=== PATIENT | female | born 1945 | race Caucasian/White ===

== ENCOUNTER 2016-12-17 12:01 | Inpatient (IN) | payer MEDICARE ==
[2016-12-17 13:01] LABS: Hematocrit 44.3 % (36.0-47.0); Red Blood Cell (RBC) Count 4.57 mill/uL (4.20-5.40); White Blood Cell (WBC) Count 23.6 thou/uL (4.8-10.8)
--- NOTE | 2016-12-17 13:13 | RAD ---
AP VIEW CHEST: HISTORY: Chest pain. FINDINGS: AP view chest was obtained on 12/17/16. AP view chest demonstrates cardiomegaly noted. There is blunting of the left costophrenic angle com patible with a left-sided pleural effusion. There may be some component of left lower lobe consolid ation as well. The right lung is well aerated. Calcification of the aorta is seen. IMPRESSION: Cardiomegaly and left-sided pleural effusion. POS: H
[2016-12-17 13:22] LABS: Band 1 % (5-11); Neutrophil 93 % (42-75)
[2016-12-17 13:28] LABS: Troponin I Less than 0.010 ng/mL (< 0.028)
[2016-12-17] MEDS ORDERED: Piperacillin/Tazobactam 3.375 GM VIAL ONE (13:33)
[2016-12-17] MEDS ORDERED: Sodium Chloride 0.9% 100 ML ONE ×2 (13:34→14:05)
[2016-12-17] MEDS ORDERED: Diltiazem HCl 125 MG, Admixture Fee 1 EACH in Sodium Chloride 0.9% 100 ML SLOW IVP SCH (15:00)
[2016-12-17] MEDS ORDERED: Ondansetron HCl/PF 4 MG/2 ML Vial IVP PRN (15:41)
[2016-12-17] MEDS ORDERED: Ondansetron ODT 4 MG TAB SL PRN (15:41)
[2016-12-17 15:56] LABS: Troponin I Less than 0.010 ng/mL (< 0.028)
[2016-12-17] MEDS ORDERED: Acetaminophen 325 MG TAB PO PRN (18:09)
[2016-12-17 18:40] LABS: Hematocrit 43.6 % (36.0-47.0)
[2016-12-17 18:57] LABS: Troponin I 0.016 ng/mL (< 0.028)
--- NOTE | 2016-12-17 19:08 | HP ---
PRIMARY CARE PROVIDER: None. CHIEF COMPLAINT: Shortness of breath. HISTORY OF PRESENT ILLNESS: Ms. Max is a pleasant 71-year-old lady who was seen at [facility] on 12/17/2016 following transfer from [facility] in [place]. She reports that over the last 6 weeks, she has had flu-like symptoms with cough and occasional feve r. She reports feeling miserable. She was started on steroids and Z-LEO. She finished the steroid s last week. However, she continued to have cough. She also reports shortness of breath that has b een going on for several days. Shortness of breath is worse with exertion. She denies orthopnea or paroxysmal nocturnal dyspnea. At 11:00 p.m. last night, she started coughing, and was unable to stop coughing. She sat in her bed . She did not sleep well. She also reports that she has had left-sided chest pain a few weeks ago, sharp, nonradiating, 9/10, worse with coughing. She went to the emergency room because of ongoing cough and shortness of breath. There, she was fou nd to be in atrial fibrillation with rapid ventricular response. She was transferred to this facili for further management. REVIEW OF SYSTEMS: The following complete review of systems was negative, unless otherwise mentione d in the HPI or below: Constitutional: Weight loss or gain, sense of well-being, ability to conduct usual activities, exer cise tolerance. Skin/Breast: Rash, itching, changes in hair growth or loss, nail changes, breast lumps, tenderness, swelling, nipple discharge. Eyes: Vision, double vision, tearing, blind spots, pain. ENT/Mouth: Headaches (location, time of onset, duration, precipitating factors), vertigo, lighthead edness, injury. Vision, double vision, tearing, blind spots, pain, nose bleeding, colds, obstruction , discharge, dental difficulties, gingival bleeding, dentures, neck stiffness, pain, tenderness, mas ses in thyroid or other areas. Cardiovascular: Precordial pain, substernal distress, palpitations, syncope, dyspnea on exertion, o rthopnea, nocturnal paroxysmal dyspnea, edema, cyanosis, hypertension, heart murmurs, varicosities, phlebitis, claudication. Respiratory: Pain, shortness of breath, wheezing, stridor, cough, hemoptysis, fever or night sweats . Gastrointestinal: Poor appetite, dysphagia, indigestion, abdominal pain, heartburn, eructation, bernice sea, vomiting, hematemesis, jaundice, constipation, or diarrhea, abnormal stools (mukesh-colored, jillian y, bloody, greasy, foul smelling), flatulence, hemorrhoids, recent changes in bowel habits. Genitourinary: Urgency, frequency, dysuria, nocturia, hematuria, polyuria, oliguria, unusual (or ch hseldon in) color of urine, stones, hesitancy, change in size of stream, dribbling, acute retention or incontinence, libido, potency. Musculoskeletal: Pain, swelling, redness or heat of muscles or joints, limitation, of motion, muscu lar weakness, atrophy, cramps. Neurologic/Psychiatric: Convulsions, paralyses, tremor, incoordination, paresthesias, difficulties with memory of speech, sensory or motor disturbances, or muscular coordination (ataxia, tremor), emo tional problems, anxiety, depression, previous psychiatric care, unusual perceptions, hallucinations . Allergy/Immunologic: Skin rash, anemia, bleeding tendency, polydipsia, polyuria, intolerance to hea t or cold. PAST MEDICAL HISTORY: Significant for hypertension and gastroesophageal reflux disease. Cerebrovas cular accident in the past. PAST SURGICAL HISTORY: None. FAMILY HISTORY: Significant for myocardial infarction in her father. SOCIAL HISTORY: She smokes 1 pack of cigarettes a day. She drinks 5-6 alcoholic drinks a day. ALLERGIES: No known drug allergies. CURRENT MEDICATIONS: Protonix 40 mg daily. She also reports that she has been started on losartan/ hydrochlorothiazide, but does not remember the dose. PHYSICAL EXAMINATION: GENERAL: Ms. Max is awake and alert, not in acute distress. VITAL SIGNS: Blood pressure is 120/68, pulse is 110. She is breathing at rate of 21 and saturating 94% on 2 liters of oxygen. She is afebrile. EYES: No scleral icterus. No conjunctival pallor. ENT: Moist mucosal membranes, no oropharyngeal erythema or exudates. NECK: Supple, nontender, normal range of movement, trachea is midline. RESPIRATORY: Accessory muscles of breathing are mildly active. Chest wall movements are symmetric bilaterally. LUNGS: Clear to auscultation without wheeze, rhonchus or crepitations. CARDIOVASCULAR: S1 and S2 are heard, irregular and tachycardic. Peripheral pulses palpable. No pe ricardial rub, no carotid bruit. ABDOMEN: Soft, nontender, bowel sounds heard, no hepatomegaly, no splenomegaly. NEUROLOGIC: Cranial nerves II-XII are intact. Deep tendon reflexes are 2+. MUSCULOSKELETAL: Power is 5/5 in all 4 extremities, normal range of movement at all major extremity joints. She has lower extremity edema. PSYCHIATRIC: Normal mood, normal affect, the patient is oriented to time, place and person. LYMPHATIC: No cervical lymphadenopathy. SKIN: No rashes or subcutaneous nodules. LABS AND INVESTIGATIONS: Mr. Max's labs and investigations were reviewed. I reviewed her ches t x-ray, which does not show any pulmonary infiltrates. She does have a small left-sided pleural ef fusion. I also reviewed her electrocardiogram, which shows atrial fibrillation with rapid ventricul ar response. Laboratory investigations show leukocytosis with 23,600 white cells, of which 93% are neutrophils. Hemoglobin and platelet count are normal. Troponin I is less than 0.010 twice. Creat inine is 0.6. Alkaline phosphatase is 67. Total bilirubin is 1.9. BNP is 363. D-dimer is elevate d at 995. Sodium is decreased at 125. ASSESSMENT AND PLAN: Mr. Max is a pleasant 71-year-old lady who was seen at [facility] on 12/17/2016. Her problem list includes: 1. Atrial fibrillation with rapid ventricular response. Ms. Max is presenting with atrial fib rillation with rapid ventricular response, newly diagnosed. Given her history of hypertension, stro ke, and age, she is at high risk for stroke. I had a lengthy discussion with her regarding her DIANE S2 score and the need for anticoagulation. She is agreeable for anticoagulation. I also had a disc ussion regarding warfarin versus normal oral anticoagulant agents. She is leaning towards warfarin, mostly because of financial reasons. I will admit her to the hospital for further management, cont inue her heparin drip and consult Cardiology Service. We will also request 2D echocardiogram. We w ill continue Cardizem drip. 2. Abnormal liver function tests: Etiology unclear, could be secondary to alcohol use. We will re check liver function test. 3. Hyponatremia: The patient appears to be asymptomatic. We will recheck. 4. History of stroke: The patient has light perception only in the right eye with the sequel of th e stroke. Appears to be stable. 5. Hypertension: Clarify home medications and resume them, monitor vital signs and titrate antihyp ertensives as needed. 6. Gastroesophageal reflux disease. Continue Protonix. 7. Sepsis: Suspected, based on presentation. A clear source of infection is not evident at this t virgilio. We will obtain cultures and continue Zosyn, which has already been started. LEVEL OF RISK: High. LEVEL OF COMPLEXITY: High.
[2016-12-17 20:00] LABS: Anion Gap 15 mmol/L (10-20); BUN (Urea Nitrogen) 12 mg/dL (9.8-20.1); Calc. Creatinine Clearance 59 mL/min (70-130); Calcium 9.2 mg/dL (7.8-10.44); Carbon Dioxide 22 mmol/L (23-31); Chloride 99 mmol/L (98-107); Estimated GFR-MDRD 82
[2016-12-17] MEDS: Piperacillin/Tazobactam 4.5 GM in Sodium Chloride 0.9% 100 ML IVPB SCH (22:15)
[2016-12-17] MEDS: Nicotine 21 MG PATCH TD SCH (22:15)
[2016-12-17] MEDS: Heparin 10,000 UNITS/ 10 ML VIAL SLOW IVP SCH (22:17)
[2016-12-17] MEDS: Heparin 25,000 units/D5W 500 ML IVPB SCH (22:17)
[2016-12-18 01:06] LABS: Bilirubin Negative (Negative); Blood, Urine Large (Negative); Glucose, Urine (Dipstick) Negative (Negative); Ketone, Urine Negative (Negative); Nitrite Negative (Negative); Protein, Urine (Dipstick) Trace mg/dL (Neg-Trace); Urobilinogen 0.2 mg/dL (0.2-1.0)
[2016-12-18 01:08] LABS: Bacteria/HPF None Seen HPF (None Seen); Hyaline Casts/LPF 0-3 HYALINE CAST LPF (0-3 Hyaline); RBC/HPF 21-50 HPF (0-3); Squamous Epithelial 0-3 HPF (0-3)
[2016-12-18 01:22] LABS: Potassium, Urine 86.8 mmol/L
[2016-12-18] MEDS: Piperacillin/Tazobactam 4.5 GM in Sodium Chloride 0.9% 100 ML IVPB SCH ×3 (05:21→21:41)
[2016-12-18 05:45] LABS: Hematocrit 42.7 % (36.0-47.0); Mean Platelet Volume 7.2 fL (7.4-10.4); White Blood Cell (WBC) Count 23.5 thou/uL (4.8-10.8)
[2016-12-18 05:46] LABS: Neutrophil 88 % (42-75)
[2016-12-18 06:00] LABS: Anion Gap 12 mmol/L (10-20); BUN (Urea Nitrogen) 19 mg/dL (9.8-20.1); Calc. Creatinine Clearance 58 mL/min (70-130); Calcium 9.2 mg/dL (7.8-10.44); Carbon Dioxide 24 mmol/L (23-31); Chloride 101 mmol/L (98-107); Estimated GFR-MDRD 81
[2016-12-18 06:04] LABS: ALT (SGPT) 43 U/L (8-55); AST (SGOT) 27 U/L (5-34); Alkaline Phosphatase 50 U/L (40-150); Bilirubin, Direct 0.5 mg/dL (0.1-0.3); Bilirubin, Total 1.1 mg/dL (0.2-1.2); Protein, Total 6.1 g/dL (6.0-8.3)
[2016-12-18] MEDS: Heparin 10,000 UNITS/ 10 ML VIAL SLOW IVP SCH ×3 (06:19→21:04)
--- NOTE | 2016-12-18 11:51 | PDOC.PN ---
- Subjective Encounter Start Date: 12/18/16 Encounter Start Time: 09:00 Pt seen for followup re: atrial fibrillation. denies chest pain, Shortness of breath is better. No paplitations, fevers. cough+ - Objective Resuscitation Status: Resuscitation Status FULL:Full Resuscitation MAR Reviewed: Yes Vital Signs & Weight: Vital Signs (12 hours) Temp Pulse Resp BP Pulse Ox 12/18/16 07:30 98.2 F 132 H 18 123/79 96 12/18/16 04:00 98.1 F 99 18 133/78 93 L 12/18/16 00:00 108 H 18 154/84 H Weight Weight 112 lb I&O: 12/17/16 12/18/16 12/19/16 06:59 06:59 06:59 Intake Total 910 Output Total 925 Balance -15 Result Diagrams: 12/18/16 05:12 12/18/16 05:12 EKG Reviewed by me: Yes (Tele: chayito rizzo) Phys Exam - Physical Examination Constitutional: NAD HEENT: moist MMs, sclera anicteric, oral pharynx no lesions R blindness Neck: supple, full ROM Respiratory: no wheezing, no rales, no rhonchi, clear to auscultation bilateral Cardiovascular: no rub, irregular Gastrointestinal: soft, non-tender, no distention, positive bowel sounds Musculoskeletal: no edema, pulses present Neurological: non-focal, normal sensation, moves all 4 limbs R blindness Lymphatic: no nodes Psychiatric: normal affect, A&O x 3 Skin: no rash, normal turgor, cap refill <2 seconds Dx/Plan (1) Atrial fibrillation Code(s): I48.91 - UNSPECIFIED ATRIAL FIBRILLATION Status: Acute (2) Sepsis Code(s): A41.9 - SEPSIS, UNSPECIFIED ORGANISM Status: Suspected (3) HTN (hypertension) Code(s): I10 - ESSENTIAL (PRIMARY) HYPERTENSION Status: Chronic (4) GERD (gastroesophageal reflux disease) Code(s): K21.9 - GASTRO-ESOPHAGEAL REFLUX DISEASE WITHOUT ESOPHAGITIS Status: Chronic (5) Tobacco abuse Code(s): Z72.0 - TOBACCO USE Status: Chronic (6) Alcohol dependence, daily use Code(s): F10.20 - ALCOHOL DEPENDENCE, UNCOMPLICATED Status: Chronic - Plan continue antibiotics, PT/OT, out of bed/ambulate, DVT proph w/heparin * . Continue cardizem drip. Sepsis suspected due to leucocytosis and tachycardia. Pt is afebrile. Continue antibiotics, await cultures. Continue NRT, ASE protocol. Monitor vital signs, titrate antihypertensives as needed. Review of Systems - Review of Systems Constitutional: negative: Fever, Chills, Sweats, Weakness, Malaise Respiratory: Cough, SOB with Excertion, Sputum. negative: Dry, Shortness of Breath, Hemoptysis, Pleuritic Pain, Wheezing Cardiovascular: negative: Chest Pain, Palpitations, Orthopnea, Paroxysmal Noc. Dyspnea, Edema, Light Headedness Gastrointestinal: negative: Nausea, Vomiting, Abdominal Pain, Diarrhea, Constipation, Melena, Hematochezia Genitourinary: negative: Dysuria, Frequency, Incontinence, Hematuria, Retention - Medications/Allergies Allergies/Adverse Reactions: Allergies Allergy/AdvReac Type Severity Reaction Status Date / Time No Known Allergies Allergy Verified 12/17/16 16:00 Medications: Current Medications Acetaminophen (Tylenol) 650 mg PO Q4H PRN PRN Reason: Headache/Fever or Pain Heparin Sodium (Porcine) (Heparin 1,000 Units/Ml (10 Ml)) 0 units SLOW IVP ASDIR [facility] PRN Reason: Protocol Last Admin: 12/18/16 06:19 Dose: 3,024 unit Heparin Sodium/Dextrose (Heparin 25,000 Units/D5w 500 Ml) 500 mls @ 0 mls/hr IVPB INF [facility]IL[facility]; Per Protocol PRN Reason: Protocol Last Admin: 12/17/16 22:17 Dose: 500 mls Diltiazem HCl 125 mg/ Sodium (Chloride) 125 mls @ 10 mls/hr IVPB INF [facility]IL[facility] PRN Reason: Protocol Last Admin: 12/18/16 05:21 Dose: 125 mls Piperacillin Sod/Tazobactam (Sod 4.5 gm/ Sodium Chloride) 100 mls @ 200 mls/hr IVPB Q8HR [facility] Last Admin: 12/18/16 05:21 Dose: 100 mls Nicotine (Nicoderm Patch) 21 mg TD Q24HR [facility] Last Admin: 12/17/16 22:15 Dose: 21 mg Pantoprazole Sodium (Protonix) 40 mg PO DAILY [facility] Last Admin: 12/18/16 08:40 Dose: 40 mg Sodium Chloride (Flush - Normal Saline) 10 ml IVF PRN PRN PRN Reason: Saline Flush Sodium Chloride (Flush - Normal Saline) 10 ml IVF Q12HR [facility] Last Admin: 12/18/16 08:40 Dose: Not Given
[2016-12-18] MEDS ORDERED: Digoxin 0.5 MG/2 ML AMP SLOW IVP SCH (12:15)
[2016-12-18 14:31] LABS: Prothrombin Time 14.6 SEC (12.0-14.7)
[2016-12-18] MEDS ORDERED: Warfarin Sodium 10 MG TAB PO SCH ×2 (17:00)
[2016-12-18] MEDS: Digoxin 0.5 MG/2 ML AMP SLOW IVP SCH (19:46)
--- NOTE | 2016-12-18 20:39 | CON ---
DATE OF CONSULTATION: 12/18/2016 INDICATION FOR CONSULTATION: A 71-year-old female with atrial fibrillation with rapid ventricular r esponse. HISTORY OF PRESENT ILLNESS: This is a very unfortunate 71-year-old female who has not been seen by physicians very much. She does not have a primary doctor. She only goes to the doctor when she has symptoms emergently. She has had flu-like symptoms for quite some time with a cough and some fever . 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 Since that time, she had been doing relatively well. She would like to work. She w orks in a tobacco shop. She has had no chest pain until just recently when she started having a cou gh and then she developed some chest pain a couple of days ago without any radiation. She then noti preet she was having somewhat of a fast heart rate, but previous to that she had not noticed her heart rate has been fast and she was not having any pain. She, unfortunately, smokes a pack a day and dr jacobsen 6 pack a day and has done so for many years. She presented to the outside facility on and was told that she still had some residual from a viral illness and was told to just wait it out . I believe she was given a Z-Paramjit and some steroids and was sent home and then she noticed the foll owing day on Monday, she was unable to breathe and became more and more short of breath and then pre sented to the emergency room and was then transferred here for further evaluation and treatment afte r she was found to have atrial fibrillation with rapid ventricular response. Unfortunately, her EKG did not show any acute ST-segment changes at that time. She did have the episode of chest pain; ho wever, we need to keep that in mind. She also had no evidence of myocardial infarction. The cardia c enzymes were unremarkable. At this time, she is on the telemetry floor. She is on IV diltiazem a s well as Zosyn for an elevated white blood cell count. It is possible she has pneumonia, but the h eart rate is still rapid. She does not know of any history of having atrial fibrillation in the [facility] t, but it is quite possible that when she suffered the small CVA back in July that she also was havin g atrial fibrillation at that time. She has not been evaluated she said for a rapid heart rate or a ny irregular rhythms as she does not visit with physicians. PAST MEDICAL HISTORY: Positive for hypertension, gastroesophageal reflux. 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 She has also had no significant operations or illn esses otherwise that we are aware of. FAMILY HISTORY: She and her father did have a myocardial infarction. SOCIAL HISTORY: She smoked a pack a day for 60 years. She drinks at least six pack of beer every d ay. 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 She lives with her son. ALLERGIES: None. MEDICATIONS PRIOR TO ADMISSION: She said that she had been started on losartan/hydrochlorothiazide but had not yet filled a prescription until yesterday. She also was on some Protonix for reflux. I n the emergency room, she was given diltiazem and Zosyn. Her medications at this time include the d iltiazem IV as well as heparin IV. She is on a NicoDerm patch and Zosyn. REVIEW OF SYSTEMS: She complains of the right eye visual loss. She has had no significant weight l oss or weight gain. She has always been thin statured. Pulmonary: She complains of shortness of b reath and coughing recently. She continues to smoke. Cardiovascular: She did have one episode of chest discomfort and has had some lower extremity edema which also prompted her to visit the physici an at an outpatient center. She denied any previous myocardial infarctions. She denied any palpita tions. Despite having a rapid heart rate, she is unaware of the rapid heart rate. Gastrointestinal : She had no complaints of nausea, vomiting, or diarrhea. Genitourinary: No complaints such as dysuria, polyuria, or hematuria. Musculoskeletal: She does complain of some claudication type sym ptoms in the right lower extremity, otherwise she had no complaints until she had a recent edema. N eurologic: No history of seizures or syncope, one episode of the right eye loss of vision as noted above. PHYSICAL EXAMINATION: GENERAL: Reveals an elderly fragile female who retook tobacco. VITAL SIGNS: Her blood pressure is 123/79, heart rate is in the 120s to 130s, respiratory rate is 1 3. She is afebrile. HEENT: Shows the head to be normocephalic and atraumatic. Carotid pulses are present. I cannot he ar any significant bruits. LUNGS: Her chest has diffuse coarse rhonchi noted bilaterally. There are decreased breath sounds i n the left base. She actually has decreased breath sounds throughout due to her COPD most likely. CARDIOVASCULAR: She has an irregular rapid heart rate. She had no gross murmurs at this time, but does have a systolic murmur over the entire precordium, most likely due to mitral valve regurgitatio n and maybe some aortic valve sclerosis. She also has a murmur at the lower sternal border, most li matilde compatible with some tricuspid valve regurgitation. ABDOMEN: Soft and nontender. It is unremarkable. EXTREMITIES: Show no clubbing, cyanosis, or edema at this time. I could not palpate pedal pulses. The right popliteal pulse is also not palpable. I could palpate some mild left popliteal pulse. F emoral pulses are present. She has bilateral femoral bruits. NEUROLOGIC: She appears to be intact. SKIN: Warm and dry at this time. LABORATORY DATA AND X-RAY FINDINGS: Negative for myocardial infarction. Her LDH is 85. Her WBC wa s 23.5. Creatinine is 0.71, blood sugar was 148 and earlier was 205. Her EKG shows atrial fibrilla tion with rapid ventricular response, but no acute ST-segment changes fortunately. Her chest x-ray shows a left pleural effusion with some cardiomegaly. She did have a CT angiogram in the outside [facility], which showed no evidence of pulmonary emboli. She did have a left lower lobe nodule of 1 cm and she also had coronary atherosclerosis as well as small bilateral pleural effusions noted on the CT angiogram. IMPRESSION: 1. Atrial fibrillation with rapid ventricular response. We will need to slow down the heart rate. She already has some problems associated with a tachycardia apparently with some congestive heart f ailure symptoms. This may be due to the rapid heart rate or she may have right heart failure also f rom her most likely underlying chronic obstructive pulmonary disease. We need to control the heart rate and also we need to start anticoagulation. At this time, she is on heparin. We will need to sw itch over to Coumadin most likely and we will need to have her protime INR checked on a routine basi s. We are uncertain of the etiology of the atrial fibrillation whether this is due to her underlyin g chronic obstructive pulmonary disease or pneumonia versus underlying coronary artery disease or ot her etiologies. She was at some point in time will need to undergo a stress test to rule out eviden ce of underlying ischemia. She had an echocardiogram performed earlier today. We will need to revi ew the results of that. 2. Tobacco abuse. She is strongly being encouraged to stop smoking altogether. She has smoked a p ack a day for over 60 years. 3. Most likely chronic obstructive pulmonary disease. She may need to have a pulmonary consultatio n for further evaluation certainly in view of the left pulmonary nodule. 4. Left lower lobe pulmonary nodule. She will need to have a repeat CT scan or possibly pulmonary consultation for further evaluation. 5. History of hypertension. She has not been taking her medications. We will need to start medica tions and she will need to maintain these medications. 6. History of fatigue, which may be associated with the atrial fibrillation as well as her possible underlying coronary artery disease. 7. Bilateral pleural effusions, left greater than the right. This may be due to congestive heart f ailure symptoms. She will need diuresis and once this has improved, we will give her some IV Lasix and see whether or not the effusion may decrease. 8. History of alcohol use. She will need to be strongly encouraged to stop drinking certainly in v iew of the fact that she is going to need to be on oral anticoagulations. At this time, the main go al is to control the heart rate with atrial fibrillation with rapid ventricular response and decreas e the risk of further embolic phenomenon associated with her atrial fibrillation. Highly suspicious that the embolic event that caused her to have right eye blindness was most likely due to atrial fi brillation which occurred back in July and this problem has not been addressed. Also of note, she do es have some abnormal liver function studies which are most likely associated with her alcohol use. 9. History of cerebrovascular accident in the past only with a right eye and again most likely asso ciated with the atrial fibrillation which she was unaware of. We will be more than happy to follow this patient with you. She will need further evaluation. We w ill review the echocardiogram as soon as this becomes available.
[2016-12-18] MEDS: Nicotine 21 MG PATCH TD SCH (21:41)
[2016-12-19] MEDS: Digoxin 0.5 MG/2 ML AMP SLOW IVP SCH (01:04)
[2016-12-19 03:29] LABS: Anion Gap 11 mmol/L (10-20); BUN (Urea Nitrogen) 17 mg/dL (9.8-20.1); Calc. Creatinine Clearance 62 mL/min (70-130); Calcium 8.4 mg/dL (7.8-10.44); Carbon Dioxide 23 mmol/L (23-31); Chloride 104 mmol/L (98-107); Estimated GFR-MDRD 87
[2016-12-19 03:52] LABS: Band 3 % (5-11); Hematocrit 40.3 % (36.0-47.0); Metamyelocyte 1 % (0-0); Neutrophil 80 % (42-75); Red Blood Cell (RBC) Count 4.14 mill/uL (4.20-5.40); White Blood Cell (WBC) Count 22.9 thou/uL (4.8-10.8)
[2016-12-19] MEDS: Heparin 25,000 units/D5W 500 ML IVPB SCH (05:02)
[2016-12-19] MEDS: Piperacillin/Tazobactam 4.5 GM in Sodium Chloride 0.9% 100 ML IVPB SCH ×3 (05:03→20:53)
[2016-12-19] MEDS: Digoxin 0.125 MG TAB PO SCH (08:43)
[2016-12-19] MEDS: Heparin 10,000 UNITS/ 10 ML VIAL SLOW IVP SCH ×2 (10:36→17:21)
--- NOTE | 2016-12-19 10:49 | PDOC.PN ---
- Subjective Encounter Start Date: 12/19/16 Encounter Start Time: 07:40 Pt seen for followup re: atrial fibrillation. Reports feeling better. Cough better. No chest pain. No palpitations. SOBOE+. - Objective Resuscitation Status: Resuscitation Status FULL:Full Resuscitation MAR Reviewed: Yes Vital Signs & Weight: Vital Signs (12 hours) Temp Pulse Resp BP Pulse Ox 12/19/16 08:43 80 12/19/16 07:00 96.3 F L 81 14 139/66 93 L 12/19/16 04:00 99.4 F 61 20 142/65 H 93 L 12/19/16 01:04 72 Weight Weight 111 lb 12.8 oz I&O: 12/18/16 12/19/16 12/20/16 06:59 06:59 06:59 Intake Total 910 2147.2 Output Total 925 2024 Balance -15 122.2 Result Diagrams: 12/19/16 02:57 12/19/16 02:57 EKG Reviewed by me: Yes (Tele: chaytio rizzo) Phys Exam - Physical Examination Constitutional: NAD HEENT: moist MMs, oral pharynx no lesions Neck: supple Respiratory: no wheezing, no rales, no rhonchi, clear to auscultation bilateral Cardiovascular: no rub, irregular S1, S2, irregular rhythm, regular rate Gastrointestinal: soft, non-tender, no distention, positive bowel sounds Musculoskeletal: pulses present Neurological: non-focal, moves all 4 limbs Lymphatic: no nodes Psychiatric: normal affect Skin: no rash, normal turgor, cap refill <2 seconds Dx/Plan (1) Atrial fibrillation Code(s): I48.91 - UNSPECIFIED ATRIAL FIBRILLATION Status: Acute (2) Sepsis Code(s): A41.9 - SEPSIS, UNSPECIFIED ORGANISM Status: Suspected (3) HTN (hypertension) Code(s): I10 - ESSENTIAL (PRIMARY) HYPERTENSION Status: Chronic (4) GERD (gastroesophageal reflux disease) Code(s): K21.9 - GASTRO-ESOPHAGEAL REFLUX DISEASE WITHOUT ESOPHAGITIS Status: Chronic (5) Tobacco abuse Code(s): Z72.0 - TOBACCO USE Status: Chronic (6) Alcohol dependence, daily use Code(s): F10.20 - ALCOHOL DEPENDENCE, UNCOMPLICATED Status: Chronic - Plan continue antibiotics, PT/OT, out of bed/ambulate * . Continue cardizem drip. All cultures negative so far, unclear whether this is true sepsis. Continue IV Zosyn. Consult pulmonology re; lung nodule, ? COPD. Start warfarin (pt's preference after discussing with cardiology service). Review of Systems - Review of Systems Constitutional: negative: Fever, Chills, Sweats, Weakness, Malaise Respiratory: Cough, SOB with Excertion. negative: Dry, Shortness of Breath, Hemoptysis, Pleuritic Pain, Sputum, Wheezing Cardiovascular: negative: Chest Pain, Palpitations, Orthopnea, Paroxysmal Noc. Dyspnea, Edema, Light Headedness Gastrointestinal: negative: Nausea, Vomiting, Abdominal Pain, Diarrhea, Constipation, Melena, Hematochezia Genitourinary: negative: Dysuria, Frequency, Incontinence, Hematuria, Retention - Medications/Allergies Allergies/Adverse Reactions: Allergies Allergy/AdvReac Type Severity Reaction Status Date / Time No Known Allergies Allergy Verified 12/17/16 16:00 Medications: Current Medications Acetaminophen (Tylenol) 650 mg PO Q4H PRN PRN Reason: Headache/Fever or Pain Digoxin (Lanoxin) 0.125 mg PO QAM [facility] Last Admin: 12/19/16 08:43 Dose: 0.125 mg Heparin Sodium (Porcine) (Heparin 1,000 Units/Ml (10 Ml)) 0 units SLOW IVP ASDIR [facility] PRN Reason: Protocol Last Admin: 12/19/16 10:36 Dose: 1,512 unit Heparin Sodium/Dextrose (Heparin 25,000 Units/D5w 500 Ml) 500 mls @ 0 mls/hr IVPB INF [facility]; Per Protocol PRN Reason: Protocol Last Admin: 12/19/16 05:02 Dose: 500 mls Diltiazem HCl 125 mg/ Sodium (Chloride) 125 mls @ 10 mls/hr IVPB INF [facility] PRN Reason: Protocol Last Admin: 12/19/16 08:47 Dose: 125 mls Piperacillin Sod/Tazobactam (Sod 4.5 gm/ Sodium Chloride) 100 mls @ 200 mls/hr IVPB Q8HR [facility] Last Admin: 12/19/16 05:03 Dose: 100 mls Nicotine (Nicoderm Patch) 21 mg TD Q24HR [facility] Last Admin: 12/18/16 21:41 Dose: 21 mg Pantoprazole Sodium (Protonix) 40 mg PO DAILY [facility] Last Admin: 12/19/16 08:45 Dose: 40 mg Sodium Chloride (Flush - Normal Saline) 10 ml IVF PRN PRN PRN Reason: Saline Flush Sodium Chloride (Flush - Normal Saline) 10 ml IVF Q12HR [facility] Last Admin: 12/19/16 08:56 Dose: Not Given Warfarin Sodium (Coumadin) 5 mg PO 1700 [facility]
--- NOTE | 2016-12-19 10:54 | PDOC.CTH ---
<Mariola Velarde - Last Filed: 12/19/16 10:58> Cardiology Progress Note - Subjective The pt was seen and examined. No overnight events. No cardiac complaints. She is still on 2LNC with intermittent cough. Rt eye blind - Objective Vital Signs Temp Pulse Resp BP Pulse Ox 12/19/16 08:43 80 12/19/16 07:00 96.3 F L 81 14 139/66 93 L 12/19/16 04:00 99.4 F 61 20 142/65 H 93 L 12/19/16 01:04 72 Weight 111 lb 12.8 oz 12/18/16 12/19/16 12/20/16 06:59 06:59 06:59 Intake Total 910 2147.2 Output Total 925 5 Balance -15 122.2 - Physical Examination General/Neuro: alert & oriented x3 Neck: no JVD present Lungs: other: (very coase and diminished at bases) Heart: other: (irregular) Abdomen: soft Extremities: other: (1+ pitting edema in LLE) - Telemetry Telemetry Rhythm: Afib 80-90s - Labs Result Diagrams: 12/19/16 02:57 12/19/16 02:57 Troponin/CKMB CK-MB (CK-2) 1.7 ng/mL (0-6.6) 12/17/16 12:50 Troponin I 0.016 ng/mL (< 0.028) 12/17/16 17:59 - Assessment/Plan 1. Atrial fibrillation with RVR - Rate controlled with Diltiazem 10mg/h and Digoxin 0.125mg PO daily; on Heparin IV and Coumadin; cont. monitor on tele 2. Sepsis - On IV antibiotics; managed by PCP 3. HTN - stable with current medication 4. Tobacco Abuse - smoking cessation education given to the pt and her son 5. ETOH abuse - Strongly recommend to stop drinking to the pt and family 6. GERD - On Protonix MAR reviewed *Pulmonary service consult was ordered by PCP * Her VS at home (She has had cold for 1 month) BP HR 11/12 222/107 86 / 165/87 79 11/16 177/82 126 11/20 186/104 77 11/23 175/104 126 Review of Systems - Review of Systems Constitutional: reports: no symptoms reported EENTM: reports: no symptoms reported Respiratory: reports: cough, shortness of breath Cardiac (ROS): reports: no symptoms reported ABD/GI: reports: no symptoms reported : reports: no symptoms reported Musculoskeletal: reports: no symptoms reported Skin: reports: no symptoms reported Neurological: reports: no symptoms reported <Angela Dickerson Javon - Last Filed: 12/19/16 12:43> Cardiology Progress Note - Objective Vital Signs Temp Pulse Resp BP Pulse Ox 12/19/16 08:43 80 12/19/16 07:00 96.3 F L 81 14 139/66 93 L 12/19/16 04:00 99.4 F 61 20 142/65 H 93 L 12/19/16 01:04 72 Weight 111 lb 12.8 oz 12/18/16 12/19/16 12/20/16 06:59 06:59 06:59 Intake Total 910 2147.2 Output Total 925 2024 Balance -15 122.2 - Labs Result Diagrams: 12/19/16 02:57 12/19/16 02:57 Troponin/CKMB CK-MB (CK-2) 1.7 ng/mL (0-6.6) 12/17/16 12:50 Troponin I 0.016 ng/mL (< 0.028) 12/17/16 17:59 - Assessment/Plan Pt. seen and evaluated. I agree with the A/P by the STEEL PLATE PRINTER. She feels better but the HR is still elevated at times. We will continue diltiazem and digoxin as well as coumadin.I doubt she will be a candidate for betablockers.In the future we can discuss possible cardioversion after she has been therapeutic on coumadin for 4-6 weeks. (INR 2.0-3.0) The lung disease may be the cause of the a-fib. but it will be advisable to do a stress test in the future to rule out ischemia/CAD. The elevated WBC is concerning.
[2016-12-19] MEDS ORDERED: predniSONE 20 MG TAB PO SCH (14:15)
--- NOTE | 2016-12-19 14:35 | CON ---
DATE OF CONSULTATION: 12/19/2016 SERVICE: Pulmonary Medicine. REASON FOR CONSULTATION: Pulmonary nodule and COPD. HISTORY OF PRESENT ILLNESS: The patient is a 71-year-old white female with past medical history significant for [id number] history of smoking who presented to the hospital with atrial fibrillation with a rapid rate. On the chest x-ray, she had hyperexpanded lung mar. She had a CT of the chest from the outside hospital demonstrating a small pulmonary nodule. Prior to 3 weeks ago, she did not have dyspnea that limited her activity. 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 She does have a history of excessive alcohol and tobacco abuse. She denies having any hemoptysis. Her weight is roughly stable and she has not been experiencing any night sweats. PAST MEDICAL HISTORY: 1. Tobacco abuse. 2. Alcohol abuse. 3. Gastroesophageal reflux disease. 4. Hypertension. 5. History of CVA. PAST SURGICAL HISTORY: None. FAMILY HISTORY: Noncontributory. SOCIAL HISTORY: She has a [id number] history of smoking and was up until recently, she was smoking 1.5 packs on a daily basis. She drinks 6 beers every single night and even more on the weekends. She denies any illicit drugs. She is not exposed to any chemicals, dust asbestos or tuberculosis, otherwise. ALLERGIES: No known drug allergies. MEDICATIONS: List of her inpatient medications was reviewed. A couple of small updates were made at this time. REVIEW OF SYSTEMS: General, head, ears, eyes, nose, throat, cardiovascular, respiratory, GI, , musculoskeletal, neurologic and skin is negative except as mentioned in the HPI. PHYSICAL EXAMINATION: VITAL SIGNS: Afebrile with T-max of 99.4, pulse 80, blood pressure 139/66, respirations 14, saturation 93% on 2 liters nasal cannula. GENERAL: Patient is awake, alert, in no apparent distress. LUNGS: Decent air entry. There is slightly prolonged expiratory phase. Rhonchi are present in the left base. There are minimal crackles present. HEART: Normal rate. Irregular. ABDOMEN: Soft, nontender, nondistended, bowel sounds positive. MUSCULOSKELETAL: No cyanosis or clubbing. There is trace pitting in the bilateral lower extremities. GENITOURINARY: Gonzalez catheter in place. NEUROLOGIC: Grossly nonfocal. LABORATORY DATA: WBC 22.9, hemoglobin 13.5, platelets 252,000. Neutrophil count is down trending to 83%. INR 1.1. Basic metabolic profile is otherwise unremarkable. Sodium is upward trending. Direct bilirubin is 0.5. Liver function studies are otherwise unremarkable. Troponin is negative. Urinalysis is unremarkable except for a little bit of hematuria. Blood cultures x2 and urine culture negative to date. IMAGIN. Echocardiogram demonstrates a normal ejection fraction with likely diastolic dysfunction, trivial, mitral, and aortic valve abnormalities. 2. Chest x-ray demonstrates chronic appearing interstitial changes in the bilateral lung mar, minimally hyperexpanded lungs, left-sided pleural effusion which is likely fairly small. Cardiomegaly. 3. CTA of the chest demonstrates no evidence of pulmonary embolism. She does, however, have a very small pulmonary nodule that will need to be followed in the outpatient setting. This is in the setting of findings consistent with overt volume overload. ASSESSMENT: 1. Chronic obstructive pulmonary disease with acute exacerbation. 2. Acute hypoxic respiratory failure. 3. Atrial fibrillation with rapid ventricular response. 4. Pulmonary nodule. 5. Pleural effusion, bilateral on CT. PLAN: We will continue to diurese the patient to euvolemia. If the white count fails to drop, ultrasound of the chest will be performed to look to see if there is a fluid collection there. If there is, thoracentesis will be considered on the larger effusion. We will continue watching for signs of withdrawal. In the outpatient setting, the patient will certainly need to have a repeat CT scan in roughly 3 months to make certain this nodule remains stable. I will schedule some DuoNebs and initiate the patient on 5 days of p.o. steroids. Pulmonary will continue to follow while the patient remains inhouse. [facility]
[2016-12-19] MEDS ORDERED: Warfarin Sodium 5 MG TAB PO SCH (17:00)
[2016-12-19 17:01] LABS: Hematocrit 44.3 % (36.0-47.0)
[2016-12-19] MEDS: Nicotine 21 MG PATCH TD SCH (20:52)
[2016-12-20] MEDS: Heparin 25,000 units/D5W 500 ML IVPB SCH (03:16)
[2016-12-20] MEDS: Piperacillin/Tazobactam 4.5 GM in Sodium Chloride 0.9% 100 ML IVPB SCH ×3 (05:49→21:42)
[2016-12-20 05:59] LABS: #Neutrophils 12.5 thou/uL (1.40-6.50); %Basophils 0.1 % (0.0-1.0); %Eosinophils 0.1 % (0.0-10.0); %Lymphocytes 6.7 % (21.0-51.0); %Monocytes 6.7 % (0.0-10.0); Hematocrit 44.3 % (36.0-47.0); Mean Platelet Volume 6.8 fL (7.4-10.4); Prothrombin Time 19.4 SEC (12.0-14.7); Red Blood Cell (RBC) Count 4.54 mill/uL (4.20-5.40); White Blood Cell (WBC) Count 14.5 thou/uL (4.8-10.8)
[2016-12-20 06:22] LABS: Anion Gap 10 mmol/L (10-20); BUN (Urea Nitrogen) 12 mg/dL (9.8-20.1); Calc. Creatinine Clearance 66 mL/min (70-130); Carbon Dioxide 27 mmol/L (23-31); Chloride 103 mmol/L (98-107); Estimated GFR-MDRD Greater than 90
[2016-12-20] MEDS: predniSONE 20 MG TAB PO SCH (09:40)
[2016-12-20] MEDS: Digoxin 0.125 MG TAB PO SCH (09:40)
--- NOTE | 2016-12-20 12:07 | PDOC.CTH ---
Cardiology Progress Note - Subjective The pt was seen and examined. No overnight events. No cardiac complaints. She breaths better after breathing treatment and PO steroids. - Objective Vital Signs Temp Pulse Resp BP Pulse Ox 12/20/16 09:40 84 12/20/16 08:10 98.2 F 87 18 135/70 94 L 12/20/16 06:55 75 16 95 12/20/16 04:15 97.6 F 73 16 132/77 96 12/20/16 00:15 82 16 94 L Weight 112 lb 4.8 oz 12/19/16 12/20/16 12/21/16 06:59 06:59 06:59 Intake Total 2147.2 1769.2 Output Total 2024 2975 Balance 122.2 -1205.8 - Physical Examination General/Neuro: alert & oriented x3 Neck: no JVD present Lungs: other: Heart: other: (Irregular) Extremities: other: (No edemas) - Telemetry Telemetry Rhythm: Afib - Labs Result Diagrams: 12/20/16 05:33 12/20/16 05:33 Troponin/CKMB CK-MB (CK-2) 1.7 ng/mL (0-6.6) 12/17/16 12:50 Troponin I 0.016 ng/mL (< 0.028) 12/17/16 17:59 - Assessment/Plan 1. Atrial fibrillation with RVR - Rate controlled; Diltiazem and Digoxin 0.125mg PO daily; Diltiazem was changed from IV to PO 240mg daily; cont.Heparin IV until her INR level > 2.0; Coumadin dosage managed by pharmacy; cont. monitor on tele 2. COPD exacerbation - stable with Duonebs and PO steroid; managed by film recordist 3. Sepsis - On IV antibiotics; managed by PCP 4. HTN - stable with current medication 5. Tobacco Abuse - smoking cessation education given to the pt and her son 6. ETOH abuse - Strongly recommend to stop drinking to the pt and family 7. GERD - On Protonix MAR reviewed *Possible stress test as outpt and Cardioversion as outpt within 4-6 wks when her INR within therapeutic range (2.0-3.0) *Per Dr Brooks, possible U/S in her Lt lung for re-evaluation of a nodule in her Lt chest if her WBC cont. increasing. Review of Systems - Review of Systems Constitutional: reports: no symptoms reported EENTM: reports: no symptoms reported Respiratory: reports: see HPI Cardiac (ROS): reports: no symptoms reported ABD/GI: reports: no symptoms reported
--- NOTE | 2016-12-20 13:34 | PDOC.PN ---
- Subjective Encounter Start Date: 12/20/16 Encounter Start Time: 08:00 Pt seen for followup re: atrial fibrillation. - Objective Resuscitation Status: Resuscitation Status FULL:Full Resuscitation MAR Reviewed: Yes Vital Signs & Weight: Vital Signs (12 hours) Temp Pulse Resp BP Pulse Ox 12/20/16 09:40 84 12/20/16 08:20 98.2 F 84 18 12/20/16 08:10 98.2 F 87 18 135/70 94 L 12/20/16 06:55 75 16 95 12/20/16 04:15 97.6 F 73 16 132/77 96 Weight Weight 112 lb 4.8 oz I&O: 12/19/16 12/20/16 12/21/16 06:59 06:59 06:59 Intake Total 2147.2 1769.2 Output Total 2024 2975 Balance 122.2 -1205.8 Result Diagrams: 12/20/16 05:33 12/20/16 05:33 EKG Reviewed by me: Yes (Tele: chayito rizzo) Phys Exam - Physical Examination Constitutional: NAD HEENT: moist MMs, oral pharynx no lesions Neck: supple Respiratory: no wheezing, no rales, no rhonchi, clear to auscultation bilateral Cardiovascular: no rub, irregular Gastrointestinal: soft, non-tender, positive bowel sounds Musculoskeletal: no edema, pulses present Neurological: moves all 4 limbs Lymphatic: no nodes Psychiatric: normal affect, A&O x 3 Skin: no rash, cap refill <2 seconds Dx/Plan (1) Atrial fibrillation Code(s): I48.91 - UNSPECIFIED ATRIAL FIBRILLATION Status: Acute (2) Sepsis Code(s): A41.9 - SEPSIS, UNSPECIFIED ORGANISM Status: Suspected (3) HTN (hypertension) Code(s): I10 - ESSENTIAL (PRIMARY) HYPERTENSION Status: Chronic (4) GERD (gastroesophageal reflux disease) Code(s): K21.9 - GASTRO-ESOPHAGEAL REFLUX DISEASE WITHOUT ESOPHAGITIS Status: Chronic (5) Tobacco abuse Code(s): Z72.0 - TOBACCO USE Status: Chronic (6) Alcohol dependence, daily use Code(s): F10.20 - ALCOHOL DEPENDENCE, UNCOMPLICATED Status: Chronic - Plan continue antibiotics, PT/OT, out of bed/ambulate * . Continue oral cardizem. Continue IV Zosyn, await cultures. Continue bronchodilators, steroids. Warfarin dosing per pharmacy. Review of Systems - Review of Systems Constitutional: negative: Fever, Chills, Sweats, Weakness, Malaise Respiratory: negative: Cough, Dry, Shortness of Breath, Hemoptysis, SOB with Excertion, Pleuritic Pain, Sputum, Wheezing Cardiovascular: negative: Chest Pain, Palpitations, Orthopnea, Paroxysmal Noc. Dyspnea, Edema, Light Headedness Gastrointestinal: negative: Nausea, Vomiting, Abdominal Pain, Diarrhea, Constipation, Melena, Hematochezia Genitourinary: negative: Dysuria, Frequency, Incontinence, Hematuria, Retention - Medications/Allergies Allergies/Adverse Reactions: Allergies Allergy/AdvReac Type Severity Reaction Status Date / Time No Known Allergies Allergy Verified 12/17/16 16:00 Medications: Current Medications Acetaminophen (Tylenol) 650 mg PO Q4H PRN PRN Reason: Headache/Fever or Pain Albuterol/Ipratropium (Duoneb) 3 ml NEB [id number] [facility] Last Admin: 12/20/16 06:55 Dose: 3 ml Digoxin (Lanoxin) 0.125 mg PO QAM [facility] Last Admin: 12/20/16 09:40 Dose: 0.125 mg Diltiazem HCl (Cardizem Cd) 240 mg PO DAILY [facility] Heparin Sodium (Porcine) (Heparin 1,000 Units/Ml (10 Ml)) 0 units SLOW IVP ASDIR [facility] PRN Reason: Protocol Last Admin: 12/19/16 17:21 Dose: 1,512 unit Heparin Sodium/Dextrose (Heparin 25,000 Units/D5w 500 Ml) 500 mls @ 0 mls/hr IVPB INF [facility]; Per Protocol PRN Reason: Protocol Last Admin: 12/20/16 03:16 Dose: 500 mls Diltiazem HCl 125 mg/ Sodium (Chloride) 125 mls @ 10 mls/hr IVPB INF [facility] PRN Reason: Protocol Stop: 12/20/16 14:00 Last Admin: 12/19/16 20:53 Dose: 125 mls Piperacillin Sod/Tazobactam (Sod 4.5 gm/ Sodium Chloride) 100 mls @ 200 mls/hr IVPB Q8HR [facility] Last Admin: 12/20/16 05:49 Dose: 100 mls Miscellaneous Medication (Pharmacy To Dose) 0 each PO [facility] PRN PRN Reason: Pharmacy to Dose WARFARIN Nicotine (Nicoderm Patch) 21 mg TD Q24HR [facility] Last Admin: 12/19/16 20:52 Dose: 21 mg Pantoprazole Sodium (Protonix) 40 mg PO DAILY [facility] Last Admin: 12/20/16 09:39 Dose: 40 mg Prednisone (Prednisone) 40 mg PO [facility] Stop: 12/23/16 08:01 Last Admin: 12/20/16 09:40 Dose: 40 mg Sodium Chloride (Flush - Normal Saline) 10 ml IVF PRN PRN PRN Reason: Saline Flush Sodium Chloride (Flush - Normal Saline) 10 ml IVF Q12HR [facility] Last Admin: 12/20/16 09:42 Dose: Not Given Warfarin Sodium (Coumadin) 7.5 mg PO 1700 [facility]
[2016-12-20] MEDS ORDERED: Furosemide 20 MG/2 ML VIAL SLOW IVP SCH (16:45)
--- NOTE | 2016-12-20 16:48 | PRG ---
DATE OF SERVICE: 12/20/2016 SERVICE: Pulmonary Medicine. INTERVAL HISTORY: Overnight, the patient had a fantastic response to steroids and nebulized medicat ion. She slept wonderful. She has no more coughing. Otherwise, she has no complaints of fevers, c hills, nausea or vomiting. She got up and walked around and had a little bit of dyspnea with exerti on, but this is also improved. PHYSICAL EXAMINATION: VITAL SIGNS: Afebrile, pulse 94, blood pressure 150/74, respirations 16, saturation 96% on half lit er nasal cannula. HEENT: Normocephalic, atraumatic. Sclerae are white, conjunctivae pink. Oral and nasal mucosa is moist without lesions. LUNGS: Decent air entry. This is much improved compared to yesterday. There is slightly prolonged expiratory phase. I do appreciate some expiratory wheezing, but a little less dramatic today. Fin e crackles are appreciated in the bibasilar region. HEART: Normal rate, regular. ABDOMEN: Soft, nontender, nondistended, bowel sounds positive. MUSCULOSKELETAL: No cyanosis or clubbing. No pitting in the bilateral lower extremities. NEUROLOGIC: Grossly nonfocal. LABORATORY DATA: WBC 14.5 and down trending, hemoglobin 14.1, platelets 280,000. Basic metabolic p rofile is completely unremarkable. Blood cultures x2 and urine cultures negative to date. ASSESSMENT: 1. Acute hypoxic respiratory failure, stable/improving. 2. Chronic obstructive pulmonary disease with acute exacerbation. 3. Atrial fibrillation with rapid ventricular response. 4. Pulmonary nodule. 5. Pleural effusion. PLAN: The patient had dramatic improvement to initiating therapy directed at underlying lung diseas e/COPD exacerbation. If she continues to make this clinical headway, she can be considered for disc harge from the hospital. Ultimately, I would like to repeat a chest x-ray in roughly 2 weeks and if the effusion persists, thoracentesis will be considered at that time in the outpatient setting. Ul timately, we will need repeat CT scan in 6 months to make certain the nodule remains stable. Pulmon feli or Critical Care will continue to follow. Steroids can be discontinued after a total duration o f 5 days. On discharge from the hospital, I would like to send her out on p.r.n. nebulized medicati on. She will require both the nebulizer and the medicines.
[2016-12-20] MEDS: Warfarin Sodium 7.5 MG TAB PO SCH (17:18)
[2016-12-20] MEDS: Nicotine 21 MG PATCH TD SCH (21:42)
[2016-12-21] MEDS: Heparin 25,000 units/D5W 500 ML IVPB SCH ×2 (00:06→22:09)
[2016-12-21 05:23] LABS: Prothrombin Time 22.5 SEC (12.0-14.7)
[2016-12-21 05:24] LABS: PTT 103.5 SEC (22.9-36.1)
[2016-12-21] MEDS: Piperacillin/Tazobactam 4.5 GM in Sodium Chloride 0.9% 100 ML IVPB SCH ×3 (05:37→21:11)
[2016-12-21] MEDS: predniSONE 20 MG TAB PO SCH (08:35)
[2016-12-21] MEDS: Digoxin 0.125 MG TAB PO SCH (08:35)
--- NOTE | 2016-12-21 10:13 | PDOC.CTH ---
<Mariola Velarde - Last Filed: 12/21/16 10:11> Cardiology Progress Note - Subjective The pt was seen and examined. No overnight events. No cardiac complaints. She stated she could sleep well last night due to her breathing treatments. She has been up to chair and walked with PTs today - Objective Vital Signs Temp Pulse Resp BP Pulse Ox 12/21/16 08:37 98.3 F 115 H 20 166/88 H 95 12/21/16 08:35 115 H 12/21/16 06:33 79 16 95 12/21/16 04:20 93 L 12/21/16 04:00 97.9 F 78 18 164/90 H 93 L 12/21/16 00:40 76 16 93 L 12/21/16 00:05 94 L 12/21/16 00:00 97.8 F 87 18 155/83 H 94 L Weight 107 lb 12.8 oz 12/20/16 12/21/16 12/22/16 06:59 06:59 06:59 Intake Total 1769.2 2219.2 Output Total 2975 1980 Balance -1205.8 239.2 - Physical Examination General/Neuro: alert & oriented x3 Neck: no JVD present Lungs: other: (coase and diminished at bases) Heart: other: (Irregular) Abdomen: soft Extremities: other: (No edemas) - Telemetry Telemetry Rhythm: Afib 110-120s - Labs Result Diagrams: 12/20/16 05:33 12/20/16 05:33 Troponin/CKMB CK-MB (CK-2) 1.7 ng/mL (0-6.6) 12/17/16 12:50 Troponin I 0.016 ng/mL (< 0.028) 12/17/16 17:59 - Assessment/Plan 1. Atrial fibrillation with RVR - HR today has been 110-140s. Diltiazem was increased to 360mg from 240mg daily by PCP; with Digoxin 0.125mg PO daily; cont.Heparin IV until her INR level > 2.0; Coumadin dosage managed by pharmacy; cont. monitor on tele 2. COPD exacerbation - stable with RA and Duonebs and PO steroid; managed by technology teacher 3. Sepsis - On IV antibiotics; managed by PCP 4. HTN - Start Lisinopril 10mg daily for her BP and grade I diastolic dysfunction; cont. monitor 5. Tobacco Abuse - smoking cessation education given to the pt and her son 6. ETOH abuse - Strongly recommend to stop drinking to the pt and family 7. GERD - On Protonix MAR reviewed *Possible stress test as outpt and Cardioversion as outpt within 4-6 wks when her INR within therapeutic range (2.0-3.0) *CXR within 2wks and CT @ chest within 6 month as outpt, according to technology teacher. Review of Systems - Review of Systems Constitutional: reports: no symptoms reported EENTM: reports: no symptoms reported Respiratory: reports: see HPI Cardiac (ROS): reports: no symptoms reported ABD/GI: reports: no symptoms reported : reports: no symptoms reported Musculoskeletal: reports: no symptoms reported <Angela Dickerson - Last Filed: 12/21/16 22:02> Cardiology Progress Note - Objective Vital Signs Temp Pulse Resp BP Pulse Ox 12/21/16 18:42 109 H 18 94 L 12/21/16 16:49 97.9 F 95 16 134/78 93 L 12/21/16 13:37 98.7 F 78 16 149/86 H 98 Weight 107 lb 12.8 oz 12/20/16 12/21/16 12/22/16 06:59 06:59 06:59 Intake Total 1769.2 2219.2 959 Output Total 2975 1980 1999 Balance -1205.8 239.2 -1041 - Labs Result Diagrams: 12/21/16 18:31 12/20/16 05:33 Troponin/CKMB CK-MB (CK-2) 1.7 ng/mL (0-6.6) 12/17/16 12:50 Troponin I 0.016 ng/mL (< 0.028) 12/17/16 17:59 - Assessment/Plan The pt. was seen and eval. by me. She is feeling much better. The HR is still elevated at times with the continued Afib. The dilt. has been increased. If we are unable to control the HR with dilt. and digoxin, we may need to see if she can tolerat a low dose of betablockers. She may eventually need an EP consultation. I agree with the A/P by the EXECUTIVE DIRECTOR OF MARKETING.
--- NOTE | 2016-12-21 10:23 | PDOC.PN ---
- Subjective Encounter Start Date: 12/21/16 Encounter Start Time: 07:40 Pt seen for followup re: atrial fibrillation. Denies chest pain, shortness of breath, fevers or chills. - Objective Resuscitation Status: Resuscitation Status FULL:Full Resuscitation MAR Reviewed: Yes Vital Signs & Weight: Vital Signs (12 hours) Temp Pulse Resp BP Pulse Ox 12/21/16 08:37 98.3 F 115 H 20 166/88 H 95 12/21/16 08:35 115 H 12/21/16 06:33 79 16 95 12/21/16 04:20 93 L 12/21/16 04:00 97.9 F 78 18 164/90 H 93 L 12/21/16 00:40 76 16 93 L 12/21/16 00:05 94 L 12/21/16 00:00 97.8 F 87 18 155/83 H 94 L Weight Weight 107 lb 12.8 oz I&O: 12/20/16 12/21/16 12/22/16 06:59 06:59 06:59 Intake Total 1769.2 2219.2 Output Total 2975 1980 Balance -1205.8 239.2 Result Diagrams: 12/20/16 05:33 12/20/16 05:33 EKG Reviewed by me: Yes (Tele: chayito rizzo) Phys Exam - Physical Examination Constitutional: NAD HEENT: moist MMs Neck: supple Respiratory: clear to auscultation bilateral Cardiovascular: irregular Gastrointestinal: soft, non-tender Musculoskeletal: pulses present Neurological: moves all 4 limbs Psychiatric: normal affect Dx/Plan (1) Atrial fibrillation Code(s): I48.91 - UNSPECIFIED ATRIAL FIBRILLATION Status: Acute (2) Sepsis Code(s): A41.9 - SEPSIS, UNSPECIFIED ORGANISM Status: Suspected (3) HTN (hypertension) Code(s): I10 - ESSENTIAL (PRIMARY) HYPERTENSION Status: Chronic (4) GERD (gastroesophageal reflux disease) Code(s): K21.9 - GASTRO-ESOPHAGEAL REFLUX DISEASE WITHOUT ESOPHAGITIS Status: Chronic (5) Tobacco abuse Code(s): Z72.0 - TOBACCO USE Status: Chronic (6) Alcohol dependence, daily use Code(s): F10.20 - ALCOHOL DEPENDENCE, UNCOMPLICATED Status: Chronic - Plan PT/OT, out of bed/ambulate * . Pt clinically improving. Heart rate still high, increase Cardizem dose. Gram variable navin on blood culture, await speciation. INR 1.9 today. Likely home 1-2 days. Review of Systems - Review of Systems Constitutional: negative: Fever, Chills, Sweats, Weakness, Malaise Respiratory: Cough, SOB with Excertion. negative: Dry, Shortness of Breath, Hemoptysis, Pleuritic Pain, Sputum, Wheezing Cardiovascular: negative: Chest Pain, Palpitations, Orthopnea, Paroxysmal Noc. Dyspnea, Edema, Light Headedness Gastrointestinal: negative: Nausea, Vomiting, Abdominal Pain, Diarrhea, Constipation, Melena, Hematochezia - Medications/Allergies Allergies/Adverse Reactions: Allergies Allergy/AdvReac Type Severity Reaction Status Date / Time No Known Allergies Allergy Verified 12/17/16 16:00 Medications: Current Medications Acetaminophen (Tylenol) 650 mg PO Q4H PRN PRN Reason: Headache/Fever or Pain Albuterol/Ipratropium (Duoneb) 3 ml NEB [id number] [facility] Last Admin: 12/21/16 06:33 Dose: 3 ml Digoxin (Lanoxin) 0.125 mg PO QAM [facility] Last Admin: 12/21/16 08:35 Dose: 0.125 mg Diltiazem HCl (Cardizem Cd) 120 mg PO ONE [facility] Stop: 12/21/16 11:00 Diltiazem HCl (Cardizem Cd) 360 mg PO DAILY [facility] Heparin Sodium (Porcine) (Heparin 1,000 Units/Ml (10 Ml)) 0 units SLOW IVP [facility]IR [facility] PRN Reason: Protocol Last Admin: 12/19/16 17:21 Dose: 1,512 unit Heparin Sodium/Dextrose (Heparin 25,000 Units/D5w 500 Ml) 500 mls @ 0 mls/hr IVPB INF [facility]; Per Protocol PRN Reason: Protocol Last Admin: 12/21/16 00:06 Dose: 500 mls Piperacillin Sod/Tazobactam (Sod 4.5 gm/ Sodium Chloride) 100 mls @ 200 mls/hr IVPB Q8HR [facility] Last Admin: 12/21/16 05:37 Dose: 100 mls Lisinopril (Zestril) 10 mg PO DAILY [facility] Miscellaneous Medication (Pharmacy To Dose) 0 each PO ASDIR PRN PRN Reason: Pharmacy to Dose [facility]IN Nicotine (Nicoderm Patch) 21 mg TD Q24HR [facility] Last Admin: 12/20/16 21:42 Dose: 21 mg Pantoprazole Sodium (Protonix) 40 mg PO DAILY [facility] Last Admin: 12/21/16 08:35 Dose: 40 mg Prednisone (Prednisone) 40 mg PO QA[facility] Stop: 12/23/16 08:01 Last Admin: 12/21/16 08:35 Dose: 40 mg Sodium Chloride (Flush - Normal Saline) 10 ml IVF PRN PRN PRN Reason: Saline Flush Sodium Chloride (Flush - Normal Saline) 10 ml IVF Q12HR [facility] Last Admin: 12/21/16 08:36 Dose: Not Given Warfarin Sodium (Coumadin) 7.5 mg PO 1700 [facility] Last Admin: 12/20/16 17:18 Dose: 7.5 mg
[2016-12-21] MEDS ORDERED: Furosemide 20 MG/2 ML VIAL SLOW IVP SCH (12:15)
--- NOTE | 2016-12-21 12:35 | PRG ---
DATE OF SERVICE: 12/21/2016 SERVICE: Pulmonary Medicine. INTERVAL HISTORY: The patient is doing great from a respiratory standpoint. That being said, her h eart rate is little elevated today. She remains in atrial fibrillation. She denies any current maame rtness of breath, chest pain, nausea, vomiting or diarrhea. She is not having any withdrawal featur es associated with the alcohol cessation. PHYSICAL EXAMINATION: VITAL SIGNS: Afebrile, pulse 115, blood pressure 166/88, respirations 20, saturation 95% on room ai r. GENERAL: Patient is awake, alert, in no apparent distress. LUNGS: Excellent air entry with no prolonged expiratory phase, wheezing, rhonchi, or crackles. HEART: Normal rate, regular. ABDOMEN: Soft, nontender, nondistended. Bowel sounds positive. MUSCULOSKELETAL: No cyanosis or clubbing. No pitting in the bilateral lower extremities. NEUROLOGIC: Grossly nonfocal. LABORATORY DATA: A 1 out of 2 blood cultures is growing gram variable navin. Urine cultures negative to date. ASSESSMENT: 1. Acute hypoxic respiratory failure, resolved. 2. Chronic obstructive pulmonary disease with acute exacerbation. 3. Atrial fibrillation with rapid ventricular response. 4. Acute on chronic diastolic heart failure. 5. Pulmonary nodule. 6. Pleural effusion. PLAN: The patient can return to clinic with me in 2-3 weeks in the outpatient setting with a pre-cl inic chest x-ray. We will arrange for her outpatient CT scan, which I would like to do in roughly 3 months for this pulmonary nodule. It is likely associated with water, but it does have very nodula r appearance to it and it is in the middle of an airway. As such, I do believe that continued follo wup is indicated. I will provide her with one dose of Lasix today. Steroids will be discontinued a fter a total duration of 5 days. From a purely respiratory perspective, she will not require any ad ditional antibiotics.
[2016-12-21] MEDS: Warfarin Sodium 7.5 MG TAB PO SCH (16:23)
[2016-12-21 18:45] LABS: Hematocrit 47.6 % (36.0-47.0)
[2016-12-21] MEDS: Nicotine 21 MG PATCH TD SCH (21:11)
[2016-12-22 05:08] LABS: Prothrombin Time 26.9 SEC (12.0-14.7)
[2016-12-22 05:24] LABS: PTT 143.8 SEC (22.9-36.1)
[2016-12-22] MEDS: Piperacillin/Tazobactam 4.5 GM in Sodium Chloride 0.9% 100 ML IVPB SCH ×3 (05:39→21:45)
[2016-12-22] MEDS: Digoxin 0.125 MG TAB PO SCH (08:17)
[2016-12-22] MEDS: Lisinopril 10 MG TAB PO SCH (08:18)
[2016-12-22] MEDS: predniSONE 20 MG TAB PO SCH (08:18)
[2016-12-22] MEDS ORDERED: Diltiazem HCl CD 300 mg Capsule PO SCH (09:00)
[2016-12-22] MEDS ORDERED: Digoxin 0.5 MG/2 ML AMP SLOW IVP SCH (09:15)
--- NOTE | 2016-12-22 11:01 | PDOC.PN ---
- Subjective Encounter Start Date: 12/22/16 Encounter Start Time: 09:40 Pt seen for followup re: afib with rvr. Denies chest pain, shortness of breath , fevers or chills. No nausea or vomiting. Occ cough. Dyspnea better. - Objective Resuscitation Status: Resuscitation Status FULL:Full Resuscitation MAR Reviewed: Yes Vital Signs & Weight: Vital Signs (12 hours) Temp Pulse Resp BP Pulse Ox 12/22/16 09:12 95 12/22/16 08:17 95 12/22/16 08:15 96.8 F L 95 16 97 12/22/16 08:12 96.8 F L 95 16 150/94 H 97 12/22/16 08:03 94 L 12/22/16 08:01 117 H 16 94 L 12/22/16 04:00 98.5 F 117 H 18 167/101 H 95 12/22/16 00:31 101 H 16 94 L Weight Weight 99 lb 1.6 oz I&O: 12/21/16 12/22/16 12/23/16 06:59 06:59 06:59 Intake Total 2219.2 1199 Output Total 1980 2875 Balance 239.2 -1676 Result Diagrams: 12/21/16 18:31 12/20/16 05:33 EKG Reviewed by me: Yes (Tele: chayito rizzo with rvr) Phys Exam - Physical Examination Constitutional: NAD HEENT: moist MMs Neck: supple Respiratory: no wheezing, no rales, no rhonchi, clear to auscultation bilateral S1, S2, tachy, irregular Gastrointestinal: soft Musculoskeletal: pulses present Neurological: moves all 4 limbs Psychiatric: normal affect Dx/Plan (1) Atrial fibrillation with RVR Code(s): I48.91 - UNSPECIFIED ATRIAL FIBRILLATION Status: Acute (2) Sepsis Code(s): A41.9 - SEPSIS, UNSPECIFIED ORGANISM Status: Suspected (3) HTN (hypertension) Code(s): I10 - ESSENTIAL (PRIMARY) HYPERTENSION Status: Chronic (4) GERD (gastroesophageal reflux disease) Code(s): K21.9 - GASTRO-ESOPHAGEAL REFLUX DISEASE WITHOUT ESOPHAGITIS Status: Chronic (5) Tobacco abuse Code(s): Z72.0 - TOBACCO USE Status: Chronic (6) Alcohol dependence, daily use Code(s): F10.20 - ALCOHOL DEPENDENCE, UNCOMPLICATED Status: Chronic - Plan continue antibiotics * . Pt to receive digoxin for a. fib with RVR. Blood cultures growing Corynebacterium, ? contaminant. Continue IV Zosyn for now, consult ID. Leucocytosis improving. Continue steroids, bronchodilators. Review of Systems - Review of Systems Constitutional: negative: Fever, Chills, Sweats, Weakness, Malaise Respiratory: Cough, SOB with Excertion. negative: Dry, Shortness of Breath, Hemoptysis, Pleuritic Pain, Sputum, Wheezing Cardiovascular: negative: Chest Pain, Palpitations, Orthopnea, Paroxysmal Noc. Dyspnea, Edema, Light Headedness - Medications/Allergies Allergies/Adverse Reactions: Allergies Allergy/AdvReac Type Severity Reaction Status Date / Time No Known Allergies Allergy Verified 12/17/16 16:00 Medications: Current Medications Acetaminophen (Tylenol) 650 mg PO Q4H PRN PRN Reason: Headache/Fever or Pain Albuterol/Ipratropium (Duoneb) 3 ml NEB E8UT-DS [facility] Last Admin: 12/22/16 08:01 Dose: 3 ml [facility]oxin (Lan[facility]) [facility] Last Admin: 12/22/16 08:17 Dose: 0.125 mg Diltiazem HCl (Cardizem Cd) 360 mg PO DAILY [facility] Last Admin: 12/22/16 08:17 Dose: 360 mg Piperacillin Sod/Tazobactam (Sod 4.5 gm/ Sodium Chloride) 100 mls @ 200 mls/hr IVPB Q8HR [facility] Last Admin: 12/22/16 05:39 Dose: 100 mls Lisinopril (Zestril) 10 mg PO DAILY [facility] Last Admin: 12/22/16 08:18 Dose: 10 mg Miscellaneous Medication (Pharmacy To Dose) 0 each PO ASDIR PRN PRN Reason: Pharmacy to Dose WARFARIN Nicotine (Nicoderm Patch) 21 mg TD Q24HR [facility] Last Admin: 12/21/16 21:11 Dose: 21 mg Pantoprazole Sodium (Protonix) 40 mg PO DAILY [facility] Last Admin: 12/22/16 08:18 Dose: 40 mg Prednisone (Prednisone) 40 mg PO QA[facility] Stop: 12/23/16 08:01 Last Admin: 12/22/16 08:18 Dose: 40 mg Sodium Chloride (Flush - Normal Saline) 10 ml IVF PRN PRN PRN Reason: Saline Flush Sodium Chloride (Flush - Normal Saline) 10 ml IVF Q12HR [facility] Last Admin: 12/22/16 08:17 Dose: 10 ml Warfarin Sodium (Coumadin) 6 mg PO 1700 [facility]
--- NOTE | 2016-12-22 13:49 | PDOC.CTH ---
<Mariola Velarde - Last Filed: 12/22/16 13:49> Cardiology Progress Note - Subjective The pt was seen and examined. No overnight events. No cardiac complaints. She was asymptomatic while her HR was Afib with RVR HR 140-200s. - Objective Vital Signs Temp Pulse Resp BP Pulse Ox 12/22/16 13:40 78 16 12/22/16 11:45 98.2 F 101 H 18 132/83 96 12/22/16 09:12 95 12/22/16 08:17 95 12/22/16 08:15 96.8 F L 95 16 97 12/22/16 08:12 96.8 F L 95 16 150/94 H 97 12/22/16 08:03 94 L 12/22/16 08:01 117 H 16 94 L 12/22/16 04:00 98.5 F 117 H 18 167/101 H 95 Weight 99 lb 1.6 oz 12/21/16 12/22/16 12/23/16 06:59 06:59 06:59 Intake Total 2219.2 1199 Output Total 1980 2875 Balance 239.2 -1676 - Physical Examination General/Neuro: alert & oriented x3 Neck: no JVD present Lungs: CTA Heart: other: (Irregular) Abdomen: soft Extremities: other: (No edema) - Telemetry Telemetry Rhythm: Afib 90s - Labs Result Diagrams: 12/21/16 18:31 12/20/16 05:33 Troponin/CKMB CK-MB (CK-2) 1.7 ng/mL (0-6.6) 12/17/16 12:50 Troponin I 0.016 ng/mL (< 0.028) 12/17/16 17:59 - Assessment/Plan 1. Atrial fibrillation with RVR - HR in this AM was 140s - 200s with Diltiazem 360mg PO and Digoxin 0.125mg PO daily; HR down to 90s after Digoxin 0.25mg IV x1 given; stopped Heparin IV since INR level > 2.0 today; Coumadin dosage managed by pharmacy; cont. monitor on tele; EP consult was ordered 2. COPD exacerbation - stable with RA and Duonebs and PO steroid; managed by enforcement officer 3. Sepsis - On IV antibiotics; managed by PCP 4. HTN - Stable with current medication; cont. monitor 5. Tobacco Abuse - on Nicotin patch; managed by PCP 6. ETOH abuse - She stated she does not have any craving for drinking 7. GERD - On Protonix MAR reviewed *EP consult for recurrent Afib with RVR today *Blood cultures growing Corynebacterium, contaminant. Continue IV Zosyn for now , consult ID. *Possible stress test as outpt and Cardioversion as outpt within 4-6 wks when her INR within therapeutic range (2.0-3.0) *CXR within 2wks and CT @ chest within 6 month as outpt, according to enforcement officer. Review of Systems - Review of Systems Constitutional: reports: no symptoms reported EENTM: reports: no symptoms reported Respiratory: reports: SOB with excertion Cardiac (ROS): reports: no symptoms reported ABD/GI: reports: no symptoms reported : reports: no symptoms reported Musculoskeletal: reports: no symptoms reported <Angela Dickerson - Last Filed: 12/22/16 17:27> Cardiology Progress Note - Objective Vital Signs Temp Pulse Resp BP Pulse Ox 12/22/16 16:35 98.4 F 88 18 127/73 93 L 12/22/16 13:40 78 16 12/22/16 11:45 98.2 F 101 H 18 132/83 96 12/22/16 09:12 95 12/22/16 08:17 95 12/22/16 08:15 96.8 F L 95 16 97 12/22/16 08:12 96.8 F L 95 16 150/94 H 97 12/22/16 08:03 94 L 12/22/16 08:01 117 H 16 94 L Weight 99 lb 1.6 oz 12/21/16 12/22/16 12/23/16 06:59 06:59 06:59 Intake Total 2219.2 1199 Output Total 1980 2875 Balance 239.2 -1676 - Labs Result Diagrams: 12/21/16 18:31 12/20/16 05:33 Troponin/CKMB CK-MB (CK-2) 1.7 ng/mL (0-6.6) 12/17/16 12:50 Troponin I 0.016 ng/mL (< 0.028) 12/17/16 17:59 - Assessment/Plan Pt. seen and eval. Case discussed with EP. Plan for GABRIEL and Cardioversion in AM. Hopefully the HR will stabalize if NSR can be maintained. If no thrombus in the TIFFANY then cardiovert and start antiarhythmics. I agree otherwise with the A/ P by the STAFF ELECTRICAL ENGINEER. Gabriel procedure and risks discussed with the pt.
[2016-12-22] MEDS: Warfarin Sodium 3 MG TAB PO SCH (18:07)
--- NOTE | 2016-12-22 18:32 | PRG ---
DATE OF SERVICE: 12/22/2016 SERVICE: Pulmonary Medicine. INTERVAL HISTORY: The patient is doing fine from a respiratory standpoint. She denies any signific ant shortness of breath. Her dyspnea on exertion continues to improve. Otherwise, there has been n o change in her condition. Her heart rate continues to spike overnight and she ran anywhere between rate of 140 to 200. She was actually asymptomatic this entire time. She is better controlled this morning after another dose of digoxin. PHYSICAL EXAMINATION: VITAL SIGNS: Afebrile, pulse 78, blood pressure 132/83, respirations 18, saturation 96% on 2 liters nasal cannula. GENERAL: Patient is awake, alert, in no apparent distress. LUNGS: Decent air entry without prolonged expiratory phase, wheezing, rhonchi or crackles. HEART: Normal rate and regular. ABDOMEN: Soft, nontender, nondistended. Bowel sounds positive. MUSCULOSKELETAL: No cyanosis or clubbing. No pitting in the bilateral lower extremities. NEUROLOGIC: Grossly nonfocal. LABORATORY DATA: Last night hemoglobin was drawn, it was 15.3. INR 2.4 this a.m. Basic metabolic profile is essentially unremarkable from the , but we do not have labs since then. Blood cultur e is growing Corynebacterium in one of two likely representing contamination. Urine culture is nega tive. ASSESSMENT: 1. Acute hypoxic respiratory failure, resolved. 2. Chronic obstructive pulmonary disease with acute exacerbation. 3. Atrial fibrillation with rapid ventricular response. 4. Acute on chronic diastolic heart failure. 5. Pulmonary nodule. 6. Pleural effusion, bilateral. PLAN: We will continue her steroids, nebulized medications. Antibiotics corrected at lung issues. Any antibiotics on board can be discontinued after a total duration of 5 days if directed at lung i ssues to complete treatment for COPD exacerbation. Pulmonary will continue to follow along for the time being. EP consultation is currently pending.
[2016-12-22] MEDS: Nicotine 21 MG PATCH TD SCH (21:45)
[2016-12-23 05:23] LABS: Prothrombin Time 27.6 SEC (12.0-14.7)
[2016-12-23] MEDS: Piperacillin/Tazobactam 4.5 GM in Sodium Chloride 0.9% 100 ML IVPB SCH ×2 (05:39→13:26)
--- NOTE | 2016-12-23 06:29 | CON ---
DATE OF CONSULTATION: 12/22/2016 REFERRING PHYSICIAN: Sophy Dickerson M.D. I am seeing Ms. Max at our [facility] telemetry floor as an electrophysiology consulta nt for the following problems: 1. Newly found atrial fibrillation with rapid rates. 2. Acute congestive heart failure exacerbation with mild cardiomyopathy. A. LVEF 40-45% on an echocardiogram on 12/18/2016. B. Etiology is unclear, possibly rate related cardiomyopathy could be a possibility. C. Severe mitral regurgitation present, moderately enlarged right atrial size is noted. Severe tr icuspid regurgitation noted. 3. Pulmonary disease. A. Possibly smoking-induced COPD. B. Small pulmonary nodule in CT scan recently found. 4. Prior history of cerebrovascular accident. 5. History of gastroesophageal reflux disease. 6. History of ETOH abuse. 7. Coronary artery risk factors. A. Hypertension. B. History of smoking. ALLERGIES: None noted. MEDICATIONS AT HOME: Included pantoprazole. Currently, patient is on Zosyn, diltiazem IV p.r.n., d igoxin loaded, initiated on warfarin, pantoprazole, prednisone, diltiazem p.o. CD increased to 360 m g a day, lisinopril 10 mg a day. SUBJECTIVE: Ms. Max was admitted first to the [place] ER and then to our facility with progr essive dyspnea and signs of fluid overload with PND, lower extremity edema, orthopnea were noted. S he was found to be atrial fibrillation with rapid rates, which she was not aware of or had the diagn osis from before. She was found to be hyponatremic. Her blood pressure was markedly elevated. She was started also on steroids, Z-LEO as an outpatient and finished her steriods a week before. She had a cough, which was a very initial symptom. She did not have any phlegm or blood with coughing. Since in the hospital, she is improving in symptoms, her dyspnea is somewhat better. She has no PND , orthopnea. She has been diuresed sufficiently. The heart rate is still suboptimally controlled, especially when she is moving around trying to go to restroom, her heart rates, she was up to near 2 00 range, but at rest, her heart rates are reasonably controlled. She denies any chest pains, no recurrent fever, chills or cough. No stroke-like symptoms. No neuro logical deficits. At this time, she has no bleeding despite with continued warfarin and previously heparin for anticoagulation. REVIEW OF SYSTEMS: Rest of 12-point review of system is unremarkable. PAST MEDICAL HISTORY: As above. She has no prior history of heart disease or heart attacks, but ag ain she carries a history of stroke. SOCIAL HISTORY: Patient is a smoker with 60 pack per year smoking, does drink alcohol, a 6-pack reagan ry day. She lives with her son. Denies drug use. OBJECTIVE DATA: VITAL SIGNS: Blood pressure is 132/83, heart rate of 101, respirations 18, temperature 98.2 degrees Fahrenheit. GENERAL: This is an elderly woman, who appears to be older than her stated age and appears also fra il and slightly cachectic. She is alert and oriented x3, no apparent distress. NECK: Supple. Jugular veins are not distended, but hepatojugular reflux is positive. CHEST: Coarse, no crackles. No dullness at the bases, some hyperexpansion of the lung mar are n oted. HEART: Sounds are irregularly irregular. S1 and S2 are variable, 1/6 holosystolic murmur is heard. The PMI is not displaced. ABDOMEN: Benign. Bowel sounds positive. EXTREMITIES: Lower extremities without edema, clubbing or cyanosis. Pulses are adequate. NEUROLOGIC: The patient is nonfocal. MUSCULOSKELETAL: No joint swelling or deformities. SKIN: Without rash. DATABASE: The EKG is reviewed, reveals atrial fibrillation with rapid rates on presentation with mo re controlled rates on telemetry are seen later. Her limited EKG shows no significant ST-T changes or repolarization pattern is noted initially. Telemetry strips reviewed reveals true atrial fibrill ation, although coarse fibrillatory waves are noted. Rates are reasonably controlled under 100 at r est but goes over 190 with exertion today. LABORATORY DATA: White cell count on the 10th was 14.5, hemoglobin 14.1, platelet count is 280. Th e white cell counts are decreasing from the initial 23.6. INR today is 2.4. The PTT is over therap eutic range since the heparin is off. Sodium 136, potassium 3.8, BUN is 12, creatinine 0.63. AST and ALT is 27 and 43. Total cholesterol 135, HDL 38. The x-ray on presentation shows cardiomegaly with left-sided pleural effusion. ASSESSMENT AND PLAN: Ms. Max is a pleasant 71-year-old woman with prior history of stroke, als o likely subclinical COPD due to smoking, who presented with signs of fluid overload and also had be en found to have a newly found atrial fibrillation with rapid rates as well as mildly reduced LV sys tolic function. 1. We have discussed the potential treatment options for her atrial fibrillation. Currently rate c ontrolling strategy is ensued. She might need further increases on the dosage of her diltiazem. On the other hand, continuing digoxin is also reasonable. 2. The alternative to this is a possibly TEVIN-guided cardioversion, hence she is clinically more sta bilizing, this might be a reasonable consideration to do tomorrow. I did explain the procedure to da post, pros and cons about it and we might schedule her for tomorrow. 3. If recurrent atrial fibrillation seen subsequently, she may be considered for antiarrhythmic age nts. The exact antiarrhythmic agents might be somewhat limited choices, hence her pulmonary disease and also a history of presenting congestive heart failure. If no significant bronchospasm present, we could consider using sotalol alternatively, Tikosyn is also an option. Finally, Multaq is also a consideration with paying close attention to any worsening heart failure symptoms could be made. She is likely to be a poor candidate for amiodarone therapy. 4. Long-term ablation options also a consideration. In the meantime, pulmonary evaluation need to be done, especially in view of her pulmonary nodule and continue anticoagulation. We will need to b e ensued. For now, continue Coumadin, although could consider switching her to newer oral anticoagu lants, especially if INR control will be limited in view of her history of ETOH intake. We will discuss with Dr. Dickerson. Thank you for allowing me to participate in the care of this patient.
[2016-12-23] MEDS: Digoxin 0.125 MG TAB PO SCH (08:29)
[2016-12-23] MEDS: Lisinopril 10 MG TAB PO SCH (08:31)
[2016-12-23] MEDS ORDERED: Diprivan 40 ML ONE (11:19)
[2016-12-23] MEDS ORDERED: Propofol 200 MG/20 ML VIAL ONE (11:38)
--- NOTE | 2016-12-23 12:14 | PRG ---
DATE OF SERVICE: 12/23/2016 SERVICE: Pulmonary Medicine INTERVAL HISTORY: The patient is doing fine from a cardiovascular and respiratory standpoint this m orning. She denies any current fevers, chills, nausea, vomiting or chest discomfort. Otherwise, elvira jaquez is in her usual state of health. She does not have significant dyspnea with exertion any longer. There were no overnight events. PHYSICAL EXAMINATION: VITAL SIGNS: Afebrile, pulse 94, blood pressure 169/80, respirations 16, saturation 96% on room air . GENERAL: The patient is awake, alert, in no apparent distress. LUNGS: Decreased air entry with prolonged expiratory phase. There is no wheezing today. The crack les are no longer present. HEART: Normal rate, regular. ABDOMEN: Soft, nontender, nondistended, bowel sounds positive. MUSCULOSKELETAL: No cyanosis or clubbing. No pitting in the bilateral lower extremities. NEUROLOGIC: Grossly nonfocal. LABORATORY DATA: Hemoglobin 15.3. One out of 2 blood cultures is growing Corynebacterium. Urine c ulture negative. ASSESSMENT: 1. Acute hypoxic respiratory failure, resolved. 2. Chronic obstructive pulmonary disease with acute exacerbation. 3. Atrial fibrillation with rapid ventricular response. 4. Acute on chronic diastolic heart failure. 5. Pulmonary nodule. 6. Pleural effusion, bilateral. PLAN: Her steroids will be continued for a total duration of 5 days. Antibiotics directed at lung issues can be discontinued after 5 days. I would like for her to follow up with me in the outpatien t setting, so that we can clarify the severity of her underlying lung disease and consider her for l vladislav-acting therapy. On discharge from the hospital, she should be sent home on p.flakito Burnette. She will also need a nebulizer. I believe she is going down for a cardioversion today. I will continu leonid to follow while she remains in house for the time being.
[2016-12-23] MEDS ORDERED: Ondansetron HCl/PF 4 MG/2 ML Vial IVP PRN (12:19)
[2016-12-23] MEDS: predniSONE 20 MG TAB PO SCH (13:26)
--- NOTE | 2016-12-23 13:41 | PDOC.PN ---
- Subjective Encounter Start Date: 12/23/16 Encounter Start Time: 07:20 Pt seen for followup re: atrial fibrillation. denies chest pain, shortness of breath, fevers or chills. No nausea or vomiting. - Objective Resuscitation Status: Resuscitation Status FULL:Full Resuscitation MAR Reviewed: Yes Vital Signs & Weight: Vital Signs (12 hours) Temp Pulse Resp BP BP Pulse Ox 12/23/16 08:31 169/80 H 12/23/16 08:29 94 12/23/16 07:39 96 12/23/16 07:36 85 16 96 12/23/16 07:14 98.2 F 94 16 169/80 H 91 L 12/23/16 04:00 98.0 F 71 16 158/78 H 96 Weight Weight 98 lb 8 oz I&O: 12/22/16 12/23/16 12/24/16 06:59 06:59 06:59 Intake Total 1199 940 Output Total 2875 1275 Balance -7026 -335 Result Diagrams: 12/21/16 18:31 12/20/16 05:33 EKG Reviewed by me: Yes (Tele: chayito rizzo) Phys Exam - Physical Examination Constitutional: NAD HEENT: moist MMs Neck: supple Respiratory: no wheezing, no rales, no rhonchi, clear to auscultation bilateral Cardiovascular: irregular Gastrointestinal: soft Neurological: moves all 4 limbs Psychiatric: normal affect Dx/Plan (1) Atrial fibrillation with RVR Code(s): I48.91 - UNSPECIFIED ATRIAL FIBRILLATION Status: Acute (2) HTN (hypertension) Code(s): I10 - ESSENTIAL (PRIMARY) HYPERTENSION Status: Chronic (3) GERD (gastroesophageal reflux disease) Code(s): K21.9 - GASTRO-ESOPHAGEAL REFLUX DISEASE WITHOUT ESOPHAGITIS Status: Chronic (4) Tobacco abuse Code(s): Z72.0 - TOBACCO USE Status: Chronic (5) Alcohol dependence, daily use Code(s): F10.20 - ALCOHOL DEPENDENCE, UNCOMPLICATED Status: Chronic (6) Sepsis Code(s): A41.9 - SEPSIS, UNSPECIFIED ORGANISM Status: Resolved - Plan * . Pt going for cardioversion today. Discontinue antibiotics and observe, 1/2 blood cultures positive for corynebacterium, likely a contaminant. Leucocytosis likely due to steroids. Likely home 1-2 days. Continue nicotine patch. Review of Systems - Review of Systems Constitutional: negative: Fever, Chills, Sweats, Weakness, Malaise Respiratory: negative: Cough, Dry, Shortness of Breath, Hemoptysis, SOB with Excertion, Pleuritic Pain, Sputum, Wheezing Cardiovascular: negative: Chest Pain, Palpitations, Orthopnea, Paroxysmal Noc. Dyspnea, Edema, Light Headedness Gastrointestinal: negative: Nausea, Vomiting, Abdominal Pain, Diarrhea, Constipation, Melena, Hematochezia - Medications/Allergies Allergies/Adverse Reactions: Allergies Allergy/AdvReac Type Severity Reaction Status Date / Time No Known Allergies Allergy Verified 12/17/16 16:00 Medications: Current Medications Acetaminophen (Tylenol) 650 mg PO Q4H PRN PRN Reason: Headache/Fever or Pain Albuterol/Ipratropium (Duoneb) 3 ml NEB [id number] [facility] Last Admin: 12/23/16 07:36 Dose: 3 ml Digoxin (Lanoxin) 0.125 mg PO QAM [facility] Last Admin: 12/23/16 08:29 Dose: 0.125 mg Diltiazem HCl (Cardizem Cd) 360 mg PO DAILY [facility] Last Admin: 12/23/16 08:30 Dose: 360 mg Fentanyl (Pacu-Sublimaze) 50 mcg SLOW IVP Q10MIN PRN PRN Reason: Moderate to Severe Pain (6-10) Stop: 12/23/16 15:19 Lisinopril (Zestril) 10 mg PO DAILY [facility] Last Admin: 12/23/16 08:31 Dose: 10 mg Miscellaneous Medication (Pharmacy To Dose) 0 each PO ASDIR PRN PRN Reason: Pharmacy to Dose WARFARIN Nicotine (Nicoderm Patch) 21 mg TD Q24HR [facility] Last Admin: 12/22/16 21:45 Dose: 21 mg Ondansetron HCl (Pacu-Zofran) 4 mg IVP ONE PRN PRN Reason: Nausea/Vomiting Stop: 12/23/16 15:19 Pantoprazole Sodium (Protonix) 40 mg PO DAILY [facility] Last Admin: 12/23/16 08:31 Dose: 40 mg Sodium Chloride (Flush - Normal Saline) 10 ml IVF PRN PRN PRN Reason: Saline Flush Sodium Chloride (Flush - Normal Saline) 10 ml IVF Q12HR [facility] Last Admin: 12/23/16 08:32 Dose: 10 ml Warfarin Sodium (Coumadin) 6 mg PO 1700 [facility] Last Admin: 12/22/16 18:07 Dose: 6 mg
--- NOTE | 2016-12-23 13:50 | PDOC.CTH ---
Cardiology Progress Note - Subjective Pt. underwent TEVIN/Cardioversion this AM. She is maintaining NSR. If she remains stable she can be d/c'd in AM. Continue diltiazem,digoxin,warfarin. I will se her back in the office in 2-4 weeks. She should call [phone] for an appointment with Mariola martinez [facility]. - Objective Vital Signs Temp Pulse Resp BP BP Pulse Ox 12/23/16 08:31 169/80 H 12/23/16 08:29 94 12/23/16 07:39 96 12/23/16 07:36 85 16 96 12/23/16 07:14 98.2 F 94 16 169/80 H 91 L 12/23/16 04:00 98.0 F 71 16 158/78 H 96 Weight 98 lb 8 oz 12/22/16 12/23/16 12/24/16 06:59 06:59 06:59 Intake Total 1199 940 Output Total 2875 1275 Balance -0696 -335 - Physical Examination General/Neuro: alert & oriented x3 Lungs: CTA Heart: PMI normal Abdomen: no HSM - Labs Result Diagrams: 12/21/16 18:31 12/20/16 05:33 Troponin/CKMB CK-MB (CK-2) 1.7 ng/mL (0-6.6) 12/17/16 12:50 Troponin I 0.016 ng/mL (< 0.028) 12/17/16 17:59 - Assessment/Plan 1. Afib. with RVR. Converted back to NSR. Plan for d/c in AM and continue present meds. If the BP is low then decrease the dose of diltiazem. 2. COPD, dilated RA. 3. Hx. of tobacco abuse. Advised to stop. 4. Hx. of ETOH abuse.
--- NOTE | 2016-12-23 15:08 | ECHO ---
PROCEDURE NOTE: Date: 12/23/16 PROCEDURE: Transesophageal echocardiogram. INDICATION FOR PROCEDURE: 71-year-old female with atrial fibrillation with rapid ventricular response, who has been treated by medical management, but has continued to have difficulty in controlling the heart rate. She was adv ised to undergo TEVIN and possible cardioversion. DESCRIPTION OF PROCEDURE: The patient was taken to the recovery area, where she underwent short acting propofol. The transesop hageal probe was easily passed down the distal esophagus. This showed no evidence of left atrial or left atrial appendage thrombus. She have smoke formation in both the left atrium and left atrial miri endage. She underwent the procedure without difficulties or complications. The full dictated echocar diogram report will be on the echo reading machine. She had a normal ejection fraction. She had mild to moderate mitral valve regurgitation, moderate to severe tricuspid valve regurgitation, and sever e dilatation of the right atrium. The left atrium was at the upper limits of normal. The left ventr icular size was normal. The right ventricular size also was normal. With using one attempt at 250 j oules, the patient underwent successful cardioversion of her atrial fibrillation back to normal sinu s rhythm with a heart rate in the 70s. She had no complications or difficulties encountered during t he procedure. She will continue present medications for now.
--- NOTE | 2016-12-23 15:23 | PRG ---
DATE OF SERVICE: 12/23/2016 ELECTROPHYSIOLOGY FOLLOWUP NOTE SUBJECTIVE: Ms. Max is status post TEVIN guided cardioversion. She seems to be doing well now i n sinus rhythm. She continues on diltiazem, digoxin, and the warfarin which seems to be therapeutic at this time. OBJECTIVE: VITAL SIGNS: Blood pressure is 169/80, heart rate 94, respirations 12. The patient is afebrile and weighs 98 pounds. GENERAL: Alert and oriented woman in no apparent distress. NECK: Supple. Jugular veins not distended. CHEST: Coarse without crackles. CARDIOVASCULAR: Heart sounds are regular to rate and rhythm. No murmur or gallop. ABDOMEN: Benign. Bowel sounds positive. EXTREMITIES: Lower extremities without edema, clubbing or cyanosis. LABORATORY DATA: Today, hemoglobin 15.3, INR 2.5. ASSESSMENT AND PLAN: Mrs. Max is a pleasant 71-year-old female with history of smoking, hypert ension, and some excessive beer consumption, who presenting with symptoms and signs of heart failure , newly found to have reduced LVEF 40-45% in the setting of AFib RVR. PLAN: Our plan is at this point: 1. As I discussed with Dr. Dickerson, this lady is very reasonable to be restored to sinus rhythm. Hope fully with optimizing her volume status, blood pressure, and parameters, she will maintain sinus rhy thm. If though recurrent atrial fibrillation is seen, she might need to be considered for antiarrhy thmic medications, which could include sotalol versus Tikosyn depending on the bronchospastic compon ent of her pulmonary disease and possibly Multaq could be considered; although, she recently had CHF therapy and might be somewhat suboptimal. She likely a poor candidate for amiodarone. 2. Also after clinical stabilization, she could be considered for pulmonary venous isolation proced ure, although appears to somewhat frail and somewhat suboptimal candidate for that. Also she recent ly had been found to have a pulmonary nodule which will be followed by Pulmonology as an outpatient. 3. Continue digoxin, diltiazem and warfarin. Target INR 2-3 and also monitor LVEF and also ETOH an d smoking cessation is strongly advised. I discussed with the patient and I have to see her back in the office as an outpatient, but she also see Dr. Dickerson in 2-4 weeks as planned.
[2016-12-23] MEDS: Warfarin Sodium 3 MG TAB PO SCH (17:50)
[2016-12-23 18:46] LABS: Hematocrit 47.6 % (36.0-47.0)
[2016-12-23] MEDS ORDERED: Diltiazem HCl 125 MG, Admixture Fee 1 EACH in Sodium Chloride 0.9% 100 ML SLOW IVP SCH (19:45)
[2016-12-23] MEDS: Nicotine 21 MG PATCH TD SCH (21:22)
[2016-12-24 06:08] LABS: Prothrombin Time 27.9 SEC (12.0-14.7)
[2016-12-24] MEDS ORDERED: Diltiazem HCl 125 MG, Admixture Fee 1 EACH in Sodium Chloride 0.9% 100 ML SLOW IVP SCH (09:28)
[2016-12-24] MEDS: Digoxin 0.125 MG TAB PO SCH (09:50)
[2016-12-24] MEDS: Lisinopril 10 MG TAB PO SCH (09:51)
--- NOTE | 2016-12-24 12:30 | PDOC.PN ---
- Subjective Encounter Start Date: 12/24/16 Encounter Start Time: 12:28 Patient seen and examined. had afib this am. on cardizem drip no f/c no n/v - Objective Resuscitation Status: Resuscitation Status FULL:Full Resuscitation MAR Reviewed: Yes Vital Signs & Weight: Vital Signs (12 hours) Temp Pulse Resp BP BP Pulse Ox 12/24/16 11:24 97.8 F 84 16 147/75 H 94 L 12/24/16 09:51 140/67 12/24/16 09:50 78 12/24/16 08:00 98.5 F 78 20 155/73 H 12/24/16 07:20 96 12/24/16 07:19 75 12 12/24/16 04:00 98.2 F 84 18 135/65 94 L Weight Weight 100 lb 11.2 oz I&O: 12/23/16 12/24/16 12/25/16 06:59 06:59 06:59 Intake Total 940 966 Output Total 1275 700 Balance -335 266 Result Diagrams: 12/23/16 18:35 12/20/16 05:33 Phys Exam - Physical Examination Constitutional: NAD HEENT: PERRLA Neck: no JVD Respiratory: no rales Cardiovascular: irregular Gastrointestinal: non-tender Musculoskeletal: pulses present Neurological: normal sensation Psychiatric: A&O x 3 Dx/Plan (1) Atrial fibrillation Code(s): I48.91 - UNSPECIFIED ATRIAL FIBRILLATION Status: Acute (2) Malnutrition Code(s): E46 - UNSPECIFIED PROTEIN-CALORIE MALNUTRITION Status: Acute (3) Alcohol dependence, daily use Code(s): F10.20 - ALCOHOL DEPENDENCE, UNCOMPLICATED Status: Chronic (4) GERD (gastroesophageal reflux disease) Code(s): K21.9 - GASTRO-ESOPHAGEAL REFLUX DISEASE WITHOUT ESOPHAGITIS Status: Chronic (5) HTN (hypertension) Code(s): I10 - ESSENTIAL (PRIMARY) HYPERTENSION Status: Chronic (6) Tobacco abuse Code(s): Z72.0 - TOBACCO USE Status: Chronic - Plan * 1. Afib. with RVR. Converted to NSR on 12/23. now in afib- on cardizem drip.f/ u card plan. * copd 3. Hx. of tobacco abuse. Advised to stop. 4. Hx. of ETOH abuse.
[2016-12-24] MEDS ORDERED: Albuterol Sulfate 2.5 mg/3 ml Neb NEB PRN (14:11)
--- NOTE | 2016-12-24 16:03 | PRG ---
DATE OF SERVICE: 12/24/2016 SERVICE: Pulmonary Medicine. INTERVAL HISTORY: The patient is doing outstanding from a respiratory standpoint. She went back in to atrial fibrillation after cardioversion yesterday. As such, she is a little bit frustrated. Felipe t being said, she is hoping to go home very shortly. If at all possible, she would like to do the r est of this investigation in the outpatient setting. I emphasized with her, but suggested that she needs to follow the recommendations of Cardiology Group. PHYSICAL EXAMINATION: VITAL SIGNS: Afebrile, pulse 84, blood pressure 147/75, respirations 16, saturation 94% on room air . GENERAL: The patient is awake and alert, in no apparent distress. LUNGS: Decreased air entry with prolonged expiratory phase, but I do not appreciate wheezing, rhonc hi, or crackles today. HEART: Normal rate, regular. ABDOMEN: Soft, nontender, nondistended. Bowel sounds positive. MUSCULOSKELETAL: No cyanosis or clubbing. No pitting in the bilateral lower extremities. NEUROLOGIC: Grossly nonfocal. ASSESSMENT: 1. Acute hypoxic respiratory failure, resolved. 2. Chronic obstructive pulmonary disease with acute exacerbation. 3. Atrial fibrillation with rapid ventricular response. 4. Acute on chronic diastolic heart failure. 5. Pulmonary nodule. 6. Pleural effusion, bilateral. PLAN: I will repeat a 2 view chest x-ray in the morning. From a purely respiratory perspective, th e patient is stable for transition out of the hospital, provided a good plan is in place for her arr hythmia. I will decrease her nebulized medications to 3 times daily. She will follow up with me in clinic in the outpatient setting. On discharge from the hospital, I would like for her to go out w mitchell mello nebulizer, as well as chema Burnette.
[2016-12-24] MEDS: Warfarin Sodium 3 MG TAB PO SCH (17:07)
--- NOTE | 2016-12-24 21:32 | CON ---
DATE OF CONSULTATION: 12/24/2016 REASON FOR CONSULTATION: Bacteremia. HISTORY OF PRESENT ILLNESS: A 71-year-old patient who has had this first admission to [facility] on 12/17/2016. The patient has history of hypertension, chronic smoking, prior CVA and then developed cough, occasional fever and general malaise. She was initially given corticosteroids and Z-LEO, although she continued with cough for the past few weeks. Some dyspnea which was worse with exertion, but no orthopnea or PND. She developed some left- sided chest pain which was atypical seemingly pleuritic. There is no sputum production and eventually she got tired of the symptom and went to emergency room and there she was found to have atrial fibrillation with RVR and she was admitted to [facility]. Initial findings included pressure 120/68, pulse 110 , respiratory rate of 21, O2 sat 94%. There is no jugular vein distention. Lung examination is somehow not described here in the initial physical exam. Chest x-ray did not show any pulmonary infiltrates. There was a small left- sided pleural effusion. EKG with atrial fibrillation and RVR. White cell count was elevated at 23,000 with predominance of mature neutrophils. Creatinine was normal. The patient had a concern of possible bacterial infection and cultures submitted from the blood, and 1 out of 2 with corynebacterium species. The patient had a TEVIN and then cardioversion, the TEVIN showed EF which was normal, mild MR and [id number] tricuspid regurgitation. REVIEW OF SYSTEMS: Currently, the patient is feeling much better. She denies headaches, cough has subsided. No chest pain, no sputum production, no abdominal pain or diarrhea, no genitourinary symptoms, no bleeding, no joint symptoms. PAST MEDICAL HISTORY: Hypertension, chronic smoking, prior CVA. PAST SURGICAL HISTORY: Negative. FAMILY HISTORY: Coronary artery disease. SOCIAL HISTORY: Works at [employer] close to her home town. Active smoker to the date of admission. Drinks 5-6 alcoholic beverages per day. ALLERGIES: None. CURRENT MEDICATIONS: DuoNeb, Lanoxin, Cardizem, lisinopril, and warfarin. PHYSICAL EXAMINATION: GENERAL: Thin elderly female in no distress. VITAL SIGNS: T-max 98.9 to 99.1, blood pressure 120/61, pulse of 75, respirations 18, O2 sat 93-94%. SKIN: With small area of pressure injury to the left gluteal region, stage 1- 2. Peripheral IV access. No Gonzalez catheter. No lymphadenopathy. HEENT: Ocular movements are conjugate. Sclerae are white. Pupils are equal. Oral cavity with quite a few missing teeth. The remainder ones with marked gum resorption and decay. Moist mucosa, no lesions. NECK: Supple. No jugular venous distention, no thyromegaly. LUNGS: With symmetric air entry. No crackles or wheezing. HEART: S1, S2, without murmurs. No S3 or S4. ABDOMEN: Soft, not distended or tender. No ascites. No bladder distention. Osteoarthrosis in knees and ankles. Pulses 1+ in dorsalis pedis. NEUROLOGIC: Strength in all 4 extremities is preserved. Plantar responses are flexor. No clonus. Cognitive function appears to be intact. LABORATORY DATA: White cell count is down to 14.5, hemoglobin 14, platelets 280 with 86% neutrophils. INR 2.5. Sodium 136, creatinine 0.63. Urinalysis with large blood and WBC count 4-6, reports the echocardiogram as noted above and chest x-ray from admission with cardiomegaly and left-sided pleural effusion. No BNP was done. ASSESSMENT: 1. Chronic smoking, prior cerebrovascular accident. 2. Cardiomyopathy with atrial fibrillation and rapid ventricular response. 3. Neutrophilia likely due to the hyperadrenergic state from cardiomyopathy and atrial fibrillation and rapid ventricular response. 4. Cough, probably secondary to the pulmonary renal consequences of the atrial fibrillation and RVR and increased left ventricular and diastolic pressures. 5. Corynebacterium bacteremia, likely secondary to contamination of the sample rather than true bacteremia. DISCUSSION: The patient probably had decompensation related to her underlying cardiomyopathy, probably has some element of ischemic cardiomyopathy and developed this arrhythmia secondary to consequences of that plus hypertensive cardiomyopathy. I do not recommend treatment for the bacteremia. MTDD
[2016-12-24] MEDS: Metoprolol Tartrate 25 MG TAB PO SCH (21:58)
[2016-12-24] MEDS: Nicotine 21 MG PATCH TD SCH (21:58)
[2016-12-24] MEDS ORDERED: Lidocaine 2% Viscous Solution 10 ML, Aluminum & Magnesium Hydroxide 30 ML SSW SCH ×2 (23:45)
[2016-12-25 06:24] LABS: Prothrombin Time 28.9 SEC (12.0-14.7)
[2016-12-25] MEDS: Metoprolol Tartrate 25 MG TAB PO SCH ×2 (08:11→20:31)
[2016-12-25] MEDS: Digoxin 0.125 MG TAB PO SCH (08:11)
[2016-12-25] MEDS: Lisinopril 10 MG TAB PO SCH (08:13)
--- NOTE | 2016-12-25 10:50 | PDOC.PN ---
- Subjective Encounter Start Date: 12/25/16 Encounter Start Time: 10:48 still having episodes of afib with rvr no cp no sob no f/c no n/v - Objective Resuscitation Status: Resuscitation Status FULL:Full Resuscitation MAR Reviewed: Yes Vital Signs & Weight: Vital Signs (12 hours) Temp Pulse Resp BP BP Pulse Ox 12/25/16 08:13 136/81 12/25/16 08:11 140 H 12/25/16 07:25 98 F 93 16 100 12/25/16 07:21 98 F 93 16 136/81 100 12/25/16 07:15 101 H 12 12/25/16 04:00 97.9 F 71 16 148/81 H 95 12/25/16 00:00 62 16 113/66 Weight Weight 96 lb 6.4 oz I&O: 12/24/16 12/25/16 12/26/16 06:59 06:59 06:59 Intake Total 966 920 Output Total 700 1100 Balance 266 -180 Result Diagrams: 12/23/16 18:35 12/20/16 05:33 Phys Exam - Physical Examination Constitutional: NAD Neck: no JVD Respiratory: no rales Cardiovascular: no significant murmur, irregular Gastrointestinal: non-tender Musculoskeletal: pulses present Neurological: moves all 4 limbs Psychiatric: A&O x 3 Dx/Plan (1) Atrial fibrillation Code(s): I48.91 - UNSPECIFIED ATRIAL FIBRILLATION Status: Acute (2) Malnutrition Code(s): E46 - UNSPECIFIED PROTEIN-CALORIE MALNUTRITION Status: Acute (3) Alcohol dependence, daily use Code(s): F10.20 - ALCOHOL DEPENDENCE, UNCOMPLICATED Status: Chronic (4) GERD (gastroesophageal reflux disease) Code(s): K21.9 - GASTRO-ESOPHAGEAL REFLUX DISEASE WITHOUT ESOPHAGITIS Status: Chronic (5) HTN (hypertension) Code(s): I10 - ESSENTIAL (PRIMARY) HYPERTENSION Status: Chronic (6) Tobacco abuse Code(s): Z72.0 - TOBACCO USE Status: Chronic - Plan * cont current medications * f/u card recommendations
--- NOTE | 2016-12-25 16:13 | PRG ---
DATE OF SERVICE: 12/25/2016 SERVICE: Pulmonary Medicine. INTERVAL HISTORY: The patient is breathing wonderfully. She denies any current fevers, chills, bernice sea or vomiting. Her cough is resolved. She has been able to get up and down the hallway with walk ing without difficulty. Otherwise, there has been no interval change to her condition. She reports no overnight events. PHYSICAL EXAMINATION: VITAL SIGNS: Afebrile, pulse 85, blood pressure 130/82, respirations 18, saturation 95% on room air . GENERAL: Patient is awake and alert, in no apparent distress. LUNGS: Decent air entry, which is greatly improved compared to the first time I met her. There is a prolonged expiratory phase, but no longer appreciate any crackles, wheezing or rhonchi. HEART: Normal rate, regular. ABDOMEN: Soft, nontender, nondistended, bowel sounds positive. MUSCULOSKELETAL: No cyanosis or clubbing. No pitting in the bilateral lower extremities. NEUROLOGIC: Grossly nonfocal. LABORATORY DATA: Magnesium 1.9. ASSESSMENT: 1. Acute hypoxic respiratory failure, resolved. 2. Chronic obstructive pulmonary disease with acute exacerbation. 3. Atrial fibrillation with rapid ventricular response, currently rate controlled. 4. Fidki-ls-ekxlwuw diastolic heart failure. 5. Pulmonary nodule. 6. Pleural effusion, bilateral. PLAN: From a purely respiratory perspective, the patient is stable for transition out of the hospit al. I will repeat a chest x-ray in the morning to verify the effusions are smaller. She will follo w up with me in the outpatient setting, so that we can consider initiating her on long-acting therap y. Please discharge within nebulizers as well as pkeven Burnette.
[2016-12-25] MEDS: Warfarin Sodium 3 MG TAB PO SCH (16:53)
[2016-12-25] MEDS: Nicotine 21 MG PATCH TD SCH (20:31)
[2016-12-25] MEDS: Metoprolol Tartrate 50 MG TAB PO SCH (20:31)
[2016-12-26 05:57] LABS: #Basophils 0.1 thou/uL (0.0-0.2); #Eosinphils 0.2 thou/uL (0.0-0.7); #Lymphocytes 1.7 thou/uL (1.20-3.40); #Monocytes 1.1 thou/uL (0.11-0.59); #Neutrophils 8.8 thou/uL (1.40-6.50); %Basophils 0.5 % (0.0-1.0); %Lymphocytes 14.4 % (21.0-51.0); %Monocytes 9.5 % (0.0-10.0); Hematocrit 49.8 % (36.0-47.0); Mean Platelet Volume 6.3 fL (7.4-10.4); Red Blood Cell (RBC) Count 5.08 mill/uL (4.20-5.40); White Blood Cell (WBC) Count 11.9 thou/uL (4.8-10.8)
[2016-12-26 06:03] LABS: Prothrombin Time 29.9 SEC (12.0-14.7)
[2016-12-26 06:26] LABS: Anion Gap 9 mmol/L (10-20); BUN (Urea Nitrogen) 20 mg/dL (9.8-20.1); Calc. Creatinine Clearance 45 mL/min (70-130); Calcium 9.2 mg/dL (7.8-10.44); Carbon Dioxide 31 mmol/L (23-31); Chloride 103 mmol/L (98-107); Estimated GFR-MDRD 71; Phosphorus 2.8 mg/dL (2.3-4.7)
[2016-12-26] MEDS: Metoprolol Tartrate 50 MG TAB PO SCH ×2 (07:53→22:32)
[2016-12-26] MEDS: Lisinopril 10 MG TAB PO SCH (10:00)
[2016-12-26] MEDS: Digoxin 0.125 MG TAB PO SCH (10:00)
[2016-12-26] MEDS: Metoprolol Tartrate 25 MG TAB PO SCH (10:10)
[2016-12-26] MEDS ORDERED: Sotalol HCl 80 MG TAB PO SCH (11:15)
--- NOTE | 2016-12-26 12:42 | PDOC.CTH ---
<Mariola Velarde - Last Filed: 12/26/16 12:43> Cardiology Progress Note - Subjective The pt was seen and examined. No overnight events. No cardiac complaints. She would like to discuss with Doctors about Cardioversion vs Ablation procedure. - Objective Vital Signs Temp Pulse Resp BP BP Pulse Ox 12/26/16 11:32 98.3 F 88 18 165/70 H 96 12/26/16 10:00 93 133/70 12/26/16 07:48 98.5 F 95 17 145/97 H 95 12/26/16 06:42 87 16 96 12/26/16 04:00 98.3 F 66 16 136/78 97 Weight 96 lb 9.6 oz 12/25/16 12/26/16 12/27/16 06:59 06:59 06:59 Intake Total 920 780 Output Total 1100 800 Balance -180 -20 - Physical Examination General/Neuro: alert & oriented x3 Neck: no JVD present Lungs: CTA (diminished at bases) Heart: other: (Irregular) Abdomen: soft Extremities: other: (No edeams) - Telemetry Telemetry Rhythm: Afib with HR 90s - Labs Result Diagrams: 12/26/16 05:46 12/26/16 05:46 Troponin/CKMB CK-MB (CK-2) 1.7 ng/mL (0-6.6) 12/17/16 12:50 Troponin I 0.016 ng/mL (< 0.028) 12/17/16 17:59 - Assessment/Plan 1. Atrial fibrillation with RVR - s/p cardioversion on 12/23/16; remained SR for 6 hrs before converted backed to Afib. Rete well controlled with Diltiazem 360mg PO, Digoxin 0.125mg PO, Metoprolol 50mg BID, and Sotalol 80mg BID; Coumadin dosage managed by pharmacy; cont. monitor on tele; managed by EP 2. COPD exacerbation - stable with RA and Duonebs and PO steroid; managed by receiving specialist 3. Sepsis - resolved 4. HTN - Stable with current medication; cont. monitor 5. Tobacco Abuse - on Nicotin patch; managed by PCP 6. ETOH abuse - She stated she does not have any craving for drinking 7. GERD - On Protonix MAR reviewed * possible another cardioversion within 2-3 days with Sotalol Review of Systems - Review of Systems Constitutional: reports: no symptoms reported EENTM: reports: no symptoms reported Respiratory: reports: no symptoms reported Cardiac (ROS): reports: no symptoms reported ABD/GI: reports: no symptoms reported : reports: no symptoms reported Musculoskeletal: reports: no symptoms reported Skin: reports: no symptoms reported <Angela Dickerson - Last Filed: 12/26/16 16:19> Cardiology Progress Note - Objective Vital Signs Temp Pulse Resp BP BP Pulse Ox 12/26/16 15:35 98.1 F 56 L 16 118/67 95 12/26/16 13:00 67 16 98 12/26/16 12:15 76 137/70 12/26/16 11:32 98.3 F 88 18 165/70 H 96 12/26/16 10:00 93 133/70 12/26/16 08:00 98.5 F 95 17 12/26/16 07:48 98.5 F 95 17 145/97 H 95 12/26/16 06:42 87 16 96 Weight 96 lb 9.6 oz 12/25/16 12/26/16 12/27/16 06:59 06:59 06:59 Intake Total 920 780 Output Total 1100 800 Balance -180 -20 - Labs Result Diagrams: 12/26/16 05:46 12/26/16 05:46 Troponin/CKMB CK-MB (CK-2) 1.7 ng/mL (0-6.6) 12/17/16 12:50 Troponin I 0.016 ng/mL (< 0.028) 12/17/16 17:59 - Assessment/Plan Pt. seen and eval. I agree with the A/P by the HOME DAY CARE PROVIDER. I spoke with her about repeat cardioversion but she prefers not to do that and proceed with ablation. her pulm. status is much better symptomatically.
--- NOTE | 2016-12-26 13:45 | PRG ---
DATE OF SERVICE: 12/26/2016 SUBJECTIVE: Ms. Max is doing pretty well. She has minimal palpitations. Of note, she underwe nt cardioversion on Monday and before the end of the day, she converted back to atrial fibrillation. Now her rates are better controlled and they are reinstituted diltiazem, digoxin, metoprolol. OBJECTIVE DATA: VITAL SIGNS: Blood pressure is 165/70, heart rate 88, respirations 18, temperature 98.3 degrees Fah renheit. GENERAL: Alert and oriented woman in no apparent distress. NECK: Supple. Jugular veins not distended. CHEST: Coarse, no crackles. CARDIOVASCULAR: Heart sounds are irregularly irregular. S1, S2, variable. No murmur or gallop. ABDOMEN: Benign. Bowel sounds positive. EXTREMITIES: Lower extremities without edema, clubbing or cyanosis. DATABASE: EKGs reviewed reveals sinus rhythm. No significant ST-T changes. LABORATORY DATA: INR is 2.7 today. Electrolytes in good range. BUN 20, creatinine 0.8, potassium 3.6. White count 11.9, hemoglobin 15.7. ASSESSMENT: Ms. Max is a 71-year-old woman who presented with symptoms of heart failure as wel l as newly found atrial fibrillation with rapid rates. She received corticosteroids and Z-LEO and e ventually her symptoms improved with rate control and underwent cardioversion on Monday, but she had early recurrences of atrial fibrillation within that day. She also had some corynebacterium bacteremia which was likely a false positive as per ID consult. N ow she seems to be doing fairly well. PLAN: I discussed the potential treatment options. Hence she failed a simple cardioversion, I thin k an additional rhythm medication might be reasonable. Hence she does not have major bronchospastic component, I would like to add sotalol. We likely will hold the metoprolol, although she might be considered for cardioversion for tomorrow. Hence, she is therapeutic, and INR are negative in the 5 0s, I am considering her low risk for potential thromboembolism. We will discuss with Dr. Dickerson.
--- NOTE | 2016-12-26 14:41 | PRG ---
DATE OF SERVICE: 12/26/2016 SERVICE: Pulmonary Medicine. INTERVAL HISTORY: The patient is doing fantastic from respiratory standpoint. She is hoping to go home today. She is waiting to hear from Cardiology before that decision is made; however. She jamil ins in atrial fibrillation, but her rate is under much better control with p.o. medications. PHYSICAL EXAMINATION: VITAL SIGNS: Afebrile, pulse 88, blood pressure 165/70, respirations 18, saturation 96% on room air . GENERAL: Patient is awake, alert, in no apparent distress. LUNGS: Regular. Normal rate. ABDOMEN: Soft, nontender, and nondistended. Bowel sounds positive. MUSCULOSKELETAL: No cyanosis or clubbing. No pitting in the bilateral lower extremities. NEUROLOGIC: Grossly nonfocal. LABORATORY DATA: WBC 11.9 and down trending, hemoglobin 15.7, and platelets 311,000. INR 2.7 and s table. Basic metabolic profile, magnesium, and phosphorus are all unremarkable. One out of two blo od cultures is growing a contaminant. Urine culture is negative to date. ASSESSMENT: 1. Acute hypoxic respiratory failure, resolved. 2. Chronic obstructive pulmonary disease with acute exacerbation. 3. Atrial fibrillation with rapid ventricular rate, currently rate controlled. 4. Acute on chronic diastolic heart failure. 5. Pulmonary nodule. 6. Pleural effusion. PLAN: The patient is stable for transition out to the hospital from a lung perspective. She is cur rently rate controlled on her atrial fibrillation. She will certainly need close followup in the ou tpatient setting with Cardiology. I would like her to see me in 2-3 weeks in the outpatient setting , so that we can set up a followup CT scan for this nodule. My suspicion is fluid related, but cert ainly requires close followup as the differential include less likely cancer. On discharge, yolanda valentine sending her home on p.r.n. DuoNebs with nebulizer. Will consider for long-acting therapy in the o utpatient setting.
--- NOTE | 2016-12-26 16:29 | PDOC.PN ---
- Subjective Encounter Start Date: 12/26/16 Encounter Start Time: 16:27 Patient seen and examined. No new complaints. No overnight events - Objective Resuscitation Status: Resuscitation Status FULL:Full Resuscitation MAR Reviewed: Yes Vital Signs & Weight: Vital Signs (12 hours) Temp Pulse Resp BP BP Pulse Ox 12/26/16 15:35 98.1 F 56 L 16 118/67 95 12/26/16 13:00 67 16 98 12/26/16 12:15 76 137/70 12/26/16 11:32 98.3 F 88 18 165/70 H 96 12/26/16 10:00 93 133/70 12/26/16 08:00 98.5 F 95 17 12/26/16 07:48 98.5 F 95 17 145/97 H 95 12/26/16 06:42 87 16 96 Weight Weight 96 lb 9.6 oz I&O: 12/25/16 12/26/16 12/27/16 06:59 06:59 06:59 Intake Total 920 780 Output Total 1100 800 Balance -180 -20 Result Diagrams: 12/26/16 05:46 12/26/16 05:46 Phys Exam - Physical Examination Constitutional: NAD HEENT: PERRLA Neck: no nodes Respiratory: no wheezing Cardiovascular: irregular Gastrointestinal: non-tender Musculoskeletal: pulses present Neurological: moves all 4 limbs Psychiatric: A&O x 3 Dx/Plan (1) Atrial fibrillation Code(s): I48.91 - UNSPECIFIED ATRIAL FIBRILLATION Status: Acute (2) Malnutrition Code(s): E46 - UNSPECIFIED PROTEIN-CALORIE MALNUTRITION Status: Acute (3) Alcohol dependence, daily use Code(s): F10.20 - ALCOHOL DEPENDENCE, UNCOMPLICATED Status: Chronic (4) GERD (gastroesophageal reflux disease) Code(s): K21.9 - GASTRO-ESOPHAGEAL REFLUX DISEASE WITHOUT ESOPHAGITIS Status: Chronic (5) HTN (hypertension) Code(s): I10 - ESSENTIAL (PRIMARY) HYPERTENSION Status: Chronic (6) Tobacco abuse Code(s): Z72.0 - TOBACCO USE Status: Chronic - Plan * .1. Atrial fibrillation with RVR - s/p cardioversion on 12/23/16; remained SR for 6 hrs before converted backed to Afib. Rete well controlled with Diltiazem 360mg PO, Digoxin 0.125mg PO, Metoprolol 50mg BID, and Sotalol 80mg BID; Coumadin dosage managed by pharmacy; cont. monitor on tele; managed by EP * pulm input appreciated * case mx to arrange for neb
[2016-12-26] MEDS: Warfarin Sodium 3 MG TAB PO SCH (16:59)
[2016-12-26] MEDS: Sotalol HCl 80 MG TAB PO SCH (22:31)
[2016-12-26] MEDS: Nicotine 21 MG PATCH TD SCH (22:31)
[2016-12-27 06:28] LABS: Prothrombin Time 29.8 SEC (12.0-14.7)
[2016-12-27] MEDS: Sotalol HCl 80 MG TAB PO SCH ×2 (10:59→21:44)
[2016-12-27] MEDS: Digoxin 0.125 MG TAB PO SCH (11:01)
[2016-12-27] MEDS: Lisinopril 10 MG TAB PO SCH (11:01)
[2016-12-27] MEDS: Metoprolol Tartrate 50 MG TAB PO SCH ×2 (11:01→21:44)
--- NOTE | 2016-12-27 11:10 | PDOC.PN ---
- Subjective Encounter Start Date: 12/27/16 Encounter Start Time: 11:09 Patient seen and examined. No new complaints. No overnight events wants to go home to take care of some work - Objective Resuscitation Status: Resuscitation Status FULL:Full Resuscitation MAR Reviewed: Yes Vital Signs & Weight: Vital Signs (12 hours) Temp Pulse Resp BP BP Pulse Ox 12/27/16 11:01 78 134/88 12/27/16 10:59 78 134/88 12/27/16 08:00 98.2 F 78 20 134/88 96 12/27/16 06:52 70 14 12/27/16 04:00 97.2 F L 82 18 137/77 96 12/27/16 00:00 85 16 118/75 Weight Weight 94 lb 1.6 oz I&O: 12/26/16 12/27/16 12/28/16 06:59 06:59 06:59 Intake Total 780 1210 Output Total 800 1130 Balance -20 80 Result Diagrams: 12/26/16 05:46 12/26/16 05:46 Phys Exam - Physical Examination Constitutional: NAD HEENT: PERRLA Neck: no JVD Respiratory: no rales Cardiovascular: irregular Gastrointestinal: non-tender Musculoskeletal: pulses present Neurological: moves all 4 limbs Psychiatric: A&O x 3 Dx/Plan (1) Atrial fibrillation Code(s): I48.91 - UNSPECIFIED ATRIAL FIBRILLATION Status: Acute (2) Malnutrition Code(s): E46 - UNSPECIFIED PROTEIN-CALORIE MALNUTRITION Status: Acute (3) Alcohol dependence, daily use Code(s): F10.20 - ALCOHOL DEPENDENCE, UNCOMPLICATED Status: Chronic (4) GERD (gastroesophageal reflux disease) Code(s): K21.9 - GASTRO-ESOPHAGEAL REFLUX DISEASE WITHOUT ESOPHAGITIS Status: Chronic (5) HTN (hypertension) Code(s): I10 - ESSENTIAL (PRIMARY) HYPERTENSION Status: Chronic (6) Tobacco abuse Code(s): Z72.0 - TOBACCO USE Status: Chronic - Plan * start sotalol. stop metoprolol * f/u dr servin plan
--- NOTE | 2016-12-27 16:28 | PDOC.CTH ---
Cardiology Progress Note - Subjective Pt. seen and evaluated. No new complaints. I explained to her that it was best to proceed with repeat cardioversion in AM. Caroline is agreeable. - Objective Vital Signs Temp Pulse Resp BP BP Pulse Ox 12/27/16 12:00 96.6 F L 70 16 128/76 12/27/16 11:01 78 134/88 12/27/16 10:59 78 134/88 12/27/16 08:00 98.2 F 78 20 134/88 96 12/27/16 06:52 70 14 Weight 94 lb 1.6 oz 12/26/16 12/27/16 12/28/16 06:59 06:59 06:59 Intake Total 780 1210 Output Total 800 1130 Balance -20 80 - Physical Examination General/Neuro: alert & oriented x3 Neck: carotid US brisk Lungs: CTA Other PE findings: irreg. - Labs Result Diagrams: 12/26/16 05:46 12/26/16 05:46 Troponin/CKMB CK-MB (CK-2) 1.7 ng/mL (0-6.6) 12/17/16 12:50 Troponin I 0.016 ng/mL (< 0.028) 12/17/16 17:59 - Assessment/Plan 1. Atrial fibrillation with RVR - s/p cardioversion on 12/23/16; remained SR for 6 hrs before converted backed to Afib. Rate well controlled with Diltiazem 360mg PO, Digoxin 0.125mg PO, Metoprolol 50mg BID, and Sotalol 80mg BID; Coumadin dosage managed by pharmacy; cont. monitor on tele; Plan for cardioversion in AM. 2. COPD exacerbation - stable with RA and Duonebs and PO steroid; managed by plisse machine operator 3. Sepsis - resolved 4. HTN - Stable with current medication; cont. monitor 5. Tobacco Abuse - on Nicotin patch; managed by PCP 6. ETOH abuse - She stated she does not have any craving for drinking 7. GERD - On Protonix MAR reviewed Review of Systems - Review of Systems Respiratory: reports: no symptoms reported Cardiac (ROS): reports: no symptoms reported ABD/GI: reports: no symptoms reported Musculoskeletal: reports: no symptoms reported Neurological: reports: no symptoms reported
[2016-12-27] MEDS: Warfarin Sodium 3 MG TAB PO SCH (17:18)
--- NOTE | 2016-12-27 20:43 | PRG ---
DATE OF SERVICE: 12/27/2016 ELECTROPHYSIOLOGY FOLLOWUP REPORT SUBJECTIVE: Ms. Max seems to be doing well today. She would like to review the cardioversion because of personal issues. OBJECTIVE DATA: VITAL SIGNS: Blood pressure is 134/88, heart rate 78, respirations 20, temperature 98.2 degrees Fah renheit. GENERAL: Alert and oriented woman, in no apparent distress. NECK: Supple. Jugular vein is not distended. CHEST: Coarse without crackles. CARDIOVASCULAR: Heart sounds are irregularly irregular. S1, S2, variable. No murmur or gallop. DATABASE: EKGs reviewed, reveals atrial fibrillation, rates have controlled at 70 beats per minute with QTC is 411. LABORATORY DATA: No new labs. ASSESSMENT AND PLAN: Ms. Max is a pleasant 71-year-old woman with a history of persistent atri al fibrillation presentation along with the new onset of mostly diastolic acute on chronic heart carroll lure. She underwent a cardioversion V and had early recurrence on the same day of atrial fibrillati on, now she is on sotalol loading. PLAN: 1. Continue sotalol loading. 2. Cardioversion in the morning. 3. Continue oral anticoagulation with elevated INRs currently. 4. Consider long-term procedure if recurrent atrial fibrillation seen on sotalol. These issues were discussed in detail with the patient and the son. Again, we did discuss potential chance for recurrence on sotalol. Arrhythmia risks were discussed and also pros and cons about the future ablation procedure were detailed in as well. All questions were answered.
[2016-12-27] MEDS: Nicotine 21 MG PATCH TD SCH (21:44)
[2016-12-28 06:51] LABS: Prothrombin Time 31.3 SEC (12.0-14.7)
[2016-12-28] MEDS ORDERED: Diprivan 20 ML ONE (07:48)
[2016-12-28] MEDS ORDERED: Propofol 200 MG/20 ML VIAL ONE (08:15)
[2016-12-28] MEDS: Digoxin 0.125 MG TAB PO SCH (09:45)
[2016-12-28] MEDS: Sotalol HCl 80 MG TAB PO SCH ×3 (09:46→22:27)
[2016-12-28] MEDS: Lisinopril 10 MG TAB PO SCH (09:48)
--- NOTE | 2016-12-28 09:58 | PRG ---
DATE OF SERVICE: 12/27/2016 SERVICE: Pulmonary Medicine. INTERVAL HISTORY: The patient is doing outstanding from cardiovascular and respiratory standpoint. She has no specific complaints of fevers, chills, nausea, vomiting or chest discomfort. She would like me to decrease her nebulized medications twice daily. I think this is perfectly reasonable as she has absolutely no shortness of breath at this time. Her heart rate is still misbehaving and the doctors wanted to reattempt cardioversion. The patient is hoping to go home as soon as possible. PHYSICAL EXAMINATION: VITAL SIGNS: Afebrile, pulse 88, blood pressure 165/70, respirations 18, and saturation 96% on room air. GENERAL: The patient is awake, alert, in no apparent distress. LUNGS: Decent air entry. There is a prolonged expiratory phase. I do not appreciate wheezing or r honchi. Minimal crackles are present. HEART: Normal rate. Irregular. ABDOMEN: Soft, nontender, and nondistended. Bowel sounds positive. MUSCULOSKELETAL: No cyanosis or clubbing. No pitting in the bilateral lower extremities. NEUROLOGIC: Grossly nonfocal. ASSESSMENT: 1. Acute hypoxic respiratory failure, resolved. 2. Chronic obstructive pulmonary disease with acute exacerbation. 3. Atrial fibrillation with rapid ventricular response, currently rate controlled. 4. Acute on chronic diastolic heart failure. 5. Pulmonary nodule. 6. Pleural effusion, resolving. PLAN: The patient is doing outstanding from a respiratory standpoint. She has essentially returned to her usual state of health. Cardioversion is once again being planned for tomorrow. Pulmonary o r Critical Care will continue to follow while she remains inhouse. Ultimately on discharge, I would like to see her in clinic in 2-3 weeks, so that we can consider her for long-acting therapy for her COPD, and setup repeat CT scan to follow up this pulmonary nodule. I will continue to follow while she remains inhouse.
--- NOTE | 2016-12-28 11:18 | OP ---
DATE OF PROCEDURE: 12/28/2016 INDICATION FOR PROCEDURE: A 71-year-old female with persistent atrial fibrillation. She has underg one one attempt already at electrical cardioversion after a transesophageal echocardiogram was perfo rmed. However, she was not on an antiarrhythmic medications at that time. Since that time, she has been placed on arrhythmia medications for at least 4 days now and it was again suggested that she u ndergo an attempt at electrocardioversion. If she were unsuccessful, then further intervention may be indicated such as ablation, but at this time will try to cardiovert this patient. We tried to cardiovert the patient and also will continue medical management. She was taken to the recovery area where she underwent short acting propofol and using one attempt at 250 joules she was successfully converted back to normal sinus rhythm with heart rate in the 50s without complications or difficulties.
[2016-12-28 12:22] VITALS: BMI 16.6
--- NOTE | 2016-12-28 13:03 | PDOC.PN ---
- Subjective Encounter Start Date: 12/28/16 Encounter Start Time: 13:01 got cardioverted today no n/v no f/c - Objective Resuscitation Status: Resuscitation Status FULL:Full Resuscitation MAR Reviewed: Yes Vital Signs & Weight: Vital Signs (12 hours) Temp Pulse Resp BP BP Pulse Ox 12/28/16 11:55 98.3 F 60 16 118/60 97 12/28/16 11:26 58 L 146/70 H 12/28/16 09:48 146/70 H 12/28/16 09:45 50 L 12/28/16 04:00 98.2 F 59 L 18 138/84 95 Weight Admit Weight 111 lb 2 oz Weight 93 lb 12.8 oz I&O: 12/27/16 12/28/16 12/29/16 06:59 06:59 06:59 Intake Total 1210 790 Output Total 1130 750 Balance 80 40 Result Diagrams: 12/26/16 05:46 12/26/16 05:46 Phys Exam - Physical Examination Constitutional: NAD HEENT: PERRLA Neck: no JVD Respiratory: no wheezing Cardiovascular: RRR, no significant murmur Gastrointestinal: non-tender Musculoskeletal: pulses present Neurological: normal sensation Psychiatric: A&O x 3 Dx/Plan (1) Atrial fibrillation Code(s): I48.91 - UNSPECIFIED ATRIAL FIBRILLATION Status: Acute (2) Malnutrition Code(s): E46 - UNSPECIFIED PROTEIN-CALORIE MALNUTRITION Status: Acute (3) Alcohol dependence, daily use Code(s): F10.20 - ALCOHOL DEPENDENCE, UNCOMPLICATED Status: Chronic (4) GERD (gastroesophageal reflux disease) Code(s): K21.9 - GASTRO-ESOPHAGEAL REFLUX DISEASE WITHOUT ESOPHAGITIS Status: Chronic (5) HTN (hypertension) Code(s): I10 - ESSENTIAL (PRIMARY) HYPERTENSION Status: Chronic (6) Tobacco abuse Code(s): Z72.0 - TOBACCO USE Status: Chronic - Plan * monitor rhythm * f/y card plan * possible d/c in am
--- NOTE | 2016-12-28 14:46 | EKG ---
Test Reason : PREOP CARDIOVERSION Blood Pressure : / mmHG Vent. Rate : 054 BPM Atrial Rate : 159 BPM P-R Int : 000 ms QRS Dur : 090 ms QT Int : 426 ms P-R-T Axes : 000 075 028 degrees QTc Int : 403 ms Atrial fibrillation with slow ventricular response Nonspecific ST abnormality Abnormal ECG Confirmed by LOWELL HATFIELD ([id number]) on 12/28/2016 2:45:46 PM Referred By: FLORINA Confirmed By:LOWELL HATFIELD
--- NOTE | 2016-12-28 14:47 | EKG ---
Test Reason : POST CARDIOVERSION Blood Pressure : / mmHG Vent. Rate : 052 BPM Atrial Rate : 052 BPM P-R Int : 144 ms QRS Dur : 084 ms QT Int : 438 ms P-R-T Axes : 042 080 043 degrees QTc Int : 407 ms Sinus bradycardia Otherwise normal ECG Confirmed by LOWELL HATFIELD ([id number]) on 12/28/2016 2:47:39 PM Referred By: EAMON Confirmed By:LOWELL HATFIELD
[2016-12-28] MEDS ORDERED: Warfarin Sodium 5 MG TAB PO SCH ×2 (17:00)
[2016-12-28] MEDS: Warfarin Sodium 2 MG TAB PO SCH (17:33)
--- NOTE | 2016-12-28 19:23 | PRG ---
DATE OF SERVICE: 12/28/2016 SERVICE: Pulmonary Medicine. INTERVAL HISTORY: The patient is doing great from a cardiovascular and respiratory standpoint. She is hoping to go home tomorrow morning. She got cardioverted this morning, actually still remains i n sinus rhythm. Otherwise, there has been no interval change to her condition. She is breathing fa ntastic. PHYSICAL EXAMINATION: VITAL SIGNS: Afebrile, pulse 60, blood pressure of 118/60, respirations 16, saturation 97% on room air. GENERAL: Patient is awake, alert, in no apparent distress. LUNGS: Excellent air entry today. There is much less prolonged expiratory phase. Minimal crackles are present. I do not appreciate wheezing or rhonchi present. HEART: Normal rate, regular. ABDOMEN: Soft, nontender, nondistended. Bowel sounds positive. MUSCULOSKELETAL: No cyanosis or clubbing. No pitting in the bilateral lower extremities. NEUROLOGIC: Grossly nonfocal. ASSESSMENT: 1. Acute hypoxic respiratory failure, resolved. 2. Chronic obstructive pulmonary disease with acute exacerbation. 3. Atrial fibrillation with rapid ventricular response, currently normal sinus rhythm. 4. Acute on chronic diastolic heart failure. 5. Pulmonary nodule. 6. Pleural effusion, resolving. PLAN: From a purely respiratory perspective, she is stable for transition out of the hospital. Hop efully, if she remains in sinus rhythm tomorrow, she can be discharged. She jokingly has told me th at she is planning home leaving AMA because she feels like a prisoner. That being said, she does un derstand the medical necessity for her to be in the hospital. I will see her in 2 to 3 weeks in the outpatient setting to investigate her severity of COPD and consider setting her up with long-acting therapy. At that time, we will set up a repeat CT of the chest in roughly 3-6 months to make certa in this pulmonary nodule remains stable.
--- NOTE | 2016-12-28 20:24 | PRG ---
DATE OF SERVICE: 12/28/2016 ELECTROPHYSIOLOGY FOLLOWUP NOTE SUBJECTIVE: Ms. Max seems to be doing well after cardioversion. OBJECTIVE DATA: VITAL SIGNS: Blood pressure is 146/70, heart rate 58, respirations 12. The patient is afebrile. GENERAL: A 71-year-old woman in no apparent distress. NECK: Supple. Jugular veins not distended. HEART: Sounds are regular to rate and rhythm, 1/6 holosystolic murmur heard. ABDOMEN: Benign. Bowel sounds positive. EXTREMITIES: Lower extremities without edema, clubbing, or cyanosis. DATABASE: EKG reveals atrial fibrillation this morning. QTC not markedly prolonged. Telemetry str ips reveal no ventricular arrhythmias. Continued atrial fibrillation up until the cardioversion, af ter which sinus rhythm is seen. LABORATORY DATA: White cell count is 11.9, hemoglobin 15.7, platelet count is 311. INR 2.9. Sodiu m 139, potassium 3.6, BUN is 20, creatinine is 0.8. ASSESSMENT AND PLAN: Ms. Max is a 71-year-old woman with a history of atrial fibrillation with recurrence after a simple cardioversion, now she is on sotalol, so she is doing better, tolerating it well and maintaining sinus rhythm. PLAN: Continue sotalol for suppressive therapy and anticoagulation. Consider pulmonary venous isol ation procedure if atrial fibrillation continues to recur.
[2016-12-28] MEDS: Nicotine 21 MG PATCH TD SCH (22:29)
[2016-12-29] MEDS ORDERED: Silver Sulfadiazine 1% Cream 50 GM TUBE TP PRN (01:45)
[2016-12-29 05:34] LABS: Prothrombin Time 31.6 SEC (12.0-14.7)
[2016-12-29 05:58] LABS: Anion Gap 10 mmol/L (10-20); BUN (Urea Nitrogen) 23 mg/dL (9.8-20.1); Calc. Creatinine Clearance 49 mL/min (70-130); Calcium 8.8 mg/dL (7.8-10.44); Carbon Dioxide 30 mmol/L (23-31); Chloride 104 mmol/L (98-107); Estimated GFR-MDRD 81
[2016-12-29] MEDS: Sotalol HCl 80 MG TAB PO SCH ×2 (10:21→17:33)
[2016-12-29] MEDS: Lisinopril 10 MG TAB PO SCH (10:21)
--- NOTE | 2016-12-29 11:58 | PDOC.PN ---
- Subjective Encounter Start Date: 12/29/16 Encounter Start Time: 11:58 Patient seen and examined. No new complaints. No overnight events - Objective Resuscitation Status: Resuscitation Status FULL:Full Resuscitation MAR Reviewed: Yes Vital Signs & Weight: Vital Signs (12 hours) Temp Pulse Resp BP BP Pulse Ox 12/29/16 10:21 64 119/79 12/29/16 10:15 97.9 F 64 18 119/79 95 12/29/16 06:13 61 14 95 12/29/16 04:00 99.0 F 58 L 16 136/65 95 Weight Admit Weight 111 lb 2 oz Weight 96 lb 6.4 oz I&O: 12/28/16 12/29/16 12/30/16 06:59 06:59 06:59 Intake Total 790 1160 Output Total 750 1250 Balance 40 -90 Result Diagrams: 12/26/16 05:46 12/29/16 04:12 Phys Exam - Physical Examination Constitutional: NAD HEENT: PERRLA Neck: no JVD Respiratory: no rales Cardiovascular: no significant murmur Gastrointestinal: non-tender Musculoskeletal: pulses present Neurological: moves all 4 limbs Psychiatric: A&O x 3 Dx/Plan (1) Atrial fibrillation Code(s): I48.91 - UNSPECIFIED ATRIAL FIBRILLATION Status: Acute (2) Malnutrition Code(s): E46 - UNSPECIFIED PROTEIN-CALORIE MALNUTRITION Status: Acute (3) Alcohol dependence, daily use Code(s): F10.20 - ALCOHOL DEPENDENCE, UNCOMPLICATED Status: Chronic (4) GERD (gastroesophageal reflux disease) Code(s): K21.9 - GASTRO-ESOPHAGEAL REFLUX DISEASE WITHOUT ESOPHAGITIS Status: Chronic (5) HTN (hypertension) Code(s): I10 - ESSENTIAL (PRIMARY) HYPERTENSION Status: Chronic (6) Tobacco abuse Code(s): Z72.0 - TOBACCO USE Status: Chronic - Plan * doing well * d/c if ok with card
--- NOTE | 2016-12-29 14:06 | PRG ---
DATE OF SERVICE: 12/29/2016 REFERRING PHYSICIAN: Dr. Dickerson SUBJECTIVE: Ms. Max seems to be doing great today. OBJECTIVE: VITAL SIGNS: Blood pressure is 136/65, heart rate 58, respirations 16, temperature 99 degrees Fahre nheit. GENERAL: Reveals an alert and oriented woman in no apparent distress. NECK: Supple. Jugular veins not distended. CHEST: Coarse without crackles. CARDIOVASCULAR: Heart sounds are regular rate and rhythm. No murmur or gallop. ABDOMEN: Benign. Bowel sounds positive. EXTREMITIES: Lower extremities without edema, clubbing or cyanosis. DATABASE: EKGs reviewed revealing sinus rhythm. No significant QT prolonging. ASSESSMENT AND PLAN: Ms. Max is a 71-year-old woman with history of chronic obstructive pulmon feli disease, smoking, some ETOH abuse who had paroxysms of atrial fibrillation. She failed cardiov ersion, but not maintaining sinus rhythm after sotalol loading and a repeat cardioversion. So far no noted. QT is reasonable on 80 mg of sotalol. We adjusted her blood pressure medica tion and took her off of diltiazem and digoxin for now. This could be resumed if repeated atrial fi brillation is seen. She is therapeutic on Coumadin. PLAN: Discharge home and follow up in 2-4 weeks. If the patient stabilizes, but recurrent atrial f ibrillation seen consider ablation procedure.
--- NOTE | 2016-12-29 14:39 | PRG ---
DATE OF SERVICE: 12/29/2016 SERVICE: Pulmonary Medicine. INTERVAL HISTORY: The patient is doing really quite well from cardiovascular and respiratory standp oint. She remains in sinus rhythm. Her breathing is at baseline. She denies any current fevers, c hills, nausea, vomiting or chest discomfort. PHYSICAL EXAMINATION: VITAL SIGNS: Afebrile, pulse 66, blood pressure 151/70, respirations 23, saturation 94% on room air . GENERAL: The patient is awake and alert, in no apparent distress. LUNGS: Excellent air entry with no prolonged expiratory phase, wheezing, rhonchi or crackles. HEART: Normal rate, regular. ABDOMEN: Soft, nontender, nondistended, bowel sounds are positive. MUSCULOSKELETAL: No cyanosis or clubbing. No pitting in the bilateral lower extremities. NEUROLOGIC: Grossly nonfocal. LABORATORY DATA: WBC 11.9, hemoglobin 15.7, platelets 311,000. INR 2.9. Basic metabolic profile i s unremarkable. Blood culture is negative x1 and growing a contaminant in the other. Urine culture negative. ASSESSMENT: 1. Acute hypoxic respiratory failure, resolved. 2. Chronic obstructive pulmonary disease with acute exacerbation any longer. 3. Atrial fibrillation with rapid ventricular response, currently normal sinus rhythm. 4. Acute on chronic diastolic heart failure. 5. Pulmonary nodule. 6. Pleural effusion, resolving. PLAN: From a purely respiratory perspective, the patient remains stable for discharge from the hosp ital. Pulmonary Critical Care will continue to follow if she remains in house. Hopefully, she johnie l be going home today. I would like to see her in the outpatient setting in 2-3 weeks to set up the followup CT scan and consider for long-acting therapy for chronic obstructive pulmonary disease.
--- NOTE | 2016-12-29 14:54 | PDOC.CTH ---
<Mariola Velarde - Last Filed: 12/29/16 14:52> Cardiology Progress Note - Subjective The pt was seen and examined. No overnight events. No cardiac complaints. Since Cardioversion yesterday, she has not had fluttering or palpitation. - Objective Vital Signs Temp Pulse Resp BP BP Pulse Ox 12/29/16 11:55 98.9 F 66 23 H 151/70 H 94 L 12/29/16 10:21 64 119/79 12/29/16 10:15 97.9 F 64 18 119/79 95 12/29/16 10:00 97.9 F 64 18 95 12/29/16 06:13 61 14 95 12/29/16 04:00 99.0 F 58 L 16 136/65 95 Admit Weight 111 lb 2 oz Weight 96 lb 6.4 oz 12/28/16 12/29/16 12/30/16 06:59 06:59 06:59 Intake Total 790 1160 Output Total 750 1250 Balance 40 -90 - Physical Examination General/Neuro: alert & oriented x3 Neck: no JVD present Lungs: CTA Heart: RRR Abdomen: soft Extremities: other: (No edema) - Telemetry Telemetry Rhythm: SR 60s - Labs Result Diagrams: 12/26/16 05:46 12/29/16 04:12 Troponin/CKMB CK-MB (CK-2) 1.7 ng/mL (0-6.6) 12/17/16 12:50 Troponin I 0.016 ng/mL (< 0.028) 12/17/16 17:59 - Assessment/Plan 1. Atrial fibrillation with RVR - s/p cardioversion on 12/23/16 and 12/28/16; Converted back to SR yesterday; remained Rate well controlled with Diltiazem 180mg PO, Digoxin 0.125mg PO, and Sotalol 80mg BID; Coumadin dosage managed by pharmacy 2. COPD exacerbation - stable with RA and Duonebs and PO steroid; managed by sales representative [employer] 3. Sepsis - resolved 4. HTN - Stable with current medication; cont. monitor 5. Tobacco Abuse - on Nicotin patch; managed by PCP 6. ETOH abuse - She stated she does not have any craving for drinking 7. GERD - On Protonix MAR reviewed *From Cardiac standpoint, the pt is stable to d/c. The pt would like to find Hospital Pharmacist near her home. Instructed to f/u with her Hospital Pharmacist within 2wks with ECG. Thank you very much for cardiology consult request Review of Systems - Review of Systems Constitutional: reports: no symptoms reported EENTM: reports: no symptoms reported Respiratory: reports: no symptoms reported Cardiac (ROS): reports: no symptoms reported ABD/GI: reports: no symptoms reported : reports: no symptoms reported Musculoskeletal: reports: no symptoms reported Skin: reports: no symptoms reported <Angela Dickerson - Last Filed: 12/29/16 18:18> Cardiology Progress Note - Objective Vital Signs Temp Pulse Resp BP BP Pulse Ox 12/29/16 17:33 64 128/62 12/29/16 15:31 98.6 F 64 17 135/64 94 L 12/29/16 11:55 98.9 F 66 23 H 151/70 H 94 L 12/29/16 10:21 64 119/79 12/29/16 10:15 97.9 F 64 18 119/79 95 12/29/16 10:00 97.9 F 64 18 95 Admit Weight 111 lb 2 oz Weight 96 lb 6.4 oz 12/28/16 12/29/16 12/30/16 06:59 06:59 06:59 Intake Total 790 1160 Output Total 750 1250 Balance 40 -90 - Labs Result Diagrams: 12/26/16 05:46 12/29/16 04:12 Troponin/CKMB CK-MB (CK-2) 1.7 ng/mL (0-6.6) 12/17/16 12:50 Troponin I 0.016 ng/mL (< 0.028) 12/17/16 17:59 - Assessment/Plan Pt. seen and eval. by me. I agree with the A\P by the CAR LOT ATTENDANT. Will see in 2-4 weeks in the office.
[2016-12-29 16:00] VITALS: TEMP 98.6
[2016-12-29] MEDS: Warfarin Sodium 2 MG TAB PO SCH (17:33)
[2016-12-29 17:35] VITALS: BP 128/62
--- NOTE | 2016-12-30 06:33 | DIS ---
DATE OF ADMISSION: 12/17/2016 DATE OF DISCHARGE: 12/29/2016 DIAGNOSES ON ADMISSION: Atrial fibrillation with rapid ventricular response, abnormal liver functio n test, hyponatremia, history of stroke, hypertension, gastroesophageal reflux disease. DIAGNOSES ON DISCHARGE: Atrial fibrillation with rapid ventricular response, status post conversion on 12/23/2016, which failed and also on 12/28/2016, which was successful, converted back to sinus r hythm, right now on diltiazem 180 mg p.o. daily, sotalol 80 mg p.o. daily, lisinopril 10 mg p.o. nubia ly, warfarin 4 mg p.o. daily, neb treatments. Also, the patient has chronic obstructive pulmonary d isease exacerbation which has resolved. Bacteremia secondary to Corynebacterium, which did not misael ron any antibiotic therapy as per Dr. Sweet. Hypertension, tobacco abuse, alcohol abuse, gastroeso phageal reflux disease. The patient's echocardiogram showed ejection fraction of 60%. BRIEF HOSPITAL COURSE: This is a 71-year-old pleasant lady who was apparently in her usual state of health, came into the hospital with shortness of breath. Please refer to the admitting physician's H\T\P for further details. The patient was found to be in atrial fibrillation. Cardiology was con sulted. She was put on medications to control that. The patient also was put on Coumadin. The pat arturo also had some COPD exacerbation for which Pulmonary was consulted and she was put on medication s for that with neb treatments. She improved with this treatment. The patient was also evaluated b y Health Outcomes Liaison, Dr. Dickerson who consulted Dr. Cheney who actually did a cardioversion as mentioned before on 12/23/2016, which was unsuccessful. They put her on sotalol and diltiazem which controlled the rate, but because she went back into atrial fibrillation, she was kept in the hospital and again on 12/28/2016, she was cardioverted again. The patient stayed in sinus, is doing much better right now . COPD exacerbation has resolved. Dr. Sweet was consulted for Corynebacterium bacteremia which she thought it was contamination and did not need any antibiotic therapy. Hypertension was stable and well controlled. Tobacco abuse, alcohol abuse, she was counseled. Right now, the patient is medica lly stable to be discharged with outpatient followup with Cardiology, Pulmonary, and PCP. She under stands the importance of stopping smoking and alcoholism and alcohol use. The patient is asked to c ome back to the emergency room in case the symptoms return. Total time for this discharge took 35 minutes.
--- NOTE | 2017-01-02 13:16 | EKG ---
Test Reason : Blood Pressure : / mmHG Vent. Rate : 059 BPM Atrial Rate : 059 BPM P-R Int : 140 ms QRS Dur : 082 ms QT Int : 400 ms P-R-T Axes : 051 089 067 degrees QTc Int : 396 ms Sinus bradycardia Nonspecific ST abnormality Abnormal ECG Confirmed by LOWELL HATFIELD ([id number]) on 01/02/2017 1:16:29 PM Referred By: FLORINA Confirmed By:LOWELL HATFIELD
== END 2016-12-29 17:57 | disposition home or self-care (01) | DRG 308 ==
LOC: ERS 12:01 → 2NO 15:34
PROVIDERS: ADMIT Internal Medicine; ATTEND Internal Medicine
PROC: 5A2204Z Restoration of Cardiac Rhythm, Single (ICD-10-PCS; principal; 2016-12-23)
PROC: B24BZZ4 Ultrasonography of Heart with Aorta, Transesophageal (ICD-10-PCS; 2016-12-23)
PROC: 5A2204Z Restoration of Cardiac Rhythm, Single (ICD-10-PCS; 2016-12-28)
DX: I48.1 Persistent atrial fibrillation (principal); J96.01 Acute respiratory failure with hypoxia; I50.33 Acute on chronic diastolic (congestive) heart failure; E46 Unspecified protein-calorie malnutrition; R78.81 Bacteremia; E87.1 Hypo-osmolality and hyponatremia; J44.1 Chronic obstructive pulmonary disease with (acute) exacerbation; Z68.1 Body mass index [BMI] 19.9 or less, adult; K21.9 Gastro-esophageal reflux disease without esophagitis; F17.210 Nicotine dependence, cigarettes, uncomplicated; R91.1 Solitary pulmonary nodule; I11.0 Hypertensive heart disease with heart failure; F10.20 Alcohol dependence, uncomplicated; I42.9 Cardiomyopathy, unspecified; I08.1 Rheumatic disorders of both mitral and tricuspid valves; H54.40 Blindness, one eye, unspecified eye; I69.398 Other sequelae of cerebral infarction
CPT/HCPCS: 36415; 71010; 80048; 80061; 80069; 80076; 81003; 81015; 82436; 82553; 82570; 83735; 84133; 84300; 84443; 84484; 85014; 85018; 85025; 85049; 85610; 85730; 87040; 87086; 92960; 93005; 93010; 93306; 93312; 94640; 96365; 96374; A4216; J1160; J1644; J1940; J2543; J2704; J7050; J7506; J7620

== ENCOUNTER 2017-02-02 13:03 | Inpatient (IN) | payer MEDICARE ==
[2017-02-02 13:52] LABS: #Basophils 0.1 thou/uL (0.0-0.2); #Eosinphils 0.1 thou/uL (0.0-0.7); #Lymphocytes 1.6 thou/uL (1.20-3.40); #Neutrophils 11.8 thou/uL (1.40-6.50); %Basophils 0.4 % (0.0-1.0); %Eosinophils 0.7 % (0.0-10.0); %Lymphocytes 10.8 % (21.0-51.0); %Monocytes 6.7 % (0.0-10.0); Hematocrit 47.5 % (36.0-47.0); Mean Platelet Volume 6.4 fL (7.4-10.4); Red Blood Cell (RBC) Count 4.94 mill/uL (4.20-5.40); White Blood Cell (WBC) Count 14.5 thou/uL (4.8-10.8)
[2017-02-02 14:02] LABS: PTT 23.4 SEC (22.9-36.1); Prothrombin Time 15.1 SEC (12.0-14.7)
[2017-02-02 14:10] LABS: ALT (SGPT) 14 U/L (8-55); AST (SGOT) 18 U/L (5-34); Alkaline Phosphatase 76 U/L (40-150); Anion Gap 18 mmol/L (10-20); BUN (Urea Nitrogen) 10 mg/dL (9.8-20.1); Bilirubin, Total 0.9 mg/dL (0.2-1.2); CK (CPK) 90 U/L (29-168); Calc. Creatinine Clearance 0 mL/min (70-130); Calcium 9.3 mg/dL (7.8-10.44); Carbon Dioxide 18 mmol/L (23-31); Chloride 104 mmol/L (98-107); Estimated GFR-MDRD Greater than 90; Globulin 3.2 g/dL (2.4-3.5); Protein, Total 7.1 g/dL (6.0-8.3)
[2017-02-02 14:11] LABS: Digoxin 0.29 ng/mL (0.8-2.0)
[2017-02-02 14:14] LABS: Troponin I 0.167 ng/mL (< 0.028)
[2017-02-02] MEDS ORDERED: Diltiazem HCl 125 MG, Admixture Fee 1 EACH in Sodium Chloride 0.9% 100 ML SLOW IVP SCH (14:30)
--- NOTE | 2017-02-02 14:30 | CT ---
NONCONTRAST CT HEAD: Date: 02/02/17 HISTORY: Altered mental status. 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 Patient now presents with facial droop and right arm weakness, as well as aphasia. COMPARISON: None available. FINDINGS: There is loss of the mann-white differentiation in the region of the insular cortex with decreased at tenuation in this region and extending into the left basal ganglia, most consistent with an acute cor tical infarction distribution of the left middle cerebral artery. There is increased density in the l eft MCA compared to the right suggesting thrombus within the left middle cerebral artery. There is a low density focus in the genu of the right internal capsule likely related to a remote lac unar infarction. There is mild cerebral and cerebellar volume loss. No intraparenchymal or extra-axial hemorrhage is p resent. Ventricular system is normal in size, shape, and position. Visualized paranasal sinuses and mastoid air cells are clear. Calvarial structures are intact. IMPRESSION: 1. Acute infarction in the distribution of the left middle cerebral artery. 2. Hyperdense left middle cerebral artery suggesting thrombus in the left middle cerebral artery. 3. Remote lacunar infarction genu right internal capsule. 4. Cerebral volume loss. Above findings discussed with Dr. Dooley in the emergency department on 02/02/17 at 1337 hours. CODE CR. POS: FATOU
[2017-02-02] MEDS ORDERED: Aspirin 300 MG Suppository ONE (14:39)
--- NOTE | 2017-02-02 15:11 | CT ---
CT ANGIOGRAM HEAD WITH IV CONTRAST CT ANGIOGRAM NECK WITH IV CONTRAST CT PERFUSION STUDY: Date: 02/02/17 HISTORY: Left MCA distribution infarction in a patient with right arm weakness and aphasia, as well as facial droop. FINDINGS: CT ANGIOGRAM NECK: There are atherosclerotic vascular calcifications present. There is a normal arrangement of the great vessels at the aortic arch which are patent. The bilateral subclavian arteries, as well as bilateral common carotid arteries are patent. There are atherosclerotic calcifications and plaque seen in the proximal bilateral internal carotid arteries, but there is less than 50% maximal stenosis in the bila teral internal carotid arteries according to NASCET criteria. The bilateral vertebral arteries are pa tent, and the left vertebral artery is dominant. Emphysematous changes are seen within the upper lobes bilaterally. There is a spiculated pulmonary nodule in the right upper lobe with suggestion of central area of cav itation. This measures 1.3 cm. No additional pulmonary nodule or mass is seen in the visualized upper lobes. Degenerative changes are seen in the spine. There is asymmetry seen in the region of the posterior oropharynx, as well as nasopharynx, but this i s probably related to slight patient rotation and asymmetry of the tissues. No discrete mass can be d elineated. CT ANGIOGRAM BRAIN: There is occlusion of the M1 segment of the left middle cerebral artery which correlates with the are a of decreased density in the distribution of the left middle cerebral artery suggesting a moderately large area of infarction in the distribution of the left middle cerebral artery. The distal bilateral vertebral arteries are patent with small caliber of the distal right vertebral a rtery likely related to normal variant. The bilateral posterior cerebral arteries are patent. The rig ht middle cerebral artery, as well as bilateral anterior cerebral arteries are patent. No aneurysm is seen within the limitations of the technique of this examination. 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 No addition al lytic or sclerotic osseous lesions are appreciated. CT PERFUSION STUDY: There is an area of decreased blood volume, as well as blood flow in the distribution of the left mid dle cerebral artery. However, there is a larger area of decreased mean transit time. Findings are mo st consistent with an area of completed infarction in the distribution of the left middle cerebral ar matty with a penumbra seen primarily at the periphery, although the penumbra is relatively large in si ze. IMPRESSION: 1. Findings consistent with an area of complete infarction in the distribution of the left middle ce rebral artery, in addition to an area of penumbra primarily at the periphery of the completed infarct ion. 2. Occlusion of the M1 segment of the left middle cerebral artery. 3. Atherosclerotic irregularity involving the bilateral internal carotid arteries, but the degree of narrowing is less than 50% according to NASCET criteria. 4. Bilateral vertebral arteries are patent with left vertebral artery dominant. 5. 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 6. Spiculated nodular density in the right lung apex. There is a central area of cavitation. This co uld be related to infectious process given area of cavitation, but neoplastic process cannot be exclu ded. Above findings discussed with Dr. Dooley in the emergency department on 02/02/17 at 1424 hours. CODE CR. POS: FATOU
[2017-02-02] MEDS ORDERED: Digoxin 0.5 MG/2 ML AMP ONE (15:14)
--- NOTE | 2017-02-02 15:42 | RAD ---
PORTABLE AP CHEST: Date: 02-02-17 History: Right sided weakness, CVA. Comparison: 12-17-16 FINDINGS: Cardiac silhouette is magnified by projection but is unchanged in size. Parenchymal opacity seen at t he left lung base with associated left pleural effusion has resolved. The hazy density at the right l abel base has also resolved. Lungs are overall clear on today's examination. Vascular calcification is seen in the thoracic aorta. There is osteopenia. There is contrast seen within the left renal collec ting system related to recent contrasted study. The nodular density seen in the right upper lobe on r ecent CT angiogram of the neck is not well seen on this exam, but there is a headlight adjuster lead obs curing this region. There is a gas density overlying the left upper quadrant and probably represents a loop of bowel in the left upper quadrant. IMPRESSION: 1. No acute cardiopulmonary process. 2. The pulmonary nodule in the right upper lobe seen on recent CT angiogram of the neck is not deline ated on this exam but is probably obscured by overlying headlight adjuster lead in the right upper lobe. 3. Osteopenia. POS: FATOU
[2017-02-02] MEDS ORDERED: Sodium Chloride 0.65% Nasal 44 ML BOT EA NARE PRN (15:44)
[2017-02-02] MEDS ORDERED: hydrALAZINE 20 MG/ML VIAL SLOW IVP PRN (15:44)
[2017-02-02] MEDS ORDERED: Senokot 8.6 MG TAB PO PRN (15:44)
[2017-02-02] MEDS ORDERED: Ondansetron ODT 4 MG TAB PO PRN (15:44)
[2017-02-02] MEDS ORDERED: Chloraseptic Spray 180 ml Bottle PO PRN (15:44)
[2017-02-02] MEDS ORDERED: Mag-Al 1200 mg/1200 mg/30 ML UDCUP PO PRN (15:44)
[2017-02-02] MEDS ORDERED: Bisacodyl 10 MG SUPP PR PRN (15:44)
[2017-02-02] MEDS ORDERED: cefTRIAXone\\ROCEPHIN 1 GM in Sodium Chloride 0.9% 100 ML IVPB SCH (15:44)
[2017-02-02] MEDS ORDERED: Milk Of Magnesia 30 ML UDCUP PO PRN (15:44)
[2017-02-02] MEDS ORDERED: Acetaminophen 325 MG TAB PO PRN (15:44)
[2017-02-02] MEDS ORDERED: Eucerin (Mineral Oil/Petrolatum,White) 30 gm Jar TOP PRN (15:44)
[2017-02-02] MEDS ORDERED: Acetaminophen 650 MG Suppository PR PRN (15:44)
[2017-02-02] MEDS ORDERED: Artificial Tear Sol 15 ML BOT EA EYE PRN (15:44)
[2017-02-02] MEDS ORDERED: Ondansetron HCl/PF 4 MG/2 ML Vial IVP PRN (15:44)
--- NOTE | 2017-02-02 15:58 | HP ---
PRIMARY CARE PHYSICIAN: City call admission. The patient's primary care physician in [facility] REASON FOR ADMISSION: Acute cerebrovascular accident, atrial fibrillation with rapid ventricular res ponse. HISTORY OF PRESENT ILLNESS: A 71-year-old female who was recently admitted in our hospital on 2016. During that admission, patient was treated for atrial fibrillation with rapid ventricular resp onse. She required cardioversion and she was discharged home on 12/29/2016 with Cardizem CD, sotalol , and anticoagulation with warfarin. The patient lives by herself. [facility] subsequently during the afternoon time when family member went to see her at that time, she was found on the floor. She was having right upper and lower extremity weakness and the p atient was not able to talk. Normally, she is using her right side without any problem and she is fl uently communicating with the family member, but this morning, the patient was appeared very lethargi c and she was not able to talk as well as she was having flaccid weakness on the right side. Family member called 911 and subsequently the patient was brought to the emergency room by paramedics. In the emergency room when she arrived at that time, patient's blood pressure was 211/117 and she was having atrial fibrillation with heart rate 149. Patient was not able to provide any history because of aphasia, but family members were present. Patient was given Cardizem IV 20 mg push and after [place] t blood pressure as well as heart rate slowed down. The patient was not a candidate for TPA because of unknown onset of time. Last time, patient was discharged home on warfarin, but today her INR is o nly 1.2. When I saw this patient at bedside, at that time, patient is found with foul smelling urine . She is afebrile in the emergency room. We are admitting this patient for acute left MCA, CVA, and atrial fibrillation with rapid ventricular response, and hypertensive urgency. ALLERGIES: No known drug allergies. CURRENT HOME MEDICATIONS: The patient was discharged home on following medications and patient medic ation confirmed with the bottles at bedside. Cardizem-CD 180 mg p.o. daily, lisinopril 10 mg daily, Protonix 40 mg daily, Betapace 80 mg twice daily, warfarin 4 mg p.o. daily. REVIEW OF SYSTEMS: All review of systems tried to review with the patient, but unable to review at t his point because of patient's aphasia and altered mental status after stroke. PAST MEDICAL HISTORY: Atrial fibrillation, history of CVA with subsequently right eye blindness, hyp ertension, gastroesophageal reflux disease, protein-calorie malnutrition. PAST SURGICAL HISTORY: Cardioversion done during previous admission in 12/2016. PAST PSYCHIATRIC HISTORY: Reviewed and negative. FAMILY HISTORY: Positive for coronary artery disease to her father. SOCIAL HISTORY: Patient has history of smoking about 1 pack per day. She also drinks 5-6 beers on a daily basis as per previous report. She lives alone at home. EMERGENCY ROOM COURSE: Patient is given Cardizem bolus and subsequently Cardizem drip is started. PHYSICAL EXAMINATION: VITAL SIGNS: On arrival blood pressure 211/117, pulse 149, respiratory rate 15, temperature 97.5, sa turation 94% on room air, weight 38.4 kilograms. After Cardizem, patient's blood pressure improved t o 130/75, pulse 85 irregular. GENERAL: Patient is arousable, aphasic, no obvious acute distress. HEAD: Normocephalic, atraumatic. EYES: Pupils round, reactive to light. Eyes deviated to left side with right-sided neglect. ENT: Oropharynx within normal limits. Dry appearing mucous membranes. No oral lesions. No pharyng eal erythema, no exudate. NECK: Supple. No JVD, no thyromegaly, no carotid bruit. LUNGS: Clear to auscultation without any rhonchi or rales. CARDIAC: S1, S2 irregularly irregular. No murmur elicited, no gallop, no rub. ABDOMEN: Soft, bowel sounds present, nontender, nondistended. No organomegaly, no mass, no suprapub ic tenderness. BACK: Unremarkable, no CVA tenderness. EXTREMITIES: Upper extremity, passive movement of all joints are normal, though right side, patient has flaccid weakness. Lower extremity, no edema, good peripheral pulsation, passive movements of all joints are normal, though right side, patient has flaccid weakness. NEUROLOGIC: The patient is able to withdraw to pain, arousable, only able to make grunting sounds. Speech is incomprehensible. Patient has dense weakness on the right upper and lower extremities. SKIN: No skin rash. HEMATOLOGICAL SYSTEM: No lymphadenopathy. SIGNIFICANT LABORATORY DATA: EKG based on my review, atrial fibrillation with rapid ventricular resp onse, nonspecific ST-T changes in lateral leads. CT brain based on my review consistent with left MC A infarct. CT angiography with perfusion study showed large left MCA infarct with occlusion in the M 1 segment. Incidentally left upper lobe pulmonary nodule and supraorbital lytic lesion was found. C BC: WBC 14.5, hemoglobin 15.2, platelets 372 with left shift. INR 1.2. BMP: Sodium 135, potassium 4.6, chloride 104, carbon dioxide 18, anion gap 18, BUN 10, creatinine 0.64, glucose 91, calcium 9.3 . LFT: AST 18, ALT 14, alkaline phosphatase 76, albumin 3.9, CK 90, CK-MB 2.8, troponin I 0.167. D igoxin level 0.29. ASSESSMENT AND PLAN: 1. Acute cerebrovascular accident, left middle cerebral artery territory involvement with dense righ t upper and lower extremity weakness with aphasia and likely oropharyngeal dysphagia. At this point, patient is not a candidate for TPA or any CORWIN procedure given unknown onset of time as well as on chronic anticoagulation with warfarin, suspecting embolic stroke versus thrombotic stroke given her s ubtherapeutic INR. At this point, the patient will be admitted to the stroke floor. Entire stroke t eam including PT, OT, Speech, digital production manager and Neurology will be consulted. We will keep her n.p.o. until speech evaluation, meanwhile, we will try aspirin rectally. The patient will be given Lovenox 1 mg/kg until INR therapeutic. Neurology will be consulted. Patient will need eventually rehab plac ement. We will check lipid profile, homocysteine, RPR as a part of stroke workup. We will obtain MR I brain, carotid ultrasound, and echocardiography as a part of stroke workup. We will do neuro check every 4 hourly. 2. Atrial fibrillation with rapid ventricular response. At this point, heart rate is under control after Cardizem bolus and Cardizem drip. We will keep on surveyor instrument assistant. Cardiology will be consu lted. We will obtain echocardiography. We will continue with Cardizem drip at 5 mg per hour. We wi ll also continue Lovenox and warfarin given subtherapeutic INR. We will monitor PT/INR on a daily ba sis while in hospital. 3. Leukocytosis, suspecting urinary tract infection given foul smelling urine. We will check urinal ysis, urine culture, and also obtain chest x-ray to rule out any aspiration. Meanwhile, I will just start empirically Rocephin 1 gram q.24 hours. 4. Demand ischemia. We will do 3 sets of cardiac enzymes to rule out acute coronary syndrome, most likely related to demand ischemia from atrial fibrillation. 5. Gastroesophageal reflux disease. We will continue Protonix 40 mg IV daily. 6. Hypertension with hypertensive urgency on admission. Currently controlled with Cardizem drip. W e will monitor on stroke floor and titrate medication as needed basis. 7. Tobacco abuse disorder. We will provide nicotine patch if needed. 8. Chronic obstructive pulmonary disease. We will continue DuoNeb q.6 hourly p.r.n. 9. Protein-calorie malnutrition, [id number]. The patient will get nutritional supplementati on when patient able to take p.o. intake. 10. Deep venous thrombosis prophylaxis. Patient is already on full dose of Lovenox therapy. 11. Gastrointestinal prophylaxis, Protonix 40 mg IV daily. 12. Code status: The patient is FULL CODE. The patient does not have any surrogate decision maker. Disposition and plan based on clinical course. We are expecting patient's stay in hospital more than 2 midnights. Plan of care discussed with the patient and family member.
[2017-02-02] MEDS ORDERED: ISOVUE-370 76%-LOCM 1 ML ONE (16:47)
[2017-02-02] MEDS ORDERED: cefTRIAXone\\ROCEPHIN 1 GM, Syringe 0.4 ML in Sterile Water 9.6 ML SLOW IVP SCH (17:00)
[2017-02-02] MEDS: Warfarin Sodium 5 MG TAB PO SCH (17:49)
[2017-02-02 18:47] LABS: Troponin I 0.457 ng/mL (< 0.028)
[2017-02-02] MEDS: Dextrose 5 % And 0.9 % NaCl 1,000 ML IV SCH (19:39)
[2017-02-02 21:29] LABS: Critical Call Chem Troponin I RESULT DECREASING; Troponin I 0.448 ng/mL (< 0.028)
[2017-02-02] MEDS ORDERED: Enoxaparin Sodium 40 MG/0.4 ML SYRINGE SC SCH (22:30)
--- NOTE | 2017-02-02 22:43 | ULT ---
CAROTID DUPLEX SONOGRAM: History: CVA. Vascular disease. FINDINGS: Right: Plaque is present. Color and spectral doppler evaluation, peak systolic velocity of 64 cm/sec and IC to CC ratio of 0.9 suggests no hemodynamically significant stenosis within the extracranial le ft ICA. Left: There is scattered plaque. Color and spectral doppler evaluation, peak systolic velocity of 55 cm/sec and IC to CC ratio of 1.0 suggests no hemodynamically significant stenosis within the extracra nial left ICA. Antegrade flow is present within the vertebral artery. IMPRESSION: Atherosclerosis. There is no sonographic evidence of significant extracranial ICA stenosis. POS: ED
[2017-02-03 00:17] LABS: Bilirubin Negative (Negative); Blood, Urine Negative (Negative); Glucose, Urine (Dipstick) Negative (Negative); Ketone, Urine Negative (Negative); Nitrite Negative (Negative); Protein, Urine (Dipstick) Negative (Neg-Trace); Urobilinogen 0.2 mg/dL (0.2-1.0)
[2017-02-03 00:19] LABS: Bacteria/HPF None Seen HPF (None Seen); Hyaline Casts/LPF 0-3 HYALINE CAST LPF (0-3 Hyaline); RBC/HPF 0-3 HPF (0-3); Squamous Epithelial None Seen HPF (0-3); WBC/HPF None Seen HPF (0-3)
[2017-02-03 05:30] LABS: #Eosinphils 0.1 thou/uL (0.0-0.7); #Lymphocytes 1.6 thou/uL (1.20-3.40); #Monocytes 1.2 thou/uL (0.11-0.59); #Neutrophils 10.9 thou/uL (1.40-6.50); %Basophils 0.3 % (0.0-1.0); %Eosinophils 0.6 % (0.0-10.0); %Lymphocytes 11.6 % (21.0-51.0); %Monocytes 8.6 % (0.0-10.0); Hematocrit 45.8 % (36.0-47.0); Red Blood Cell (RBC) Count 4.87 mill/uL (4.20-5.40); White Blood Cell (WBC) Count 13.8 thou/uL (4.8-10.8)
[2017-02-03 05:34] LABS: Prothrombin Time 16.4 SEC (12.0-14.7)
[2017-02-03 05:51] LABS: ALT (SGPT) 11 U/L (8-55); AST (SGOT) 17 U/L (5-34); Alkaline Phosphatase 68 U/L (40-150); Anion Gap 13 mmol/L (10-20); BUN (Urea Nitrogen) 11 mg/dL (9.8-20.1); Bilirubin, Total 0.6 mg/dL (0.2-1.2); Calc. Creatinine Clearance 56 mL/min (70-130); Calcium 9.4 mg/dL (7.8-10.44); Carbon Dioxide 23 mmol/L (23-31); Chloride 103 mmol/L (98-107); Cholesterol 207 mg/dl (< 200 Desired); Estimated GFR-MDRD Greater than 90; LDL Cholesterol, Calculated 154 mg/dL; Protein, Total 6.6 g/dL (6.0-8.3)
[2017-02-03] MEDS: Aspirin 300 MG Suppository PR SCH (08:17)
[2017-02-03] MEDS: Pantoprazole 40 MG VIAL IVP SCH (08:21)
[2017-02-03] MEDS: Enoxaparin Sodium 40 MG/0.4 ML SYRINGE SC SCH ×2 (08:21→20:02)
[2017-02-03] MEDS: Dextrose 5 % And 0.9 % NaCl 1,000 ML IV SCH (08:22)
[2017-02-03] MEDS: Aspirin 325 MG TAB PO SCH (08:23)
[2017-02-03] MEDS ORDERED: Warfarin Sodium 2 MG TAB PO SCH (09:00)
[2017-02-03] MEDS ORDERED: Enoxaparin Sodium 40 MG/0.4 ML SYRINGE SC SCH (09:00)
--- NOTE | 2017-02-03 09:07 | CON ---
DATE OF CONSULTATION: 02/03/2017 CONSULTING PHYSICIAN: Hospitalist Service IMPRESSION: 1. 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 2. Atrial fibrillation with subtherapeutic anticoagulation. 3. Hypertension. PLAN: 1. Speech therapy evaluation to determine whether PEG tube placement is necessary. 2. Restart anticoagulation once this is determined. 3. Rehab placement. Ms. Max is a 71-year-old white female with a history of atrial fibrillation who was on Coumadin. She came in with a subtherapeutic INR of 1.2 along with right hemiparesis and expressive aphasia. The duration of symptoms were unknown. Her CT of the brain on admission showed evidence of ischemic change in the left middle cerebral artery territory. She was admitted for further evaluation. She w as markedly hypertensive with diastolic pressures over 112. She has been stable since admission with improved vital signs and a blood pressure of 143/80. She has no past history of stroke symptoms rep orted. PAST MEDICAL HISTORY: Hypertension, atrial fibrillation. ALLERGIES: None. SOCIAL HISTORY: Positive for tobacco use and alcohol use. FAMILY HISTORY: Noncontributory. REVIEW OF SYSTEMS: Not obtainable. PHYSICAL EXAMINATION: VITAL SIGNS: Blood pressure 134/72, pulse 80, respirations 18, temperature 98.5. HEENT: Pupils 4 mm and reactive. Conjunctivae clear. Oropharynx clear. NECK: Supple, no lymphadenopathy noted. EXTREMITIES: No cyanosis noted. NEUROLOGIC: She is awake and seems to have some limited comprehension. She had dense expressive aph afrhan. Cranial nerve exam showed some mild flattening on the right side. There was some proximal mov ement in the right upper extremity, but I could not elicit any distal movement. The same was true fo r the right leg. Plantar response was upgoing on the right and downgoing on the left. Gait was not testable. No abnormal movements were seen. LABORATORY STUDIES: Show white blood cell count 14.5, hemoglobin 15.2, INR of 1.3. Chemistry panel was unremarkable. Urine was clear and digoxin level was 0.29. SUMMARY: This is a 71-year-old woman with atrial fibrillation and a massive left middle cerebral art brook infarct, likely secondary to a cardioembolic event. I agree with your management.
[2017-02-03] MEDS: Digoxin 0.125 MG TAB PO SCH (09:42)
[2017-02-03] MEDS: Sotalol HCl 80 MG TAB PO SCH ×2 (09:43→20:01)
[2017-02-03] MEDS: Lisinopril 10 MG TAB PO SCH (09:43)
--- NOTE | 2017-02-03 11:43 | PDOC.PN ---
- Subjective Encounter Start Date: 02/03/17 Encounter Start Time: 07:00 -: non-verbal, old records requested/rev Patient seen and examined. pt is aphasic. No overnight events - Objective Resuscitation Status: Resuscitation Status FULL:Full Resuscitation MAR Reviewed: Yes Vital Signs & Weight: Vital Signs (12 hours) Temp Pulse Pulse Pulse Resp BP BP 02/03/17 09:43 80 02/03/17 09:42 80 02/03/17 08:00 98.5 F 80 18 02/03/17 07:58 77 95 144/73 H 159/97 H 02/03/17 07:33 98.5 F 80 18 02/03/17 03:49 97.8 F 102 H 12 02/03/17 00:55 02/03/17 00:13 99.5 F 104 H 20 BP Pulse Ox 02/03/17 09:43 02/03/17 09:42 02/03/17 08:00 99 02/03/17 07:58 02/03/17 07:33 134/72 99 02/03/17 03:49 143/80 H 96 02/03/17 00:55 98 02/03/17 00:13 152/89 H 98 Weight Weight 96 lb 9.6 oz I&O: 02/02/17 02/03/17 02/04/17 06:59 06:59 06:59 Intake Total 845.5 Output Total 25 Balance 820.5 Result Diagrams: 02/03/17 04:32 02/03/17 04:32 Radiology Reviewed by me: Yes (carotid us) EKG Reviewed by me: Yes (afib) Phys Exam - Physical Examination Constitutional: NAD HEENT: PERRLA, moist MMs, sclera anicteric Neck: no JVD, supple Respiratory: no wheezing, no rales, no rhonchi Cardiovascular: no significant murmur, irregular Gastrointestinal: soft, non-tender, no distention, positive bowel sounds Musculoskeletal: no edema, pulses present Neurological: non-focal, normal sensation Lymphatic: no nodes Psychiatric: normal affect Skin: no rash, normal turgor Dx/Plan (1) Acute CVA (cerebrovascular accident) Code(s): I63.9 - CEREBRAL INFARCTION, UNSPECIFIED Status: Acute (2) Atrial fibrillation with RVR Code(s): I48.91 - UNSPECIFIED ATRIAL FIBRILLATION Status: Acute (3) Demand ischemia of myocardium Code(s): I24.8 - OTHER FORMS OF ACUTE ISCHEMIC HEART DISEASE Status: Acute (4) Alcohol dependence, daily use Code(s): F10.20 - ALCOHOL DEPENDENCE, UNCOMPLICATED Status: Chronic (5) GERD (gastroesophageal reflux disease) Code(s): K21.9 - GASTRO-ESOPHAGEAL REFLUX DISEASE WITHOUT ESOPHAGITIS Status: Chronic (6) HTN (hypertension) Code(s): I10 - ESSENTIAL (PRIMARY) HYPERTENSION Status: Chronic (7) Protein-calorie malnutrition, moderate Code(s): E44.0 - MODERATE PROTEIN-CALORIE MALNUTRITION Status: Chronic (8) Tobacco abuse Code(s): Z72.0 - TOBACCO USE Status: Chronic - Plan cont current plan of care, PT/OT, aids social worker, speech therapy * stroke team * today MRI, echo * continue cardizem drip * when cleared by speech, will resume selected home meds * medication reviewed as below * symptomatic treatment. * discussed with neurology * cardiology consulted Review of Systems - Review of Systems Other: unable to review due to aphasia - Medications/Allergies Allergies/Adverse Reactions: Allergies Allergy/AdvReac Type Severity Reaction Status Date / Time No Known Allergies Allergy Verified 12/17/16 16:00 Medications: Current Medications Acetaminophen (Tylenol) 650 mg PO Q4H PRN PRN Reason: Headache/Fever or Pain Acetaminophen (Tylenol) 650 mg [place] Q4H PRN PRN Reason: Headache/Fever or Pain Al Hydroxide/Mg Hydroxide (Maalox) 30 ml PO Q6H PRN PRN Reason: Heartburn or Indigestion Albuterol/Ipratropium (Duoneb) 3 ml NEB [id number] PRN PRN Reason: SOB &/or Wheezing Artificial Tears (Tears Renewed 15ml Bottle) 0 drop EA EYE PRN PRN PRN Reason: Dry Eyes Aspirin (Aspirin) 300 mg AZ DAILY [facility] Last Admin: 02/03/17 08:17 Dose: 300 mg Aspirin (Aspirin) 325 mg PO DAILY [facility] Last Admin: 02/03/17 08:23 Dose: Not Given Bisacodyl (Dulcolax) 10 mg [place] Q24H PRN PRN Reason: Constipation Digoxin (Lanoxin) 0.125 mg PO DAILY [facility] Last Admin: 02/03/17 09:42 Dose: Not Given Diltiazem HCl (Cardizem Cd) 180 mg PO DAILY [facility] Last Admin: 02/03/17 09:42 Dose: Not Given Enoxaparin Sodium (Lovenox) 40 mg SC BID [facility] Last Admin: 02/03/17 08:21 Dose: 40 mg Hydralazine HCl (Apresoline) 10 mg SLOW IVP Q4H PRN PRN Reason: Systolic BP > 180 Diltiazem HCl 125 mg/ Sodium (Chloride) 125 mls @ 5 mls/hr IVPB INF GILMAR; 5 MG/ HR PRN Reason: Protocol Last Admin: 02/02/17 22:02 Dose: 125 mls Dextrose/Sodium Chloride (D5 0.9% Ns) 1,000 mls @ 70 mls/hr IV .[id number] [facility] Last Admin: 02/03/17 08:22 Dose: 1,000 mls Lisinopril (Zestril) 10 mg PO DAILY [facility] Last Admin: 02/03/17 09:43 Dose: Not Given Magnesium Hydroxide (Milk Of Magnesium) 30 ml PO DAILYPRN PRN PRN Reason: Constipation Mineral Oil/White Petrolatum (Eucerin Cream) 0 gm TOP BIDPRN PRN PRN Reason: Dry Skin Ondansetron HCl (Zofran Odt) 4 mg PO Q6H PRN PRN Reason: Nausea/Vomiting Ondansetron HCl (Zofran) 4 mg IVP Q6H PRN PRN Reason: Nausea/Vomiting Pantoprazole Sodium (Protonix) 40 mg IVP DAILY [facility] Last Admin: 02/03/17 08:21 Dose: 40 mg Phenol (Chloraseptic [place] 180 Ml Bot) 0 ml PO PRN PRN PRN Reason: Sore Throat Senna (Senokot) 2 tab PO HSPRN PRN PRN Reason: Constipation Sodium Chloride ([place] Nasal [place] 0.65%) 0 ml EA NARE QIDPRN PRN PRN Reason: Nasal Congestion Sotalol HCl (Betapace) 80 mg PO BID [facility] Last Admin: 02/03/17 09:43 Dose: Not Given Warfarin Sodium (Coumadin) 5 mg PO 1700 [facility] Last Admin: 02/02/17 17:49 Dose: Not Given
[2017-02-03] MEDS: Warfarin Sodium 5 MG TAB PO SCH (16:10)
--- NOTE | 2017-02-03 17:32 | CON ---
DATE OF CONSULTATION: 02/02/2017 REASON FOR CONSULTATION: Recent stroke and CVA. HISTORY OF PRESENT ILLNESS: Ms. Max is an unfortunate 71-year-old woman, who is a patient of Dr Norman Dickerson. She has been diagnosed with paroxysmal atrial fibrillation in the past. She was on Cou madin therapy. The history is obtained. States that they had much difficulty on Coumadin followup. They are not able to come to [place] and had their agricultural technician in [place] and follow the [facility] they state the agricultural technician is no longer available in [place]. She came in with a subtherapeu tic INR and right-sided aphasia. PAST MEDICAL HISTORY: As above including hypertension, acid reflux, malnutrition. ALLERGIES: None. MEDICATIONS: Include Cardizem, Betapace, Protonix, lisinopril, and Coumadin. REVIEW OF SYSTEMS: Unobtainable. PHYSICAL EXAMINATION: VITAL SIGNS: Blood pressure 149/77, pulse 84, temperature 98.5. GENERAL: She is not responsive and not communicative. She does have right-sided weakness. NEUROLOGIC: The patient is alert and oriented times 3 with no focal neurologic deficits. HEENT: Sclerae without icterus. Mouth has moist mucous membranes with normal pallor. NECK: No JVD. Carotid upstroke brisk. No bruits bilaterally. LUNGS: Clear to auscultation with unlabored respirations. BACK: No scoliosis or kyphosis. CARDIAC: Irregularly irregular, tachycardic. No significant rubs, murmurs, thrills, or gallops note d throughout the precordium. PMI is not displaced. There is no parasternal heave. ABDOMEN: Soft, nontender, nondistended. No peritoneal signs present. No hepatosplenomegaly. No ab normal striae. EXTREMITIES: 2+ femoral and 2+ dorsalis pedis pulses. No cyanosis, clubbing, or edema. SKIN: No gross abnormalities. PERTINENT LABS: Hemoglobin 14.6, creatinine 0.64. IMPRESSION: 1. Cerebrovascular accident. 2. Atrial fibrillation with rapid ventricular response. RECOMMENDATIONS: The patient's initial INR was 1.2. This is most likely embolic. We will defer to Neurology on whether it is okay to resume Lovenox while we increase her Coumadin level. We will rate control with IV Cardizem. She is not able to take p.o. We will not start p.o. until she is able to swallow. Otherwise, I have no further recommendations.
[2017-02-03] MEDS ORDERED: Digoxin 0.5 MG/2 ML AMP SLOW IVP SCH (22:45)
[2017-02-04] MEDS: Dextrose 5 % And 0.9 % NaCl 1,000 ML IV SCH ×3 (01:01→21:35)
[2017-02-04 04:46] LABS: Prothrombin Time 17.6 SEC (12.0-14.7)
[2017-02-04] MEDS: Pantoprazole 40 MG VIAL IVP SCH (08:14)
[2017-02-04] MEDS: Aspirin 300 MG Suppository PR SCH (08:15)
[2017-02-04] MEDS: Enoxaparin Sodium 40 MG/0.4 ML SYRINGE SC SCH ×2 (08:15→21:36)
[2017-02-04] MEDS: Sotalol HCl 80 MG TAB PO SCH ×2 (08:27→21:36)
[2017-02-04] MEDS: Aspirin 325 MG TAB PO SCH (08:27)
[2017-02-04] MEDS: Digoxin 0.125 MG TAB PO SCH (08:27)
[2017-02-04] MEDS: Lisinopril 10 MG TAB PO SCH (08:27)
--- NOTE | 2017-02-04 11:06 | PDOC.PN ---
- Subjective Encounter Start Date: 02/04/17 Encounter Start Time: 06:30 -: non-verbal pt is non verbal, lethargic today, aphasic, heart rate controlled - Objective Resuscitation Status: Resuscitation Status FULL:Full Resuscitation MAR Reviewed: Yes Vital Signs & Weight: Vital Signs (12 hours) Temp Pulse Resp BP Pulse Ox 02/04/17 08:27 73 02/04/17 08:00 98.5 F 73 18 97 02/04/17 07:40 98.5 F 73 18 132/72 97 02/04/17 03:46 100.4 F H 84 20 131/61 96 02/03/17 23:21 98.1 F 101 H 20 149/79 H 95 Weight Admit Weight 101 lb 8 oz Weight 96 lb 9.6 oz I&O: 02/03/17 02/04/17 02/05/17 06:59 06:59 06:59 Intake Total 845.5 920 Output Total 25 Balance 820.5 920 Result Diagrams: 02/04/17 04:10 02/03/17 04:32 Radiology Reviewed by me: Yes EKG Reviewed by me: Yes (afib) Phys Exam - Physical Examination Constitutional: NAD HEENT: PERRLA, moist MMs, sclera anicteric dry MM Neck: no JVD, supple Respiratory: no wheezing, no rales, no rhonchi Cardiovascular: no significant murmur, irregular Gastrointestinal: soft, non-tender, no distention, positive bowel sounds Musculoskeletal: no edema, pulses present right side flaccid paralysis Deviation from normal: lethargic Skin: no rash, normal turgor Dx/Plan (1) Acute CVA (cerebrovascular accident) Code(s): I63.9 - CEREBRAL INFARCTION, UNSPECIFIED Status: Acute Comment: left MCA territory (2) Atrial fibrillation with RVR Code(s): I48.91 - UNSPECIFIED ATRIAL FIBRILLATION Status: Acute Comment: now rate controlled, on cardizem drip as needed basis (3) Demand ischemia of myocardium Code(s): I24.8 - OTHER FORMS OF ACUTE ISCHEMIC HEART DISEASE Status: Acute (4) Alcohol dependence, daily use Code(s): F10.20 - ALCOHOL DEPENDENCE, UNCOMPLICATED Status: Chronic (5) GERD (gastroesophageal reflux disease) Code(s): K21.9 - GASTRO-ESOPHAGEAL REFLUX DISEASE WITHOUT ESOPHAGITIS Status: Chronic (6) HTN (hypertension) Code(s): I10 - ESSENTIAL (PRIMARY) HYPERTENSION Status: Chronic (7) Protein-calorie malnutrition, moderate Code(s): E44.0 - MODERATE PROTEIN-CALORIE MALNUTRITION Status: Chronic (8) Tobacco abuse Code(s): Z72.0 - TOBACCO USE Status: Chronic (9) Oropharyngeal dysphagia Code(s): R13.12 - DYSPHAGIA, OROPHARYNGEAL PHASE Status: Acute - Plan cont current plan of care, plan discussed w/ family, PT/OT, psychotherapist social worker, speech therapy * stroke team evaluation * ? may need PEG. * use cardizem drip as needed basis for rate control * will repeat CT brain to rule out haemorrhage * medication reviewed as below * symptomatic treatment * continue IVF for hydration Review of Systems - Review of Systems Other: unable to review as pt is lethargic, aphasic - Medications/Allergies Allergies/Adverse Reactions: Allergies Allergy/AdvReac Type Severity Reaction Status Date / Time No Known Allergies Allergy Verified 12/17/16 16:00 Medications: Current Medications Acetaminophen (Tylenol) 650 mg PO Q4H PRN PRN Reason: Headache/Fever or Pain Acetaminophen (Tylenol) 650 mg SC Q4H PRN PRN Reason: Headache/Fever or Pain Last Admin: 02/04/17 03:55 Dose: 650 mg Al Hydroxide/Mg Hydroxide (Maalox) 30 ml PO Q6H PRN PRN Reason: Heartburn or Indigestion Albuterol/Ipratropium (Duoneb) 3 ml NEB [id number] PRN PRN Reason: SOB &/or Wheezing Artificial Tears (Tears Renewed 15ml Bottle) 0 drop EA EYE PRN PRN PRN Reason: Dry Eyes Aspirin (Aspirin) 300 mg SC DAILY [facility] Last Admin: 02/04/17 08:15 Dose: 300 mg Aspirin (Aspirin) 325 mg PO DAILY [facility] Last Admin: 02/04/17 08:27 Dose: Not Given Bisacodyl (Dulcolax) 10 mg SC Q24H PRN PRN Reason: Constipation Digoxin (Lanoxin) 0.125 mg PO DAILY [facility] Last Admin: 02/04/17 08:27 Dose: Not Given Diltiazem HCl (Cardizem Cd) 180 mg PO DAILY [facility] Last Admin: 02/04/17 08:27 Dose: Not Given Enoxaparin Sodium (Lovenox) 40 mg SC BID [facility] Last Admin: 02/04/17 08:15 Dose: 40 mg Hydralazine HCl (Apresoline) 10 mg SLOW IVP Q4H PRN PRN Reason: Systolic BP > 180 Dextrose/Sodium Chloride (D5 0.9% Ns) 1,000 mls @ 70 mls/hr IV .[id number] [facility] Last Admin: 02/04/17 01:02 Dose: Not Given Diltiazem HCl 125 mg/ Sodium (Chloride) 125 mls @ 7.5 mls/hr IVPB INF [facility]; 7.5 MG/HR PRN Reason: Protocol Last Admin: 02/03/17 22:00 Dose: 125 mls Lisinopril (Zestril) 10 mg PO DAILY [facility] Last Admin: 02/04/17 08:27 Dose: Not Given Magnesium Hydroxide (Milk Of Magnesium) 30 ml PO DAILYPRN PRN PRN Reason: Constipation Mineral Oil/White Petrolatum (Eucerin Cream) 0 gm TOP BIDPRN PRN PRN Reason: Dry Skin Ondansetron HCl (Zofran Odt) 4 mg PO Q6H PRN PRN Reason: Nausea/Vomiting Ondansetron HCl (Zofran) 4 mg IVP Q6H PRN PRN Reason: Nausea/Vomiting Pantoprazole Sodium (Protonix) 40 mg IVP DAILY [facility] Last Admin: 02/04/17 08:14 Dose: 40 mg Phenol (Chloraseptic [place] 180 Ml Bot) 0 ml PO PRN PRN PRN Reason: Sore Throat Senna (Senokot) 2 tab PO HSPRN PRN PRN Reason: Constipation Sodium Chloride ([place] Nasal [place] 0.65%) 0 ml EA NARE QIDPRN PRN PRN Reason: Nasal Congestion Sotalol HCl (Betapace) 80 mg PO BID [facility] Last Admin: 02/04/17 08:27 Dose: Not Given Warfarin Sodium (Coumadin) 5 mg PO 1700 [facility] Last Admin: 02/03/17 16:10 Dose: Not Given
--- NOTE | 2017-02-04 16:15 | RAD ---
AP ABDOMINAL RADIOGRAPH 02/04/17 HISTORY: Evaluate Dobhoff feeding tube placement. FINDINGS: Dobhoff feeding tube is noted in place with the tip of the Dobhoff feeding tube overlying the left up per quadrant and probably overlies the expected location of the body of the stomach. Bowel gas patter n is nonspecific. Vascular calcifications are seen in the abdominal aorta and involving the iliac art eries. There is osteopenia with degenerative changes of the spine. IMPRESSION: Dobhoff feeding tube noted in place overlying the left upper quadrant, and overlies the expected loca tion of the proximal body of the stomach. POS: [facility]
--- NOTE | 2017-02-04 16:28 | CT ---
HEAD CT WITHOUT CONTRAST 02/04/17 COMPARISON: 02/02/17 HISTORY: Re-evaluate acute infarction. TECHNIQUE: Serial axial CT imaging obtained at 5 mm intervals from vertex through skull base without contrast. FINDINGS: There is well defined hypodensity within the subcortical and deep white matter as well as within the overlying cortex involving the frontal region on the left inferiorly/laterally, extending from the ax ial level of the clinoid process to the axial level of the superior margin of the lateral ventricles. Hypodensity involves the majority of the left putamen, evidence of infarction in this region. There is no associated intracranial hemorrhage seen. No significant midline shift/mass effect is seen at this point. The imaged paranasal sinuses/mastoid air cells are well aerated. There is no displaced calvarial frac ture seen. On axial image 10 and 11, there is a relative area of hyperdensity in the region of the putamen. This is felt to represent an island of brain spared from above described infarction and not discrete hemo rrhage. IMPRESSION: Evidence of infarction within the left MCA distribution, including left frontal lobe and left putamen . Continued followup suggested. POS: [facility]
--- NOTE | 2017-02-04 17:45 | PDOC.CTH ---
Cardiology Progress Note - Subjective No new issues. - Objective Vital Signs Temp Pulse Pulse Pulse Resp BP BP 02/04/17 11:30 98.3 F 60 16 02/04/17 10:10 82 64 125/78 131/72 02/04/17 08:27 73 02/04/17 08:00 98.5 F 73 18 02/04/17 07:40 98.5 F 73 18 BP Pulse Ox 02/04/17 11:30 117/68 97 02/04/17 10:10 02/04/17 08:27 02/04/17 08:00 97 02/04/17 07:40 132/72 97 Admit Weight 101 lb 8 oz Weight 96 lb 9.6 oz 02/03/17 02/04/17 02/05/17 06:59 06:59 06:59 Intake Total 845.5 920 Output Total 25 Balance 820.5 920 - Telemetry Telemetry Rhythm: Afib HR 70's. - Labs Result Diagrams: 02/04/17 04:10 02/03/17 04:32 Troponin/CKMB CK-MB (CK-2) 4.3 ng/mL (0-6.6) 02/02/17 20:56 Troponin I 0.448 ng/mL (< 0.028) H* 02/02/17 20:56 - Assessment/Plan 1, Acute CVA 2. Afib RVR, paroxysmal 3. Sub therapeutic INR PLAN: - Continue rate control. - Rehab screen - Coumadin to INR 2-3
--- NOTE | 2017-02-04 19:25 | MRI ---
MRI BRAIN NONCONTRAST 02/04/17 HISTORY: CVA. Altered mental status. COMPARISON: CT exam from earlier on the same date. FINDINGS: A large wedge shaped area of restricted diffusion involving the anterior aspect of the left temporal lobe and the left frontal lobe extends to the basal ganglia. There is corresponding signal defect on the ACD mapping images. Cytotoxic edema is apparent on the FLAIR and T2 weighted images. Signal void at the left basal ganglia is likely related to blood products from the evolving infarct and reperfusi on hematoma which is barely perceptible on recent CT. No other areas of infarct are apparent. There are mild chronic ischemic small vessel changes througho ut the periventricular white matter. IMPRESSION: Large area of evolving infarct in the distribution of the left middle cerebral artery correlates with CT findings. Small focus of blood products at the left basal ganglia is confirmed, corresponding to the CT findings which were presumed to be normal brain tissue. There is no evidence of expanding dilma eli. POS: [facility]
[2017-02-04] MEDS: Warfarin Sodium 5 MG TAB PO SCH (21:55)
[2017-02-05 05:23] LABS: Prothrombin Time 18.9 SEC (12.0-14.7)
[2017-02-05] MEDS: Enoxaparin Sodium 40 MG/0.4 ML SYRINGE SC SCH ×2 (09:13→20:32)
[2017-02-05] MEDS: Lisinopril 10 MG TAB PO SCH (09:13)
[2017-02-05] MEDS: Digoxin 0.125 MG TAB PO SCH (09:14)
[2017-02-05] MEDS: Pantoprazole 40 MG VIAL IVP SCH (09:14)
[2017-02-05] MEDS: Aspirin 300 MG Suppository PR SCH (09:14)
[2017-02-05] MEDS: Aspirin 325 MG TAB PO SCH (09:14)
[2017-02-05] MEDS: Sotalol HCl 80 MG TAB PO SCH ×2 (09:15→20:34)
--- NOTE | 2017-02-05 11:56 | PDOC.PN ---
- Subjective Encounter Start Date: 02/05/17 Encounter Start Time: 07:30 -: non-verbal pt has NG tube, on tube feeding, on cardizem drip, stable - Objective Resuscitation Status: Resuscitation Status FULL:Full Resuscitation MAR Reviewed: Yes Vital Signs & Weight: Vital Signs (12 hours) Temp Pulse Resp BP Pulse Ox 02/05/17 11:35 97.9 F 91 14 146/79 H 97 02/05/17 09:15 76 02/05/17 09:14 76 02/05/17 08:49 98.6 F 76 18 97 02/05/17 07:30 98.6 F 76 18 144/80 H 97 02/05/17 05:25 95 02/05/17 03:37 98.4 F 75 16 166/84 H 95 Weight Admit Weight 101 lb 8 oz Weight 96 lb 9.6 oz I&O: 02/04/17 02/05/17 02/06/17 06:59 06:59 06:59 Intake Total 920 1278 Balance 920 1278 Result Diagrams: 02/04/17 04:10 02/03/17 04:32 Radiology Reviewed by me: Yes (MRI, abdomen xray) EKG Reviewed by me: Yes (Afib) Phys Exam - Physical Examination Constitutional: NAD HEENT: PERRLA, moist MMs, sclera anicteric NG tube+ Neck: no JVD, supple Respiratory: no wheezing, no rales, no rhonchi Cardiovascular: no significant murmur, irregular Gastrointestinal: soft, non-tender, no distention, positive bowel sounds Musculoskeletal: no edema, pulses present right side weakness Lymphatic: no nodes Psychiatric: normal affect Skin: no rash, normal turgor Dx/Plan (1) Acute CVA (cerebrovascular accident) Code(s): I63.9 - CEREBRAL INFARCTION, UNSPECIFIED Status: Acute Comment: left MCA territory (2) Atrial fibrillation with RVR Code(s): I48.91 - UNSPECIFIED ATRIAL FIBRILLATION Status: Acute Comment: now rate controlled, on cardizem drip as needed basis (3) Demand ischemia of myocardium Code(s): I24.8 - OTHER FORMS OF ACUTE ISCHEMIC HEART DISEASE Status: Acute (4) Alcohol dependence, daily use Code(s): F10.20 - ALCOHOL DEPENDENCE, UNCOMPLICATED Status: Chronic (5) GERD (gastroesophageal reflux disease) Code(s): K21.9 - GASTRO-ESOPHAGEAL REFLUX DISEASE WITHOUT ESOPHAGITIS Status: Chronic (6) HTN (hypertension) Code(s): I10 - ESSENTIAL (PRIMARY) HYPERTENSION Status: Chronic (7) Protein-calorie malnutrition, moderate Code(s): E44.0 - MODERATE PROTEIN-CALORIE MALNUTRITION Status: Chronic (8) Tobacco abuse Code(s): Z72.0 - TOBACCO USE Status: Chronic (9) Oropharyngeal dysphagia Code(s): R13.12 - DYSPHAGIA, OROPHARYNGEAL PHASE Status: Acute - Plan cont current plan of care, PT/OT, geriatric social work professor, speech therapy, DVT proph w/ lovenox * continue lovenox * continue cardizem drip for now for rate control * once cardizem drip off, then we will change to betapace, digoxin and oral cardizem via tube * she will need PEG placement * medication reviewed as below * symptomatic treatment * eventual rehab placement. Review of Systems - Review of Systems Other: unable to review as pt is aphasic - Medications/Allergies Allergies/Adverse Reactions: Allergies Allergy/AdvReac Type Severity Reaction Status Date / Time No Known Allergies Allergy Verified 12/17/16 16:00 Medications: Current Medications Acetaminophen (Tylenol) 650 mg PO Q4H PRN PRN Reason: Headache/Fever or Pain Acetaminophen (Tylenol) 650 mg DC Q4H PRN PRN Reason: Headache/Fever or Pain Last Admin: 02/04/17 03:55 Dose: 650 mg Al Hydroxide/Mg Hydroxide (Maalox) 30 ml PO Q6H PRN PRN Reason: Heartburn or Indigestion Albuterol/Ipratropium (Duoneb) 3 ml NEB [id number] PRN PRN Reason: SOB &/or Wheezing Artificial Tears (Tears Renewed 15ml Bottle) 0 drop EA EYE PRN PRN PRN Reason: Dry Eyes Aspirin (Aspirin) 300 mg DC DAILY [facility] Last Admin: 02/05/17 09:14 Dose: 300 mg Aspirin (Aspirin) 325 mg PO DAILY [facility] Last Admin: 02/05/17 09:14 Dose: Not Given Bisacodyl (Dulcolax) 10 mg DC Q24H PRN PRN Reason: Constipation Digoxin (Lanoxin) 0.125 mg PO DAILY [facility] Last Admin: 02/05/17 09:14 Dose: Not Given Diltiazem HCl (Cardizem Cd) 180 mg PO DAILY [facility] Last Admin: 02/05/17 09:14 Dose: Not Given Enoxaparin Sodium (Lovenox) 40 mg SC BID [facility] Last Admin: 02/05/17 09:13 Dose: 40 mg Hydralazine HCl (Apresoline) 10 mg SLOW IVP Q4H PRN PRN Reason: Systolic BP > 180 Dextrose/Sodium Chloride (D5 0.9% Ns) 1,000 mls @ 70 mls/hr IV .[id number] [facility] Last Admin: 02/04/17 21:35 Dose: 1,000 mls Diltiazem HCl 125 mg/ Sodium (Chloride) 125 mls @ 5 mls/hr IVPB INF [facility] PRN Reason: Protocol Last Admin: 02/04/17 23:02 Dose: 125 mls Lisinopril (Zestril) 10 mg PO DAILY [facility] Last Admin: 02/05/17 09:13 Dose: 10 mg Magnesium Hydroxide (Milk Of Magnesium) 30 ml PO DAILYPRN PRN PRN Reason: Constipation Mineral Oil/White Petrolatum (Eucerin Cream) 0 gm TOP BIDPRN PRN PRN Reason: Dry Skin Ondansetron HCl (Zofran Odt) 4 mg PO Q6H PRN PRN Reason: Nausea/Vomiting Ondansetron HCl (Zofran) 4 mg IVP Q6H PRN PRN Reason: Nausea/Vomiting Pantoprazole Sodium (Protonix) 40 mg IVP DAILY [facility] Last Admin: 02/05/17 09:14 Dose: 40 mg Phenol (Chloraseptic [place] 180 Ml Bot) 0 ml PO PRN PRN PRN Reason: Sore Throat Senna (Senokot) 2 tab PO HSPRN PRN PRN Reason: Constipation Sodium Chloride ([place] Nasal [place] 0.65%) 0 ml EA NARE QIDPRN PRN PRN Reason: Nasal Congestion Sodium Chloride (Flush - Normal Saline) 10 ml IVF Q12HR [facility] Last Admin: 02/05/17 09:15 Dose: 10 ml Sodium Chloride (Flush - Normal Saline) 10 ml IVF PRN PRN PRN Reason: Saline Flush Sotalol HCl (Betapace) 80 mg PO BID [facility] Last Admin: 02/05/17 09:15 Dose: Not Given Warfarin Sodium (Coumadin) 5 mg PO 1700 [facility] Last Admin: 02/04/17 21:55 Dose: 5 mg
[2017-02-05] MEDS: Dextrose 5 % And 0.9 % NaCl 1,000 ML IV SCH (12:11)
--- NOTE | 2017-02-05 15:45 | PDOC.CTH ---
Cardiology Progress Note - Subjective No new issues. Remains non verbal. - Objective Vital Signs Temp Pulse Resp BP Pulse Ox 02/05/17 15:22 98.8 F 93 18 155/83 H 96 02/05/17 11:35 97.9 F 91 14 146/79 H 97 02/05/17 09:15 76 02/05/17 09:14 76 02/05/17 08:49 98.6 F 76 18 97 02/05/17 07:30 98.6 F 76 18 144/80 H 97 02/05/17 05:25 95 Admit Weight 101 lb 8 oz Weight 96 lb 9.6 oz 02/04/17 02/05/17 02/06/17 06:59 06:59 06:59 Intake Total 920 1278 100 Balance 920 1278 100 - Physical Examination General/Neuro: NAD Neck: no JVD present Lungs: unlabored respirations Heart: other: (Irreg) Abdomen: NT/ND Extremities: other: (no edema) - Telemetry Telemetry Rhythm: Afib - Labs Result Diagrams: 02/04/17 04:10 02/03/17 04:32 Troponin/CKMB CK-MB (CK-2) 4.3 ng/mL (0-6.6) 02/02/17 20:56 Troponin I 0.448 ng/mL (< 0.028) H* 02/02/17 20:56 - Assessment/Plan 1, Acute CVA 2. Afib RVR, paroxysmal 3. Sub therapeutic INR PLAN: - Continue rate control. - PT as tolerated. - Coumadin to INR 2-3
[2017-02-05] MEDS: Warfarin Sodium 5 MG TAB PO SCH (17:24)
[2017-02-06] MEDS: Dextrose 5 % And 0.9 % NaCl 1,000 ML IV SCH ×2 (02:32→16:56)
[2017-02-06 04:55] LABS: Hematocrit 39.1 % (36.0-47.0)
[2017-02-06 05:00] LABS: Prothrombin Time 16.7 SEC (12.0-14.7)
[2017-02-06] MEDS: Pantoprazole 40 MG VIAL IVP SCH (09:38)
[2017-02-06] MEDS: Enoxaparin Sodium 40 MG/0.4 ML SYRINGE SC SCH ×2 (09:39→21:49)
--- NOTE | 2017-02-06 11:14 | PDOC.PN ---
- Subjective Encounter Start Date: 02/06/17 Encounter Start Time: 11:00 Subjective: f/u for large L MCA distribution embolic CVA with dysphagia currently NPO. -: A-fib with RVR persists on Cardizem gtt. Still unsafe for po intake per PRIVATE ADVISOR - Objective Resuscitation Status: Resuscitation Status FULL:Full Resuscitation MAR Reviewed: Yes Vital Signs & Weight: Vital Signs (12 hours) Temp Pulse Pulse Pulse Resp BP BP 02/06/17 08:25 106 H 79 143/82 H 156/75 H 02/06/17 08:00 98.5 F 107 H 14 02/06/17 07:25 98.5 F 107 H 14 02/06/17 04:09 98.8 F 104 H 24 H 02/06/17 03:01 02/06/17 00:04 98.4 F 108 H 24 H BP Pulse Ox 02/06/17 08:25 02/06/17 08:00 96 02/06/17 07:25 151/82 H 96 02/06/17 04:09 160/83 H 98 02/06/17 03:01 98 02/06/17 00:04 158/86 H 98 Weight Admit Weight 101 lb 8 oz Weight 100 lb 6.4 oz I&O: 02/05/17 02/06/17 02/07/17 06:59 06:59 06:59 Intake Total 1278 1970 Balance 1278 1970 Result Diagrams: 02/06/17 04:28 02/03/17 04:32 Additional Labs: Microbiology 02/02/17 23:50 Urine Straight Catheter Urine Culture - Final NO GROWTH AT 36 HOURS Laboratory Tests 02/04/17 02/05/17 02/06/17 04:10 04:18 04:28 INR 1.4 1.5 1.3 EKG Reviewed by me: Yes (Tele - A-fib in 120's) Phys Exam - Physical Examination Constitutional: NAD NGT in place HEENT: PERRLA, oral pharynx no lesions Neck: no JVD, supple Respiratory: no wheezing, clear to auscultation bilateral tachycardic Cardiovascular: irregular Gastrointestinal: soft, non-tender, no distention, positive bowel sounds Musculoskeletal: no edema, pulses present R hemiparesis, expressive aphasia Neurological: normal sensation Skin: normal turgor, cap refill <2 seconds Dx/Plan (1) Acute CVA (cerebrovascular accident) Code(s): I63.9 - CEREBRAL INFARCTION, UNSPECIFIED Status: Acute Comment: left MCA territory, likely embolic event given A-fib, continue ASA, Coumadin (2) Right flaccid hemiplegia Code(s): G81.01 - FLACCID HEMIPLEGIA AFFECTING RIGHT DOMINANT SIDE Status: Acute Comment: PT/OT for mobilization, Rehab options (3) Atrial fibrillation with RVR Code(s): I48.91 - UNSPECIFIED ATRIAL FIBRILLATION Status: Acute Comment: Uncontrolled, Cardizem gtt titrating to rate control, Digoxin, Cardizem po once taking po meds (4) Oropharyngeal dysphagia Code(s): R13.12 - DYSPHAGIA, OROPHARYNGEAL PHASE Status: Acute Comment: PRIVATE ADVISOR not recommending po intake currently, likely will need PEG placement until dysphagia improving and safe for po intake (5) HTN (hypertension) Code(s): I10 - ESSENTIAL (PRIMARY) HYPERTENSION Status: Chronic Qualifiers: Hypertension type: essential hypertension Qualified Code(s): I10 - Essential (primary) hypertension Comment: labile in context of inconsistent po intake of antihypertensives (6) Moderate tricuspid regurgitation Code(s): I07.1 - RHEUMATIC TRICUSPID INSUFFICIENCY Status: Chronic (7) Tobacco abuse Code(s): Z72.0 - TOBACCO USE Status: Chronic Comment: Tobacco cessation - Plan PT/OT, social services director, speech therapy, out of bed/ambulate, DVT proph w/SCDs Continue Cardizem gtt -: Continue Coumadin 7.5mg daily -: Continue ASA 300mg [place] daily -: Evaluation for PEG placement -: Will d/w son regarding risks/benefits of PEG placement * Continue rate-control measures for A-fib * AM lab: INR, H/H
[2017-02-06] MEDS ORDERED: Pancrelipase DR 12000 1 CAP FS PRN (11:15)
[2017-02-06] MEDS ORDERED: Sodium Bicarbonate Tab 325 MG TAB PER TUBE PRN (11:15)
--- NOTE | 2017-02-06 11:23 | PDOC.CTH ---
<Mariola Velarde - Last Filed: 02/06/17 11:24> Cardiology Progress Note - Subjective The pt seen and examined. No overnight events. No cardiac complaints. She can follow commands, but no movement in Lt exts. - Objective Vital Signs Temp Pulse Pulse Pulse Resp BP BP 02/06/17 08:25 106 H 79 143/82 H 156/75 H 02/06/17 08:00 98.5 F 107 H 14 02/06/17 07:25 98.5 F 107 H 14 02/06/17 04:09 98.8 F 104 H 24 H 02/06/17 03:01 02/06/17 00:04 98.4 F 108 H 24 H BP Pulse Ox 02/06/17 08:25 02/06/17 08:00 96 02/06/17 07:25 151/82 H 96 02/06/17 04:09 160/83 H 98 02/06/17 03:01 98 02/06/17 00:04 158/86 H 98 Admit Weight 101 lb 8 oz Weight 100 lb 6.4 oz 02/05/17 02/06/17 02/07/17 06:59 06:59 06:59 Intake Total 1278 1970 Balance 1278 1970 - Physical Examination General/Neuro: alert & oriented x3 Neck: no JVD present Lungs: other: (diminished at bases) Heart: other: (irregular) Abdomen: soft Extremities: other: (no edemas) - Telemetry Telemetry Rhythm: Afib 90-100s - Labs Result Diagrams: 02/06/17 04:28 02/03/17 04:32 Troponin/CKMB CK-MB (CK-2) 4.3 ng/mL (0-6.6) 02/02/17 20:56 Troponin I 0.448 ng/mL (< 0.028) H* 02/02/17 20:56 - Assessment/Plan 1. Acute CVA in left MCA territory, likely embolic event 2ndary to hx of Afib - on Coumadin, Lovenox and ASA; Coumadin dosage managed by PCP 2. Paroxysmal Afib with RVR - stable with current medication; cont. monitor on tele 3. HTN - stable with current medication 4. Dysphagia - NPO; possible PEG tube placement if no improvement 5. COPD - stable with NC; cont. monitor 6. Tobacco Abuse - MAR reviewed Review of Systems - Review of Systems Constitutional: reports: no symptoms reported EENTM: reports: no symptoms reported Respiratory: reports: no symptoms reported Cardiac (ROS): reports: no symptoms reported ABD/GI: reports: no symptoms reported : reports: no symptoms reported Musculoskeletal: reports: no symptoms reported <Angela Dickerson - Last Filed: 02/06/17 17:01> Cardiology Progress Note - Objective Vital Signs Temp Pulse Pulse Pulse Resp BP BP 02/06/17 15:33 98.8 F 84 16 02/06/17 13:36 100 02/06/17 13:35 100 149/100 H 02/06/17 11:28 99.7 F H 100 16 02/06/17 08:25 106 H 79 143/82 H 02/06/17 08:00 98.5 F 107 H 14 02/06/17 07:25 98.5 F 107 H 14 BP BP Pulse Ox 02/06/17 15:33 125/70 92 L 02/06/17 13:36 02/06/17 13:35 02/06/17 11:28 149/88 H 94 L 02/06/17 08:25 156/75 H 02/06/17 08:00 96 02/06/17 07:25 151/82 H 96 Admit Weight 101 lb 8 oz Weight 100 lb 6.4 oz 02/05/17 02/06/17 02/07/17 06:59 06:59 06:59 Intake Total 1278 1970 Balance 1278 1969 - Labs Result Diagrams: 02/06/17 04:28 02/03/17 04:32 Troponin/CKMB CK-MB (CK-2) 4.3 ng/mL (0-6.6) 02/02/17 20:56 Troponin I 0.448 ng/mL (< 0.028) H* 02/02/17 20:56 - Assessment/Plan Pt. seen and evaluated by me. I agree with the A/P by the [employer] SPECIALIST. I suggested on her last admission to take OAC that would not require monitoring on a routine basis like coumadin but she preferred to take the coumadin. Unfortunately it seems thta she was not able to have close monitoring of the medication. I would reconsider eliquis or something similar if she would agree to it.
[2017-02-06] MEDS: Sotalol HCl 80 MG TAB PO SCH ×2 (13:35→21:51)
[2017-02-06] MEDS: Lisinopril 10 MG TAB PO SCH (13:35)
[2017-02-06] MEDS: Aspirin 325 MG TAB PO SCH (13:36)
[2017-02-06] MEDS: Digoxin 0.125 MG TAB PO SCH (13:36)
[2017-02-06] MEDS: Aspirin 300 MG Suppository PR SCH (13:37)
[2017-02-06] MEDS: Warfarin Sodium 7.5 MG TAB PO SCH (16:56)
--- NOTE | 2017-02-06 18:07 | RAD ---
CHEST ONE VIEW: History: Nasogastric tube placement. Comparison: 02-02-17 FINDINGS: Left cardiac margin is now predominately obscure by extensive atelectasis throughout the left lung an d probable fluid. Nasogastric tube is coiled at the level of the distal esophagus with the distal portion of the tube a scending to the level of the aortic arch. personnel monitor leads overlie the chest. IMPRESSION: 1. Nasogastric tube is coiled within the esophagus, directed superiorly at the level of the upper eso phagus. Please consider removal and replacement of the nasogastric tube. 2. Interval development of extensive atelectasis throughout the left lung and left pleural fluid. Cau se is not evident. Close continued radiographic follow up is suggested. POS: [facility]
--- NOTE | 2017-02-06 18:15 | RAD ---
SUPINE ABDOMEN: History: Assess NG tube placement. FINDINGS: Supine of chest and upper abdomen obtained. NG tube has been placed. The tip overlies the left upper quadrant. There is opacification of left hemithorax. POS: [facility]
[2017-02-07] MEDS ORDERED: Furosemide 40 MG/4 ML VIAL ONE (02:02)
[2017-02-07 02:08] LABS: Modified Allen's Test POSITIVE; Oxyhemoglobin 88.2 % (94.0-97.0); Sodium 140 mmol/L (135-148); Vent NO
[2017-02-07 02:18] LABS: Prothrombin Time 15.8 SEC (12.0-14.7)
[2017-02-07 02:33] LABS: Troponin I 0.044 ng/mL (< 0.028)
[2017-02-07 02:44] LABS: Magnesium 1.8 mg/dL (1.6-2.6); Phosphorus 2.8 mg/dL (2.3-4.7)
[2017-02-07] MEDS: Dextrose 5 % And 0.9 % NaCl 1,000 ML IV SCH ×2 (03:32→21:26)
[2017-02-07 04:52] LABS: Oxyhemoglobin 97.6 % (94.0-97.0); Sodium 141 mmol/L (135-148)
[2017-02-07 05:02] LABS: Modified Allen's Test POSITIVE; Vent YES
[2017-02-07 05:03] LABS: PIP 12 cmH2O; Pressure Support 7 cmH2O; Spontaneous Rate 20 min
--- NOTE | 2017-02-07 06:48 | PDOC.PN ---
- Subjective Encounter Start Date: 02/07/17 Encounter Start Time: 03:00 Code misty was called due to hypoxia and lethargy. On arrival pt is lethargic and oxygen sats around 88-90% on NRB - Objective Resuscitation Status: Resuscitation Status FULL:Full Resuscitation Vital Signs & Weight: Vital Signs (12 hours) Temp Pulse Resp BP BP Pulse Ox 02/07/17 04:00 99.7 F H 25 H 02/07/17 02:26 98 02/07/17 00:32 99.7 F H 89 24 H 150/79 H 79 L 02/06/17 21:51 84 123/57 L 02/06/17 19:40 98.8 F 84 16 92 L 02/06/17 19:35 98.5 F 89 24 H 135/72 86 L Weight Admit Weight 101 lb 8 oz Weight 100 lb 6.4 oz Most Recent Monitor Data Heart Rate from ECG 74 NIBP 128/80 NIBP BP-Mean 105 Respiration from ECG 21 SpO2 91 I&O: 02/05/17 02/06/17 02/07/17 06:59 06:59 06:59 Intake Total 1278 1969 1610 Output Total 775 Balance 1278 1969 835 Result Diagrams: 02/06/17 04:28 02/03/17 04:32 Phys Exam - Physical Examination lethargic HEENT: moist MMs Neck: no JVD positive rhonchi, positive crackles, mild tachypnea s1s 2present, tachy, irregular, no murmur Gastrointestinal: soft nttp, no guarding Musculoskeletal: no edema lethargic, not following commands Dx/Plan - Plan * . Pt is 71 yrs old female 1. ACute hypercapneic respiratory failure 2. Pulmonary edema 3. afib plan: 1. Reviewed ABG. Appears hypercapneic. Will place patient on bipapa 02/14. We will consult pulm/ccm to evalaute patient will transfer patient to ICU for close monitoring 2. CXR done. Appears to have some pulmonary edema and infiltrate also Plan to give lasix 40mg iv x1 Plan to start antibiotics 3. AFIB: HR controlled continue tele case d/w pt son in detail. Pt is full code at this time. Updated him about pt critical condition and he wants full code at this time.
--- NOTE | 2017-02-07 08:24 | RAD ---
PORTABLE CHEST: History: Hypoxia. 02 desaturation. Comparison: 02-06-17 FINDINGS/IMPRESSION: There continues to be confluent consolidation in the left lung base. There is no increase in vascular congestion with interstitial and hazy alveolar opacities now seen in both mid and upper lungs sugges ting edema pattern superimposed on inflammatory left base infiltrate. POS: [facility]
[2017-02-07] MEDS: Pantoprazole 40 MG VIAL IVP SCH (08:40)
[2017-02-07] MEDS: Enoxaparin Sodium 40 MG/0.4 ML SYRINGE SC SCH ×2 (08:40→21:27)
[2017-02-07] MEDS: Digoxin 0.125 MG TAB PO SCH (08:41)
[2017-02-07] MEDS: Sotalol HCl 80 MG TAB PO SCH ×2 (08:41→23:54)
[2017-02-07] MEDS: Aspirin 300 MG Suppository PR SCH (08:41)
[2017-02-07] MEDS: Lisinopril 10 MG TAB PO SCH (08:41)
[2017-02-07] MEDS ORDERED: predniSONE 20 MG TAB PO SCH (09:45)
[2017-02-07 09:52] LABS: Bilirubin Negative (Negative); Blood, Urine Small (Negative); Glucose, Urine (Dipstick) Negative (Negative); Ketone, Urine Negative (Negative); Nitrite Negative (Negative); Protein, Urine (Dipstick) Trace mg/dL (Neg-Trace)
[2017-02-07 09:55] LABS: Bacteria/HPF None Seen HPF (None Seen); Hyaline Casts/LPF 4-6 HYALINE CAST LPF (0-3 Hyaline); Squamous Epithelial 0-3 HPF (0-3); WBC/HPF 0-3 HPF (0-3)
[2017-02-07] MEDS: Piperacillin/Tazobactam 3.375 GM in Sodium Chloride 0.9% 100 ML IVPB SCH ×3 (09:57→21:26)
[2017-02-07 10:12] LABS: Red Blood Cell (RBC) Count 4.02 mill/uL (4.20-5.40); White Blood Cell (WBC) Count 24.8 thou/uL (4.8-10.8)
[2017-02-07 10:24] LABS: Anion Gap 10 mmol/L (10-20); BUN (Urea Nitrogen) 16 mg/dL (9.8-20.1); Calc. Creatinine Clearance 65 mL/min (70-130); Calcium 8.7 mg/dL (7.8-10.44); Carbon Dioxide 26 mmol/L (23-31); Chloride 104 mmol/L (98-107); Estimated GFR-MDRD Greater than 90
[2017-02-07 10:40] LABS: Band 7 % (5-11); Neutrophil 81 % (42-75); Reactive Lymphocytes 1 % (0-10)
[2017-02-07] MEDS: Vancomycin HCl 750 MG in Sodium Chloride 0.9% 250 ML 250 ML IVPB SCH ×2 (10:54→23:36)
--- NOTE | 2017-02-07 11:12 | CON ---
DATE OF CONSULTATION: 02/07/2017 SERVICE: Pulmonary Medicine. HISTORY OF PRESENT ILLNESS: The patient is a 71-year-old white female. She recently was admitted to the hospital with AFIB with RVR. She was also identified to have COPD with acute exacerbation. Eit her way, those issues resolved. She was discharged home on some anticoagulation. She indicates she was taking it either way, she was subtherapeutic on her INR when she developed acute right-sided neur ologic changes. This was associated within the left MCA distribution infarction. She subsequently p resented to the Emergency Department after she was found down for an unknown period of time. She was not a candidate for tPA. She was placed on the floor. Over the last couple of days, she had increa sing respiratory distress. She has not been cleared to swallow. She was placed on BiPAP overnight. She had a significant improvement in her symptoms. Her oxygen requirements remain elevated. A repe at chest x-ray was consistent with an interval development of healthcare associated pneumonia. She h as a fairly dense aphasia. That being said, she can nod yes and no appropriately and understands reagan radha that was saying. She is awake and alert, presently on BiPAP and has no specific discomfort. PAST MEDICAL HISTORY: 1. Atrial fibrillation. 2. COPD. 3. Hypertension. 4. Gastroesophageal reflux disease. 5. History of CVA. PAST SURGICAL HISTORY: Cardioversion. FAMILY HISTORY: Noncontributory. SOCIAL HISTORY: The patient has continued to smoke roughly 1 pack per day. She drinks roughly 6 pac k of beer on a daily basis. She lives at home alone. She was previously fully functional in her ADL s. She has no exposure to chemicals, dust asbestos or tuberculosis. ALLERGIES: No known drug allergies. MEDICATIONS: List of her inpatient medications was reviewed. Multiple updates were made. REVIEW OF SYSTEMS: General, head, ears, eyes, nose, throat, cardiovascular, respiratory, GI, , mus culoskeletal, neurologic and skin is negative except as mentioned in the HPI. PHYSICAL EXAMINATION: VITAL SIGNS: Afebrile, pulse 124/61, respirations 20, saturation 96% on 40% FiO2 delivered via BiPAP at 10/5. HEENT: Normocephalic, atraumatic. Sclerae are white, conjunctivae pink. Oral and nasal mucosa is m oist without lesions. LUNGS: Decent air entry. There is a slightly prolonged expiratory phase, but extensive rhonchi are present throughout which are more predominantly displayed on the left. HEART: Normal rate. Regular. ABDOMEN: Soft, nontender, nondistended. Bowel sounds are positive. MUSCULOSKELETAL: No cyanosis or clubbing. No pitting in the bilateral lower extremities. NEUROLOGIC: Grossly nonfocal. LABORATORY DATA: WBC 24.8 now trending, hemoglobin 12.1, platelets 306,000. INR remains 1.2. A pH 7.44, pCO2 41, pO2 206 on 90% FiO2 at the time. Potassium 3.3. Basic metabolic profile is otherwise unremarkable. Troponin has trended downward to 0.044. Magnesium and phosphorus fall within the nor mal limits. Urinalysis is unremarkable. Syphilis is nonreactive. Urine culture is negative so far. Blood cultures are currently pending. IMAGIN. Chest x-ray demonstrates extensive infiltrates in the bilateral lung mar, which is worse on th e left base. There may be a pleural parenchymal abnormality identified that was not present on prese ntation. 2. Abdominal x-ray demonstrates NG tube in good position. Opacification of the lower hemithorax. 3. CT of the brain demonstrates infarction in the left MCA distribution including left frontal and l eft putamen. Continued followup has been suggested. 4. MRI of the brain demonstrates large area involving infarction in the distribution of the left MCA , which correlates with CT findings. No evidence of expanding hematoma is identified. 5. Ultrasound of the bilateral neck demonstrates atherosclerosis with no sonographic evidence of sig nificant extracranial ICA stenosis. ASSESSMENT: 1. Acute hypoxic respiratory failure. 2. Chronic obstructive pulmonary disease with acute exacerbation. 3. Healthcare-associated pneumonia. 4. Acute cerebrovascular accident of the left middle cerebral artery resulting in hemiplegia and josiah pharyngeal dysphagia. PLAN: We will continue supportive care. I will provide her with BiPAP breaks. If she tolerates the BiPAP breaks, we will continue with our supportive care. If not, intubation and subsequent PEG tube and tracheostomy will be considered in order to provide her brain enough time to see if we can make a recovery from this acute issue. I will initiate some antibiotics, check blood cultures x2, urinaly sis and urine culture. Laboratories will be repeated this morning. I will watch her very closely an d if she has any increase in respiratory difficulties, we would like to intubate her. Pulmonary or C ritical Care will continue to follow. CRITICAL CARE TIME: 30 minutes in titrating BiPAP at bedside.
--- NOTE | 2017-02-07 12:59 | PDOC.CTH ---
Cardiology Progress Note - Subjective The pt seen and examined. No cardiac complaints at this time. She was transferred to CCU due to Hypercapnia and require BiPAP and close monitor. Today, she still cannot speak; however, she can move her Rt extremities - Objective Vital Signs Temp Pulse Pulse Resp Resp BP Pulse Ox 02/07/17 12:00 98.0 F 92 L 02/07/17 11:00 94 L 02/07/17 08:00 99.8 F H 02/07/17 07:40 99.8 F H 76 18 98 02/07/17 07:30 99 02/07/17 04:00 99.7 F H 25 H 02/07/17 02:26 98 02/07/17 01:52 112 H 28 H 192/93 H Pulse Ox 02/07/17 12:00 02/07/17 11:00 02/07/17 08:00 02/07/17 07:40 02/07/17 07:30 02/07/17 04:00 02/07/17 02:26 02/07/17 01:52 76 L Admit Weight 101 lb 8 oz Weight 100 lb 6.4 oz 02/06/17 02/07/17 02/08/17 06:59 06:59 06:59 Intake Total 1969 1610 208 Output Total 775 165 Balance 1970 835 43 - Physical Examination General/Neuro: alert & oriented x3 Lungs: other: (dminished at bases) Heart: RRR Abdomen: soft Extremities: other: (No edemas) - Telemetry Telemetry Rhythm: SR - Labs Result Diagrams: 02/07/17 09:53 02/07/17 09:53 Troponin/CKMB CK-MB (CK-2) 0.8 ng/mL (0-6.6) 02/07/17 02:02 Troponin I 0.044 ng/mL (< 0.028) H 02/07/17 02:02 - Assessment/Plan 1. Acute CVA in left MCA territory, likely embolic event 2ndary to hx of Afib - on Coumadin, Lovenox and ASA; Coumadin dosage managed by PCP 2. Paroxysmal Afib with RVR - stable with current medication; cont. monitor on tele 3. HTN - stable with current medication 4. Dysphagia - NPO; possible PEG tube placement if no improvement 5. COPD - Still on Bipap; unable to tolerate NC today; Start Lasix 20mg IV daily ; cont. monitor 6. Tobacco Abuse - MAR reviewed * Start Lasix 20mg IV daily and Kcl IV 20 mEq x1 for K level 3.3 today * Possible changing her OAC from Coumadin to other OAC which does not require routine INR check up Review of Systems - Review of Systems Constitutional: reports: no symptoms reported EENTM: reports: no symptoms reported Respiratory: reports: no symptoms reported Cardiac (ROS): reports: no symptoms reported ABD/GI: reports: no symptoms reported : reports: no symptoms reported
[2017-02-07] MEDS ORDERED: Potassium Chloride 20 MEQ in Premix Bag 1 BAG IVPB SCH (13:00)
[2017-02-07] MEDS ORDERED: Furosemide 20 MG/2 ML VIAL SLOW IVP SCH (13:30)
--- NOTE | 2017-02-07 15:53 | PDOC.PN ---
- Subjective Encounter Start Date: 02/07/17 Encounter Start Time: 15:40 Subjective: f/u for large L MCA distribution CVA with R hemiparesis and expressive -: aphasia. Code green overnight for resp distress with trial of BiPAP. -: ? PNA by CXR on Zosyn and Vancomycin for suspected HCAP. - Objective Resuscitation Status: Resuscitation Status FULL:Full Resuscitation MAR Reviewed: Yes Vital Signs & Weight: Vital Signs (12 hours) Temp Pulse Resp Pulse Ox 02/07/17 14:36 54 L 02/07/17 14:32 53 L 20 99 02/07/17 12:00 98.0 F 92 L 02/07/17 11:00 94 L 02/07/17 08:00 99.8 F H 02/07/17 07:40 99.8 F H 76 18 98 02/07/17 07:30 99 02/07/17 04:00 99.7 F H 25 H Weight Admit Weight 101 lb 8 oz Weight 100 lb 6.4 oz Most Recent Monitor Data Heart Rate from ECG 52 NIBP 109/55 NIBP BP-Mean 73 Respiration from ECG 18 SpO2 100 I&O: 02/06/17 02/07/17 02/08/17 06:59 06:59 06:59 Intake Total 1969 1610 275 Output Total 775 286 Balance 1969 835 -11 Result Diagrams: 02/07/17 09:53 02/07/17 09:53 Radiology Reviewed by me: Yes (PCXR - LLL consolidation) EKG Reviewed by me: Yes (Tele - SR in 60's) Phys Exam - Physical Examination Constitutional: NAD sleeping, BiPAP in place HEENT: PERRLA, oral pharynx no lesions Neck: no JVD, supple diminished in bases Cardiovascular: RRR Gastrointestinal: soft, non-tender, no distention, positive bowel sounds Musculoskeletal: no edema, pulses present R hemiparesis, expressive aphasia Neurological: moves all 4 limbs Skin: normal turgor, cap refill <2 seconds Deviation from normal: Gonzalez in place with dark urine Dx/Plan (1) Acute CVA (cerebrovascular accident) Code(s): I63.9 - CEREBRAL INFARCTION, UNSPECIFIED Status: Acute Comment: left MCA territory, likely embolic event given A-fib, continue ASA, Coumadin (2) Right flaccid hemiplegia Code(s): G81.01 - FLACCID HEMIPLEGIA AFFECTING RIGHT DOMINANT SIDE Status: Acute Comment: PT/OT for mobilization, Rehab options (3) Atrial fibrillation with RVR Code(s): I48.91 - UNSPECIFIED ATRIAL FIBRILLATION Status: Acute Comment: Uncontrolled, Cardizem gtt titrating to rate control, Digoxin, Cardizem po once taking po meds (4) Oropharyngeal dysphagia Code(s): R13.12 - DYSPHAGIA, OROPHARYNGEAL PHASE Status: Acute Comment: SPOOL SALVAGER not recommending po intake currently, likely will need PEG placement until dysphagia improving and safe for po intake (5) HTN (hypertension) Code(s): I10 - ESSENTIAL (PRIMARY) HYPERTENSION Status: Chronic Qualifiers: Hypertension type: essential hypertension Qualified Code(s): I10 - Essential (primary) hypertension Comment: labile in context of inconsistent po intake of antihypertensives (6) Moderate tricuspid regurgitation Code(s): I07.1 - RHEUMATIC TRICUSPID INSUFFICIENCY Status: Chronic (7) Tobacco abuse Code(s): Z72.0 - TOBACCO USE Status: Chronic Comment: Tobacco cessation (8) Acute respiratory failure with hypoxia Code(s): J96.01 - ACUTE RESPIRATORY FAILURE WITH HYPOXIA Status: Acute Comment: BiPAP NIMV, pulmonary support, IV abx (9) Healthcare associated bacterial pneumonia Code(s): J15.9 - UNSPECIFIED BACTERIAL PNEUMONIA Status: Acute Comment: LLL involvement, likely gm + cocci, continue Zosyn and Vancomycin, pulmonary support - Plan plan discussed w/ family, continue antibiotics, PT/OT, respiratory therapy, out of bed/ambulate, DVT proph w/SCDs Continue aggressive pulmonary support -: BiPAP NIMV -: Continue Zosyn and Vancomycin -: Likely will need PEG tube given dysphagia -: Continue ASA 300mg HI daily * AM lab: BMP, CBC
[2017-02-07] MEDS: Warfarin Sodium 7.5 MG TAB PO SCH (16:54)
[2017-02-08] MEDS: Piperacillin/Tazobactam 3.375 GM in Sodium Chloride 0.9% 100 ML IVPB SCH ×4 (04:43→21:28)
[2017-02-08 05:31] LABS: Prothrombin Time 20.7 SEC (12.0-14.7)
[2017-02-08 05:34] LABS: #Lymphocytes 1.3 thou/uL (1.20-3.40); #Neutrophils 10.8 thou/uL (1.40-6.50); %Basophils 0.1 % (0.0-1.0); %Eosinophils 0.1 % (0.0-10.0); %Monocytes 7.9 % (0.0-10.0); Hematocrit 32.1 % (36.0-47.0); Mean Platelet Volume 7.7 fL (7.4-10.4); Red Blood Cell (RBC) Count 3.37 mill/uL (4.20-5.40); White Blood Cell (WBC) Count 13.2 thou/uL (4.8-10.8)
[2017-02-08 05:35] LABS: Anion Gap 8 mmol/L (10-20); BUN (Urea Nitrogen) 24 mg/dL (9.8-20.1); Calc. Creatinine Clearance 58 mL/min (70-130); Carbon Dioxide 29 mmol/L (23-31); Chloride 108 mmol/L (98-107); Estimated GFR-MDRD Greater than 90
[2017-02-08] MEDS: predniSONE 20 MG TAB PO SCH (09:33)
[2017-02-08] MEDS: Pantoprazole 40 MG VIAL IVP SCH (09:33)
[2017-02-08] MEDS: Furosemide 20 MG/2 ML VIAL SLOW IVP SCH (09:33)
[2017-02-08] MEDS: Digoxin 0.125 MG TAB PO SCH (09:34)
[2017-02-08] MEDS: Enoxaparin Sodium 40 MG/0.4 ML SYRINGE SC SCH ×2 (09:34→21:27)
[2017-02-08] MEDS: Lisinopril 10 MG TAB PO SCH (09:34)
[2017-02-08] MEDS: Aspirin 300 MG Suppository PR SCH (10:43)
[2017-02-08] MEDS: Vancomycin HCl 750 MG in Sodium Chloride 0.9% 250 ML 250 ML IVPB SCH ×2 (10:55→23:08)
[2017-02-08] MEDS ORDERED: Aspirin 325 MG TAB PER TUBE SCH (13:30)
[2017-02-08] MEDS ORDERED: Aspirin 300 MG Suppository PR SCH (13:30)
[2017-02-08] MEDS: Dextrose 5 % And 0.9 % NaCl 1,000 ML IV SCH (13:34)
--- NOTE | 2017-02-08 14:10 | PRG ---
DATE OF SERVICE: 02/08/2017 SERVICE: Pulmonary Medicine. INTERVAL HISTORY: The patient is doing fine from a cardiovascular and respiratory standpoint. She i s breathing comfortably. She has less rhonchi today. Otherwise, she has returned to her usual state of health. Her respiratory issues have essentially resolved. She is using BiPAP at night and this seems to help her. PHYSICAL EXAMINATION: VITAL SIGNS: Afebrile, pulse 61, blood pressure 146/68, respirations 18, saturation 99% on 3 liters nasal cannula. HEENT: Normocephalic, atraumatic. Sclerae are white, conjunctivae pink. Oral and nasal mucosa is m oist without lesions. LUNGS: Decent air entry. Rhonchi are present. They are much improved; however. There is a prolong ed expiratory phase with end-expiratory wheezing, but no crackles are appreciated. HEART: Normal rate, regular. ABDOMEN: Soft, nontender, nondistended. Bowel sounds positive. MUSCULOSKELETAL: No cyanosis or clubbing. No pitting in the bilateral lower extremities. NEUROLOGIC: Grossly nonfocal. LABORATORY DATA: WBC 13.2, hemoglobin 10.5, platelets 261,000. INR 1.7. Potassium 3.4, sodium 108. Creatinine 0.64 with BUN that is trending upward at 24. Basic metabolic profile is otherwise unrem arkable. Blood cultures x2 and urine culture x2 are unremarkable. ASSESSMENT: 1. Acute hypoxic respiratory failure, improving. 2. Chronic obstructive pulmonary disease with acute exacerbation. 3. Healthcare-associated pneumonia. 4. 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 PLAN: We will continue physiotherapy and other supportive care including tube feeds. At this point, I think she has turned the corner in a positive direction. That being said, she still needs to be o bserved closely because she has a difficult time clearing oral secretions. She can be transitioned t o the IMCU but will likely need to stay there for a couple of days.
--- NOTE | 2017-02-08 14:57 | PDOC.CTH ---
Cardiology Progress Note - Subjective Pt. seen and eval. No new events overnight. Caroline is maintaining NSR. She is on a BiPAP after the O2 sats. decreased. She is awake and responds to commands. She is able to move the right hand and arm minimally. - ROS not able to obtain ROS - Objective Vital Signs Temp Pulse Resp Pulse Ox 02/08/17 13:14 57 L 02/08/17 13:13 61 14 99 02/08/17 12:00 98.1 F 02/08/17 08:00 97.6 F 02/08/17 07:49 97.6 F 60 18 97 02/08/17 07:47 53 L 02/08/17 07:46 97 02/08/17 07:45 53 L 15 94 L 02/08/17 04:00 98.1 F Admit Weight 101 lb 8 oz Weight 100 lb 6.4 oz 02/07/17 02/08/17 02/09/17 06:59 06:59 06:59 Intake Total 1610 2270 280 Output Total 944 368 5828 Balance 835 1368 -1683 - Physical Examination General/Neuro: alert & oriented x3 Lungs: CTA Heart: PMI normal Abdomen: no HSM - Labs Result Diagrams: 02/08/17 04:50 02/08/17 04:50 Troponin/CKMB CK-MB (CK-2) 0.8 ng/mL (0-6.6) 02/07/17 02:02 Troponin I 0.044 ng/mL (< 0.028) H 02/07/17 02:02 - Assessment/Plan 1. s/p CVA 2. Intermittent atrial fib. Continue diltiazem,coumadin,lovenox ( until the INR is>2.0) then d/c lovenox. 3. COPD. Managed by pulmonary.
[2017-02-08] MEDS: Warfarin Sodium 7.5 MG TAB PO SCH (17:21)
--- NOTE | 2017-02-08 18:55 | PDOC.PN ---
- Subjective Encounter Start Date: 02/08/17 Encounter Start Time: 17:25 Subjective: f/u for acute hypoxic resp failure on BiPAP. Nsg reports longer intervals -: off BiPAP but still requiring. Aphasia persists with R hemiparesis. - Objective Resuscitation Status: Resuscitation Status FULL:Full Resuscitation MAR Reviewed: Yes Vital Signs & Weight: Vital Signs (12 hours) Temp Pulse Pulse Pulse Resp BP BP 02/08/17 18:46 53 L 17 02/08/17 18:45 53 L 17 02/08/17 16:00 97.9 F 02/08/17 14:00 60 68 143/81 H 150/77 H 02/08/17 13:14 57 L 02/08/17 13:13 61 14 02/08/17 12:00 98.1 F 02/08/17 08:00 97.6 F 02/08/17 07:49 97.6 F 60 18 02/08/17 07:47 53 L 02/08/17 07:46 02/08/17 07:45 53 L 15 Pulse Ox 02/08/17 18:46 98 02/08/17 18:45 98 02/08/17 16:00 02/08/17 14:00 02/08/17 13:14 02/08/17 13:13 99 02/08/17 12:00 02/08/17 08:00 02/08/17 07:49 97 02/08/17 07:47 02/08/17 07:46 97 02/08/17 07:45 94 L Weight Admit Weight 101 lb 8 oz Weight 100 lb 6.4 oz Most Recent Monitor Data Heart Rate from ECG 62 NIBP 134/57 NIBP BP-Mean 89 Respiration from ECG 18 SpO2 98 I&O: 02/07/17 02/08/17 02/09/17 06:59 06:59 06:59 Intake Total 1610 2270 1587 Output Total 421 841 4700 Balance 835 1368 -718 Result Diagrams: 02/08/17 04:50 02/08/17 04:50 Additional Labs: Microbiology 02/02/17 23:50 Urine Straight Catheter Urine Culture - Final NO GROWTH AT 36 HOURS 02/07/17 09:57 Venous blood - Right Hand Blood Culture - Preliminary Specimen has been received and culture in progress. No Growth to date. 02/07/17 09:53 Venous blood - Left Hand Blood Culture - Preliminary Specimen has been received and culture in progress. No Growth to date. 02/07/17 09:36 Urine monk catheter Urine Culture - Preliminary NO GROWTH AT 24 HOURS Laboratory Tests 02/03/17 02/03/17 02/04/17 04:32 04:32 04:10 WBC 13.8 H PT INR 1.4 Potassium 3.8 02/05/17 02/06/17 02/07/17 04:18 04:28 02:02 WBC PT 15.8 H INR 1.5 1.3 1.2 Potassium 02/07/17 02/07/17 02/08/17 09:53 09:53 04:50 WBC 24.8 H PT 20.7 H INR 1.7 Potassium 3.3 L EKG Reviewed by me: Yes (Tele - SR in 60's) Phys Exam - Physical Examination Constitutional: NAD alert, nods to questions, aphasic BiPAP mask in place HEENT: PERRLA Neck: no JVD, supple diminished in bases Respiratory: no wheezing Cardiovascular: RRR Gastrointestinal: soft, non-tender, no distention, positive bowel sounds mild UE edema Musculoskeletal: pulses present R hemiparesis, expressive aphasia Skin: normal turgor, cap refill <2 seconds Dx/Plan (1) Acute respiratory failure with hypoxia Code(s): J96.01 - ACUTE RESPIRATORY FAILURE WITH HYPOXIA Status: Acute Comment: BiPAP NIMV, pulmonary support, IV abx (2) Acute CVA (cerebrovascular accident) Code(s): I63.9 - CEREBRAL INFARCTION, UNSPECIFIED Status: Acute Comment: left MCA territory, likely embolic event given A-fib, continue ASA, Coumadin (3) Right flaccid hemiplegia Code(s): G81.01 - FLACCID HEMIPLEGIA AFFECTING RIGHT DOMINANT SIDE Status: Acute Comment: PT/OT for mobilization, Rehab options (4) Atrial fibrillation with RVR Code(s): I48.91 - UNSPECIFIED ATRIAL FIBRILLATION Status: Acute Comment: Digoxin d/c'd, continue Cardizem 60mg TID, current SR (5) Oropharyngeal dysphagia Code(s): R13.12 - DYSPHAGIA, OROPHARYNGEAL PHASE Status: Acute Comment: CORROSION CONTROL FITTER not recommending po intake currently, likely will need PEG placement until dysphagia improving and safe for po intake (6) HTN (hypertension) Code(s): I10 - ESSENTIAL (PRIMARY) HYPERTENSION Status: Chronic Qualifiers: Hypertension type: essential hypertension Qualified Code(s): I10 - Essential (primary) hypertension Comment: labile in context of inconsistent po intake of antihypertensives (7) Moderate tricuspid regurgitation Code(s): I07.1 - RHEUMATIC TRICUSPID INSUFFICIENCY Status: Chronic (8) Tobacco abuse Code(s): Z72.0 - TOBACCO USE Status: Chronic Comment: Tobacco cessation (9) Healthcare associated bacterial pneumonia Code(s): J15.9 - UNSPECIFIED BACTERIAL PNEUMONIA Status: Acute Comment: LLL involvement, likely gm + cocci, continue Zosyn and Vancomycin, pulmonary support - Plan continue antibiotics, PT/OT, social security assessor, speech therapy, respiratory therapy, DVT proph w/SCDs Continue aggressive pulmonary support -: Wean off BiPAP NIMV as clinically tolerated -: Continue Zosyn and Vancomycin for HCAP -: Continue Prednisone 40mg daily -: PT for mobilization * CM for rehab/SNF options * AM lab: BMP, CBC, Mg++, PO3
[2017-02-08 22:23] LABS: Vancomycin, Trough 8.2 ug/mL
[2017-02-09] MEDS: Vancomycin HCl 750 MG in Sodium Chloride 0.9% 250 ML 250 ML IVPB SCH ×3 (00:08→17:42)
[2017-02-09] MEDS: Piperacillin/Tazobactam 3.375 GM in Sodium Chloride 0.9% 100 ML IVPB SCH ×4 (04:06→21:50)
[2017-02-09 04:54] LABS: #Lymphocytes 1.6 thou/uL (1.20-3.40); #Monocytes 0.8 thou/uL (0.11-0.59); #Neutrophils 9.2 thou/uL (1.40-6.50); %Basophils 0.1 % (0.0-1.0); %Eosinophils 0.2 % (0.0-10.0); Hematocrit 33.5 % (36.0-47.0); Mean Platelet Volume 7.9 fL (7.4-10.4); White Blood Cell (WBC) Count 11.7 thou/uL (4.8-10.8)
[2017-02-09 05:02] LABS: Anion Gap 9 mmol/L (10-20); BUN (Urea Nitrogen) 24 mg/dL (9.8-20.1); Calc. Creatinine Clearance 59 mL/min (70-130); Calcium 9.1 mg/dL (7.8-10.44); Carbon Dioxide 27 mmol/L (23-31); Chloride 107 mmol/L (98-107); Estimated GFR-MDRD Greater than 90; Magnesium 1.8 mg/dL (1.6-2.6); Phosphorus 3.3 mg/dL (2.3-4.7)
[2017-02-09 05:04] LABS: Prothrombin Time 35.4 SEC (12.0-14.7)
[2017-02-09] MEDS: Dextrose 5 % And 0.9 % NaCl 1,000 ML IV SCH ×2 (09:49→15:49)
[2017-02-09] MEDS: Furosemide 20 MG/2 ML VIAL SLOW IVP SCH (09:51)
[2017-02-09] MEDS: Enoxaparin Sodium 40 MG/0.4 ML SYRINGE SC SCH (09:51)
[2017-02-09] MEDS: Lisinopril 10 MG TAB PO SCH (09:53)
[2017-02-09] MEDS: Pantoprazole 40 MG VIAL IVP SCH (09:53)
[2017-02-09] MEDS: predniSONE 20 MG TAB PO SCH (09:53)
[2017-02-09] MEDS: Aspirin 325 MG TAB PER TUBE SCH (09:53)
--- NOTE | 2017-02-09 10:05 | PDOC.CTH ---
<Mariola Velarde - Last Filed: 02/09/17 10:05> Cardiology Progress Note - Subjective The pt seen and examined. No overnight events. No cardiac complaints. Still on Bipap. Able to move Rt ext slightly better than Day 1 of this admission. - Objective Vital Signs Temp Pulse Resp BP Pulse Ox 02/09/17 07:49 97.0 F L 64 14 165/72 H 99 02/09/17 07:35 57 L 02/09/17 07:34 57 L 16 99 02/09/17 06:30 50 L 13 99 02/09/17 04:00 96.9 F L 53 L 14 175/83 H 98 02/09/17 02:24 51 L 02/09/17 00:00 97.0 F L 52 L 16 147/69 H 100 02/08/17 23:27 45 L 13 99 Admit Weight 101 lb 8 oz Weight 100 lb 6.4 oz 02/08/17 02/09/17 02/10/17 06:59 06:59 06:59 Intake Total 2270 1587 Output Total 902 2305 Balance 1368 -718 - Physical Examination General/Neuro: alert & oriented x3 Neck: no JVD present Lungs: other: (diminished at bases) Heart: RRR Abdomen: soft Extremities: other: (No edema) - Telemetry Telemetry Rhythm: SR HR 58-60s - Labs Result Diagrams: 02/09/17 04:16 02/09/17 04:16 Troponin/CKMB CK-MB (CK-2) 0.8 ng/mL (0-6.6) 02/07/17 02:02 Troponin I 0.044 ng/mL (< 0.028) H 02/07/17 02:02 - Assessment/Plan 1. Acute CVA in left MCA territory, likely embolic event 2ndary to hx of Afib - on Coumadin, Lovenox and ASA; INR today was 3.3; Stop Lovenox today; Coumadin dosage managed by PCP 2. Paroxysmal Afib with RVR - Remain SR with current medication; cont. monitor on tele 3. HTN - stable with current medication 4. Dysphagia - still NPO; possible PEG tube placement if no improvement 5. COPD - Still on Bipap; tolerated NC short period of time yesterday; cont. monitor 6. Tobacco Abuse - Smoking cessation education given to the pt, family, and friend MAR reviewed Review of Systems - Review of Systems Constitutional: reports: no symptoms reported EENTM: reports: no symptoms reported Respiratory: reports: see HPI Cardiac (ROS): reports: no symptoms reported ABD/GI: reports: no symptoms reported : reports: no symptoms reported Musculoskeletal: reports: no symptoms reported Skin: reports: no symptoms reported Neurological: reports: no symptoms reported <Angela Dickerson - Last Filed: 02/09/17 19:07> Cardiology Progress Note - Objective Vital Signs Temp Pulse Pulse Pulse Resp BP BP 02/09/17 17:49 98.6 F 70 20 02/09/17 13:21 61 21 H 02/09/17 12:00 98.4 F 55 L 17 02/09/17 10:55 54 L 55 L 153/66 H 153/68 H 02/09/17 08:00 97 F L 64 14 02/09/17 07:49 97.0 F L 64 14 02/09/17 07:35 57 L 02/09/17 07:34 57 L 16 BP Pulse Ox Pulse Ox Pulse Ox 02/09/17 17:49 162/73 H 98 02/09/17 13:21 95 02/09/17 12:00 153/66 H 95 02/09/17 10:55 94 L 96 02/09/17 08:00 99 02/09/17 07:49 165/72 H 99 02/09/17 07:35 02/09/17 07:34 99 Admit Weight 101 lb 8 oz Weight 100 lb 6.4 oz 02/08/17 02/09/17 02/10/17 06:59 06:59 06:59 Intake Total 2270 1587 1350 Output Total 902 2305 1999 Balance 4573 -710 -650 - Labs Result Diagrams: 02/09/17 04:16 02/09/17 04:16 Troponin/CKMB CK-MB (CK-2) 0.8 ng/mL (0-6.6) 02/07/17 02:02 Troponin I 0.044 ng/mL (< 0.028) H 02/07/17 02:02 - Assessment/Plan Pt. seen and evaluated by me. I agree with the A\P by the NUCLE[employer]EL[employer] RESEARCH ENGINEER. anticoagulation held with INR 3.3. pt. seems to comprehend and some movement on right side. RRR, chest clear anteriorly.I agree with the present management.
--- NOTE | 2017-02-09 14:20 | PDOC.PN ---
- Subjective Encounter Start Date: 02/09/17 Encounter Start Time: 14:00 Subjective: f/u for acute hypoxic resp failure on BiPAP NIMV currently off. No new -: complaints. Still NPO with NGT. CUSTOM DECORATING CONSULTANT pending re-eval. - Objective Resuscitation Status: Resuscitation Status FULL:Full Resuscitation MAR Reviewed: Yes Vital Signs & Weight: Vital Signs (12 hours) Temp Pulse Pulse Pulse Resp BP BP 02/09/17 13:21 61 21 H 02/09/17 12:00 98.4 F 55 L 17 02/09/17 10:55 54 L 55 L 153/66 H 153/68 H 02/09/17 08:00 97 F L 64 14 02/09/17 07:49 97.0 F L 64 14 02/09/17 07:35 57 L 02/09/17 07:34 57 L 16 02/09/17 06:30 50 L 13 02/09/17 04:00 96.9 F L 53 L 14 02/09/17 02:24 51 L BP Pulse Ox Pulse Ox Pulse Ox 02/09/17 13:21 95 02/09/17 12:00 153/66 H 95 02/09/17 10:55 94 L 96 02/09/17 08:00 99 02/09/17 07:49 165/72 H 99 02/09/17 07:35 02/09/17 07:34 99 02/09/17 06:30 99 02/09/17 04:00 175/83 H 98 02/09/17 02:24 Weight Admit Weight 101 lb 8 oz Weight 100 lb 6.4 oz Most Recent Monitor Data Heart Rate from ECG 62 NIBP 134/57 NIBP BP-Mean 89 Respiration from ECG 18 SpO2 98 I&O: 02/08/17 02/09/17 02/10/17 06:59 06:59 06:59 Intake Total 2270 1587 Output Total 902 2305 Balance 1368 -718 Result Diagrams: 02/09/17 04:16 02/09/17 04:16 EKG Reviewed by me: Yes (Tele - Sinus in 60's) Phys Exam - Physical Examination Constitutional: NAD alert, responds with nods, aphasic NGT in place HEENT: PERRLA, oral pharynx no lesions Neck: no JVD, supple diminished in bases Respiratory: no wheezing Cardiovascular: RRR Gastrointestinal: soft, non-tender, no distention, positive bowel sounds Musculoskeletal: no edema, pulses present R hemiparesis, expressive aphasia Neurological: normal sensation Skin: normal turgor, cap refill <2 seconds Dx/Plan (1) Acute respiratory failure with hypoxia Code(s): J96.01 - ACUTE RESPIRATORY FAILURE WITH HYPOXIA Status: Acute Comment: resolving, BiPAP NIMV d/c'd today, pulmonary support, IV abx (2) Acute CVA (cerebrovascular accident) Code(s): I63.9 - CEREBRAL INFARCTION, UNSPECIFIED Status: Acute Comment: left MCA territory, likely embolic event given A-fib, continue ASA, Coumadin (3) Right flaccid hemiplegia Code(s): G81.01 - FLACCID HEMIPLEGIA AFFECTING RIGHT DOMINANT SIDE Status: Acute Comment: PT/OT for mobilization, Rehab options (4) Atrial fibrillation with RVR Code(s): I48.91 - UNSPECIFIED ATRIAL FIBRILLATION Status: Acute Comment: Digoxin d/c'd, continue Cardizem 60mg TID, current SR (5) Oropharyngeal dysphagia Code(s): R13.12 - DYSPHAGIA, OROPHARYNGEAL PHASE Status: Acute Comment: CUSTOM DECORATING CONSULTANT not recommending po intake currently, likely will need PEG placement however, pt not interested in PEG and may temporize with Dobhoff if unable to safely take po (6) HTN (hypertension) Code(s): I10 - ESSENTIAL (PRIMARY) HYPERTENSION Status: Chronic Qualifiers: Hypertension type: essential hypertension Qualified Code(s): I10 - Essential (primary) hypertension Comment: labile in context of inconsistent po intake of antihypertensives (7) Moderate tricuspid regurgitation Code(s): I07.1 - RHEUMATIC TRICUSPID INSUFFICIENCY Status: Chronic (8) Tobacco abuse Code(s): Z72.0 - TOBACCO USE Status: Chronic Comment: Tobacco cessation (9) Healthcare associated bacterial pneumonia Code(s): J15.9 - UNSPECIFIED BACTERIAL PNEUMONIA Status: Acute Comment: LLL involvement, likely gm + cocci, continue Zosyn and Vancomycin, pulmonary support - Plan continue antibiotics, PT/OT, social media manager, speech therapy, respiratory therapy, DVT proph w/SCDs Stable overall -: CUSTOM DECORATING CONSULTANT for swallowing evaluation -: ? Dobhoff if failing swallowing eval -: Hold Coumadin x 24h due to elevated INR - 3.3 -: continue ASA * PT/OT for mobilization * SNF/Rehab options
--- NOTE | 2017-02-09 16:29 | PRG ---
DATE OF SERVICE: 02/09/2017 SERVICE: Pulmonary Medicine. INTERVAL HISTORY: The patient is doing okay from a respiratory standpoint. She is breathing comfort ably. She had a BiPAP break this morning. She had a little bit of increasing dyspnea, prompting the m to put back on. That being said, she perfectly comfortable at this time, has no specific complaint s. She is tolerating physiotherapy fairly well. PHYSICAL EXAMINATION: VITAL SIGNS: Afebrile, pulse 55, blood pressure 153/66, respirations 17, saturation 95% on 27% FIO2. HEENT: Normocephalic, atraumatic. Sclerae are white, conjunctivae pink. Oral and nasal mucosa is m oist without lesions. LUNGS: Much improved air entry. There is a prolonged expiratory phase, but wheezing and rhonchi are much improved. HEART: Normal rate, regular. ABDOMEN: Soft, nontender, nondistended. Bowel sounds positive. MUSCULOSKELETAL: No cyanosis or clubbing. No pitting in the bilateral lower extremities. NEUROLOGIC: Grossly nonfocal. LABORATORY DATA: WBC is down trending to 11.7, hemoglobin 10.8, platelets 287,000. INR 3.3. Basic metabolic profile, magnesium and phosphorus all within normal limits. Blood cultures x2, urine cultu re x2 are unremarkable. ASSESSMENT: 1. Acute hypoxic respiratory failure, improving. 2. Chronic obstructive pulmonary disease with acute exacerbation. 3. Healthcare-associated pneumonia. 4. 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 PLAN: We will continue our physiotherapy. I will give her breaks 3 times daily and increase as tole rated. We will keep her on BiPAP at night for the time being. She will need to stay in the IM unt il she is completely off of BiPAP. This may take an additional 24-48 hours. She will need to work v brook aggressively with physical therapy, occupational therapy, and speech pathology in order to regain her lost function. She will remain at increased risk for repeated episodes of aspiration in the fut ure. We will need to watch her fairly closely.
[2017-02-09] MEDS ORDERED: Warfarin Sodium 5 MG TAB PO SCH (17:00)
[2017-02-09] MEDS: Warfarin Sodium 7.5 MG TAB PO SCH (17:37)
[2017-02-10] MEDS: Vancomycin HCl 750 MG in Sodium Chloride 0.9% 250 ML 250 ML IVPB SCH (00:26)
[2017-02-10] MEDS: Piperacillin/Tazobactam 3.375 GM in Sodium Chloride 0.9% 100 ML IVPB SCH ×4 (04:29→21:50)
[2017-02-10] MEDS: Dextrose 5 % And 0.9 % NaCl 1,000 ML IV SCH ×2 (05:58→21:50)
[2017-02-10 06:16] LABS: #Lymphocytes 1.6 thou/uL (1.20-3.40); #Neutrophils 8.1 thou/uL (1.40-6.50); %Basophils 0.3 % (0.0-1.0); %Eosinophils 0.4 % (0.0-10.0); %Lymphocytes 15.2 % (21.0-51.0); Hematocrit 33.3 % (36.0-47.0); Mean Platelet Volume 7.2 fL (7.4-10.4); Red Blood Cell (RBC) Count 3.54 mill/uL (4.20-5.40); White Blood Cell (WBC) Count 10.8 thou/uL (4.8-10.8)
[2017-02-10 06:23] LABS: Prothrombin Time 42.4 SEC (12.0-14.7)
[2017-02-10 06:41] LABS: Anion Gap 9 mmol/L (10-20); BUN (Urea Nitrogen) 17 mg/dL (9.8-20.1); Calc. Creatinine Clearance 66 mL/min (70-130); Carbon Dioxide 30 mmol/L (23-31); Chloride 103 mmol/L (98-107); Estimated GFR-MDRD Greater than 90
[2017-02-10] MEDS: Furosemide 20 MG/2 ML VIAL SLOW IVP SCH (08:23)
[2017-02-10] MEDS: Pantoprazole 40 MG VIAL IVP SCH (08:26)
[2017-02-10] MEDS: Vancomycin HCl 1 GM in Premix Bag 1 BAG IVPB SCH ×3 (08:28→23:43)
[2017-02-10] MEDS: Lisinopril 10 MG TAB PO SCH (08:32)
[2017-02-10] MEDS: Aspirin 325 MG TAB PER TUBE SCH (08:32)
[2017-02-10] MEDS: predniSONE 20 MG TAB PO SCH (08:33)
--- NOTE | 2017-02-10 12:04 | PDOC.CTH ---
<Mariola Velarde - Last Filed: 02/10/17 12:52> Cardiology Progress Note - Subjective the pt seen and examined. No overnight events. No cardiac complaints. She is off Bipap and on 2LNC without any distress. she is up to the chair without any difficulties. Her HR was down to 40s early in this AM. - Objective Vital Signs Temp Pulse Pulse Pulse Pulse Pulse Resp 02/10/17 11:08 97.6 F 66 18 02/10/17 10:29 56 L 60 61 02/10/17 08:32 02/10/17 08:00 98.1 F 51 L 17 02/10/17 07:50 66 57 L 02/10/17 07:11 98.1 F 51 L 17 02/10/17 06:44 53 L 02/10/17 04:00 97.1 F L 62 14 02/10/17 02:37 45 L 02/10/17 00:17 46 L 20 BP BP BP BP BP BP Pulse Ox 02/10/17 11:08 136/65 95 02/10/17 10:29 152/63 H 138/67 146/66 H 136/65 02/10/17 08:32 163/77 H 02/10/17 08:00 98 02/10/17 07:50 159/80 H 163/77 H 02/10/17 07:11 158/75 H 98 02/10/17 06:44 02/10/17 04:00 161/75 H 96 02/10/17 02:37 02/10/17 00:17 99 Pulse Ox Pulse Ox Pulse Ox Pulse Ox 02/10/17 11:08 02/10/17 10:29 98 98 99 99 02/10/17 08:32 02/10/17 08:00 02/10/17 07:50 98 98 02/10/17 07:11 02/10/17 06:44 02/10/17 04:00 02/10/17 02:37 02/10/17 00:17 Admit Weight 101 lb 8 oz Weight 105 lb 3.2 oz 02/09/17 02/10/17 02/11/17 06:59 06:59 06:59 Intake Total 1587 2090 Output Total 2308 2700 1600 Balance -410 -781 -1600 - Physical Examination General/Neuro: alert & oriented x3 Neck: no JVD present Lungs: other: (diminished at bases) Heart: RRR Abdomen: soft Extremities: other: (No edemas) - Telemetry Telemetry Rhythm: SR 50-60s - Labs Result Diagrams: 02/10/17 06:00 02/10/17 06:00 Troponin/CKMB CK-MB (CK-2) 0.8 ng/mL (0-6.6) 02/07/17 02:02 Troponin I 0.044 ng/mL (< 0.028) H 02/07/17 02:02 - Assessment/Plan 1. 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 Paroxysmal Afib with RVR - Remain SR with current medication; cont. monitor on tele 3. HTN - stable with current medication 4. Dysphagia - still NPO; possible PEG tube placement if no improvement 5. COPD - Still on Bipap; tolerated NC short period of time yesterday; cont. monitor 6. Tobacco Abuse - Smoking cessation education given to the pt, family, and friend MAR reviewed <Addendum> The pt heart rhythm was back to Afib with RVR, HR 120-160s at 1139 today. Start Digoxin IV 0.5mgx now and 0.25mg q6hrs x2, then 0.125mg PO daily Review of Systems - Review of Systems Constitutional: reports: no symptoms reported EENTM: reports: no symptoms reported Respiratory: reports: see HPI Cardiac (ROS): reports: no symptoms reported ABD/GI: reports: no symptoms reported : reports: no symptoms reported Musculoskeletal: reports: no symptoms reported <Angela Dickerson - Last Filed: 02/10/17 14:46> Cardiology Progress Note - Objective Vital Signs Temp Pulse Pulse Pulse Pulse Pulse Resp 02/10/17 12:45 122 H 02/10/17 12:04 90 18 02/10/17 11:08 97.6 F 66 18 02/10/17 10:29 56 L 60 61 02/10/17 08:32 02/10/17 08:00 98.1 F 51 L 17 02/10/17 07:50 66 57 L 02/10/17 07:11 98.1 F 51 L 17 02/10/17 06:44 53 L 02/10/17 04:00 97.1 F L 62 14 BP BP BP BP BP BP Pulse Ox 02/10/17 12:45 02/10/17 12:04 02/10/17 11:08 136/65 95 02/10/17 10:29 152/63 H 138/67 146/66 H 136/65 02/10/17 08:32 163/77 H 02/10/17 08:00 98 02/10/17 07:50 159/80 H 163/77 H 02/10/17 07:11 158/75 H 98 02/10/17 06:44 02/10/17 04:00 161/75 H 96 Pulse Ox Pulse Ox Pulse Ox Pulse Ox 02/10/17 12:45 02/10/17 12:04 02/10/17 11:08 02/10/17 10:29 98 98 99 99 02/10/17 08:32 02/10/17 08:00 02/10/17 07:50 98 98 02/10/17 07:11 02/10/17 06:44 02/10/17 04:00 Admit Weight 101 lb 8 oz Weight 105 lb 3.2 oz 02/09/17 02/10/17 02/11/17 06:59 06:59 06:59 Intake Total 1587 2090 Output Total 2305 2700 1600 [facility] -196 -247 -3690 - Labs Result Diagrams: 02/10/17 06:00 02/10/17 06:00 Troponin/CKMB CK-MB (CK-2) 0.8 ng/mL (0-6.6) 02/07/17 02:02 Troponin I 0.044 ng/mL (< 0.028) H 02/07/17 02:02 - Assessment/Plan Pt. seen and eval. by me. She convereted back to Afib. around noon today with RVR. She seems asymptomatic. I agree with the addition of digoxin . She may eventually need a pacemaker and AVJ ablation if we can not control the rate. INR is still elevated. will request EP consult for their opinion. Otherwise i agree with the A/P by the HOME SECURITY PROFESSIONAL.
[2017-02-10] MEDS ORDERED: Digoxin 0.5 MG/2 ML AMP SLOW IVP SCH ×2 (12:30→12:45)
--- NOTE | 2017-02-10 12:37 | PDOC.PN ---
- Subjective Encounter Start Date: 02/10/17 Encounter Start Time: 08:20 Pt seen for followup re: acute ischemic CVA. Denies chest pain, shortness of breath or fevers. Has R sided weakness. - Objective Resuscitation Status: Resuscitation Status FULL:Full Resuscitation MAR Reviewed: Yes Vital Signs & Weight: Vital Signs (12 hours) Temp Pulse Pulse Pulse Pulse Pulse Resp 02/10/17 12:04 90 18 02/10/17 11:08 97.6 F 66 18 02/10/17 10:29 56 L 60 61 02/10/17 08:32 02/10/17 08:00 98.1 F 51 L 17 02/10/17 07:50 66 57 L 02/10/17 07:11 98.1 F 51 L 17 02/10/17 06:44 53 L 02/10/17 04:00 97.1 F L 62 14 02/10/17 02:37 45 L BP BP BP BP BP BP Pulse Ox 02/10/17 12:04 02/10/17 11:08 136/65 95 02/10/17 10:29 152/63 H 138/67 146/66 H 136/65 02/10/17 08:32 163/77 H 02/10/17 08:00 98 02/10/17 07:50 159/80 H 163/77 H 02/10/17 07:11 158/75 H 98 02/10/17 06:44 02/10/17 04:00 161/75 H 96 02/10/17 02:37 Pulse Ox Pulse Ox Pulse Ox Pulse Ox 02/10/17 12:04 02/10/17 11:08 02/10/17 10:29 98 98 99 99 02/10/17 08:32 02/10/17 08:00 02/10/17 07:50 98 98 02/10/17 07:11 02/10/17 06:44 02/10/17 04:00 02/10/17 02:37 Weight Admit Weight 101 lb 8 oz Weight 105 lb 3.2 oz Most Recent Monitor Data Heart Rate from ECG 62 NIBP 134/57 NIBP BP-Mean 89 Respiration from ECG 18 SpO2 98 I&O: 02/09/17 02/10/17 02/11/17 06:59 06:59 06:59 Intake Total 1587 2090 Output Total 2305 2700 1600 Balance -718 -610 -1600 Result Diagrams: 02/10/17 06:00 02/10/17 06:00 Additional Labs: Accuchecks 02/07/17 01:54 POC Glucose 184 H EKG Reviewed by me: Yes (Tele: NSR) Phys Exam - Physical Examination Constitutional: NAD HEENT: moist MMs Neck: supple Respiratory: clear to auscultation bilateral Cardiovascular: RRR Gastrointestinal: soft Power 3+/5 RUE and RLE, 5/5 in LUE and LLE Psychiatric: normal affect Skin: no rash Dx/Plan (1) Acute CVA (cerebrovascular accident) Code(s): I63.9 - CEREBRAL INFARCTION, UNSPECIFIED Status: Acute (2) Acute respiratory failure with hypoxia Code(s): J96.01 - ACUTE RESPIRATORY FAILURE WITH HYPOXIA Status: Acute (3) Right flaccid hemiplegia Code(s): G81.01 - FLACCID HEMIPLEGIA AFFECTING RIGHT DOMINANT SIDE Status: Acute (4) GERD (gastroesophageal reflux disease) Code(s): K21.9 - GASTRO-ESOPHAGEAL REFLUX DISEASE WITHOUT ESOPHAGITIS Status: Chronic (5) HTN (hypertension) Code(s): I10 - ESSENTIAL (PRIMARY) HYPERTENSION Status: Chronic Qualifiers: Hypertension type: essential hypertension Qualified Code(s): I10 - Essential (primary) hypertension (6) Protein-calorie malnutrition, moderate Code(s): E44.0 - MODERATE PROTEIN-CALORIE MALNUTRITION Status: Chronic - Plan continue antibiotics, PT/OT * . Continue antibiotics. INR supratherapeutic today. Monitor vital signs, titrate antihypertensives as needed. Review of Systems - Review of Systems Constitutional: Weakness Respiratory: SOB with Excertion. negative: Cough, Dry, Shortness of Breath, Hemoptysis, Pleuritic Pain, Sputum Cardiovascular: negative: Chest Pain, Palpitations, Orthopnea, Paroxysmal Noc. Dyspnea, Edema, Light Headedness Neurological: Weakness - Medications/Allergies Allergies/Adverse Reactions: Allergies Allergy/AdvReac Type Severity Reaction Status Date / Time No Known Allergies Allergy Verified 12/17/16 16:00 Medications: Current Medications Acetaminophen (Tylenol) 650 mg PO Q4H PRN PRN Reason: Headache/Fever or Pain Acetaminophen (Tylenol) 650 mg MO Q4H PRN PRN Reason: Headache/Fever or Pain Last Admin: 02/04/17 03:55 Dose: 650 mg Al Hydroxide/Mg Hydroxide (Maalox) 30 ml PO Q6H PRN PRN Reason: Heartburn or Indigestion Albuterol/Ipratropium (Duoneb) 3 ml NEB [id number] PRN PRN Reason: SOB &/or Wheezing Albuterol/Ipratropium (Duoneb) 3 ml NEB C3PM-MS [facility] Last Admin: 02/10/17 12:04 Dose: 3 ml Lipase/Protease/Amylase ([place] [id number]) 1 cap FS .PER PROTOCOL PRN PRN Reason: TUBE OCCLUSION PROTOCOL Artificial Tears (Tears Renewed 15ml Bottle) 0 drop EA EYE PRN PRN PRN Reason: Dry Eyes Aspirin (Aspirin) 325 mg PER TUBE DAILY [facility] Last Admin: 02/10/17 08:32 Dose: 325 mg Bisacodyl (Dulcolax) 10 mg MO Q24H PRN PRN Reason: Constipation Digoxin (Lanoxin) 0.5 mg SLOW IVP NOW [facility] Digoxin (Lanoxin) 0.5 mg SLOW IVP NOW [facility] Stop: 02/10/17 14:00 Diltiazem HCl (Cardizem) 60 mg PER TUBE TID [facility] Last Admin: 02/10/17 08:32 Dose: 60 mg Furosemide (Lasix) 20 mg PO DAILY [facility] Hydralazine HCl (Apresoline) 10 mg SLOW IVP Q4H PRN PRN Reason: Systolic BP > 180 Dextrose/Sodium Chloride (D5 0.9% Ns) 1,000 mls @ 70 mls/hr IV .[id number] [facility] Last Admin: 02/10/17 05:58 Dose: 1,000 mls Piperacillin Sod/Tazobactam (Sod 3.375 gm/ Sodium Chloride) 100 mls @ 200 mls/ hr IVPB 0400,1000,1600,2200 [facility] Last Admin: 02/10/17 11:29 Dose: 100 mls Vancomycin HCl 1 gm/ Device 200 mls @ 200 mls/hr IVPB 0800,1600,2359 [facility] Last Admin: 02/10/17 08:28 Dose: 200 mls Lisinopril (Zestril) 10 mg PO DAILY [facility] Last Admin: 02/10/17 08:32 Dose: 10 mg Magnesium Hydroxide (Milk Of Magnesium) 30 ml PO DAILYPRN PRN PRN Reason: Constipation Mineral Oil/White Petrolatum (Eucerin Cream) 0 gm TOP BIDPRN PRN PRN Reason: Dry Skin Miscellaneous Medication (Pharmacy To Dose) 0 each IVPB PRN PRN PRN Reason: VANCOMYCIN DOSING Ondansetron HCl (Zofran Odt) 4 mg PO Q6H PRN PRN Reason: Nausea/Vomiting Ondansetron HCl (Zofran) 4 mg IVP Q6H PRN PRN Reason: Nausea/Vomiting Pantoprazole Sodium (Protonix) 40 mg IVP DAILY [facility] Last Admin: 02/10/17 08:26 Dose: 40 mg Phenol (Chloraseptic Papillion 180 Ml Bot) 0 ml PO PRN PRN PRN Reason: Sore Throat Potassium Chloride (Klor-Con) 40 meq PER TUBE NOW [facility] Stop: 02/10/17 14:00 Prednisone (Prednisone) 40 mg PO QAM-[facility] Stop: 02/11/17 08:01 Last Admin: 02/10/17 08:33 Dose: 40 mg Senna (Senokot) 2 tab PO HSPRN PRN PRN Reason: Constipation Sodium Bicarbonate (Bicarbonate, Sodium) 650 mg PER TUBE .PER PROTOCOL PRN PRN Reason: ENTERAL TUBE OCCLUSION Sodium Chloride (Point Nasal Papillion 0.65%) 0 ml EA NARE QIDPRN PRN PRN Reason: Nasal Congestion Sodium Chloride (Flush - Normal Saline) 10 ml IVF Q12HR [facility] Last Admin: 02/10/17 08:34 Dose: 10 ml Sodium Chloride (Flush - Normal Saline) 10 ml IVF PRN PRN PRN Reason: Saline Flush Warfarin Sodium (Coumadin) 5 mg PO 1700 [facility]
[2017-02-10] MEDS: Digoxin 0.5 MG/2 ML AMP SLOW IVP SCH (20:19)
--- NOTE | 2017-02-10 22:58 | PRG ---
DATE OF SERVICE: 02/10/2017 SERVICE: Pulmonary Medicine. INTERVAL HISTORY: The patient is really doing quite well from a respiratory standpoint. She looks t o have improving strength. She is still having some difficulty making words, but it is easier to und erstand her speech at this time. She denies any current fevers, chills, or overnight events. She is participating with physiotherapy quite well. She is able to clear her secretions and to honest with you, this is the least rhonchorous she has been in the last 2 days. PHYSICAL EXAMINATION: VITAL SIGNS: Afebrile, pulse 74, blood pressure 141/75, respirations 18, saturation 98% on 3 liters nasal cannula. GENERAL: Patient is awake and alert, in no apparent distress. LUNGS: Decent air entry. There is a prolonged expiratory phase, but rhonchi predominate. No crackl es are appreciated. HEART: Normal rate, regular. ABDOMEN: Soft, nontender, nondistended. Bowel sounds positive. MUSCULOSKELETAL: No cyanosis or clubbing. No pitting in the bilateral lower extremities. LABORATORY DATA: WBC 10.8 and improving, hemoglobin 11.0, platelets 330,000. INR 4.2. Basic metabo lic profile is essentially unremarkable except for potassium of 3.3. Blood cultures x2 and urine cul ture are negative. ASSESSMENT: 1. Acute hypoxic respiratory failure, improving. 2. Chronic obstructive pulmonary disease with acute exacerbation. 3. Healthcare-associated pneumonia. 4. Cerebrovascular accident of the left middle cerebral artery, resulting in hemiplegia and orophary ngeal dysphagia, slow to improve. PLAN: We will continue BiPAP at night. We will give her BiPAP breaks 3 times daily. We will increa se as tolerated. INR supratherapeutic and has been adjusted. Potassium will be replaced. If she is not swallowing by tomorrow, tube feeds need to be initiated.
[2017-02-11] MEDS: Digoxin 0.5 MG/2 ML AMP SLOW IVP SCH (01:00)
[2017-02-11] MEDS: Piperacillin/Tazobactam 3.375 GM in Sodium Chloride 0.9% 100 ML IVPB SCH ×4 (03:49→23:28)
[2017-02-11 04:04] LABS: #Monocytes 1.3 thou/uL (0.11-0.59); #Neutrophils 9.7 thou/uL (1.40-6.50); %Basophils 0.3 % (0.0-1.0); %Eosinophils 0.4 % (0.0-10.0); Hematocrit 38.1 % (36.0-47.0); Mean Platelet Volume 6.8 fL (7.4-10.4); Red Blood Cell (RBC) Count 4.05 mill/uL (4.20-5.40)
[2017-02-11 04:22] LABS: Prothrombin Time 32.6 SEC (12.0-14.7)
[2017-02-11 04:25] LABS: Anion Gap 9 mmol/L (10-20); BUN (Urea Nitrogen) 15 mg/dL (9.8-20.1); Calc. Creatinine Clearance 64 mL/min (70-130); Calcium 8.9 mg/dL (7.8-10.44); Carbon Dioxide 31 mmol/L (23-31); Chloride 102 mmol/L (98-107); Estimated GFR-MDRD Greater than 90
[2017-02-11 07:15] LABS: Vancomycin, Trough 21.7 ug/mL
[2017-02-11] MEDS: predniSONE 20 MG TAB PO SCH (07:57)
[2017-02-11] MEDS: Furosemide 20 MG TAB PO SCH (07:57)
[2017-02-11] MEDS: Aspirin 325 MG TAB PER TUBE SCH (07:58)
[2017-02-11] MEDS: Vancomycin HCl 1 GM in Premix Bag 1 BAG IVPB SCH (07:58)
[2017-02-11] MEDS: Lisinopril 10 MG TAB PO SCH (07:58)
[2017-02-11] MEDS: Pantoprazole 40 MG VIAL IVP SCH (07:58)
[2017-02-11] MEDS: Digoxin 0.125 MG TAB PO SCH (07:58)
--- NOTE | 2017-02-11 12:00 | PDOC.PN ---
- Subjective Encounter Start Date: 02/11/17 Encounter Start Time: 09:00 Pt seen for followup re: acute ischemic CVA. Denies chest pain or shortness of breath. - Objective Resuscitation Status: Resuscitation Status FULL:Full Resuscitation Vital Signs & Weight: Vital Signs (12 hours) Temp Pulse Resp BP BP Pulse Ox 02/11/17 07:58 97 163/77 H 02/11/17 07:28 98.5 F 102 H 16 151/81 H 96 02/11/17 06:40 97 02/11/17 06:38 78 20 97 02/11/17 05:00 100 02/11/17 04:00 97.9 F 61 16 149/81 H 98 02/11/17 01:00 60 02/11/17 00:02 63 16 98 02/11/17 00:00 97.8 F 79 16 115/61 96 Weight Admit Weight 101 lb 8 oz Weight 103 lb 1 oz Most Recent Monitor Data Heart Rate from ECG 62 NIBP 134/57 NIBP BP-Mean 89 Respiration from ECG 18 SpO2 98 I&O: 02/10/17 02/11/17 02/12/17 06:59 06:59 06:59 Intake Total 2090 1180 30 Output Total 2700 2325 Balance -610 -1145 30 Result Diagrams: 02/11/17 03:50 02/11/17 03:50 Phys Exam - Physical Examination Constitutional: NAD HEENT: moist MMs NG tube Neck: supple Eugene crackles Cardiovascular: RRR Gastrointestinal: soft Musculoskeletal: pulses present RUE and RLE power 3+/5, power 5/5 in LUE and LLE Psychiatric: normal affect Skin: no rash Dx/Plan (1) Acute CVA (cerebrovascular accident) Code(s): I63.9 - CEREBRAL INFARCTION, UNSPECIFIED Status: Acute (2) Acute respiratory failure with hypoxia Code(s): J96.01 - ACUTE RESPIRATORY FAILURE WITH HYPOXIA Status: Acute (3) Right flaccid hemiplegia Code(s): G81.01 - FLACCID HEMIPLEGIA AFFECTING RIGHT DOMINANT SIDE Status: Acute (4) GERD (gastroesophageal reflux disease) Code(s): K21.9 - GASTRO-ESOPHAGEAL REFLUX DISEASE WITHOUT ESOPHAGITIS Status: Chronic (5) HTN (hypertension) Code(s): I10 - ESSENTIAL (PRIMARY) HYPERTENSION Status: Chronic Qualifiers: Hypertension type: essential hypertension Qualified Code(s): I10 - Essential (primary) hypertension (6) Protein-calorie malnutrition, moderate Code(s): E44.0 - MODERATE PROTEIN-CALORIE MALNUTRITION Status: Chronic - Plan continue antibiotics, PT/OT, out of bed/ambulate, DVT proph w/SCDs * . Continue IV antibiotics. PT/OT. Continue warfarin. Review of Systems - Review of Systems Constitutional: negative: Fever, Chills, Sweats, Weakness, Malaise Cardiovascular: negative: Chest Pain, Palpitations, Orthopnea, Paroxysmal Noc. Dyspnea, Edema, Light Headedness Gastrointestinal: negative: Nausea, Vomiting, Abdominal Pain, Diarrhea, Constipation, Melena, Hematochezia Neurological: Weakness - Medications/Allergies Allergies/Adverse Reactions: Allergies Allergy/AdvReac Type Severity Reaction Status Date / Time No Known Allergies Allergy Verified 12/17/16 16:00 Medications: Current Medications Acetaminophen (Tylenol) 650 mg PO Q4H PRN PRN Reason: Headache/Fever or Pain Acetaminophen (Tylenol) 650 mg UT Q4H PRN PRN Reason: Headache/Fever or Pain Last Admin: 02/04/17 03:55 Dose: 650 mg Al Hydroxide/Mg Hydroxide (Maalox) 30 ml PO Q6H PRN PRN Reason: Heartburn or Indigestion Albuterol/Ipratropium (Duoneb) 3 ml NEB [id number] PRN PRN Reason: SOB &/or Wheezing Albuterol/Ipratropium (Duoneb) 3 ml NEB [id number] [facility] Last Admin: 02/11/17 06:38 Dose: 3 ml Lipase/Protease/Amylase ([place] [id number]) 1 cap FS .PER PROTOCOL PRN PRN Reason: TUBE OCCLUSION PROTOCOL Artificial Tears (Tears Renewed 15ml Bottle) 0 drop EA EYE PRN PRN PRN Reason: Dry Eyes Aspirin (Aspirin) 325 mg PER TUBE DAILY [facility] Last Admin: 02/11/17 07:58 Dose: 325 mg Bisacodyl (Dulcolax) 10 mg UT Q24H PRN PRN Reason: Constipation Digoxin (Lanoxin) 0.125 mg PO QAM [facility] Last Admin: 02/11/17 07:58 Dose: 0.125 mg Diltiazem HCl (Cardizem) 60 mg PER TUBE TID [facility] Last Admin: 02/11/17 07:57 Dose: 60 mg Furosemide (Lasix) 20 mg PO DAILY [facility] Last Admin: 02/11/17 07:57 Dose: 20 mg Hydralazine HCl (Apresoline) 10 mg SLOW IVP Q4H PRN PRN Reason: Systolic BP > 180 Dextrose/Sodium Chloride (D5 0.9% Ns) 1,000 mls @ 70 mls/hr IV .[id number] [facility] Last Admin: 02/10/17 21:50 Dose: 1,000 mls Piperacillin Sod/Tazobactam (Sod 3.375 gm/ Sodium Chloride) 100 mls @ 200 mls/ hr IVPB 0400,1000,1600,2200 [facility] Last Admin: 02/11/17 09:26 Dose: 100 mls Vancomycin HCl 1.25 gm/ Sodium (Chloride) 250 mls @ 166.667 mls/hr IVPB 0800, 2000 [facility] Lisinopril (Zestril) 10 mg PO DAILY [facility] Last Admin: 02/11/17 07:58 Dose: 10 mg Magnesium Hydroxide (Milk Of Magnesium) 30 ml PO DAILYPRN PRN PRN Reason: Constipation Mineral Oil/White Petrolatum (Eucerin Cream) 0 gm TOP BIDPRN PRN PRN Reason: Dry Skin Miscellaneous Medication (Pharmacy To Dose) 0 each IVPB PRN PRN PRN Reason: VANCOMYCIN DOSING Ondansetron HCl (Zofran Odt) 4 mg PO Q6H PRN PRN Reason: Nausea/Vomiting Ondansetron HCl (Zofran) 4 mg IVP Q6H PRN PRN Reason: Nausea/Vomiting Pantoprazole Sodium (Protonix) 40 mg IVP DAILY [facility] Last Admin: 02/11/17 07:58 Dose: 40 mg Phenol (Chloraseptic Kenvir 180 Ml Bot) 0 ml PO PRN PRN PRN Reason: Sore Throat Senna (Senokot) 2 tab PO HSPRN PRN PRN Reason: Constipation Sodium Bicarbonate (Bicarbonate, Sodium) 650 mg PER TUBE .PER PROTOCOL PRN PRN Reason: ENTERAL TUBE OCCLUSION Sodium Chloride ([place] Nasal Kenvir 0.65%) 0 ml EA NARE QIDPRN PRN PRN Reason: Nasal Congestion Sodium Chloride (Flush - Normal Saline) 10 ml IVF Q12HR [facility] Last Admin: 02/11/17 07:58 Dose: 10 ml Sodium Chloride (Flush - Normal Saline) 10 ml IVF PRN PRN PRN Reason: Saline Flush Warfarin Sodium (Coumadin) 5 mg PO 1700 GILMAR
--- NOTE | 2017-02-11 12:34 | PRG ---
DATE OF SERVICE: 02/11/2017 SUBJECTIVE: Ms. Max has no complaints. Her right upper extremity is weak. She is able to comm unicate, now speaking, but is dysarthric. The hospitalist feels she is stable to move to the stroke unit. She is still being fed with Dobbhoff tube. OBJECTIVE: GENERAL: She is in no distress. LUNGS: Completely clear. CARDIOVASCULAR: Regular rhythm. ABDOMEN: Soft. IMPRESSION: 1. Improved respiratory failure. BiPAP can probably be discontinued based on how she looks clinical ly. 2. Obstructive lung disease, clinically stable. 3. Cerebrovascular accident with improving strength and improving speech. 4. Healthcare-associated pneumonia. She is stable to move to Stroke Unit in my opinion.
[2017-02-11] MEDS: Dextrose 5 % And 0.9 % NaCl 1,000 ML IV SCH (15:46)
[2017-02-11] MEDS: Warfarin Sodium 5 MG TAB PO SCH (15:49)
[2017-02-11] MEDS: Vancomycin HCl 1.25 GM in Sodium Chloride 0.9% 250 ML 250 ML IVPB SCH (21:00)
[2017-02-12] MEDS: Piperacillin/Tazobactam 3.375 GM in Sodium Chloride 0.9% 100 ML IVPB SCH ×4 (04:32→23:25)
[2017-02-12 05:41] LABS: Prothrombin Time 21.9 SEC (12.0-14.7)
[2017-02-12 06:00] LABS: Anion Gap 8 mmol/L (10-20); BUN (Urea Nitrogen) 16 mg/dL (9.8-20.1); Calc. Creatinine Clearance 83 mL/min (70-130); Calcium 8.6 mg/dL (7.8-10.44); Carbon Dioxide 31 mmol/L (23-31); Chloride 103 mmol/L (98-107); Estimated GFR-MDRD Greater than 90
[2017-02-12 06:25] LABS: Hematocrit 43.8 % (36.0-47.0); Neutrophil 82 % (42-75); Red Blood Cell (RBC) Count 4.65 mill/uL (4.20-5.40); White Blood Cell (WBC) Count 18.7 thou/uL (4.8-10.8)
[2017-02-12] MEDS: Vancomycin HCl 1.25 GM in Sodium Chloride 0.9% 250 ML 250 ML IVPB SCH ×2 (09:07→21:04)
[2017-02-12] MEDS: Digoxin 0.125 MG TAB PO SCH (09:08)
[2017-02-12] MEDS: Aspirin 325 MG TAB PER TUBE SCH (09:08)
[2017-02-12] MEDS: Pantoprazole 40 MG VIAL IVP SCH (09:09)
[2017-02-12] MEDS: Lisinopril 10 MG TAB PO SCH (09:09)
[2017-02-12] MEDS: Furosemide 20 MG TAB PO SCH (09:10)
--- NOTE | 2017-02-12 11:05 | PDOC.PN ---
- Subjective Encounter Start Date: 02/12/17 Encounter Start Time: 11:04 Ms. Max was seen today in follow-up of acute CVA. She is awake and alert, but has severe aphasia. No problems voiced by staff. - Objective Resuscitation Status: Resuscitation Status FULL:Full Resuscitation MAR Reviewed: Yes Vital Signs & Weight: Vital Signs (12 hours) Temp Pulse Resp BP BP Pulse Ox 02/12/17 09:09 162/96 H 02/12/17 09:08 110 H 02/12/17 08:00 97.9 F 110 H 16 99 02/12/17 07:17 97.9 F 94 16 162/96 H 99 02/12/17 07:07 95 18 97 02/12/17 07:06 95 15 97 02/12/17 03:34 97.8 F 97 18 164/83 H 97 02/11/17 23:20 98 F 74 16 171/83 H 96 Weight Admit Weight 101 lb 8 oz Weight 117 lb Most Recent Monitor Data Heart Rate from ECG 62 NIBP 134/57 NIBP BP-Mean 89 Respiration from ECG 18 SpO2 98 I&O: 02/11/17 02/12/17 02/13/17 06:59 06:59 06:59 Intake Total 1180 1920 30 Output Total 2325 1800 Balance -1145 120 30 Result Diagrams: 02/12/17 05:22 02/12/17 05:22 Phys Exam - Physical Examination HEENT: PERRLA Respiratory: no wheezing, no rales, no rhonchi, clear to auscultation bilateral Cardiovascular: no significant murmur, irregular Gastrointestinal: soft, non-tender, positive bowel sounds Musculoskeletal: no edema Dx/Plan (1) Acute ischemic left MCA stroke Code(s): I63.512 - CEREB INFRC D/T UNSP OCCLS OR STENOS OF LEFT MID CEREB ART Status: Acute (2) Atrial fibrillation with RVR Code(s): I48.91 - UNSPECIFIED ATRIAL FIBRILLATION Status: Acute Comment: Digoxin d/c'd, continue Cardizem 60mg TID, current SR (3) Oropharyngeal dysphagia Code(s): R13.12 - DYSPHAGIA, OROPHARYNGEAL PHASE Status: Acute Comment: CAP CUTTER not recommending po intake currently, likely will need PEG placement however, pt not interested in PEG and may temporize with Dobhoff if unable to safely take po (4) Right flaccid hemiplegia Code(s): G81.01 - FLACCID HEMIPLEGIA AFFECTING RIGHT DOMINANT SIDE Status: Acute (5) HTN (hypertension) Code(s): I10 - ESSENTIAL (PRIMARY) HYPERTENSION Status: Chronic Qualifiers: Hypertension type: essential hypertension Qualified Code(s): I10 - Essential (primary) hypertension - Plan * Acute Left MCA CVA- likely embolic from AFIB- She is undergoing PT, and speech therapy * Her INR is once again subtherapueatic ( it had been on hold due to supra- therapeutic INR)- coumadin has been re-started, and will ask Pharmacy to help manage dose * AFIB- her hear rate has been elevated, despite Cardizem and Digoxin- Cardizem has been increased to 90mg TID * Will adjust aspirin dose to 81mg , as she is also on coumadin * Healthcare associated Pneumonia- she is now on Day ^ of antibiotics ( Zosyn and Vancomycin) * Will start Lipitor * Leukocytosis- ? etiology- will continue to monitor * Dysphagia- patient is receiving DHT feedings- this will have to be re- addressed in the next few days. * Her son plans to come tomorrow to have his questions addressed.
[2017-02-12] MEDS ORDERED: WARFARIN PO PRN (11:26)
[2017-02-12] MEDS: Dextrose 5 % And 0.9 % NaCl 1,000 ML IV SCH ×2 (11:59→21:37)
--- NOTE | 2017-02-12 14:17 | PRG ---
DATE OF SERVICE: 02/12/2017 SUBJECTIVE: Ms. Max is very pleasant and cooperative. She is in no distress. She is toleratin g her tube feeds. OBJECTIVE: VITAL SIGNS: She is afebrile, heart rate is in the 80s, respiratory rate 15, oximetry is 98. LUNGS: Clear. HEART: Regular rhythm. Her gastric tube appears to be a significant way out of her nose. I will check radiograph to make [place] re it is in proper position. LABORATORY DATA: White count 18.7, hemoglobin 14.2, platelets 429,000. Electrolytes are normal. ASSESSMENT AND PLAN: She is still dysarthric and hemiparetic, but appears to make slight improvement over the weekend.
[2017-02-12] MEDS: Warfarin Sodium 5 MG TAB PO SCH (16:02)
--- NOTE | 2017-02-12 16:55 | RAD ---
KUB: History: NG tube placement. FINDINGS: Bowel gas pattern is nonobstructed. The NG tube is seen with the tip in the fundus of the stomach. Th e side hole is at the GE junction. IMPRESSION: 1. NG tube with the tip in the stomach as described above. 2. Some improvement to the retrocardiac parenchymal changes as compared to the previous 02-06-17 exam . POS: FATOU
[2017-02-12] MEDS: Atorvastatin Calcium 20 MG TAB PO SCH (21:05)
[2017-02-13 05:53] LABS: #Basophils 0.1 thou/uL (0.0-0.2); #Eosinphils 0.2 thou/uL (0.0-0.7); #Lymphocytes 1.8 thou/uL (1.20-3.40); #Monocytes 1.7 thou/uL (0.11-0.59); #Neutrophils 14.4 thou/uL (1.40-6.50); %Basophils 0.3 % (0.0-1.0); %Eosinophils 1.2 % (0.0-10.0); %Lymphocytes 9.9 % (21.0-51.0); %Monocytes 9.3 % (0.0-10.0); Hematocrit 41.3 % (36.0-47.0); Mean Platelet Volume 7.2 fL (7.4-10.4); Red Blood Cell (RBC) Count 4.37 mill/uL (4.20-5.40); White Blood Cell (WBC) Count 18.2 thou/uL (4.8-10.8)
[2017-02-13] MEDS: Piperacillin/Tazobactam 3.375 GM in Sodium Chloride 0.9% 100 ML IVPB SCH ×4 (05:55→22:42)
[2017-02-13 06:02] LABS: Prothrombin Time 17.4 SEC (12.0-14.7)
[2017-02-13 06:06] LABS: Anion Gap 6 mmol/L (10-20); BUN (Urea Nitrogen) 13 mg/dL (9.8-20.1); Calc. Creatinine Clearance 76 mL/min (70-130); Calcium 8.8 mg/dL (7.8-10.44); Carbon Dioxide 36 mmol/L (23-31); Chloride 101 mmol/L (98-107); Estimated GFR-MDRD Greater than 90
[2017-02-13 07:39] LABS: Vancomycin, Trough 16.4 ug/mL
--- NOTE | 2017-02-13 09:12 | PDOC.CTH ---
Cardiology Progress Note - Subjective Pt. seen and evaluated NG tube still in. Pt. is aphasic. She seems to understand and tries to speak. PT/OT assisting with therapy. She moves the right extremities some. She is still in Afib. and this AM is in Afib with RVR. HR up to 180. - ROS not able to obtain ROS (She comprehends and does not offer up any complaints.) - Objective Vital Signs Temp Pulse Resp BP Pulse Ox 02/13/17 08:02 100 02/13/17 08:00 110 H 20 100 02/13/17 07:44 98.9 F 83 18 02/13/17 07:20 98.7 F 119 H 14 141/78 H 98 02/13/17 03:22 98.9 F 83 18 134/71 99 02/12/17 23:35 96 02/12/17 23:28 98.4 F 98 16 129/67 98 02/12/17 21:30 98.4 F 98 16 96 Admit Weight 101 lb 8 oz Weight 118 lb 02/12/17 02/13/17 02/14/17 06:59 06:59 06:59 Intake Total 1920 2130 Output Total 1800 3170 Balance 120 -1040 - Physical Examination General/Neuro: alert & oriented x3 Neck: carotid US brisk Lungs: other: (scattered rhonchi.) Heart: other: (irreg. rapid. No gross murmur.) Abdomen: NT/ND - Labs Result Diagrams: 02/13/17 05:19 02/13/17 05:19 Troponin/CKMB CK-MB (CK-2) 0.8 ng/mL (0-6.6) 02/07/17 02:02 Troponin I 0.044 ng/mL (< 0.028) H 02/07/17 02:02 - Assessment/Plan 1. Acute CVA in left MCA territory, likely embolic event 2ndary to hx of Afib - Coumadin to keep INR 2.0-3.0 2. Paroxysmal Afib with RVR - give additional dig. this AM. Will ask EP to see for possible pacemaker and AVJ ablation to control the rate vs medical treatment. cont. monitor on tele 3. HTN - stable with current medication 4. Dysphagia - still NPO; possible PEG tube placement if no improvement 5. COPD - cont. monitor. Prob. not a candidate for betablockers but may need to try to control the rate. 6. Tobacco Abuse - Smoking cessation education given MAR reviewed
[2017-02-13] MEDS ORDERED: Digoxin 0.5 MG/2 ML AMP SLOW IVP SCH (09:15)
[2017-02-13] MEDS: Pantoprazole 40 MG VIAL IVP SCH (09:26)
[2017-02-13] MEDS: Aspirin 81 mg Enteric Coated Tablet PO SCH (09:27)
[2017-02-13] MEDS: Furosemide 20 MG TAB PO SCH (09:27)
[2017-02-13] MEDS: Lisinopril 10 MG TAB PO SCH (09:27)
[2017-02-13] MEDS: Digoxin 0.125 MG TAB PO SCH (09:28)
[2017-02-13] MEDS: Vancomycin HCl 1.25 GM in Sodium Chloride 0.9% 250 ML 250 ML IVPB SCH ×2 (11:19→22:41)
[2017-02-13] MEDS: Dextrose 5 % And 0.9 % NaCl 1,000 ML IV SCH (11:21)
--- NOTE | 2017-02-13 11:44 | PDOC.PN ---
- Subjective Encounter Start Date: 02/13/17 Encounter Start Time: 11:42 Ms. Max was seen today in follow-up of acute left MCA CVA. she is aphasic, and unable to communicate her needs other than through nodding or shaking her head. She does not indicate any problems to me. She was noted to have an elevated heart rate this morning. - Objective Resuscitation Status: Resuscitation Status FULL:Full Resuscitation MAR Reviewed: Yes Vital Signs & Weight: Vital Signs (12 hours) Temp Pulse Resp BP BP Pulse Ox 02/13/17 09:28 110 H 02/13/17 09:27 162/96 H 02/13/17 09:26 110 H 02/13/17 08:02 100 02/13/17 08:00 110 H 20 100 02/13/17 07:44 98.9 F 83 18 02/13/17 07:20 98.7 F 119 H 14 141/78 H 98 02/13/17 03:22 98.9 F 83 18 134/71 99 Weight Admit Weight 101 lb 8 oz Weight 118 lb Most Recent Monitor Data Heart Rate from ECG 62 NIBP 134/57 NIBP BP-Mean 89 Respiration from ECG 18 SpO2 98 I&O: 02/12/17 02/13/17 02/14/17 06:59 06:59 06:59 Intake Total 1920 2130 Output Total 1800 3170 Balance 120 -1040 Result Diagrams: 02/13/17 05:19 02/13/17 05:19 Phys Exam - Physical Examination HEENT: PERRLA Respiratory: no wheezing, no rales, no rhonchi, clear to auscultation bilateral Cardiovascular: no significant murmur, irregular Gastrointestinal: soft, non-tender, positive bowel sounds Musculoskeletal: no edema Dx/Plan (1) Acute ischemic left MCA stroke Code(s): I63.512 - CEREB INFRC D/T UNSP OCCLS OR STENOS OF LEFT MID CEREB ART Status: Acute (2) Atrial fibrillation with RVR Code(s): I48.91 - UNSPECIFIED ATRIAL FIBRILLATION Status: Acute Comment: Digoxin d/c'd, continue Cardizem 60mg TID, current SR (3) Oropharyngeal dysphagia Code(s): R13.12 - DYSPHAGIA, OROPHARYNGEAL PHASE Status: Acute Comment: SET UP INSPECTOR not recommending po intake currently, likely will need PEG placement however, pt not interested in PEG and may temporize with Dobhoff if unable to safely take po (4) Right flaccid hemiplegia Code(s): G81.01 - FLACCID HEMIPLEGIA AFFECTING RIGHT DOMINANT SIDE Status: Acute (5) HTN (hypertension) Code(s): I10 - ESSENTIAL (PRIMARY) HYPERTENSION Status: Chronic Qualifiers: Hypertension type: essential hypertension Qualified Code(s): I10 - Essential (primary) hypertension - Plan * Acute CVA- continue aspirin therapy, and statin therapy * Continue PT/OT and Speech * Hypokalemia- will replace potassium. * AFIB- her heart rate has been difficult to control with medications- Dr. Dickerson will ask EP to see * Dysphagia- continue Speech therapy, and if she continues to have significant deficits, then will need PEG tube * Pneumonia- she is on day 7 of Vancomycin and Zosyn- can likely de-escalate or even discontinue antibiotics soon if ok with Animal Chiropractor * Subtherapeutic INR- will give a dose of 7.5mg of coumadin tonight- continue to monitor INR closely
[2017-02-13] MEDS ORDERED: Warfarin Sodium 5 MG TAB PO SCH (11:51)
[2017-02-13] MEDS ORDERED: Potassium Chloride 40 MEQ in Premix Bag 1 BAG IVPB SCH (12:00)
[2017-02-13] MEDS ORDERED: Potassium Chloride 40 MEQ, Admixture Fee 1 EACH in Sodium Chloride 0.9% 250 ML 250 ML IVPB SCH (12:30)
--- NOTE | 2017-02-13 16:37 | PRG ---
DATE OF SERVICE: 02/13/2017 SERVICE: Pulmonary Medicine. INTERVAL HISTORY: The patient is doing really quite well from a respiratory standpoint. She current ly denies any fevers, chills, nausea or vomiting. She is breathing comfortably. Her sputum is settl ing down a touch. She is otherwise, returning to her usual state of health. She is working with Noovoal therapy as aggressively as tolerated, though she is yet to get out of bed. PHYSICAL EXAMINATION: VITAL SIGNS: Afebrile, pulse 93, blood pressure 115/63, respirations 18, saturation 100% on 3 liters nasal cannula. HEENT: Normocephalic, atraumatic. Sclerae are white, conjunctivae pink. Oral and nasal mucosa is m oist without lesions. LUNGS: Decent air entry. There is no prolonged expiratory phase or wheezing present. Rhonchi are t here, but change with cough. HEART: Normal rate, regular. ABDOMEN: Soft, nontender, nondistended. Bowel sounds positive. MUSCULOSKELETAL: No cyanosis or clubbing. No pitting in the bilateral lower extremities. LABORATORY DATA: WBC is stabilizing at 18.2. Neutrophil count is once again dropping. INR 1.4. [facility] metabolic profile was essentially unremarkable except for potassium 3.1. Her bicarbonate has jum ped to 36. Blood cultures x2, urine culture x2 are unremarkable. ASSESSMENT: 1. Acute hypoxic respiratory failure, improving. 2. Chronic obstructive pulmonary disease with acute exacerbation, improving. 3. Healthcare-associated pneumonia, resolving. 4. Cerebrovascular accident of the left middle cerebral artery, resulting in hemiplegia and orophary ngeal dysphagia, slowly improving. PLAN: We will continue antibiotics and nebulized medications. Otherwise, supportive care will be co ntinued while we continue working towards increasing the patient's mobility. From a purely respirato ry perspective, I do believe she is stable for transition out of the hospital. Her INR is now once a gain subtherapeutic and warfarin has once again been restarted.
[2017-02-13] MEDS ORDERED: Warfarin Sodium 7.5 MG TAB PO SCH (17:00)
[2017-02-13] MEDS: Atorvastatin Calcium 20 MG TAB PO SCH (22:42)
[2017-02-14] MEDS: Piperacillin/Tazobactam 3.375 GM in Sodium Chloride 0.9% 100 ML IVPB SCH ×4 (04:10→21:58)
[2017-02-14] MEDS: Dextrose 5 % And 0.9 % NaCl 1,000 ML IV SCH ×2 (04:13→17:27)
[2017-02-14 05:33] LABS: #Eosinphils 0.2 thou/uL (0.0-0.7); #Lymphocytes 1.1 thou/uL (1.20-3.40); #Monocytes 1.7 thou/uL (0.11-0.59); #Neutrophils 14.3 thou/uL (1.40-6.50); %Basophils 0.2 % (0.0-1.0); %Eosinophils 1.3 % (0.0-10.0); %Lymphocytes 6.4 % (21.0-51.0); %Monocytes 9.7 % (0.0-10.0); Hematocrit 38.9 % (36.0-47.0); Mean Platelet Volume 7.2 fL (7.4-10.4); Red Blood Cell (RBC) Count 4.09 mill/uL (4.20-5.40); White Blood Cell (WBC) Count 17.3 thou/uL (4.8-10.8)
[2017-02-14 05:45] LABS: Prothrombin Time 17.1 SEC (12.0-14.7)
[2017-02-14 05:56] LABS: Anion Gap 8 mmol/L (10-20); BUN (Urea Nitrogen) 14 mg/dL (9.8-20.1); Calc. Creatinine Clearance 72 mL/min (70-130); Calcium 8.7 mg/dL (7.8-10.44); Carbon Dioxide 34 mmol/L (23-31); Chloride 101 mmol/L (98-107); Estimated GFR-MDRD Greater than 90
[2017-02-14] MEDS: Furosemide 20 MG TAB PO SCH (08:20)
[2017-02-14] MEDS: Aspirin 81 mg Enteric Coated Tablet PO SCH (08:20)
[2017-02-14] MEDS: Pantoprazole 40 MG VIAL IVP SCH (08:21)
[2017-02-14] MEDS: Digoxin 0.125 MG TAB PO SCH (08:21)
[2017-02-14] MEDS: Vancomycin HCl 1.25 GM in Sodium Chloride 0.9% 250 ML 250 ML IVPB SCH ×2 (08:21→21:17)
[2017-02-14] MEDS: Lisinopril 10 MG TAB PO SCH (08:21)
--- NOTE | 2017-02-14 09:42 | PDOC.CTH ---
Cardiology Progress Note - Subjective Pt. seen and evaluated. Pt is aphasic and NG tube still in. She walked with PTs today. PT helped moving her RLE. - Objective Vital Signs Temp Pulse Resp BP BP Pulse Ox 02/14/17 08:21 97 162/96 H 02/14/17 07:10 98.6 F 97 14 131/76 100 02/14/17 06:31 92 16 02/14/17 03:19 98.8 F 97 20 124/73 97 02/14/17 00:12 100 02/13/17 23:19 98.4 F 102 H 20 126/70 98 02/13/17 23:08 93 16 100 Admit Weight 101 lb 8 oz Weight 116 lb 4.8 oz 02/13/17 02/14/17 02/15/17 06:59 06:59 06:59 Intake Total 2130 2140 Output Total 3170 Balance -1040 2140 - Physical Examination Lungs: other: (diminished at bases) Heart: other: (irregular) Abdomen: soft Extremities: other: (No edemas) - Telemetry Telemetry Rhythm: Afib - Labs Result Diagrams: 02/14/17 05:05 02/14/17 05:05 Troponin/CKMB CK-MB (CK-2) 0.8 ng/mL (0-6.6) 02/07/17 02:02 Troponin I 0.044 ng/mL (< 0.028) H 02/07/17 02:02 - Assessment/Plan 1. Acute CVA in left MCA territory, likely embolic event 2ndary to hx of Afib - Coumadin to keep INR 2.0-3.0 2. Paroxysmal Afib with RVR - Recurrent Afib with RVR on 02/13/17; Additional Dig was given yesterday; HR has been well controlled since. EP consult for possible pacemaker and AVJ ablation to control the rate vs medical treatment. cont. monitor on tele 3. HTN - stable with current medication 4. Dysphagia - still NPO; possible PEG tube placement if no improvement 5. COPD - cont. monitor. Prob. not a candidate for betablockers but may need to try to control the rate. 6. Tobacco Abuse - Smoking cessation education given MAR reviewed
--- NOTE | 2017-02-14 12:13 | RAD ---
MODIFIED BARIUM SWALLOW WITH SPEECH THERAPIST: History: 71-year-old female with dysphagia following cerebral infarction. Fluoroscopy time: 1.3 minutes, dose 0.515 Gycm2. FINDINGS: Patient was given multiple consistencies in the upright lateral position with extensive penetration w ith numerous consistencies as well as ced aspiration with multiple consistencies. Please see speech therapy report for additional findings and recommendations. POS: FATOU
--- NOTE | 2017-02-14 14:06 | PDOC.PN ---
- Subjective Encounter Start Date: 02/14/17 Encounter Start Time: 14:04 Ms. Max was seen today in follow-up of pneumonia, and acute CVA. She appears more alert each day. She indicates that she is not having any problems. She appears to be breathing comfortably. - Objective Resuscitation Status: Resuscitation Status FULL:Full Resuscitation MAR Reviewed: Yes Vital Signs & Weight: Vital Signs (12 hours) Temp Pulse Pulse Pulse Resp BP BP 02/14/17 12:13 97.6 F 97 16 02/14/17 09:04 89 90 116/58 L 02/14/17 08:21 97 162/96 H 02/14/17 08:00 98.6 F 97 14 02/14/17 07:10 98.6 F 97 14 02/14/17 06:31 92 16 02/14/17 03:19 98.8 F 97 20 BP BP Pulse Ox 02/14/17 12:13 114/67 96 02/14/17 09:04 117/66 02/14/17 08:21 02/14/17 08:00 02/14/17 07:10 131/76 100 02/14/17 06:31 02/14/17 03:19 124/73 97 Weight Admit Weight 101 lb 8 oz Weight 116 lb 4.8 oz Most Recent Monitor Data Heart Rate from ECG 62 NIBP 134/57 NIBP BP-Mean 89 Respiration from ECG 18 SpO2 98 I&O: 02/13/17 02/14/17 02/15/17 06:59 06:59 06:59 Intake Total 2130 2140 Output Total 3170 Balance -1040 2140 Result Diagrams: 02/14/17 05:05 02/14/17 05:05 Phys Exam - Physical Examination HEENT: PERRLA + rales at the bases, no rhonchi Cardiovascular: RRR, no significant murmur Gastrointestinal: soft, non-tender, positive bowel sounds Musculoskeletal: no edema Dx/Plan (1) Acute ischemic left MCA stroke Code(s): I63.512 - CEREB INFRC D/T UNSP OCCLS OR STENOS OF LEFT MID CEREB ART Status: Acute (2) Atrial fibrillation with RVR Code(s): I48.91 - UNSPECIFIED ATRIAL FIBRILLATION Status: Acute Comment: Digoxin d/c'd, continue Cardizem 60mg TID, current SR (3) Oropharyngeal dysphagia Code(s): R13.12 - DYSPHAGIA, OROPHARYNGEAL PHASE Status: Acute Comment: AUTOMOTIVE PAINTER HELPER not recommending po intake currently, likely will need PEG placement however, pt not interested in PEG and may temporize with Dobhoff if unable to safely take po (4) Right flaccid hemiplegia Code(s): G81.01 - FLACCID HEMIPLEGIA AFFECTING RIGHT DOMINANT SIDE Status: Acute (5) HTN (hypertension) Code(s): I10 - ESSENTIAL (PRIMARY) HYPERTENSION Status: Chronic Qualifiers: Hypertension type: essential hypertension Qualified Code(s): I10 - Essential (primary) hypertension - Plan * Acute Left MCA CVA- discussed with the Speech Therapist- MBS results noted. Will try the diet recommended with risks. We can change the aspirin to by mouth , and discontinue the DHT * Continue statin * Pneumonia - continue Vancomycin and Zosyn * HTN - blood pressure is stable * Will watch on the a diet for a while, and if she tolerates she will be stable for Rehab transfer.
[2017-02-14] MEDS: Warfarin Sodium 10 MG TAB PO SCH (17:27)
--- NOTE | 2017-02-14 18:30 | PRG ---
ELECTROPHYSIOLOGY FOLLOWUP NOTE DATE OF SERVICE: 02/14/2017 SUBJECTIVE: Ms. Max is aphasic, has no new complaints from a nurse. OBJECTIVE DATA: VITAL SIGNS: Blood pressure is 118/78, heart rate is 87, respiratory rate 18 and temperature 98.6 de grees Fahrenheit. GENERAL: Alert and oriented woman in no apparent distress. NECK: Supple. Jugular veins not distended. CHEST: Coarse. No crackles. CARDIOVASCULAR: Heart sounds are irregularly irregular. S1 and S2 are variable. 1/6 holosystolic m urmurs heard. PMI is nondisplaced. ABDOMEN: Benign. Bowel sounds positive. EXTREMITIES: Lower extremities without edema, clubbing or cyanosis. DATABASE: EKGs reviewed reveals atrial fibrillation somewhat better rate controlled noted today. ASSESSMENT AND PLAN: Mr. Max is a pleasant 71-year-old woman with prior history of persistent a trial fibrillation, controlled on sotalol, anticoagulation with Coumadin, now she presents with a rec urrent large CVA with subtherapeutic INR. At this point, her heart rate is somewhat better controlled. I discussed with the option of pacemake r, at this point she is currently against it. If the heart rate control is difficult , further discussion will be needed. We will follow with you. Thank you for the consult.
[2017-02-14] MEDS: Atorvastatin Calcium 20 MG TAB PO SCH (21:14)
--- NOTE | 2017-02-14 22:22 | PRG ---
DATE OF SERVICE: 02/14/2017 SERVICE: Pulmonary Medicine. INTERVAL HISTORY: The patient is really doing quite remarkable from a respiratory standpoint. She i s breathing comfortably and has no apparent distress. She has been working with physical therapy and occupational therapies as well as Speech Pathology to regain function. She actually has improved to ne today. PHYSICAL EXAMINATION: VITAL SIGNS: Afebrile, pulse 95, blood pressure 137/70, respirations 14 and saturation 97% on 3 lite rs nasal cannula. GENERAL: The patient is awake and alert, in no apparent distress. LUNGS: Excellent air entry. There is no prolonged expiratory phase. No wheezing today. Rhonchi ar e present. She does not have a very good cough unfortunately. HEART: Normal rate and regular. ABDOMEN: Soft, nontender and nondistended. Bowel sounds positive. MUSCULOSKELETAL: No cyanosis or clubbing. No pitting in the bilateral lower extremities. NEUROLOGIC: Grossly nonfocal. LABORATORY DATA: WBC 17.3, hemoglobin 12.6 and platelets 429,000. INR 1.4. Potassium 3.4. Basic m etabolic profile is otherwise unremarkable. Her bicarbonate is improved to 34. Blood cultures x2 an d urine culture x2 are unremarkable. IMAGING: Modified barium swallow demonstrates aspiration, and penetration with multiple consistencie s. ASSESSMENT: 1. Acute hypoxic respiratory failure, stable. 2. Chronic obstructive pulmonary disease with acute exacerbation, resolved. 3. Healthcare-associated pneumonia, secondary to overt aspiration. 4. Oropharyngeal dysphagia, severe. 5. Cerebrovascular accident with left middle cerebral artery resulting in hemiplegia and oropharynge al dysphagia. 6. Atrial fibrillation, paroxysmal. PLAN: The patient will continue good pulmonary toileting. She will work hard with physical therapy to regain her lost strength. Hopefully, her white blood cell count will start to come down and she d oes look clinically better today. Potassium will be replaced. I will continue to follow intermitten tly during this hospital stay. If she has clinical deterioration, please give a phone call to see he r sooner.
[2017-02-15] MEDS: Piperacillin/Tazobactam 3.375 GM in Sodium Chloride 0.9% 100 ML IVPB SCH ×4 (03:49→21:56)
[2017-02-15 05:29] LABS: #Eosinphils 0.2 thou/uL (0.0-0.7); #Lymphocytes 1.2 thou/uL (1.20-3.40); #Monocytes 1.5 thou/uL (0.11-0.59); #Neutrophils 15.3 thou/uL (1.40-6.50); %Basophils 0.2 % (0.0-1.0); %Lymphocytes 6.7 % (21.0-51.0); Hematocrit 35.8 % (36.0-47.0); Mean Platelet Volume 7.2 fL (7.4-10.4); Red Blood Cell (RBC) Count 3.74 mill/uL (4.20-5.40); White Blood Cell (WBC) Count 18.2 thou/uL (4.8-10.8)
[2017-02-15 05:47] LABS: Anion Gap 8 mmol/L (10-20); BUN (Urea Nitrogen) 12 mg/dL (9.8-20.1); Calc. Creatinine Clearance 63 mL/min (70-130); Calcium 9.3 mg/dL (7.8-10.44); Carbon Dioxide 35 mmol/L (23-31); Chloride 101 mmol/L (98-107); Estimated GFR-MDRD 87
[2017-02-15 05:52] LABS: Prothrombin Time 17.8 SEC (12.0-14.7)
[2017-02-15] MEDS: Dextrose 5 % And 0.9 % NaCl 1,000 ML IV SCH ×2 (05:54→20:34)
--- NOTE | 2017-02-15 06:43 | CON ---
DATE OF CONSULTATION: 02/14/2017. ELECTROPHYSIOLOGY CONSULTATION REPORT REFERRING PHYSICIAN: Dr. Dickerson I am seeing Ms. Max at our [facility] telemetry floor as an electrophysiology cognos consultant. Her problems are: 1. Persistent atrial fibrillation with rapid rates; history of newly found atrial fibrillation in 12/2016, at that point . 2. Current presentation with extensive MCA territory resulting in aphasia and right hemiparesis. 3. Oral anticoagulation with subtherapeutic INR. 4. Prior history of cardiomyopathy with mildly reduced LVEF at 45%, now echo with normal LVEF. 5. Heart disease with history of severe mitral regurgitation with atrial enlargement and severe tricuspid regurgitation. 6. The followup echo on 02/03/2017 revealed a LVEF of 50%-55%, left atrial enlargement, mild mitral regurgitation, right atrial size and moderate tricuspid regurgitation. 7. History of advanced COPD and smoking. 8. History of ETOH abuse in the past. 9. History of gastroesophageal reflux. 10. History of hypertension. SUBJECTIVE: Ms. Max was admitted on the with evidence of new extensive stroke. She was found lethargic, not able to talk and felt weak on the right side. Blood pressure was extremely high at 211/117 with atrial fibrillation 149 beats per minute are noted. IV diltiazem was initiated. TPA was not given due to not meeting criteria. INR on admission was only 1.5. Currently, she is on medical management, required diltiazem and digoxin for moderate rate control. PAST MEDICAL HISTORY: As above. SOCIAL HISTORY: The patient is a smoker, does have moderate ETOH intake. She denies drug use. He lives by himself. FAMILY HISTORY: Noncontributory. OBJECTIVE DATA: VITAL SIGNS: Blood pressure is 115/63, heart rate 93, respirations 18, temperature 97.8 degrees Fahrenheit. GENERAL: She is alert and oriented woman, in no apparent distress. NECK: Supple. Jugular veins are not distended. CHEST: Crackles, but coarse. Breath sounds are heard. CARDIAC: Heart sounds are irregularly irregular. S1 and S2 variable. No murmur or gallop. ABDOMEN: Benign. Bowel sounds positive. EXTREMITIES: Lower extremities without edema, clubbing, or cyanosis. DATABASE: EKGs reviewed that revealed atrial fibrillation with rapid rates with . Atrial fibrillation is noted. LABORATORY DATA: White cell count is 18.2, hemoglobin 13.4, platelet count is 436, neutrophil 99%. INR is currently 1.4. Sodium 140, potassium 3.1, BUN is 13, creatinine 0.57. ASSESSMENT AND PLAN: Ms. Max is a pleasant, 71-year-old woman, who has a history of persistent atrial fibrillation but well suppresssed, discharged on sotalol. She was on anticoagulation with Coumadin, became subtherapeutic on arrival. She was therapeutic on discharge from our facility on last admission. The patient currently still in atrial fib, sotalol has been stopped. Her anticoagulation was resumed with warfarin. Rate control is still somewhat of an issue. She is receiving 90mg of diltiazem TID and 0.125 mg of digoxin. We will gradually increase these. If that is suboptimal, we can consider pacing and ablation. We will discuss with Dr. Dickerson. Thank you again for allowing me to participate in the care of this patient with you. MERTD
[2017-02-15 07:36] LABS: Vancomycin, Trough 23.7 ug/mL
[2017-02-15] MEDS: Vancomycin HCl 1.25 GM in Sodium Chloride 0.9% 250 ML 250 ML IVPB SCH (08:38)
[2017-02-15] MEDS: Aspirin 81 mg Enteric Coated Tablet PO SCH (08:39)
[2017-02-15] MEDS: Digoxin 0.25 MG TAB PO SCH (08:40)
[2017-02-15] MEDS: Lisinopril 10 MG TAB PO SCH (08:40)
[2017-02-15] MEDS: Pantoprazole 40 MG VIAL IVP SCH (08:41)
[2017-02-15] MEDS: Furosemide 20 MG TAB PO SCH (08:41)
[2017-02-15] MEDS: Vancomycin HCl 1 GM in Premix Bag 1 BAG IVPB SCH ×2 (09:00→20:35)
--- NOTE | 2017-02-15 10:34 | PDOC.CTH ---
Cardiology Progress Note - Subjective The pt seen and examined. No overnight events. No cardiac complaints. She is up to chair reading news paper without NG tube this AM. - Objective Vital Signs Temp Pulse Resp BP BP Pulse Ox 02/15/17 08:40 115 H 142/87 H 02/15/17 08:00 99.1 F 115 H 18 95 02/15/17 07:15 99.1 F 115 H 18 142/87 H 95 02/15/17 07:00 82 16 96 02/15/17 03:01 98.6 F 84 16 136/65 98 02/15/17 01:55 96 02/15/17 00:36 74 16 96 02/14/17 23:00 98.7 F 74 16 112/66 96 Admit Weight 101 lb 8 oz Weight 113 lb 8 oz 02/14/17 02/15/17 02/16/17 06:59 06:59 06:59 Intake Total 2140 1326 Balance 2140 1326 - Physical Examination General/Neuro: alert & oriented x3 Neck: no JVD present Lungs: other: (diminished at bases) Heart: other: (irregular) Abdomen: soft Extremities: other: (No edemas) - Telemetry Telemetry Rhythm: Afib/flutter HR 70s - Labs Result Diagrams: 02/15/17 04:20 02/15/17 04:20 Troponin/CKMB CK-MB (CK-2) 0.8 ng/mL (0-6.6) 02/07/17 02:02 Troponin I 0.044 ng/mL (< 0.028) H 02/07/17 02:02 - Assessment/Plan 1. Acute CVA in left MCA territory, likely embolic event 2ndary to hx of Afib - Coumadin to keep INR 2.0-3.0; managed by PCP 2. Paroxysmal Afib with RVR - Recurrent Afib with RVR on 02/13/17 an today; Digoxin was increased from 0.125mg to 0.25mg QD by EP; HR has been well controlled at this moment. EP Doctor discussed with the pt for possible pacemaker and AVJ ablation to control the rate vs medical treatment. At this moment, the pt refused to have PM placement; cont. monitor on tele 3. HTN - stable with current medication 4. Dysphagia - improved and on Diet; 5. COPD - cont. monitor. Prob. not a candidate for betablockers but may need to try to control the rate. 6. Tobacco Abuse - Smoking cessation education given MAR reviewed Review of Systems - Review of Systems Constitutional: reports: no symptoms reported EENTM: reports: no symptoms reported Respiratory: reports: no symptoms reported Cardiac (ROS): reports: no symptoms reported ABD/GI: reports: no symptoms reported : reports: no symptoms reported Musculoskeletal: reports: no symptoms reported
--- NOTE | 2017-02-15 13:50 | PDOC.PN ---
- Subjective Encounter Start Date: 02/15/17 Encounter Start Time: 13:48 Ms. Max was seen today in follow-up of acute CVA and Pneumonia. she is sitting up in a chair at the side of the bed. She denies pain. She indicates that she is breathing well. - Objective Resuscitation Status: Resuscitation Status FULL:Full Resuscitation MAR Reviewed: Yes Vital Signs & Weight: Vital Signs (12 hours) Temp Pulse Resp BP BP Pulse Ox 02/15/17 11:05 97.6 F 81 18 115/62 99 02/15/17 08:40 115 H 142/87 H 02/15/17 08:00 99.1 F 115 H 18 95 02/15/17 07:15 99.1 F 115 H 18 142/87 H 95 02/15/17 07:00 82 16 96 02/15/17 03:01 98.6 F 84 16 136/65 98 02/15/17 01:55 96 Weight Admit Weight 101 lb 8 oz Weight 113 lb 8 oz Most Recent Monitor Data Heart Rate from ECG 62 NIBP 134/57 NIBP BP-Mean 89 Respiration from ECG 18 SpO2 98 I&O: 02/14/17 02/15/17 02/16/17 06:59 06:59 06:59 Intake Total 2140 1326 Balance 2140 1326 Result Diagrams: 02/15/17 04:20 02/15/17 04:20 Phys Exam - Physical Examination HEENT: PERRLA Respiratory: no wheezing, no rales, no rhonchi, clear to auscultation bilateral Cardiovascular: RRR, no significant murmur Gastrointestinal: soft, non-tender, positive bowel sounds Musculoskeletal: no edema Dx/Plan (1) Acute ischemic left MCA stroke Code(s): I63.512 - CEREB INFRC D/T UNSP OCCLS OR STENOS OF LEFT MID CEREB ART Status: Acute (2) Atrial fibrillation with RVR Code(s): I48.91 - UNSPECIFIED ATRIAL FIBRILLATION Status: Acute Comment: Digoxin d/c'd, continue Cardizem 60mg TID, current SR (3) Oropharyngeal dysphagia Code(s): R13.12 - DYSPHAGIA, OROPHARYNGEAL PHASE Status: Acute Comment: [employer] BLENDER not recommending po intake currently, likely will need PEG placement however, pt not interested in PEG and may temporize with Dobhoff if unable to safely take po (4) Right flaccid hemiplegia Code(s): G81.01 - FLACCID HEMIPLEGIA AFFECTING RIGHT DOMINANT SIDE Status: Acute (5) HTN (hypertension) Code(s): I10 - ESSENTIAL (PRIMARY) HYPERTENSION Status: Chronic Qualifiers: Hypertension type: essential hypertension Qualified Code(s): I10 - Essential (primary) hypertension (6) Healthcare associated bacterial pneumonia Code(s): J15.9 - UNSPECIFIED BACTERIAL PNEUMONIA Status: Acute Comment: LLL involvement, likely gm + cocci, continue Zosyn and Vancomycin, pulmonary support - Plan * Pneumonia- continue Vancomycin and Zosyn * Acute CVA- patient now has the DHT removed, ahe is tolerating a diet * AFIB- her heart rate has been controlled, however her INR is still not therapeutic despite increase the dose of coumadin daily. She also was admitted with a subtherapeutic INR. I asked her about considering changing to one of the newer anticoagulants, but she seemed reluctant about that. she indicated that she does not carry prescription drug coverage. Will continue coumadin for now and monitor her INR * HTN- blood pressure is stable
[2017-02-15] MEDS: Warfarin Sodium 10 MG TAB PO SCH (16:21)
--- NOTE | 2017-02-15 17:44 | PRG ---
DATE OF SERVICE: 02/15/2017 ELECTROPHYSIOLOGY FOLLOWUP NOTE SUBJECTIVE: Ms. Max is aphasic, she is doing fair and signals appropriately without any distres s. OBJECTIVE DATA: VITAL SIGNS: Blood pressure is 107/57, heart rate 81, respiratory rate 18, temperature 97.6 degrees Fahrenheit. GENERAL: He is alert and oriented woman in no apparent distress. NECK: Supple. Jugular veins not distended. CHEST: Coarse without crackles. CARDIOVASCULAR: Heart sounds are regular to rate and rhythm. No murmur or gallop. ABDOMEN: Benign. Bowel sounds positive. EXTREMITIES: Lower extremities without edema, clubbing or cyanosis. DATABASE: EKGs reveal continued atrial fibrillation and occasional RVR in the 120s mostly, heart miky nd 100 beats per minute. LABORATORY DATA: White count 18.2, hemoglobin 9.6, platelet count is 425. Sodium 140, potassium 4.2 , BUN is 12, creatinine 0.67. INR is 1.4. ASSESSMENT AND PLAN: Ms. Max is a pleasant 71-year-old woman with history of congestive heart f ailure. She has a history of atrial fibrillation who suffered a stroke in the setting of subtherapeu tic INR, now she is recovering from the stroke, still hemiplegic and aphasic. She resumed her warfar in, but her INR is still subtherapeutic. She had been using digoxin, increased dose yesterday and sh e was asked to continue diltiazem for rate control. We will be further increasing diltiazem if neces amanda and we could also consider adding Bystolic if need be for rate control. Alternatively, pacing and AV karla ablation could be considered. single chamber or BiV pacemak er, both could be considered. We will discuss with Dr. Dickerson.
--- NOTE | 2017-02-15 18:56 | PRG ---
DATE OF SERVICE: 02/15/2017 SERVICE: Pulmonary Medicine. INTERVAL HISTORY: The patient is doing much better from a respiratory standpoint. She is actually w alking with physical therapy. She required a significant amount of assistance, but it is nice to see her moving once again. She denies any overnight events. PHYSICAL EXAMINATION: VITAL SIGNS: Afebrile, pulse 78, blood pressure 122/72, respirations 18 and saturation 95% on 3 lite rs nasal cannula. HEENT: Normocephalic and atraumatic. Sclerae are white, conjunctivae pink. Oral and nasal mucosa i s moist without lesions. LUNGS: Excellent air entry. Minimal rhonchi. Slightly prolonged expiratory phase, but no wheezing or crackles. HEART: Normal rate and regular. ABDOMEN: Soft, nontender and nondistended. Bowel sounds positive. MUSCULOSKELETAL: No cyanosis or clubbing. No pitting in the bilateral lower extremities. LABORATORY DATA: WBC is trending upward again to 18.2, hemoglobin 11.6 and platelets 425,000. INR 1 .4. Potassium 4.2. Otherwise, basic metabolic profile is completely unremarkable. Blood cultures x 2, urine culture x2 is unremarkable. ASSESSMENT: 1. Acute hypoxic respiratory failure, stable. 2. Chronic obstructive pulmonary disease with acute exacerbation, resolved. 3. Healthcare-associated pneumonia, secondary to aspiration. 4. Oropharyngeal dysphagia, severe. 5. 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 6. Atrial fibrillation, paroxysmal. PLAN: We will continue aggressive efforts in mobilizing the patient and pulmonary toilet. She will work hard with physical therapy to regain the lost strength as she is currently doing. She clinicall y looks better. Unfortunately, the white blood cell count continues to trend upward. I will continu e the antibiotics for the time being. That being said, tomorrow will be 10 days of the antibiotics a nd they likely need to be discontinued unless we find something else to treat.
[2017-02-15] MEDS: Atorvastatin Calcium 20 MG TAB PO SCH (20:35)
[2017-02-16] MEDS: Piperacillin/Tazobactam 3.375 GM in Sodium Chloride 0.9% 100 ML IVPB SCH ×2 (03:45→11:56)
[2017-02-16 04:40] LABS: #Basophils 0.1 thou/uL (0.0-0.2); #Eosinphils 0.2 thou/uL (0.0-0.7); #Lymphocytes 1.4 thou/uL (1.20-3.40); #Monocytes 1.7 thou/uL (0.11-0.59); %Basophils 0.3 % (0.0-1.0); %Eosinophils 1.1 % (0.0-10.0); %Lymphocytes 7.7 % (21.0-51.0); %Monocytes 9.1 % (0.0-10.0); Hematocrit 34.5 % (36.0-47.0); Mean Platelet Volume 6.9 fL (7.4-10.4); White Blood Cell (WBC) Count 18.4 thou/uL (4.8-10.8)
[2017-02-16 04:47] LABS: Prothrombin Time 23.3 SEC (12.0-14.7)
[2017-02-16 05:08] LABS: Anion Gap 9 mmol/L (10-20); BUN (Urea Nitrogen) 14 mg/dL (9.8-20.1); Calc. Creatinine Clearance 52 mL/min (70-130); Calcium 9.1 mg/dL (7.8-10.44); Carbon Dioxide 35 mmol/L (23-31); Chloride 101 mmol/L (98-107); Estimated GFR-MDRD 71
--- NOTE | 2017-02-16 09:18 | PDOC.CTH ---
Cardiology Progress Note - Subjective Pt. seen and eval. by me. She voices no complaints. Answers by nodding. Moves right side minimally. - ROS not able to obtain ROS (but no complaints by questioning yes and no questions.) - Objective Vital Signs Temp Pulse Resp BP Pulse Ox 02/16/17 08:00 97.9 F 97 16 95 02/16/17 07:10 97.9 F 97 16 136/72 95 02/16/17 07:05 85 16 96 02/16/17 03:41 98.5 F 78 16 122/73 100 02/16/17 00:34 80 16 96 02/16/17 00:32 96 02/16/17 00:30 98.0 F 64 16 123/74 100 Admit Weight 101 lb 8 oz Weight 112 lb 8 oz 02/15/17 02/16/17 02/17/17 06:59 06:59 06:59 Intake Total 1326 1861 Balance 1326 1861 - Physical Examination General/Neuro: alert & oriented x3 Neck: no JVD present Lungs: other: (scattered rhonchi.) Heart: other: (irreg/irreg.HR 80-110's.) Abdomen: NT/ND, soft - Telemetry Telemetry Rhythm: atrial fibrillation. - Labs Result Diagrams: 02/16/17 04:15 02/16/17 04:15 Troponin/CKMB CK-MB (CK-2) 0.8 ng/mL (0-6.6) 02/07/17 02:02 Troponin I 0.044 ng/mL (< 0.028) H 02/07/17 02:02 - Assessment/Plan 1. Acute CVA in left MCA territory, likely embolic event 2ndary to hx of Afib - Coumadin to keep INR 2.0-3.0; managed by PCP. INR 2.0 today.Decrease warfarin to 5mg qd. 2. Paroxysmal Afib with RVR - Recurrent Afib with RVR on 02/13/17 an today; Digoxin was increased from 0.125mg to 0.25mg QD by EP; HR has been well controlled at this moment. EP Doctor discussed with the pt for possible pacemaker and AVJ ablation to control the rate vs medical treatment. At this moment, the pt refused to have PM placement; cont. monitor on tele. The HR and BP are more stable. From a cardiac ztandpoint she could go to rehab. 3. HTN - stable with current medication 4. Dysphagia - improved and on Diet; 5. COPD - cont. monitor. Prob. not a good candidate for betablockers but may need to try to control the rate.She was on Sotalol on her last d/c. 6. Tobacco Abuse - Smoking cessation education given MAR saumya
[2017-02-16] MEDS: Digoxin 0.25 MG TAB PO SCH (09:26)
[2017-02-16] MEDS: Vancomycin HCl 1 GM in Premix Bag 1 BAG IVPB SCH (09:26)
[2017-02-16] MEDS: Aspirin 81 mg Enteric Coated Tablet PO SCH (09:26)
[2017-02-16] MEDS: Furosemide 20 MG TAB PO SCH (09:28)
[2017-02-16] MEDS: Lisinopril 10 MG TAB PO SCH (09:28)
[2017-02-16] MEDS: Pantoprazole 40 MG VIAL IVP SCH (09:28)
[2017-02-16] MEDS: Dextrose 5 % And 0.9 % NaCl 1,000 ML IV SCH (09:35)
--- NOTE | 2017-02-16 10:07 | PDOC.PN ---
- Subjective Encounter Start Date: 02/16/17 Encounter Start Time: 10:04 Ms Max was seen today in follow-up. She indicates by nodding and shaking her head that she is feeling ok this morning - Objective Resuscitation Status: Resuscitation Status FULL:Full Resuscitation MAR Reviewed: Yes Vital Signs & Weight: Vital Signs (12 hours) Temp Pulse Resp BP BP Pulse Ox 02/16/17 09:28 136/72 02/16/17 09:26 105 H 02/16/17 08:00 97.9 F 97 16 95 02/16/17 07:10 97.9 F 97 16 136/72 95 02/16/17 07:05 85 16 96 02/16/17 03:41 98.5 F 78 16 122/73 100 02/16/17 00:34 80 16 96 02/16/17 00:32 96 02/16/17 00:30 98.0 F 64 16 123/74 100 Weight Admit Weight 101 lb 8 oz Weight 112 lb 8 oz Most Recent Monitor Data Heart Rate from ECG 62 NIBP 134/57 NIBP BP-Mean 89 Respiration from ECG 18 SpO2 98 I&O: 02/15/17 02/16/17 02/17/17 06:59 06:59 06:59 Intake Total 1326 1861 Balance 1326 1861 Result Diagrams: 02/16/17 04:15 02/16/17 04:15 Phys Exam - Physical Examination HEENT: PERRLA Respiratory: no wheezing, no rales, no rhonchi, clear to auscultation bilateral Cardiovascular: RRR, no significant murmur Gastrointestinal: soft, non-tender, positive bowel sounds Musculoskeletal: no edema Dx/Plan (1) Acute ischemic left MCA stroke Code(s): I63.512 - CEREB INFRC D/T UNSP OCCLS OR STENOS OF LEFT MID CEREB ART Status: Acute (2) Atrial fibrillation with RVR Code(s): I48.91 - UNSPECIFIED ATRIAL FIBRILLATION Status: Acute Comment: Digoxin d/c'd, continue Cardizem 60mg TID, current SR (3) Oropharyngeal dysphagia Code(s): R13.12 - DYSPHAGIA, OROPHARYNGEAL PHASE Status: Acute Comment: [employer] IN[employer] ENGINEER not recommending po intake currently, likely will need PEG placement however, pt not interested in PEG and may temporize with Dobhoff if unable to safely take po (4) Right flaccid hemiplegia Code(s): G81.01 - FLACCID HEMIPLEGIA AFFECTING RIGHT DOMINANT SIDE Status: Acute (5) HTN (hypertension) Code(s): I10 - ESSENTIAL (PRIMARY) HYPERTENSION Status: Chronic Qualifiers: Hypertension type: essential hypertension Qualified Code(s): I10 - Essential (primary) hypertension (6) Healthcare associated bacterial pneumonia Code(s): J15.9 - UNSPECIFIED BACTERIAL PNEUMONIA Status: Acute Comment: LLL involvement, likely gm + cocci, continue Zosyn and Vancomycin, pulmonary support - Plan * Acute CVA- patient continues with Aphasia. She is tolerating a diet however * AFIB- her heart rate is controlled * INR is now therapeutic, and her coumadin dose has been changed to 5mg * Pneumonia- clinically she appear improved, but she continues to have a leukocytosis,there is no sign of any new infection, continue with current antibiotics . * HTN- blood pressure is stable * Discharge planning is in progress
--- NOTE | 2017-02-16 13:40 | PRG ---
DATE OF SERVICE: 02/16/2017 SERVICE: Pulmonary Medicine. INTERVAL HISTORY: The patient actually got up and walked yesterday with physical therapy. She requi res considerable assistance, but she is working hard with them. Otherwise, she indicates that her br eathing is much more comfortable. She is having less rattle in her chest. Her cough is still extrao rdinarily weak. She is making an attempt to feed herself. PHYSICAL EXAMINATION: VITAL SIGNS: Afebrile, pulse 79, blood pressure 122/65, respirations 18, saturation 98% on 3 liters nasal cannula. GENERAL: Patient is awake, alert, in no apparent distress. LUNGS: Excellent air entry. There is a slightly prolonged expiratory phase, but no wheezing or crac kles are present. Rhonchi are evident. HEART: Normal rate and regular. ABDOMEN: Soft, nontender, nondistended. Bowel sounds are positive. MUSCULOSKELETAL: No cyanosis or clubbing. There is no pitting in the bilateral lower extremities. NEUROLOGIC: Grossly nonfocal. LABORATORY DATA: WBC 18.4, hemoglobin 11.1, and platelets 401,000. INR 2.0 as of today. Basic meta bolic profile was essentially unremarkable except for bicarbonate of 35. Sodium is 141 and creeping upward. Blood cultures x2 and urine culture x2 are negative. ASSESSMENT: 1. Acute hypoxic respiratory failure, stable. 2. Chronic obstructive pulmonary disease with acute exacerbation, resolved. 3. Healthcare-associated pneumonia, status post full course of antibiotics. 4. Oropharyngeal dysphagia, severe. 5. 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 6. Atrial fibrillation, paroxysmal. PLAN: We will continue aggressive efforts in mobilizing the patient. From a respiratory perspective , she is stable for transition out of the hospital. Steroids will be discontinued. She has complete d a course of antibiotics and these can also be discontinued.
[2017-02-16] MEDS: Warfarin Sodium 5 MG TAB PO SCH (17:26)
[2017-02-16 20:32] LABS: Vancomycin, Trough 24.6 ug/mL
--- NOTE | 2017-02-16 21:12 | PRG ---
DATE OF SERVICE: 02/16/2017 ELECTROPHYSIOLOGY FOLLOWUP NOTE SUBJECTIVE: Ms. Max seems to be doing fair. She attempts vocalization more, but still has a left-sided paresis. OBJECTIVE DATA: VITAL SIGNS: Blood pressure 172/55, heart rate 105, respirations 12. Patient is afebrile. GENERAL: She is alert and oriented woman, in no apparent distress. NECK: Supple. Jugular veins not distended. CHEST: Coarse without crackles. CARDIOVASCULAR: Heart sounds are irregularly irregular. S1 is variable. No murmur or gallop. ABDOMEN: Benign. Bowel sounds positive. EXTREMITIES: Lower extremities without edema. DATABASE: Telemetry strips revealed clinical atrial fibrillation overnight. This morning, has very slightly elevated heart rates over 100. ASSESSMENT AND PLAN: Ms. Max is a pleasant 71-year-old woman who unfortunately had a stroke with history of atrial fibrillation, now comes in for rate control therapy. She is back on anticoagulants as well. Heart rates are mostly reasonably control with digoxin and diltiazem. I will gradually try to increase the diltiazem even further. If rate comntrol is difficul, AVN ablation and pacing could be considered in the future , but hopefully we can avoid that in this lady who is just recovering from a large stroke. JULY
[2017-02-16] MEDS: Atorvastatin Calcium 20 MG TAB PO SCH (21:29)
[2017-02-16] MEDS: Vancomycin HCl 750 MG in Sodium Chloride 0.9% 250 ML 250 ML IVPB SCH (21:37)
[2017-02-17] MEDS: Dextrose 5 % And 0.9 % NaCl 1,000 ML IV SCH ×2 (00:09→18:04)
[2017-02-17 05:10] LABS: #Eosinphils 0.1 thou/uL (0.0-0.7); #Lymphocytes 1.2 thou/uL (1.20-3.40); #Monocytes 1.5 thou/uL (0.11-0.59); %Basophils 0.1 % (0.0-1.0); %Eosinophils 0.4 % (0.0-10.0); %Lymphocytes 5.9 % (21.0-51.0); %Monocytes 7.8 % (0.0-10.0); Hematocrit 32.7 % (36.0-47.0); Red Blood Cell (RBC) Count 3.42 mill/uL (4.20-5.40); White Blood Cell (WBC) Count 19.8 thou/uL (4.8-10.8)
[2017-02-17 05:38] LABS: Anion Gap 6 mmol/L (10-20); BUN (Urea Nitrogen) 13 mg/dL (9.8-20.1); Calc. Creatinine Clearance 55 mL/min (70-130); Calcium 9.1 mg/dL (7.8-10.44); Carbon Dioxide 36 mmol/L (23-31); Chloride 102 mmol/L (98-107); Estimated GFR-MDRD 75
[2017-02-17] MEDS: Potassium Chloride 20 MEQ TAB PO SCH ×2 (06:30→12:22)
[2017-02-17 07:38] LABS: Prothrombin Time 29.4 SEC (12.0-14.7)
--- NOTE | 2017-02-17 08:21 | PDOC.CTH ---
<Mariola Velarde - Last Filed: 02/17/17 08:18> Cardiology Progress Note - Subjective The pt seen and examined. No overnight events. No cardiac complaints. She answers questions with nodding and shaking her head. Able to follow commands. - Objective Vital Signs Temp Pulse Resp BP Pulse Ox 02/17/17 08:05 88 16 98 02/17/17 07:20 98.2 F 89 16 150/81 H 97 02/17/17 06:30 88 18 98 02/17/17 03:17 98.4 F 83 16 138/63 98 02/17/17 00:25 77 16 65 L 02/17/17 00:19 95 02/16/17 23:33 98.3 F 71 20 116/61 97 Admit Weight 101 lb 8 oz Weight 113 lb 9.6 oz 02/16/17 02/17/17 02/18/17 06:59 06:59 06:59 Intake Total 1861 2220 Balance 1861 2220 - Physical Examination General/Neuro: alert & oriented x3 Neck: no JVD present Lungs: other: (coase, Lt>Rt; diminished at bases) Heart: other: (Irregular) Extremities: other: (No edemas) - Telemetry Telemetry Rhythm: Afib HR 70-80s - Labs Result Diagrams: 02/17/17 04:24 02/17/17 04:24 Troponin/CKMB CK-MB (CK-2) 0.8 ng/mL (0-6.6) 02/07/17 02:02 Troponin I 0.044 ng/mL (< 0.028) H 02/07/17 02:02 - Assessment/Plan 1. Acute CVA in left MCA territory, likely embolic event 2ndary to hx of Afib - Coumadin to keep INR 2.0-3.0; managed by PCP. INR 2.7 today. 2. Paroxysmal Afib with RVR - Recurrent Afib with RVR on 02/13/17 and 02/16/17; Diltiazem was increased from 90mg TID to QID by EP with Digoxin 0.25mg QD; HR has been well controlled at this moment. EP Doctor discussed with the pt for possible pacemaker and AVJ ablation to control the rate vs medical treatment. At this moment, the pt refused to have PM placement; cont. monitor on tele. The HR and BP are more stable. From a cardiac standpoint she could go to rehab. 3. HTN - stable with current medication 4. Dysphagia - improved and on pureed Diet; 5. COPD - cont. monitor. Prob. not a good candidate for betablockers but may need to try to control the rate.She was on Sotalol on her last d/c. 6. Tobacco Abuse - Smoking cessation education given 7. Hypokalemia - Covered by PCP TIFF reviewed *From a cardiac standpoint, she is stable to tx to rehab. Review of Systems - Review of Systems Constitutional: reports: no symptoms reported EENTM: reports: no symptoms reported Respiratory: reports: no symptoms reported Cardiac (ROS): reports: no symptoms reported ABD/GI: reports: no symptoms reported : reports: no symptoms reported Musculoskeletal: reports: no symptoms reported Skin: reports: no symptoms reported Neurological: reports: no symptoms reported <Angela Dickerson - Last Filed: 02/17/17 13:51> Cardiology Progress Note - Objective Vital Signs Temp Pulse Pulse Pulse Resp BP BP 02/17/17 13:02 75 16 02/17/17 11:15 98.6 F 92 16 02/17/17 09:47 89 95 133/63 02/17/17 09:06 150/81 H 02/17/17 09:05 100 02/17/17 08:05 88 16 02/17/17 07:20 98.2 F 89 16 02/17/17 06:30 88 18 02/17/17 03:17 98.4 F 83 16 BP BP Pulse Ox 02/17/17 13:02 99 02/17/17 11:15 124/72 97 02/17/17 09:47 125/72 02/17/17 09:06 02/17/17 09:05 02/17/17 08:05 98 02/17/17 07:20 150/81 H 97 02/17/17 06:30 98 02/17/17 03:17 138/63 98 Admit Weight 101 lb 8 oz Weight 113 lb 9.6 oz 02/16/17 02/17/17 02/18/17 06:59 06:59 06:59 Intake Total 1861 2220 Balance 1861 2220 - Labs Result Diagrams: 02/17/17 04:24 02/17/17 04:24 Troponin/CKMB CK-MB (CK-2) 0.8 ng/mL (0-6.6) 02/07/17 02:02 Troponin I 0.044 ng/mL (< 0.028) H 02/07/17 02:02 - Assessment/Plan Pt. seen and evaluated. I agree with the A/P by the [employer] HAND. Meds reviewed. Prob. to rehab. soon.
--- NOTE | 2017-02-17 08:42 | PDOC.PN ---
- Subjective Encounter Start Date: 02/17/17 Encounter Start Time: 08:42 Ms. Max was seen in follow-up for acute CVA. She is awake and alert. She indicates no problems. She appears comfortable. - Objective Resuscitation Status: Resuscitation Status FULL:Full Resuscitation MAR Reviewed: Yes Vital Signs & Weight: Vital Signs (12 hours) Temp Pulse Resp BP Pulse Ox 02/17/17 08:05 88 16 98 02/17/17 07:20 98.2 F 89 16 150/81 H 97 02/17/17 06:30 88 18 98 02/17/17 03:17 98.4 F 83 16 138/63 98 02/17/17 00:25 77 16 65 L 02/17/17 00:19 95 02/16/17 23:33 98.3 F 71 20 116/61 97 Weight Admit Weight 101 lb 8 oz Weight 113 lb 9.6 oz Most Recent Monitor Data Heart Rate from ECG 62 NIBP 134/57 NIBP BP-Mean 89 Respiration from ECG 18 SpO2 98 I&O: 02/16/17 02/17/17 02/18/17 06:59 06:59 06:59 Intake Total 1861 2220 Balance 1861 2220 Result Diagrams: 02/17/17 04:24 02/17/17 04:24 Phys Exam - Physical Examination HEENT: PERRLA Neck: no nodes, no JVD, supple Respiratory: no wheezing, clear to auscultation bilateral Cardiovascular: no significant murmur, irregular Gastrointestinal: soft, non-tender, positive bowel sounds Musculoskeletal: no edema Dx/Plan (1) Acute ischemic left MCA stroke Code(s): I63.512 - CEREB INFRC D/T UNSP OCCLS OR STENOS OF LEFT MID CEREB ART Status: Acute (2) Atrial fibrillation with RVR Code(s): I48.91 - UNSPECIFIED ATRIAL FIBRILLATION Status: Acute Comment: Digoxin d/c'd, continue Cardizem 60mg TID, current SR (3) Oropharyngeal dysphagia Code(s): R13.12 - DYSPHAGIA, OROPHARYNGEAL PHASE Status: Acute Comment: SUPPORT DIRECTOR not recommending po intake currently, likely will need PEG placement however, pt not interested in PEG and may temporize with Dobhoff if unable to safely take po (4) Right flaccid hemiplegia Code(s): G81.01 - FLACCID HEMIPLEGIA AFFECTING RIGHT DOMINANT SIDE Status: Acute (5) HTN (hypertension) Code(s): I10 - ESSENTIAL (PRIMARY) HYPERTENSION Status: Chronic Qualifiers: Hypertension type: essential hypertension Qualified Code(s): I10 - Essential (primary) hypertension (6) Healthcare associated bacterial pneumonia Code(s): J15.9 - UNSPECIFIED BACTERIAL PNEUMONIA Status: Acute Comment: LLL involvement, likely gm + cocci, continue Zosyn and Vancomycin, pulmonary support - Plan * Acute CVA with aphasia, dysphagia and right hemiplegia.- continue PT OT and Speech therapy * She is currently tolerating a purred diet * AFIB- her heart rate is controlled with Cardizem and Digoxin * INR is now 2.7, will continue coumadin 5 mg a monitor trend * HTN - blood pressure is stable * Hypokalemia and Hypomagnesemia- replace * Pneumonia- she has completed a full course of antibiotics * She is stable for in-patient Rehab transfer
[2017-02-17] MEDS: Pantoprazole 40 MG VIAL IVP SCH (09:04)
[2017-02-17] MEDS: Aspirin 81 mg Enteric Coated Tablet PO SCH (09:05)
[2017-02-17] MEDS: Digoxin 0.25 MG TAB PO SCH (09:05)
[2017-02-17] MEDS: Lisinopril 10 MG TAB PO SCH (09:06)
[2017-02-17] MEDS: Furosemide 20 MG TAB PO SCH (09:06)
[2017-02-17] MEDS: Vancomycin HCl 750 MG in Sodium Chloride 0.9% 250 ML 250 ML IVPB SCH ×2 (12:04→21:45)
--- NOTE | 2017-02-17 15:48 | PRG ---
DATE OF SERVICE: 02/17/2017 SERVICE: Pulmonary Medicine. INTERVAL HISTORY: Her speech is a little clearer today. She still has difficulties with getting mos t of her words out. She is working with physical therapy as well as she can tolerate. Otherwise, th ere has been no interval change to her condition. She indicates her breathing is comfortable and has no chest discomfort. There is no longer rattle in her chest. PHYSICAL EXAMINATION: VITAL SIGNS: Afebrile pulse 92, blood pressure 124/72, respirations 16, saturation 97% on 2 liters n noe cannula. GENERAL: Patient is awake, alert, in no apparent distress. LUNGS: Excellent air entry. There is a slightly prolonged expiratory phase with rhonchi that cleare d with cough. HEART: Normal rate, regular. ABDOMEN: Soft, nontender, and nondistended. Bowel sounds positive. MUSCULOSKELETAL: No cyanosis or clubbing. No pitting in the bilateral lower extremities. NEUROLOGIC: Grossly nonfocal. LABORATORY DATA: WBC 19.8, hemoglobin 10.5, and platelets 401,000. INR 2.7. Potassium 2.9. Otherw ise, basic metabolic profile is unremarkable. Magnesium is 1.4. Blood cultures x2 and urine culture x2 are unremarkable. ASSESSMENT: 1. Acute hypoxic respiratory failure, stable. 2. Chronic obstructive pulmonary disease with acute exacerbation, resolved. 3. Healthcare-associated pneumonia, status post full course of antibiotics. 4. Oropharyngeal dysphagia, severe. 5. Cerebrovascular of the left middle cerebral artery resulting in hemiparesis. 6. Atrial fibrillation, paroxysmal. PLAN: Potassium and magnesium will be replaced today. I will repeat a chest x-ray to make certain t hat there is no worsening of the effusion or infiltrate. Pulmonary or Critical Care will continue to follow while she remains inhouse as she remains at extraordinarily high risk for recurrent respirato ry events.
[2017-02-17] MEDS ORDERED: Magnesium 2 GM/NS 0.9% 50 ML 2 GM in Premix Bag 1 BAG IVPB SCH (16:30)
[2017-02-17] MEDS: Warfarin Sodium 5 MG TAB PO SCH (18:00)
[2017-02-17] MEDS: Atorvastatin Calcium 20 MG TAB PO SCH (20:24)
[2017-02-18 06:02] LABS: Prothrombin Time 30.3 SEC (12.0-14.7)
[2017-02-18 06:04] LABS: Anisocytosis MODERATE=16-30 cells (100X) (0-5/hpf); Band 2 % (5-11); Hematocrit 32.5 % (36.0-47.0); Mean Platelet Volume 7.4 fL (7.4-10.4); Neutrophil 89 % (42-75); Red Blood Cell (RBC) Count 3.38 mill/uL (4.20-5.40); White Blood Cell (WBC) Count 20.2 thou/uL (4.8-10.8)
[2017-02-18 06:17] LABS: Anion Gap 10 mmol/L (10-20); BUN (Urea Nitrogen) 15 mg/dL (9.8-20.1); Calc. Creatinine Clearance 45 mL/min (70-130); Calcium 9.3 mg/dL (7.8-10.44); Carbon Dioxide 32 mmol/L (23-31); Chloride 107 mmol/L (98-107); Estimated GFR-MDRD 59
[2017-02-18] MEDS: Dextrose 5 % And 0.9 % NaCl 1,000 ML IV SCH ×3 (06:21→21:05)
[2017-02-18 09:28] LABS: Vancomycin, Trough 21.8 ug/mL
--- NOTE | 2017-02-18 09:47 | PDOC.PN ---
- Subjective Encounter Start Date: 02/18/17 Encounter Start Time: 08:00 states she is doing fine this morning with no complaints or acute night events - Objective Resuscitation Status: Resuscitation Status FULL:Full Resuscitation Vital Signs & Weight: Vital Signs (12 hours) Temp Pulse Resp BP Pulse Ox 02/18/17 07:42 86 16 97 02/18/17 07:05 99.5 F 83 17 168/90 H 95 02/18/17 06:30 86 16 97 02/18/17 03:13 98.7 F 87 16 135/67 95 02/18/17 01:01 97 02/17/17 23:11 98.7 F 83 20 146/71 H 92 L Weight Admit Weight 101 lb 8 oz Weight 114 lb 3.2 oz Most Recent Monitor Data Heart Rate from ECG 62 NIBP 134/57 NIBP BP-Mean 89 Respiration from ECG 18 SpO2 98 I&O: 02/17/17 02/18/17 02/19/17 06:59 06:59 06:59 Intake Total 2220 2316 Balance 2220 2316 Result Diagrams: 02/18/17 03:40 02/18/17 03:40 Phys Exam - Physical Examination HEENT: PERRLA, moist MMs, sclera anicteric Neck: no nodes, no JVD, supple, full ROM Respiratory: no wheezing, clear to auscultation bilateral Cardiovascular: RRR, no significant murmur Gastrointestinal: soft, non-tender Musculoskeletal: no edema, pulses present Psychiatric: normal affect, A&O x 3 Skin: no rash, normal turgor, cap refill <2 seconds Dx/Plan (1) Acute CVA (cerebrovascular accident) Code(s): I63.9 - CEREBRAL INFARCTION, UNSPECIFIED Status: Acute (2) Acute ischemic left MCA stroke Code(s): I63.512 - CEREB INFRC D/T UNSP OCCLS OR STENOS OF LEFT MID CEREB ART Status: Acute (3) Acute respiratory failure with hypoxia Code(s): J96.01 - ACUTE RESPIRATORY FAILURE WITH HYPOXIA Status: Acute (4) Atrial fibrillation with RVR Code(s): I48.91 - UNSPECIFIED ATRIAL FIBRILLATION Status: Acute Comment: Digoxin d/c'd, continue Cardizem 60mg TID, current SR (5) Demand ischemia of myocardium Code(s): I24.8 - OTHER FORMS OF ACUTE ISCHEMIC HEART DISEASE Status: Acute (6) Healthcare associated bacterial pneumonia Code(s): J15.9 - UNSPECIFIED BACTERIAL PNEUMONIA Status: Acute Comment: LLL involvement, likely gm + cocci, continue Zosyn and Vancomycin, pulmonary support - Plan cont current plan of care, plan discussed w/ family, PT/OT, [employer] teacher, respiratory therapy * . pending inpatient rehab acceptance continue current plan in place at this time currently receiving neb treatment
[2017-02-18] MEDS: Pantoprazole 40 MG VIAL IVP SCH (09:48)
[2017-02-18] MEDS: Digoxin 0.25 MG TAB PO SCH (09:49)
[2017-02-18] MEDS: Lisinopril 10 MG TAB PO SCH (09:50)
[2017-02-18] MEDS: Aspirin 81 mg Enteric Coated Tablet PO SCH ×2 (09:50→10:22)
[2017-02-18] MEDS: Furosemide 20 MG TAB PO SCH (09:50)
[2017-02-18] MEDS: Vancomycin HCl 500 MG in Sodium Chloride 0.9% 100 ML IVPB SCH ×2 (10:56→22:17)
--- NOTE | 2017-02-18 13:20 | RAD ---
2 VIEW CHEST: Date: 02/18/17 INDICATION: Elevated white cell count. FINDINGS: There is abnormal left basilar density compatible with pleural fluid. Adjacent atelectasis and/or pne umonia not excluded. There is vascular prominence and interstitial opacification of each lung. The ca rdiac silhouette is enlarged. Vascular calcifications and osseous degenerative change present. IMPRESSION: 1. Left pleural effusion with adjacent atelectasis and/or pneumonia. 2. CHF. 3. Follow-up to resolution is recommended. POS: FATOU
--- NOTE | 2017-02-18 15:31 | PDOC.CTH ---
Cardiology Progress Note - Subjective No new issues. - Objective Vital Signs Temp Pulse Resp BP BP Pulse Ox 02/18/17 13:02 81 16 98 02/18/17 11:05 99 F 112 H 20 141/87 H 100 02/18/17 09:50 168/90 H 02/18/17 09:49 106 H 02/18/17 08:05 99.5 F 106 H 17 95 02/18/17 07:42 86 16 97 02/18/17 07:05 99.5 F 83 17 168/90 H 95 02/18/17 06:30 86 16 97 Admit Weight 101 lb 8 oz Weight 114 lb 3.2 oz 02/17/17 02/18/17 02/19/17 06:59 06:59 06:59 Intake Total 2220 2316 720 Balance 2220 2316 720 - Physical Examination General/Neuro: NAD Neck: no JVD present Lungs: unlabored respirations Heart: other: (Irreg) Abdomen: NT/ND Extremities: other: (no edema) - Telemetry Telemetry Rhythm: Afib HR 80's. - Labs Result Diagrams: 02/18/17 03:40 02/18/17 03:40 Troponin/CKMB CK-MB (CK-2) 0.8 ng/mL (0-6.6) 02/07/17 02:02 Troponin I 0.044 ng/mL (< 0.028) H 02/07/17 02:02 - Assessment/Plan 1. Acute CVA in left MCA territory, likely embolic event 2ndary to hx of Afib 2. Paroxysmal Afib with RVR 3. HTN 4. Dysphagia 5. COPD 6. Tobacco Abuse PLAN: - Continue rate control. - Coumadin for stroke prophylaxis. - CV stable otherwise.
[2017-02-18] MEDS: Warfarin Sodium 5 MG TAB PO SCH (17:06)
[2017-02-18] MEDS: Atorvastatin Calcium 20 MG TAB PO SCH (21:05)
--- NOTE | 2017-02-18 22:30 | PRG ---
DATE OF SERVICE: 02/18/2017 SERVICE: Pulmonary Medicine. INTERVAL HISTORY: The patient is doing really quite remarkable from a respiratory standpoint. She i s breathing comfortably. Her white blood cell count; however, continues to trend upward. Otherwise, there were no acute events. PHYSICAL EXAMINATION: VITAL SIGNS: Afebrile, pulse 88, blood pressure 146/69, respirations 18, saturation 100% on 2 liters nasal cannula. GENERAL: Patient is awake, alert, in no apparent distress. LUNGS: Excellent air entry. There is a slightly prolonged expiratory phase, but I do not appreciate any wheezing, rales, or crackles today. HEART: Normal rate, regular. ABDOMEN: Soft, nontender, nondistended. Bowel sounds positive. MUSCULOSKELETAL: No cyanosis or clubbing. No pitting in the bilateral lower extremities. LABORATORY DATA: WBC 20.2. Hemoglobin 10.5, platelets 382,000 and settling down. Band count is onl y 2% and total neutrophil count is 89%. INR 2.8. Basic metabolic profile is otherwise unremarkable. Potassium 3.6. Repeat urinalysis was essentially unremarkable. Blood cultures x2 and urine cultur es x2 are unremarkable. IMAGING: Chest x-ray demonstrates cardiomegaly, pulmonary vascular congestion, and a left-sided pleu ral effusion. There may be a parenchymal abnormality in the left base, but this really can be identi fied. ASSESSMENT: 1. Acute hypoxic respiratory failure, stable. 2. Chronic obstructive pulmonary disease with acute exacerbation, resolved. 3. Healthcare-associated pneumonia, status post full course of antibiotics. 4. Oropharyngeal dysphagia, severe. 5. 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 6. Atrial fibrillation, paroxysmal. PLAN: We will replace the potassium once again. I will check a magnesium and potassium once again t omorrow morning. If the white blood cell count continues to trend up, we forced to do a thoracentesi s to make certain that these spaces sterile. Pulmonary Critical Care will continue to follow while t he patient remains in house.
[2017-02-19 04:51] LABS: #Basophils 0.1 thou/uL (0.0-0.2); #Monocytes 1.7 thou/uL (0.11-0.59); #Neutrophils 19.6 thou/uL (1.40-6.50); %Basophils 0.2 % (0.0-1.0); %Eosinophils 0.2 % (0.0-10.0); %Lymphocytes 4.5 % (21.0-51.0); %Monocytes 7.4 % (0.0-10.0); Hematocrit 33.6 % (36.0-47.0); Red Blood Cell (RBC) Count 3.48 mill/uL (4.20-5.40); White Blood Cell (WBC) Count 22.4 thou/uL (4.8-10.8)
[2017-02-19 04:58] LABS: Anion Gap 12 mmol/L (10-20); BUN (Urea Nitrogen) 18 mg/dL (9.8-20.1); Calc. Creatinine Clearance 41 mL/min (70-130); Calcium 9.6 mg/dL (7.8-10.44); Carbon Dioxide 30 mmol/L (23-31); Chloride 107 mmol/L (98-107); Estimated GFR-MDRD 53; Magnesium 1.5 mg/dL (1.6-2.6)
[2017-02-19 04:59] LABS: Prothrombin Time 32.5 SEC (12.0-14.7)
[2017-02-19] MEDS: Digoxin 0.25 MG TAB PO SCH (09:03)
[2017-02-19] MEDS: Pantoprazole 40 MG VIAL IVP SCH (09:04)
[2017-02-19] MEDS: Lisinopril 10 MG TAB PO SCH (09:04)
[2017-02-19] MEDS: Furosemide 20 MG TAB PO SCH (09:04)
--- NOTE | 2017-02-19 09:45 | PDOC.CTH ---
Cardiology Progress Note - Subjective No complaints. - Objective Vital Signs Temp Pulse Resp BP BP Pulse Ox 02/19/17 09:04 137/94 H 02/19/17 09:03 98 02/19/17 08:00 99.1 F 106 H 18 93 L 02/19/17 07:11 99.1 F 106 H 18 137/94 H 93 L 02/19/17 06:50 127 H 18 171/83 H 02/19/17 06:05 94 16 93 L 02/19/17 03:30 99.3 F 93 20 170/91 H 94 L 02/18/17 23:12 97.5 F L 84 24 H 126/69 97 02/18/17 23:04 96 Admit Weight 101 lb 8 oz Weight 115 lb 4.8 oz 02/18/17 02/19/17 02/20/17 06:59 06:59 06:59 Intake Total 2316 3530 Balance 2316 3530 - Physical Examination General/Neuro: NAD Neck: no JVD present Lungs: unlabored respirations Heart: other: (Irreg) Abdomen: soft Extremities: other: (no edema.) - Telemetry Telemetry Rhythm: Afib mHR 110-130 - Labs Result Diagrams: 02/19/17 04:12 02/19/17 04:12 Troponin/CKMB CK-MB (CK-2) 0.8 ng/mL (0-6.6) 02/07/17 02:02 Troponin I 0.044 ng/mL (< 0.028) H 02/07/17 02:02 - Assessment/Plan 1. Acute CVA in left MCA territory, likely embolic event 2ndary to hx of Afib 2. Paroxysmal Afib currntly in RVR 3. HTN 4. Dysphagia 5. COPD 6. Tobacco Abuse PLAN: - Continue rate control, will restart diltiazem drip as rate ois not well controlled. - Coumadin for stroke prophylaxis.
--- NOTE | 2017-02-19 09:56 | PDOC.PN ---
- Subjective Encounter Start Date: 02/19/17 Encounter Start Time: 08:00 denies any major complaints. HR not well controlled during the night. denies SOB , fever or chest pain - Objective Resuscitation Status: Resuscitation Status FULL:Full Resuscitation Vital Signs & Weight: Vital Signs (12 hours) Temp Pulse Resp BP BP Pulse Ox 02/19/17 09:04 137/94 H 02/19/17 09:03 98 02/19/17 08:00 99.1 F 106 H 18 93 L 02/19/17 07:11 99.1 F 106 H 18 137/94 H 93 L 02/19/17 06:50 127 H 18 171/83 H 02/19/17 06:05 94 16 93 L 02/19/17 03:30 99.3 F 93 20 170/91 H 94 L 02/18/17 23:12 97.5 F L 84 24 H 126/69 97 02/18/17 23:04 96 Weight Admit Weight 101 lb 8 oz Weight 115 lb 4.8 oz Most Recent Monitor Data Heart Rate from ECG 62 NIBP 134/57 NIBP BP-Mean 89 Respiration from ECG 18 SpO2 98 I&O: 02/18/17 02/19/17 02/20/17 06:59 06:59 06:59 Intake Total 2316 3530 Balance 2316 3530 Result Diagrams: 02/19/17 04:12 02/19/17 04:12 Phys Exam - Physical Examination HEENT: PERRLA, moist MMs, sclera anicteric Neck: no nodes, no JVD, supple decreased breath sounds on left side Cardiovascular: irregular tachycardic Gastrointestinal: soft, non-tender, no distention, positive bowel sounds Musculoskeletal: pulses present Lymphatic: no nodes Psychiatric: normal affect, A&O x 3 Skin: normal turgor, cap refill <2 seconds Dx/Plan (1) Acute CVA (cerebrovascular accident) Code(s): I63.9 - CEREBRAL INFARCTION, UNSPECIFIED Status: Acute (2) Acute ischemic left MCA stroke Code(s): I63.512 - CEREB INFRC D/T UNSP OCCLS OR STENOS OF LEFT MID CEREB ART Status: Acute (3) Acute respiratory failure with hypoxia Code(s): J96.01 - ACUTE RESPIRATORY FAILURE WITH HYPOXIA Status: Acute (4) Atrial fibrillation with RVR Code(s): I48.91 - UNSPECIFIED ATRIAL FIBRILLATION Status: Acute Comment: Digoxin d/c'd, continue Cardizem 60mg TID, current SR (5) Demand ischemia of myocardium Code(s): I24.8 - OTHER FORMS OF ACUTE ISCHEMIC HEART DISEASE Status: Acute (6) Healthcare associated bacterial pneumonia Code(s): J15.9 - UNSPECIFIED BACTERIAL PNEUMONIA Status: Acute Comment: LLL involvement, likely gm + cocci, continue Zosyn and Vancomycin, pulmonary support - Plan cont current plan of care, plan discussed w/ family, PT/OT * . not well rate controlled restart cardizem drip WBC trending upward. possibly will need thoracocentesis will defer to Pulm if believed is required as their is no other source of why it is going upwards continue current plan otherwise
[2017-02-19] MEDS: Dextrose 5 % And 0.9 % NaCl 1,000 ML IV SCH (10:29)
[2017-02-19] MEDS: Vancomycin HCl 500 MG in Sodium Chloride 0.9% 100 ML IVPB SCH (10:29)
[2017-02-19] MEDS: Warfarin Sodium 2 MG TAB PO SCH (16:30)
--- NOTE | 2017-02-19 20:35 | PRG ---
DATE OF SERVICE: 02/19/2017 SERVICE: Pulmonary Medicine. INTERVAL HISTORY: The patient is doing okay from a respiratory standpoint. She currently denies any fevers, chills, nausea, or vomiting. She is not having any significant difficulty breathing and she is clearing her airway. Otherwise, there has been no interval change to her condition. PHYSICAL EXAMINATION: VITAL SIGNS: Afebrile, pulse 86, blood pressure 140/74, respirations 16, saturation 98% on 2 liters nasal cannula. HEENT: Normocephalic, atraumatic. Sclerae are white. Conjunctivae pink. Oral and nasal mucosa is moist without lesions. LUNGS: Decent air entry. There is no prolonged expiratory phase or wheezing. HEART: Normal rate, regular. ABDOMEN: Soft, nontender, nondistended. Bowel sounds positive. MUSCULOSKELETAL: No cyanosis or clubbing. No pitting in the bilateral lower extremities. LABORATORY DATA: WBC is up trending to 22.4, hemoglobin 10.8, platelets 406,000. Creatinine 1.03, s odium 145 and stable. Basic metabolic profile is otherwise unremarkable. Magnesium is 1.5. ASSESSMENT: 1. Acute hypoxic respiratory failure, stable. 2. Chronic obstructive pulmonary disease with acute exacerbation. 3. Healthcare-associated pneumonia, status post full course of antibiotics. 4. Pleural effusion. 5. Oropharyngeal dysphasia, severe. 6. 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 7. Atrial fibrillation. PLAN: We will perform a thoracentesis tomorrow. I do not have any other explanation for why the [facility] te blood cell count continues to trend upward. In the meantime, we will continue supportive care inc luding antibiotics. If she has a fever, we are going to repeat panculture.
[2017-02-19] MEDS ORDERED: Magnesium 2 GM/NS 0.9% 50 ML 2 GM in Premix Bag 1 BAG IVPB SCH (21:00)
[2017-02-19] MEDS: Atorvastatin Calcium 20 MG TAB PO SCH (21:12)
[2017-02-19 21:25] LABS: Vancomycin, Trough 22.2 ug/mL
[2017-02-20] MEDS ORDERED: Furosemide 20 MG/2 ML VIAL SLOW IVP SCH (00:15)
[2017-02-20] MEDS: Dextrose 5 % And 0.9 % NaCl 1,000 ML IV SCH ×2 (01:35→09:40)
[2017-02-20 05:13] LABS: #Lymphocytes 1.1 thou/uL (1.20-3.40); #Monocytes 1.8 thou/uL (0.11-0.59); #Neutrophils 19.4 thou/uL (1.40-6.50); %Basophils 0.1 % (0.0-1.0); %Eosinophils 0.1 % (0.0-10.0); %Monocytes 7.9 % (0.0-10.0); Mean Platelet Volume 7.2 fL (7.4-10.4); Red Blood Cell (RBC) Count 3.55 mill/uL (4.20-5.40); White Blood Cell (WBC) Count 22.3 thou/uL (4.8-10.8)
[2017-02-20 05:34] LABS: Anion Gap 13 mmol/L (10-20); BUN (Urea Nitrogen) 21 mg/dL (9.8-20.1); Calc. Creatinine Clearance 36 mL/min (70-130); Calcium 9.6 mg/dL (7.8-10.44); Carbon Dioxide 32 mmol/L (23-31); Chloride 107 mmol/L (98-107); Estimated GFR-MDRD 47; Magnesium 2.2 mg/dL (1.6-2.6); Phosphorus 3.4 mg/dL (2.3-4.7)
--- NOTE | 2017-02-20 07:56 | PDOC.PN ---
- Subjective Encounter Start Date: 02/20/17 Encounter Start Time: 07:54 Subjective: no distress, aphasic - Objective Resuscitation Status: Resuscitation Status FULL:Full Resuscitation MAR Reviewed: Yes Vital Signs & Weight: Vital Signs (12 hours) Temp Pulse Resp BP Pulse Ox 02/20/17 07:47 86 16 97 02/20/17 04:06 98.7 F 75 16 153/77 H 97 02/19/17 23:52 87 L 02/19/17 23:06 97.8 F 87 26 H 168/83 H 87 L Weight Admit Weight 101 lb 8 oz Weight 109 lb 14.4 oz Most Recent Monitor Data Heart Rate from ECG 62 NIBP 134/57 NIBP BP-Mean 89 Respiration from ECG 18 SpO2 98 I&O: 02/19/17 02/20/17 02/21/17 06:59 06:59 06:59 Intake Total 3530 2410 Balance 3530 2410 Result Diagrams: 02/20/17 04:32 02/20/17 04:32 Phys Exam - Physical Examination Constitutional: NAD Neck: no JVD Respiratory: clear to auscultation bilateral Cardiovascular: irregular Gastrointestinal: soft, non-tender, positive bowel sounds Musculoskeletal: pulses present, edema present aphasic, dense R spastic hemiparesis Dx/Plan (1) Acute CVA (cerebrovascular accident) Code(s): I63.9 - CEREBRAL INFARCTION, UNSPECIFIED Status: Acute (2) Acute ischemic left MCA stroke Code(s): I63.512 - CEREB INFRC D/T UNSP OCCLS OR STENOS OF LEFT MID CEREB ART Status: Acute (3) Acute respiratory failure with hypoxia Code(s): J96.01 - ACUTE RESPIRATORY FAILURE WITH HYPOXIA Status: Acute (4) Atrial fibrillation with RVR Code(s): I48.91 - UNSPECIFIED ATRIAL FIBRILLATION Status: Acute Comment: Digoxin d/c'd, continue Cardizem 60mg TID, current SR (5) Demand ischemia of myocardium Code(s): I24.8 - OTHER FORMS OF ACUTE ISCHEMIC HEART DISEASE Status: Acute (6) Healthcare associated bacterial pneumonia Code(s): J15.9 - UNSPECIFIED BACTERIAL PNEUMONIA Status: Acute Comment: LLL involvement, likely gm + cocci, continue Zosyn and Vancomycin, pulmonary support (7) Oropharyngeal dysphagia Code(s): R13.12 - DYSPHAGIA, OROPHARYNGEAL PHASE Status: Acute Comment: RUBBER WASHER not recommending po intake currently, likely will need PEG placement however, pt not interested in PEG and may temporize with Dobhoff if unable to safely take po (8) HTN (hypertension) Code(s): I10 - ESSENTIAL (PRIMARY) HYPERTENSION Status: Chronic Qualifiers: Hypertension type: essential hypertension Qualified Code(s): I10 - Essential (primary) hypertension (9) Moderate tricuspid regurgitation Code(s): I07.1 - RHEUMATIC TRICUSPID INSUFFICIENCY Status: Chronic (10) Tobacco abuse Code(s): Z72.0 - TOBACCO USE Status: Chronic Comment: Tobacco cessation (11) COPD exacerbation Code(s): J44.1 - CHRONIC OBSTRUCTIVE PULMONARY DISEASE W (ACUTE) EXACERBATION Status: Acute - Plan cont diltiazem, anticoag -: cont nebs, antibx. possible thoracentesis today -: PT/OT/ST -: discuss with cardiology, etc * .
[2017-02-20] MEDS: Digoxin 0.25 MG TAB PO SCH (08:32)
[2017-02-20] MEDS: Furosemide 20 MG TAB PO SCH (08:32)
[2017-02-20] MEDS: Pantoprazole 40 MG VIAL IVP SCH (08:33)
[2017-02-20] MEDS: Lisinopril 10 MG TAB PO SCH (08:33)
[2017-02-20] MEDS ORDERED: Vancomycin HCl 750 MG in Sodium Chloride 0.9% 250 ML 250 ML IVPB SCH (10:00)
[2017-02-20] MEDS: Dextrose 5% in Water 1,000 ML IV SCH (13:06)
[2017-02-20 13:07] LABS: BF Reference Range Comment Note:
[2017-02-20 14:04] LABS: BF Color Yellow; RBC Count-Automated 15000 /cumm
[2017-02-20] MEDS: Diltiazem HCl SR 90 mg Capsule PO SCH ×2 (14:22→22:44)
[2017-02-20 14:44] LABS: Number Cells Counted-Fluids 100
[2017-02-20] MEDS: Warfarin Sodium 2 MG TAB PO SCH (17:05)
--- NOTE | 2017-02-20 18:14 | PRG ---
DATE OF SERVICE: 02/20/2017 SERVICE: Pulmonary Medicine. INTERVAL HISTORY: The patient is doing fine from a respiratory standpoint. She is breathing comfort ably. She does not have much in the way of cough or sputum production. She is participating with ph ysical therapy as well as physiotherapy. She denies any current fevers, chills, nausea, vomiting or chest discomfort. Her strength improves day by day. PHYSICAL EXAMINATION: VITAL SIGNS: Afebrile, pulse 96, blood pressure 159/79, respirations 16, saturation 97% on 2 liters nasal cannula. GENERAL: Patient is awake and alert, in no apparent distress. LUNGS: Excellent air entry. I do not appreciate any prolonged expiratory phase, wheezing, rhonchi o r crackles. HEART: Normal rate, regular. ABDOMEN: Soft, nontender, nondistended. Bowel sounds positive. MUSCULOSKELETAL: No cyanosis or clubbing. No pitting in the bilateral lower extremities. NEUROLOGIC: Grossly nonfocal. LABORATORY DATA: WBC 22.3, hemoglobin 10.9, platelets 441,000. Neutrophil count is elevated at 87%. INR 2.7. Creatinine 1.13, sodium 149, potassium 3.4. BUN and bicarbonate are both going up. Magn esium and phosphorus fall within normal limits; however. Pleural fluid pH is 7.5. It is nonhematolo gic cell predominant, but there are 39% neutrophils. LDH and total protein are fairly low. Pleural glucose is 127. Vancomycin level 22.2. Blood cultures x2, urine culture x2, and body fluid culture are all unremarkable. Cytology is currently pending. ASSESSMENT: 1. Acute hypoxic respiratory failure. 2. Chronic obstructive pulmonary disease with acute exacerbation, resolved. 3. Healthcare-associated pneumonia, status post full course of antibiotics. 4. Pleural effusion, status post thoracentesis. 5. Oropharyngeal dysphasia, improving. 6. Cerebrovascular accident of the left middle cerebral artery, resulting in hemiparesis. 7. Atrial fibrillation. PLAN: The thoracentesis has been performed. The fluid is most consistent with transudate given its low protein and LDH. Outside that, it is predominantly neutrophils suggesting that we are dealing wi th this previous uncomplicated parapneumonic effusion that is currently resolving. On ultrasound, it was completely free flowing. I could see the outline of the lung very clearly and it was slightly a telectatic versus consolidated. If the white blood cell count continues to persist, CT scan may need to be considered as this basis clearly not infected. I will continue to follow along.
[2017-02-20] MEDS: Atorvastatin Calcium 20 MG TAB PO SCH (22:44)
[2017-02-21] MEDS: Dextrose 5% in Water 1,000 ML IV SCH ×2 (03:04→20:47)
[2017-02-21 04:50] LABS: #Lymphocytes 1.1 thou/uL (1.20-3.40); #Monocytes 1.6 thou/uL (0.11-0.59); #Neutrophils 19.1 thou/uL (1.40-6.50); %Basophils 0.2 % (0.0-1.0); %Eosinophils 0.1 % (0.0-10.0); %Lymphocytes 4.9 % (21.0-51.0); %Monocytes 7.1 % (0.0-10.0); Mean Platelet Volume 7.2 fL (7.4-10.4); Red Blood Cell (RBC) Count 3.62 mill/uL (4.20-5.40); White Blood Cell (WBC) Count 21.8 thou/uL (4.8-10.8)
[2017-02-21 04:57] LABS: Prothrombin Time 31.5 SEC (12.0-14.7)
[2017-02-21 05:06] LABS: Anion Gap 10 mmol/L (10-20); BUN (Urea Nitrogen) 24 mg/dL (9.8-20.1); Calc. Creatinine Clearance 40 mL/min (70-130); Calcium 9.5 mg/dL (7.8-10.44); Carbon Dioxide 35 mmol/L (23-31); Chloride 104 mmol/L (98-107); Estimated GFR-MDRD 53
[2017-02-21 08:21] LABS: Fungus Smear Status Final report (.)
--- NOTE | 2017-02-21 08:25 | PDOC.PN ---
- Subjective Encounter Start Date: 02/21/17 Encounter Start Time: 08:21 Subjective: alert, aphasic - Objective Resuscitation Status: Resuscitation Status FULL:Full Resuscitation MAR Reviewed: Yes Vital Signs & Weight: Vital Signs (12 hours) Temp Pulse Resp BP Pulse Ox 02/21/17 08:18 80 14 02/21/17 08:00 98.5 F 72 16 170/91 H 98 02/21/17 07:18 98 F 73 16 130/58 L 99 02/21/17 05:30 96 02/21/17 03:38 98.6 F 90 22 H 172/104 H 94 L 02/20/17 23:26 98.8 F 91 22 H 167/94 H 97 02/20/17 21:08 88 16 96 Weight Admit Weight 101 lb 8 oz Weight 111 lb 4.8 oz Most Recent Monitor Data Heart Rate from ECG 62 NIBP 134/57 NIBP BP-Mean 89 Respiration from ECG 18 SpO2 98 I&O: 02/20/17 02/21/17 02/22/17 06:59 06:59 06:59 Intake Total 2410 3216 Balance 2410 3216 Result Diagrams: 02/21/17 03:55 02/21/17 03:55 Phys Exam - Physical Examination Constitutional: NAD Neck: no JVD Respiratory: clear to auscultation bilateral anterior Cardiovascular: irregular Gastrointestinal: soft, non-tender, positive bowel sounds Musculoskeletal: edema present aphasic, R hemiplegia Dx/Plan (1) Acute CVA (cerebrovascular accident) Code(s): I63.9 - CEREBRAL INFARCTION, UNSPECIFIED Status: Acute (2) Acute ischemic left MCA stroke Code(s): I63.512 - CEREB INFRC D/T UNSP OCCLS OR STENOS OF LEFT MID CEREB ART Status: Acute (3) Acute respiratory failure with hypoxia Code(s): J96.01 - ACUTE RESPIRATORY FAILURE WITH HYPOXIA Status: Acute (4) Atrial fibrillation with RVR Code(s): I48.91 - UNSPECIFIED ATRIAL FIBRILLATION Status: Acute Comment: Digoxin d/c'd, continue Cardizem 60mg TID, current SR (5) Demand ischemia of myocardium Code(s): I24.8 - OTHER FORMS OF ACUTE ISCHEMIC HEART DISEASE Status: Acute (6) Healthcare associated bacterial pneumonia Code(s): J15.9 - UNSPECIFIED BACTERIAL PNEUMONIA Status: Acute Comment: LLL involvement, likely gm + cocci, continue Zosyn and Vancomycin, pulmonary support (7) Oropharyngeal dysphagia Code(s): R13.12 - DYSPHAGIA, OROPHARYNGEAL PHASE Status: Acute Comment: IC ENGINEER not recommending po intake currently, likely will need PEG placement however, pt not interested in PEG and may temporize with Dobhoff if unable to safely take po (8) HTN (hypertension) Code(s): I10 - ESSENTIAL (PRIMARY) HYPERTENSION Status: Chronic Qualifiers: Hypertension type: essential hypertension Qualified Code(s): I10 - Essential (primary) hypertension (9) Moderate tricuspid regurgitation Code(s): I07.1 - RHEUMATIC TRICUSPID INSUFFICIENCY Status: Chronic (10) Tobacco abuse Code(s): Z72.0 - TOBACCO USE Status: Chronic Comment: Tobacco cessation (11) COPD exacerbation Code(s): J44.1 - CHRONIC OBSTRUCTIVE PULMONARY DISEASE W (ACUTE) EXACERBATION Status: Acute (12) Pleural effusion associated with pulmonary infection Code(s): J18.9 - PNEUMONIA, UNSPECIFIED ORGANISM; J91.8 - PLEURAL EFFUSION IN OTHER CONDITIONS CLASSIFIED ELSEWHERE Status: Acute (13) Leukocytosis Code(s): D72.829 - ELEVATED WHITE BLOOD CELL COUNT, UNSPECIFIED Status: Acute - Plan proceed with CT of chest -: cont diltiazem, discuss with cardiology -: cont coumadin- INR 2.9 * .
[2017-02-21] MEDS: Pantoprazole 40 MG VIAL IVP SCH (09:42)
[2017-02-21] MEDS: Diltiazem HCl SR 90 mg Capsule PO SCH ×3 (09:42→20:48)
[2017-02-21] MEDS: Lisinopril 10 MG TAB PO SCH (09:42)
[2017-02-21] MEDS: Digoxin 0.25 MG TAB PO SCH (09:42)
[2017-02-21 10:19] LABS: Band 2 % (5-11); Hematocrit 38.7 % (36.0-47.0); Hypersemented Neutrophil SLIGHT; Mean Platelet Volume 6.8 fL (7.4-10.4); Neutrophil 83 % (42-75); Red Blood Cell (RBC) Count 4.03 mill/uL (4.20-5.40); White Blood Cell (WBC) Count 19.8 thou/uL (4.8-10.8)
--- NOTE | 2017-02-21 10:42 | OP ---
DATE OF PROCEDURE: 02/21/2017 SERVICE: Pulmonary Medicine. PROCEDURE: Left pleural drainage with catheter insertion under ultrasound guidance. CONSENT: The risks and benefits of this procedure were explained to the patient at bedside. All que stions were answered and alternative options explained. STAFF PHYSICIAN: Aaron Brooks M.D. MEDICATIONS USED: Lidocaine 1% without epinephrine, total quantity 8 mL. PREOPERATIVE DIAGNOSES: 1. Sepsis. 2. Pleural effusion. POSTPROCEDURE DIAGNOSES: 1. Sepsis. 2. Pleural effusion. DESCRIPTION OF PROCEDURE: Time out was performed by the procedure team and the patient. The patient was positively identified using name and date of . The procedure site was marked. Vital signs monitoring was accomplished by noninvasive hemodynamic monitoring, pulse oximetry, and telemetry. In the seated position, the left posterior hemithorax was examined using ultrasound probe. The diaph ragm and pleural fluid was easily identified. The skin was prepped and draped in usual sterile fashi on and anesthetized with 1% lidocaine without epinephrine. A finder needle was inserted in the pleur al space with return of cloudy astrid-colored fluid. A pleural drainage catheter was then inserted in the same location, a total quantity of 400 mL of pleural fluid was withdrawn by syringe pump techniqu e. A sample was sent for analysis. Evacuation of fluid was terminated because negative intrathoraci c pressure is -20 cm of water. At that time, the fluid stopped coming. The intact catheter was with drawn on exhalation and a sterile dressing was applied. The patient had stable vital throughout the entire procedure. ESTIMATED BLOOD LOSS: 2 mL. COMPLICATIONS: None.
[2017-02-21 11:20] VITALS: BMI 19.7
--- NOTE | 2017-02-21 12:01 | CT ---
CT CHEST WITH CONTRAST: Technique: Multiple axial tomograms were obtained through the chest with IV enhancement. History: Pleural effusion. Shortness of breath. FINDINGS: There is cardiomegaly. Evidence of mild vascular engorgement. Interstitial prominence is seen bilater ally which may represent mild interstitial edema. There is confluent edema and/or infiltrate in the l abel bases bilaterally. There are small bilateral effusions and there is bibasilar atelectasis. There is a 1.3 cm nodule in the mid right upper lobe which is concerning for neoplasm. Nonspecific mediastinal and hilar lymph nodes without definite abnormalities. Thoracic aorta shows at herosclerotic calcification. No dissection or aneurysm. Images through the upper abdomen are unremark able. IMPRESSION: 1. Cardiomegaly with evidence of mild vascular and interstitial congestion suggesting mild diffuse in terstitial edema. 2. Alveolar opacities in both lung bases which is slightly more pronounced on the right, worrisome fo r superimposed inflammatory infiltrate. 3. Small bilateral effusions and bibasilar atelectasis. 4. A 1.3 cm nodule in the mid right upper lobe which is concerning for neoplasm. Recommend follow up PET scan to assess activity within this mass. Code T POS: FATOU
[2017-02-21] MEDS ORDERED: ISOVUE-370 76%-LOCM 1 ML ONE (13:08)
--- NOTE | 2017-02-21 14:03 | PDOC.CTH ---
Cardiology Progress Note - Subjective The pt seen and examined. No overnight events. No cardiac complaints. - Objective Vital Signs Temp Pulse Pulse Pulse Resp BP BP 02/21/17 11:47 98.5 F 85 20 02/21/17 09:42 80 170/91 H 02/21/17 08:54 104 H 101 H 146/78 H 02/21/17 08:18 80 14 02/21/17 08:00 98.5 F 80 14 02/21/17 07:18 98 F 73 16 02/21/17 05:30 02/21/17 03:38 98.6 F 90 22 H BP BP Pulse Ox 02/21/17 11:47 135/71 98 02/21/17 09:42 02/21/17 08:54 184/87 H 02/21/17 08:18 02/21/17 08:00 170/91 H 98 02/21/17 07:18 130/58 L 99 02/21/17 05:30 96 02/21/17 03:38 172/104 H 94 L Admit Weight 101 lb 8 oz Weight 111 lb 4.8 oz 02/20/17 02/21/17 02/22/17 06:59 06:59 06:59 Intake Total 2410 3216 4 Balance 2410 3216 4 - Physical Examination General/Neuro: alert & oriented x3 Neck: no JVD present Lungs: other: (coases and diminished at bases) Heart: other: (irregular) Extremities: other: (No edemas) - Telemetry Telemetry Rhythm: afib HR 70-80s - Labs Result Diagrams: 02/21/17 09:43 02/21/17 03:55 Troponin/CKMB CK-MB (CK-2) 0.8 ng/mL (0-6.6) 02/07/17 02:02 Troponin I 0.044 ng/mL (< 0.028) H 02/07/17 02:02 - Assessment/Plan 1. Acute CVA in left MCA territory, likely embolic event 2ndary to hx of Afib - Coumadin to keep INR 2.0-3.0; managed by PCP. INR 2.9 today; managed by PCP 2. Paroxysmal Afib with RVR - Recurrent Afib with RVR on 02/13/17 and 02/16/17; Rate well controlled with Diltiazem 90mg TID and Digoxin 0.25mg QD; EP discussed with the pt for possible pacemaker and AVJ ablation to control the rate vs medical treatment. At this moment, the pt refused to have PM placement ; cont. monitor on tele. 3. Plural effusion - S/p Thoracentesis with 400ml output for increased WBC; cont. monitor 3. HTN - stable with current medication 4. Dysphagia - improved and on pureed Diet; 5. COPD - cont. monitor. Prob. not a good candidate for betablockers but may need to try to control the rate. She was on Sotalol on her last d/c. 6. Tobacco Abuse - Smoking cessation education given 7. Hypokalemia - Covered by PCP MAR reviewed Review of Systems - Review of Systems Constitutional: reports: no symptoms reported EENTM: reports: no symptoms reported Respiratory: reports: no symptoms reported Cardiac (ROS): reports: no symptoms reported ABD/GI: reports: no symptoms reported : reports: no symptoms reported Musculoskeletal: reports: no symptoms reported
[2017-02-21] MEDS: Warfarin Sodium 3 MG TAB PO SCH (17:32)
--- NOTE | 2017-02-21 18:17 | PRG ---
DATE OF SERVICE: 02/21/2017 SERVICE: Pulmonary Medicine. INTERVAL HISTORY: The patient is doing fine from a respiratory standpoint. She denies any current f bebo, chills, nausea, vomiting or diarrhea. She is breathing comfortably. She does not have much o f a cough or rattle. She is tolerating p.o. PHYSICAL EXAMINATION: VITAL SIGNS: Afebrile, pulse 79, blood pressure 139/72, respirations 20, saturation 99% on 2 liters nasal cannula. GENERAL: The patient is awake, alert, in no apparent distress. LUNGS: Excellent air entry. There is no prolonged expiratory phase or wheezing. Rhonchi are presen t but very small. HEART: Normal rate, regular. ABDOMEN: Soft, nontender, nondistended, bowel sounds positive. MUSCULOSKELETAL: No cyanosis or clubbing. No pitting in the bilateral lower extremities. NEUROLOGIC: Grossly nonfocal. LABORATORY DATA: WBC 19.8, hemoglobin 12.3, platelets 476,000. The peripheral smear is currently pe nding. BUN 24. Creatinine 1.02. Sodium 146 and is improving. Potassium 3.0. Body fluid is consis tent with a transudate. A pH is 7.5. Fungal smear and syphilis is unremarkable. All culture result s are negative to date. IMAGING: CT of the chest demonstrates bibasilar infiltrates, which are in the dependent region, sugg estive of ongoing aspiration related diseases. There is ground glass opacification throughout this e ntire region. There is very small bilateral pleural effusions that are evident. Previously, left on e was tapped and demonstrated the transudate. A small pulmonary nodules present. This could be read dressed if she survives 3 months. ASSESSMENT: 1. Acute hypoxic respiratory failure. 2. Chronic obstructive pulmonary disease with acute exacerbation, resolved. 3. Healthcare-associated pneumonia, status post full course of antibiotics. 4. Pleural effusion, transudate on the left. 5. Oropharyngeal dysphasia, improving. 6. 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 7. Atrial fibrillation. 8. Pulmonary nodule. PLAN: The leukocytosis is confusing. She has actually gotten rid of all of her other findings consi stent with any systemic inflammatory response. I went back and looked at her white blood cell count 3 times. On her initial presentation, it was elevated. It has been elevated essentially the entire time she has been here except for a brief period of time in which she developed severe sepsis. Perha ps she has a chronic leukocytosis. A peripheral smear will be obtained. The pulmonary nodule be sue ddressed in 3 to 6 months in the outpatient setting if she has enough functional status to warrant an y type of therapy for a possible malignant process. I will continue to follow while she remains in h ouse, but truth be told, she should be approaching discharge soon.
[2017-02-21] MEDS: Atorvastatin Calcium 20 MG TAB PO SCH (20:48)
[2017-02-22 06:21] LABS: #Basophils 0.1 thou/uL (0.0-0.2); #Eosinphils 0.1 thou/uL (0.0-0.7); #Lymphocytes 1.3 thou/uL (1.20-3.40); #Monocytes 1.3 thou/uL (0.11-0.59); #Neutrophils 15.7 thou/uL (1.40-6.50); %Basophils 0.4 % (0.0-1.0); %Eosinophils 0.5 % (0.0-10.0); %Lymphocytes 7.1 % (21.0-51.0); %Monocytes 6.8 % (0.0-10.0); Hematocrit 37.3 % (36.0-47.0); Mean Platelet Volume 6.9 fL (7.4-10.4); Red Blood Cell (RBC) Count 3.85 mill/uL (4.20-5.40); White Blood Cell (WBC) Count 18.4 thou/uL (4.8-10.8)
[2017-02-22 06:22] LABS: Prothrombin Time 27.7 SEC (12.0-14.7)
[2017-02-22 06:27] LABS: Anion Gap 11 mmol/L (10-20); BUN (Urea Nitrogen) 25 mg/dL (9.8-20.1); Calc. Creatinine Clearance 37 mL/min (70-130); Calcium 9.3 mg/dL (7.8-10.44); Carbon Dioxide 32 mmol/L (23-31); Chloride 105 mmol/L (98-107); Estimated GFR-MDRD 53
[2017-02-22] MEDS: Diltiazem HCl SR 90 mg Capsule PO SCH ×2 (09:32→16:04)
[2017-02-22] MEDS: Pantoprazole 40 MG VIAL IVP SCH (09:32)
[2017-02-22] MEDS: Lisinopril 10 MG TAB PO SCH (09:33)
[2017-02-22] MEDS: Dextrose 5% in Water 1,000 ML IV SCH (09:33)
[2017-02-22] MEDS: Digoxin 0.25 MG TAB PO SCH (09:33)
--- NOTE | 2017-02-22 09:38 | PDOC.PN ---
- Subjective Encounter Start Date: 02/22/17 Encounter Start Time: 09:35 Subjective: aphasic, no distress - Objective Resuscitation Status: Resuscitation Status FULL:Full Resuscitation MAR Reviewed: Yes Vital Signs & Weight: Vital Signs (12 hours) Temp Pulse Resp BP Pulse Ox 02/22/17 07:15 98.6 F 85 16 142/85 H 98 02/22/17 06:20 84 14 97 02/22/17 03:15 98.4 F 86 16 163/94 H 99 02/21/17 23:42 98.4 F 77 20 140/78 99 Weight Admit Weight 101 lb 8 oz Weight 103 lb 4.8 oz Most Recent Monitor Data Heart Rate from ECG 62 NIBP 134/57 NIBP BP-Mean 89 Respiration from ECG 18 SpO2 98 I&O: 02/21/17 02/22/17 02/23/17 06:59 06:59 06:59 Intake Total 3216 194 Balance 3216 1948 Result Diagrams: 02/22/17 05:52 02/22/17 05:52 Phys Exam - Physical Examination Constitutional: NAD Neck: no JVD Respiratory: clear to auscultation bilateral Cardiovascular: RRR 2/6 sys murmur Gastrointestinal: soft, positive bowel sounds Musculoskeletal: no edema aphasia, R hemiplegia Dx/Plan (1) Acute CVA (cerebrovascular accident) Code(s): I63.9 - CEREBRAL INFARCTION, UNSPECIFIED Status: Acute (2) Acute ischemic left MCA stroke Code(s): I63.512 - CEREB INFRC D/T UNSP OCCLS OR STENOS OF LEFT MID CEREB ART Status: Acute (3) Acute respiratory failure with hypoxia Code(s): J96.01 - ACUTE RESPIRATORY FAILURE WITH HYPOXIA Status: Resolved (4) Atrial fibrillation with RVR Code(s): I48.91 - UNSPECIFIED ATRIAL FIBRILLATION Status: Chronic Comment: Digoxin d/c'd, continue Cardizem 60mg TID, current SR (5) Demand ischemia of myocardium Code(s): I24.8 - OTHER FORMS OF ACUTE ISCHEMIC HEART DISEASE Status: Acute (6) Healthcare associated bacterial pneumonia Code(s): J15.9 - UNSPECIFIED BACTERIAL PNEUMONIA Status: Acute Comment: LLL involvement, likely gm + cocci, continue Zosyn and Vancomycin, pulmonary support (7) Oropharyngeal dysphagia Code(s): R13.12 - DYSPHAGIA, OROPHARYNGEAL PHASE Status: Acute Comment: DRY KILN BURNER not recommending po intake currently, likely will need PEG placement however, pt not interested in PEG and may temporize with Dobhoff if unable to safely take po (8) HTN (hypertension) Code(s): I10 - ESSENTIAL (PRIMARY) HYPERTENSION Status: Chronic Qualifiers: Hypertension type: essential hypertension Qualified Code(s): I10 - Essential (primary) hypertension (9) Moderate tricuspid regurgitation Code(s): I07.1 - RHEUMATIC TRICUSPID INSUFFICIENCY Status: Chronic (10) Tobacco abuse Code(s): Z72.0 - TOBACCO USE Status: Chronic Comment: Tobacco cessation (11) COPD exacerbation Code(s): J44.1 - CHRONIC OBSTRUCTIVE PULMONARY DISEASE W (ACUTE) EXACERBATION Status: Acute (12) Pleural effusion associated with pulmonary infection Code(s): J18.9 - PNEUMONIA, UNSPECIFIED ORGANISM; J91.8 - PLEURAL EFFUSION IN OTHER CONDITIONS CLASSIFIED ELSEWHERE Status: Acute (13) Leukocytosis Code(s): D72.829 - ELEVATED WHITE BLOOD CELL COUNT, UNSPECIFIED Status: Acute - Plan patient has reached stable situation, DC planning , cont current tx * .
--- NOTE | 2017-02-22 10:53 | PRG ---
DATE OF SERVICE: 02/22/2017 SERVICE: Pulmonary Medicine INTERVAL HISTORY: The patient is doing great respiratory standpoint. She is breathing comfortably. She has no cough or sputum production. There were no fevers or chills. She had no overnight events . PHYSICAL EXAMINATION: VITAL SIGNS: Afebrile currently. Pulse 85, blood pressure 150/94, respirations 16, saturation 98% o n 3 liters nasal cannula. GENERAL: The patient is awake, alert, no apparent distress. LUNGS: Excellent air entry. There is no prolonged expiratory phase. I do not appreciate wheezing, rhonchi or crackles. HEART: Normal rate, regular. ABDOMEN: Soft, nontender, nondistended. Bowel sounds positive. MUSCULOSKELETAL: No cyanosis or clubbing. No pitting in the bilateral lower extremities. LABORATORY DATA: WBC 18.4, hemoglobin 11.8, platelets 468,000. Pathology smear demonstrates nothing that appears to be neoplastic. INR 2.5. Sodium 144. Basic met abolic profile is essentially unremarkable otherwise. Creatinine stable at 1.02. Culture results fr om the pleural fluid is negative to date. ASSESSMENT: 1. Acute hypoxic respiratory failure. 2. Chronic obstructive pulmonary disease with acute exacerbation, resolved. 3. Healthcare-associated pneumonia, status post full course of antibiotics. 4. Pleural effusion, transudate on the left. 5. Oropharyngeal dysphagia, improving. 6. Cerebrovascular accident of the left middle cerebral artery, resulting in hemiparesis. 7. Atrial fibrillation. 8. Pulmonary nodule. 9. Leukocytosis. PLAN: The elevated white blood cell count is intriguing. It was present on the last admission as we ll as this admission. It is not clear to me what this represents, but she has been stable off antibi otics for several days at this point. We will continue to monitor for signs of increasing inflammati on and if present, panculture and CT of abdomen and pelvis will be considered. She will continue wor vicki with physical therapy. I will give her another dose of potassium today.
[2017-02-22] MEDS ORDERED: Lisinopril 10 MG TAB PO SCH (12:15)
--- NOTE | 2017-02-22 12:18 | PDOC.CTH ---
<Mariola Velarde - Last Filed: 02/22/17 12:16> Cardiology Progress Note - Subjective The pt seen and examined. No overnight events. No cardiac complaints. The pt is taking liquid med without difficulties. - Objective Vital Signs Temp Pulse Pulse Pulse Resp BP BP 02/22/17 11:27 86 12 02/22/17 11:00 98.2 F 87 18 02/22/17 09:33 85 158/94 H 02/22/17 08:46 84 84 158/94 H 02/22/17 07:15 98.6 F 85 16 02/22/17 06:20 84 14 02/22/17 03:15 98.4 F 86 16 BP BP Pulse Ox 02/22/17 11:27 97 02/22/17 11:00 167/83 H 99 02/22/17 09:33 02/22/17 08:46 175/96 H 02/22/17 07:15 142/85 H 98 02/22/17 06:20 97 02/22/17 03:15 163/94 H 99 Admit Weight 101 lb 8 oz Weight 103 lb 4.8 oz 02/21/17 02/22/17 02/23/17 06:59 06:59 06:59 Intake Total 3216 1949 Balance 3216 1949 - Physical Examination General/Neuro: alert & oriented x3 Neck: no JVD present Lungs: other: (diminished at bases Rt> LT; still on 3LNC) Heart: other: (irregular) Abdomen: soft Extremities: other: (No edemas) - Telemetry Telemetry Rhythm: Afib - Labs Result Diagrams: 02/22/17 05:52 02/22/17 05:52 Troponin/CKMB CK-MB (CK-2) 0.8 ng/mL (0-6.6) 02/07/17 02:02 Troponin I 0.044 ng/mL (< 0.028) H 02/07/17 02:02 - Assessment/Plan 1. Acute CVA in left MCA territory, likely embolic event 2ndary to hx of Afib - Coumadin to keep INR 2.0-3.0; managed by PCP. INR 2.5 today; managed by PCP 2. Paroxysmal Afib with RVR - Recurrent Afib with RVR on 02/13/17 and 02/16/17; Rate well controlled with Diltiazem 90mg TID and Digoxin 0.25mg QD; EP discussed with the pt for possible pacemaker and AVJ ablation to control the rate vs medical treatment. Today, the pt still refused to have PM placement; cont. monitor on tele. 3. Plural effusion - S/p Thoracentesis with 400ml output for increased WBC; cont. monitor 3. HTN - Lisinopril was increased from 10mg to 20mg daily; cont. monitor 4. Dysphagia - improved and on pureed Diet; 5. COPD - cont. monitor. Prob. not a good candidate for betablockers but may need to try to control the rate. She was on Sotalol on her last d/c. 6. Tobacco Abuse - Smoking cessation education given 7. Hypokalemia - Covered by PCP MAR reviewed Review of Systems - Review of Systems Constitutional: reports: no symptoms reported EENTM: reports: no symptoms reported Respiratory: reports: no symptoms reported Cardiac (ROS): reports: no symptoms reported ABD/GI: reports: no symptoms reported : reports: no symptoms reported Musculoskeletal: reports: no symptoms reported Skin: reports: no symptoms reported Neurological: reports: no symptoms reported <Angela Dickerson - Last Filed: 02/22/17 18:46> Cardiology Progress Note - Objective Vital Signs Temp Pulse Pulse Pulse Resp BP BP 02/22/17 15:15 98.8 F 67 16 02/22/17 11:27 86 12 02/22/17 11:00 98.2 F 87 18 02/22/17 09:33 85 158/94 H 02/22/17 08:46 84 84 158/94 H 02/22/17 08:00 98.2 F 86 12 02/22/17 07:15 98.6 F 85 16 BP BP Pulse Ox 02/22/17 15:15 135/80 99 02/22/17 11:27 97 02/22/17 11:00 167/83 H 99 02/22/17 09:33 02/22/17 08:46 175/96 H 02/22/17 08:00 02/22/17 07:15 142/85 H 98 Admit Weight 101 lb 8 oz Weight 103 lb 4.8 oz 02/21/17 02/22/17 02/23/17 06:59 06:59 06:59 Intake Total 3216 1949 700 Balance 3216 1949 700 - Labs Result Diagrams: 02/22/17 05:52 02/22/17 05:52 Troponin/CKMB CK-MB (CK-2) 0.8 ng/mL (0-6.6) 02/07/17 02:02 Troponin I 0.044 ng/mL (< 0.028) H 02/07/17 02:02 - Assessment/Plan Pt. seen and eval. by me. i agree with the A/P by the SERVICE DESK LEAD. Pt. will be going to rehab. F/U with me in 2-4 weeks if possible.
--- NOTE | 2017-02-22 14:11 | DIS ---
DATE OF ADMISSION: 02/02/2017 DATE OF DISCHARGE: 02/22/2017 DISCHARGE DISPOSITION: Discharged to [facility]. PRIMARY CARE PROVIDER: Jennifer cruz. FINAL DIAGNOSES: 1. Acute embolic cerebrovascular accident with left middle cerebral artery territory involvement, de nse right hemiplegia, aphasia, and some dysphagia. 2. Atrial fibrillation with rapid ventricular response. 3. Chronic obstructive pulmonary disease exacerbation. 4. Demand ischemia of myocardium. 5. Pneumonia. 6. Persistent leukocytosis. 7. Pleural effusion post-thoracentesis, transudate. 8. Hypertension. 9. Tobacco abuse. 10. Acute respiratory failure with hypoxia. DISCHARGE MEDICATIONS: Lisinopril 30 mg a day, DuoNeb 3 mL q.6h, Cardizem 90 mg p.o. t.i.d., digoxin 0.25 mg a day, Dulcolax 10 mg q.24 hours p.r.n. p.r, Lipitor 20 mg a day, aspirin 81 mg a day, pancr esther DR 12,000 as directed. CODE STATUS: FULL. PENDING AT DISCHARGE: Nothing. ALLERGIES: No known drug allergies. DIET: Heart healthy with supplements. HOSPITAL COURSE: The patient admitted to the [facility] through [facility] with acute onset of left middle cerebral artery stroke, atrial fibrillation with rapid maureen tricular response. She was found not to be a candidate for TPA. She was found to have a subtherapeu tic INR. She was treated transiently with IV diltiazem. Her blood pressure was elevated and she was placed on a Cardizem drip also. Because of chronic obstructive pulmonary disease, nebulizer therapy was started. Initial studies included an echocardiogram, EF 50%-55%, atrial fibrillation. CT angio graphy revealed completed infarction of left middle cerebral artery with patent vertebral arteries. Brain CT consistent with the CT angiography with the obviously visible stroke. Head and neck CTA con sistent with the CT angiography. Carotid Doppler study revealed no stenosis of the internal carotid arteries. A consultation with Dr. Sandeep Armstrong was obtained on 02/03/2017, it was anticoagulation wi th aspirin. On 02/03/2017, Dr. Genaro Gary was consulted. Coumadin was increased and Cardizem was continued. Brain MRI was done on 02/04/2017, revealed the infarct with some minor bleeding. Ca rdizem, Lovenox, increased doses of Coumadin were continued. On 02/06/2017, chest x-ray was obtained . NG tube was in the appropriate location. Repeat was done the following day which suggested possib le pneumonia in the left base. She was started on antibiotics. On 02/07/2017, she had some respirat ory distress. Dr. Aaron Brooks was called. She was moved to ICU, received BiPAP. A PEG tube was recommended during her hospital stay and she declined. She is currently tolerating a diet. She was fed through an NG-tube a significant period of time until it was removed. A thoracentesis was done b y Dr. Brooks which revealed only a transudate. Modified barium swallow revealed penetration with fr ank aspiration. A PEG tube was still refused Dr. Brooks did the thoracentesis on 02/21/2017. The p atient had a consistently elevated white count of 20,000. Her pulmonary nodule needs to be addressed with a followup CT in 3-6 months. She is currently plateaued and is on no IV therapy, etc. She has been accepted by rehabilitation and being discharged to rehabilitation where she will be followed up there. She will need her PT/INR monitored. Her PT/INR has been between 2.5 and 3 for the past week which is excellent on anticoagulation, most recent number is 2.5. As mentioned before, she has had a white cell count of 20,000 plus/minus her entire stay, all of which exhibited an absolute neutrophi sean, hemoglobin has been 11+ or minus during her stay. Her current chemistries were sodium 144, pota ssium 3.6, chloride 105, CO2 of 32, BUN 25, creatinine 1. Blood sugars were in the 110-130 range. A ll cultures of urine, blood, and body fluids are negative. The acid fast culture is pending, but no acid fast bacilli were seen on concentrated spectrum. Followup will be at the rehabilitation center. She is of course at high risk for further complications as she has declined a PEG tube despite pene tration and aspiration. Her long-term prognosis is poor. Forty-five minutes spent preparing this discharge.
[2017-02-22 16:04] VITALS: BP 135/80; TEMP 98.8
[2017-02-22] MEDS: Warfarin Sodium 3 MG TAB PO SCH (16:09)
[2017-02-23] MEDS ORDERED: Lisinopril 20 MG TAB PO SCH (09:00)
== END 2017-02-22 18:10 | DRG 64 ==
LOC: ERS 13:03 → 2SE 14:30 → CCU 02-07 02:09 → IMCU/EMU 02-08 19:24 → 2SE 02-11 17:47
PROVIDERS: ADMIT Internal Medicine; ATTEND Internal Medicine
PROC: 5A09357 Assistance with Respiratory Ventilation, Less than 24 Consecutive Hours, Continuous Positive Airway Pressure (ICD-10-PCS; principal; 2017-02-02)
PROC: 0W9B30Z Drainage of Left Pleural Cavity with Drainage Device, Percutaneous Approach (ICD-10-PCS; 2017-02-21)
DX: I63.412 Cerebral infarction due to embolism of left middle cerebral artery (principal); J96.01 Acute respiratory failure with hypoxia; J18.9 Pneumonia, unspecified organism; J91.8 Pleural effusion in other conditions classified elsewhere; E44.0 Moderate protein-calorie malnutrition; J96.02 Acute respiratory failure with hypercapnia; D68.32 Hemorrhagic disorder due to extrinsic circulating anticoagulants; I24.8 Other forms of acute ischemic heart disease; J44.0 Chronic obstructive pulmonary disease with (acute) lower respiratory infection; J44.1 Chronic obstructive pulmonary disease with (acute) exacerbation; G81.01 Flaccid hemiplegia affecting right dominant side; Z68.1 Body mass index [BMI] 19.9 or less, adult; R13.12 Dysphagia, oropharyngeal phase; I48.0 Paroxysmal atrial fibrillation; R47.01 Aphasia; F17.210 Nicotine dependence, cigarettes, uncomplicated; K21.9 Gastro-esophageal reflux disease without esophagitis; I16.0 Hypertensive urgency; Y95 Nosocomial condition; R91.1 Solitary pulmonary nodule; Z79.01 Long term (current) use of anticoagulants; T45.515A Adverse effect of anticoagulants, initial encounter; E87.6 Hypokalemia; I07.1 Rheumatic tricuspid insufficiency; F10.20 Alcohol dependence, uncomplicated
CPT/HCPCS: 0042T; 36415; 36416; 70450; 70496; 70498; 70551; 71010; 71020; 71260; 74000; 74230; 80048; 80053; 80061; 80162; 80202; 81001; 81003; 81015; 82550; 82553; 82805; 82945; 83615; 83735; 83986; 84100; 84157; 84484; 85014; 85018; 85025; 85049; 85060; 85610; 85730; 86780; 87040; 87070; 87086; 87116; 87205; 87206; 88112; 88305; 88341; 88342; 89051; 93005; 93306; 93880; 94640; 94660; 94667; 94668; 96365; 96375; A4216; A4353; C9113; G8978-GP-CM; G8979-GP-CK; G8979-GP-CL; G8987-GO-CL; G8987-GO-CM; G8988-GO-CJ; G8996-GN-CK; G8996-GN-CL; G8996-GN-CM; G8996-GN-CN; G8997-GN-CJ; G8997-GN-CK; G8997-GN-CL; J0696; J1160; J1650; J1940; J2543; J3370; J3475; J3480; J7050; J7506; J7620